=== PATIENT | female | born 2000 | race Caucasian/White ===

== ENCOUNTER 2019-07-04 18:24 | Inpatient (IN) | payer SELFPAY ==
--- OUTSIDE RECORDS SUMMARY | 2019-07-04 18:26 | XMS REPORT ---
:2000 Author Organization [facility] Address [address] [place] [address] Care Team Providers Name Role Phone Unavailable Unavailable Unavailable Payers Payer Name Policy Type Policy Number Effective Date Expiration Date Problems This patient has no known problems. Allergies, Adverse Reactions, Alerts Allergy Allergy Status Severity Reaction(s) Onset Inactive Treating Comments Name Type Date Date Clinician latex DA Active MO 2018-04 00:00:0 0 latex DA Active MO 2018-03 00:00:0 0 Medications This patient has no known medications. Results Test Description Test Time Test Comments Text Results Atomic Results Result Comments [facility] 2018-05-17 RUN THIRD 13:07:00 DATE: 05/17/18 [facility] PAGE 1 RUN TIME: TRIMESTER 1810 Specimen Inquiry RUN USER: INTERFACE PATIE NT: JULIA KEENE LOC: BETI U #: [id number] AGE/SX: 18/F ROOM: [facility] REREG DR: Jhon Cuevas MD : [birth year] BED: A DIS: 05/15/18 STATUS: DIS IN TLOC: SPEC #: [id number] RECD: 05/11/18-0755 STATUS: DELROY RE #: [id number] MATI: 05/11/18- SUBM DR: Jhon Cuevas MD ENTERED: 05/12/18-0756 SP TYPE: PLACIII OTHR DR: ORDERED: LEVEL V SURGICA CODES: [id number] - PLACENTA, NOS PROCEDURES: LEVEL V SURGICA (Incomplete) TISSUES: PLACENTA, NOS - PLACENTA CLINICAL HISTORY 18 year old, 37 weeks, IDDM (derik) FINAL DIAGNOSIS Placenta, estrada gestation: - late third trimester villous architecture - lozalized areas with villous edema near basal plate - umbilical cord: hypercoiled, velamentous insertion, 3-vessel, 17 cm length - placental weight: actual 491 gm/expected mean weight 478 gm Tissue code: 1 CPT Code: 82131 [facility]/kr 05/17/18 @ 1255 GROSS DESCRIPTION The specimen was received in a container labeled with the patient's name, unit number, and designated "placenta". The following attributes are observed: Cord insertion: Velamentous umbilical cord inserts into the membrane, 2 cm from the placental margin Cord length: 17 cm Number of vessels: 3 Cord color: Blue-mcintosh Other cord findings: Increased twists, 10 twists / 10 cm surface findings: Steel blue, wrinkled, glistening and contains small pieces of off-white, caseous material (in A) Vasculature: Displays unremarkable blood vasculature Membranes rupture site: 0 cm to margin Membrane color: Mcintosh Other membrane findings: Thickened opaque CONTINUED ON NEXT PAGE RUN DATE: 05/17/18 [facility] PAGE 2 RUN TIME: 1809 Specimen Inquiry RUN USER: INTERFACE SPEC #: [id number] PATIENT: JULIA KEENE # [id number] (Continued) ------ GROSS DESCRIPTION (Continued) The trimmed placental weight: 491 gm Disk measurement: 19 x 17 x 3.2 cm in greatest dimension Accessory lobes: None Maternal surface: Lobulated and intact Parenchyma: Red, beefy, and spongy Parenchyma lesions: None Cassettes: A through D sally/kr 05/12/18 @ 1043 MICROSCOPIC DESCRIPTION Villous architecture is late third trimester. A few areas of villous edema are present near the basal plate. anabelle/kr 05/17/18 @ 1255 Signed Jewel Salmeron 10 1307 END OF REPORT
--- NOTE | 2019-07-04 20:08 | EDPHYS ---
Physician Documentation [facility] Name: Oswald Peters Age: 19 yrs Sex: Female : 2000 Arrival Date: 07/04/2019 Time: 18:26 Bed 27 Private MD: ED Physician Collin Sotelo HPI: 07/04 19:53 This 19 yrs old Female presents to ER via Ambulatory with complaints of Back meet Pain, Dizziness. 19:53 The patient presents with pain that is acute. The symptoms are located in the left low meet back, left mid back, right mid back and right low back. Onset: The symptoms/episode began/occurred 2 day(s) ago. The pain does not radiate. Associated signs and symptoms: The patient has no apparent associated signs or symptoms. The problem was sustained from unknown cause. Modifying factors: The patient symptoms are alleviated by nothing, the patient symptoms are aggravated by movement, walking. Severity of symptoms: At their worst the symptoms were moderate, in the emergency department the symptoms are unchanged. The patient has experienced similar episodes in the past, a few times. 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 - Social history:: Smoking status: Patient uses tobacco products, smokes one-half pack cigarettes per day. - Ebola Screening: : No symptoms or risks identified at this time. - Family history:: not pertinent. ROS: 19:53 Constitutional: Negative for fever, chills, and weight loss, Eyes: Negative for injury, meet pain, redness, and discharge, ENT: Negative for injury, pain, and discharge, Neck: Negative for injury, pain, and swelling, Respiratory: Negative for shortness of breath, cough, wheezing, and pleuritic chest pain, Abdomen/GI: Negative for abdominal pain, nausea, vomiting, diarrhea, and constipation, MS/Extremity: Negative for injury and deformity, Skin: Negative for injury, rash, and discoloration, Neuro: Negative for headache, weakness, numbness, tingling, and seizure, Psych: Negative for depression, anxiety, suicide ideation, homicidal ideation, and hallucinations, Allergy/Immunology: Negative for hives, rash, and allergies, Endocrine: Negative for neck swelling, polydipsia, polyuria, polyphagia, and marked weight changes, Hematologic/Lymphatic: Negative for swollen nodes, abnormal bleeding, and unusual bruising. 19:53 Cardiovascular: Positive for palpitations. 19:53 Back: Positive for decreased range of motion, pain at rest, pain with movement, flank pain, bilaterally. Exam: 19:53 Head/Face: Normocephalic, atraumatic. Eyes: Pupils equal round and reactive to light, meet extra-ocular motions intact. Lids and lashes normal. Conjunctiva and sclera are non-icteric and not injected. Cornea within normal limits. Periorbital areas with no swelling, redness, or edema. ENT: Nares patent. No nasal discharge, no septal abnormalities noted. Tympanic membranes are normal and external auditory canals are clear. Oropharynx with no redness, swelling, or masses, exudates, or evidence of obstruction, uvula midline. Mucous membranes moist. Neck: Trachea midline, no thyromegaly or masses palpated, and no cervical lymphadenopathy. Supple, full range of motion without nuchal rigidity, or vertebral point tenderness. No Meningismus. Chest/axilla: Normal chest wall appearance and motion. Nontender with no deformity. No lesions are appreciated. Respiratory: Lungs have equal breath sounds bilaterally, clear to auscultation and percussion. No rales, rhonchi or wheezes noted. No increased work of breathing, no retractions or nasal flaring. Abdomen/GI: Soft, non-tender, with normal bowel sounds. No distension or tympany. No guarding or rebound. No evidence of tenderness throughout. Female : Normal external genitalia. Skin: Warm, dry with normal turgor. Normal color with no rashes, no lesions, and no evidence of cellulitis. MS/ Extremity: Pulses equal, no cyanosis. Neurovascular intact. Full, normal range of motion. Neuro: Awake and alert, GCS 15, oriented to person, place, time, and situation. Cranial nerves II-XII grossly intact. Motor strength 5/5 in all extremities. Sensory grossly intact. Cerebellar exam normal. Normal gait. Psych: Awake, alert, with orientation to person, place and time. Behavior, mood, and affect are within normal limits. 19:53 Constitutional: The patient appears in obvious distress, moderately distressed. 19:53 Cardiovascular: Rate: tachycardic, Rhythm: regular, Pulses: Pulses are 4+ in bilateral radial, brachial, femoral, popliteal, posterior tibial and and dorsalis pedis arteries.. Heart sounds: normal, normal S1and S2, no S3 or S4, no murmur, no rub, no gallop, Edema: is not appreciated, JVD: is not appreciated. Vital Signs: 18:36 BP 133 / 81; Pulse 130; Resp 20; Temp 99.2; Pulse Ox 100% on R/A; Weight 58.97 kg; hb Height 5 ft. 3 in. (160.02 cm); Pain 10/10; 21:20 BP 105 / 058; Pulse 92; Resp 17; Temp 99.7; Pulse Ox 100% ; Pain 8/10; fu 21:30 BP 101 / 64; Pulse 91; Resp 20; Temp 99.7; Pulse Ox 100% ; Pain 4/10; fu 22:00 BP 105 / 66; Pulse 95; Resp 24; Pulse Ox 100% ; Pain 8/10; fu 18:36 Body Mass Index 23.03 (58.97 kg, 160.02 cm) hb MDM: 18:57 Patient medically screened. [facility] 19:56 Data reviewed: vital signs, nurses notes, lab test result(s), EKG, radiologic studies, [facility] CT scan, plain films. 07/04 19:53 Order name: Basic Metabolic Panel; Complete Time: 21:04 [facility] 07/04 19:53 Order name: CBC with Diff; Complete Time: 20:27 [facility] 07/04 19:53 Order name: LFT's; Complete Time: 21:04 [facility] 07/04 19:53 Order name: Magnesium; Complete Time: 21:04 [facility] 07/04 19:53 Order name: Troponin (emerg Dept Use Only); Complete Time: 21:04 [facility] 07/04 19:53 Order name: Ketone, Serum; Complete Time: 21:04 [facility] 07/04 19:53 Order name: Blood Culture Adult (2) [facility] 07/04 19:53 Order name: ABG; Complete Time: 21:34 [facility] 07/04 19:53 Order name: Urine Culture [facility] 07/04 20:17 Order name: Urine Dipstick--Ancillary (enter results); Complete Time: 21:04 [facility] 07/04 20:17 Order name: Urine --Ancillary (enter results); Complete Time: 21:04 [facility] 07/04 20:42 Order name: Acetone Level EDMS 07/04 20:42 Order name: Acetone Level EDMS 07/04 20:42 Order name: Acetone Level EDMS 07/04 20:42 Order name: Acetone Level EDMS 07/04 20:42 Order name: Basic Metabolic Panel EDMS 07/04 20:42 Order name: Basic Metabolic Panel EDMS 07/04 20:42 Order name: Basic Metabolic Panel EDMS 07/04 20:42 Order name: Basic Metabolic Panel EDMS 07/04 20:42 Order name: Calcium Level EDMS 07/04 20:42 Order name: Calcium Level EDMS 07/04 20:42 Order name: Calcium Level EDMS 07/04 20:42 Order name: Calcium Level EDMS 07/04 20:42 Order name: Lipid Profile EDMS 07/04 20:42 Order name: Lipid Profile EDMS 07/04 20:42 Order name: Magnesium EDMS 07/04 20:42 Order name: Magnesium EDMS 07/04 20:43 Order name: CBC with Automated Diff EDMS 07/04 20:43 Order name: CBC with Automated Diff EDMS 07/04 20:43 Order name: CBC with Automated Diff EDMS 07/04 19:53 Order name: XRAY Chest (1 view); Complete Time: 20:27 [facility] 07/04 19:53 Order name: EKG; Complete Time: 19:54 [facility] 07/04 19:53 Order name: Cardiac monitoring; Complete Time: 21:10 [facility] 07/04 19:53 Order name: EKG - Nurse/Tech; Complete Time: 21:30 [facility] 07/04 19:53 Order name: IV Saline Lock; Complete Time: 21:30 [facility] 07/04 19:53 Order name: Labs collected and sent; Complete Time: 21:30 [facility] 07/04 19:53 Order name: O2 Per Protocol; Complete Time: 21:30 [facility] 07/04 19:53 Order name: O2 Sat Monitoring; Complete Time: 21:30 [facility] 07/04 19:53 Order name: CT Stone Protocol [facility] 07/04 19:53 Order name: Urine Dipstick-Ancillary (obtain specimen); Complete Time: 21:30 [facility] 07/04 20:43 Order name: CONS Pharmacy Consult EDPR 07/04 20:43 Order name: CBC with Automated Diff EDMS 07/04 20:43 Order name: Magnesium EDMS 07/04 20:43 Order name: Magnesium EDMS 07/04 20:43 Order name: Osmolality, Serum EDMS 07/04 20:43 Order name: Osmolality, Serum EDMS 07/04 20:43 Order name: Osmolality, Serum EDMS 07/04 20:43 Order name: Osmolality, Serum EDMS 07/04 20:43 Order name: Phosphorus EDMS 07/04 20:44 Order name: Phosphorus EDMS 07/04 20:44 Order name: Phosphorus EDMS 07/04 20:44 Order name: Phosphorus EDMS 07/04 21:14 Order name: Glucose, Ancillary Testing; Complete Time: 21:34 EDMS 07/04 22:22 Order name: Glucose, Ancillary Testing EDMS 07/04 19:53 Order name: Urine Test (obtain specimen); Complete Time: 21:29 [facility] Administered Medications: 20:35 Drug: Rocephin 1 grams Route: IV; Rate: per protocol; Site: left antecubital; fu 20:35 Drug: Pepcid 20 mg Route: IVP; Site: left antecubital; fu 20:36 Drug: NS 0.9% 1000 ml Route: IV; Rate: 1 bolus; Site: left antecubital; fu 20:36 Drug: morphine 2 mg Route: IVP; Site: left antecubital; fu 20:36 Drug: Zofran 4 mg Route: IVP; Site: left antecubital; fu 21:00 Drug: Insulin Drip - (Insulin Regular Human 100 units, NS 0.9% 100 ml) {Co-Signature: aj1 (Alexa Morrissey RN).} Route: IV; Rate: 5 units/hr; Site: left antecubital; 21:29 Drug: NS 0.9% 1000 ml Route: IV; Rate: 1 bolus; Site: left antecubital; fu 21:29 Drug: NS 0.9% 1000 ml Route: IV; Rate: 125 ml/hr; Site: left antecubital; fu 21:45 Drug: morphine 2 mg Route: IVP; Site: left antecubital; fu Disposition: 07/04/19 20:06 Hospitalization ordered by Corinna Pope for Inpatient Admission. Preliminary diagnosis are Type 1 diabetes mellitus, Weakness, Low back pain, Dysuria, Diabetes mellitus due to underlying condition with ketoacidosis without coma. - Bed requested for Intensive Care Unit. - Status is Inpatient Admission. ss - Condition is Fair. - Problem is new. - Symptoms have improved. UTI on Admission? No Signatures: Dispatcher [employer] EDMS Collin Sotelo MD MD cha Smirch, Shelby, RN RN Cristin Darling RN RN cg Elsa Gage RN RN Pipe Young RN RN fu Alexa Morrissey RN aj1 Corrections: (The following items were deleted from the chart) 20:28 20:06 Hospitalization Ordered by Corinna Pope MD for Inpatient Admission. Preliminary [facility] diagnosis is Type 1 diabetes mellitus; Weakness; Low back pain; Dysuria. Bed requested for Telemetry/MedSurg (Inpatient). Status is Inpatient Admission. Condition is Fair. Problem is new. Symptoms have improved. UTI on Admission? No. meet 20:49 20:28 07/04/2019 20:06 Hospitalization Ordered by Corinna Pope MD for Inpatient meet Admission. Preliminary diagnosis is Type 1 diabetes mellitus; Weakness; Low back pain; Dysuria. Bed requested for Intensive Care Unit. Status is Inpatient Admission. Condition is Fair. Problem is new. Symptoms have improved. UTI on Admission? No. meet 21:16 20:49 07/04/2019 20:06 Hospitalization Ordered by Corinna Pope MD for Inpatient cg Admission. Preliminary diagnosis is Type 1 diabetes mellitus; Weakness; Low back pain; Dysuria; Diabetes mellitus due to underlying condition with ketoacidosis without coma. Bed requested for Intensive Care Unit. Status is Inpatient Admission. Condition is Fair. Problem is new. Symptoms have improved. UTI on Admission? No. meet 22:31 21:16 07/04/2019 20:06 Hospitalization Ordered by Corinna Pope MD for Inpatient ss Admission. Preliminary diagnosis is Type 1 diabetes mellitus; Weakness; Low back pain; Dysuria; Diabetes mellitus due to underlying condition with ketoacidosis without coma. Bed requested for Intensive Care Unit. Status is Inpatient Admission. Condition is Fair. Problem is new. Symptoms have improved. UTI on Admission? No. cg
--- NOTE | 2019-07-04 20:08 | ER ---
Nurse's Notes [facility] Name: Oswald Peters Age: 19 yrs Sex: Female : 2000 Arrival Date: 07/04/2019 Time: 18:26 Bed 27 Private MD: Diagnosis: Type 1 diabetes mellitus;Weakness;Low back pain;Dysuria;Diabetes mellitus due to underlying condition with ketoacidosis without coma Presentation: 07/04 18:34 Presenting complaint: N/V, chills, malaise, and body aches x 2 days. Pt reports she is hb Type 1 diabetic, today BGL 400s. Transition of care: patient was not received from another setting of care. Onset of symptoms was July 03, 2019. Risk Assessment: Do you want to hurt yourself or someone else? Patient reports no desire to harm self or others. Care prior to arrival: None. 18:34 Method Of Arrival: Ambulatory hb 18:34 Acuity: ASIA 3 hb 21:26 Initial Sepsis Screen: Does the patient meet any 2 criteria? No. Patient's initial fu sepsis screen is negative. 21:33 Initial Sepsis Screen: Does the patient meet any 2 criteria? Does the patient have a fu suspected source of infection? No. Patient's initial sepsis screen is negative. 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 - Social history:: Smoking status: Patient uses tobacco products, smokes one-half pack cigarettes per day. - Ebola Screening: : No symptoms or risks identified at this time. - Family history:: not pertinent. Screenin:32 Abuse screen: Denies threats or abuse. Nutritional screening: No deficits noted. fu Tuberculosis screening: No symptoms or risk factors identified. Fall Risk None identified. Assessment: 19:16 General: Appears uncomfortable, Behavior is calm, cooperative, appropriate for age, fu Denies fever, chills, back pain more on the right side. Pain: Complains of pain in back pain more on the right. Pain does not radiate. Pain currently is 10 out of 10 on a pain scale. Pain began about a month ago. Is intermittent. Neuro: Level of Consciousness is awake, alert, obeys commands, Oriented to person, place, time, situation, [employer] are equal bilaterally Moves all extremities. Denies numbness in bilateral legs. Cardiovascular: Denies chest pain, Heart tones S1 S2 Capillary refill < 3 seconds. Respiratory: Reports pain with respiration Airway is patent Breath sounds are clear bilaterally. GI: Patient currently denies diarrhea, nausea, vomiting. EENT: No signs and/or symptoms were reported regarding the EENT system. Derm: No signs and/or symptoms reported regarding the dermatologic system. Musculoskeletal: No signs and/or symptoms reported regarding the musculoskeletal system. 20:00 Reassessment: No changes from previously documented assessment. Patient and/or family fu updated on plan of care and expected duration. Pain level reassessed. Patient is alert, oriented x 3, equal unlabored respirations, skin warm/dry/pink. 21:00 Reassessment: Patient and/or family updated on plan of care and expected duration. Pain fu level reassessed. Patient is alert, oriented x 3, equal unlabored respirations, skin warm/dry/pink. Patient states symptoms have improved. 22:00 Reassessment: Patient appears in no apparent distress at this time. No changes from fu previously documented assessment. Patient and/or family updated on plan of care and expected duration. Pain level reassessed. Patient is alert, oriented x 3, equal unlabored respirations, skin warm/dry/pink. notified regarding ICU admission. Vital Signs: 18:36 BP 133 / 81; Pulse 130; Resp 20; Temp 99.2; Pulse Ox 100% on R/A; Weight 58.97 kg; hb Height 5 ft. 3 in. (160.02 cm); Pain 10/10; 21:20 BP 105 / 058; Pulse 92; Resp 17; Temp 99.7; Pulse Ox 100% ; Pain 8/10; fu 21:30 BP 101 / 64; Pulse 91; Resp 20; Temp 99.7; Pulse Ox 100% ; Pain 4/10; fu 22:00 BP 105 / 66; Pulse 95; Resp 24; Pulse Ox 100% ; Pain 8/10; fu 18:36 Body Mass Index 23.03 (58.97 kg, 160.02 cm) hb ED Course: 18:26 Patient arrived in ED. rg4 18:35 Triage completed. hb 18:36 Arm band placed on. hb 18:57 Pipe Young, RN is Primary Nurse. fu 18:57 Collin Sotelo MD is Attending Physician. meet 19:32 Patient has correct armband on for positive identification. Bed in low position. Call fu light in reach. Side rails up X 1. 20:01 Radiology exam delayed due to test not completed at this time. 2 20:03 Corinna Pope MD is Hospitalizing Provider. meet 20:03 Inserted saline lock: 20 gauge in left antecubital area, using aseptic technique. fu 20:05 Initial lab(s) drawn, by ms, sent to lab. fu 20:10 XRAY Chest (1 view) In Process Unspecified. EDMS 20:[address] via stretcher. 20:44 CT completed. Patient tolerated procedure well. Patient moved back from CT. 20:44 Notified ED physician of a critical lab result(s). bicarb of 12. fc 20:49 CT Stone Protocol In Process Unspecified. EDMS 21:26 No provider procedures requiring assistance completed. fu 22:26 Patient admitted, IV remains in place. fu Administered Medications: 20:35 Drug: Rocephin 1 grams Route: IV; Rate: per protocol; Site: left antecubital; fu 20:35 Drug: Pepcid 20 mg Route: IVP; Site: left antecubital; fu 20:36 Drug: NS 0.9% 1000 ml Route: IV; Rate: 1 bolus; Site: left antecubital; fu 20:36 Drug: morphine 2 mg Route: IVP; Site: left antecubital; fu 20:36 Drug: Zofran 4 mg Route: IVP; Site: left antecubital; fu 21:00 Drug: Insulin Drip - (Insulin Regular Human 100 units, NS 0.9% 100 ml) {Co-Signature: aj1 (Alexa Morrissey RN).} Route: IV; Rate: 5 units/hr; Site: left antecubital; 21:29 Drug: NS 0.9% 1000 ml Route: IV; Rate: 1 bolus; Site: left antecubital; fu 21:29 Drug: NS 0.9% 1000 ml Route: IV; Rate: 125 ml/hr; Site: left antecubital; fu 21:45 Drug: morphine 2 mg Route: IVP; Site: left antecubital; fu Outcome: 20:06 Decision to Hospitalize by Provider. meet 22:21 Admitted to ICU accompanied by nurse, via stretcher, room 2, on monitor. fu 22:25 Condition: improved fu 22:31 Patient left the ED. ss Signatures: Dispatcher [employer] EDND Collin Sotelo MD MD cha Hagler, Ervin eh Chretien, Felicia, RN RN Tara Gonzalez RN RN Elsa Gage RN RN Ayah Montano 4 Lucia English 2 Pipe Young RN RN Alexa Morrissey RN aj1 Corrections: (The following items were deleted from the chart) 18:36 18:34 Acuity: ASIA 2 hb hb 20:01 19:56 Radiology exam delayed due to lab results not completed at this time. vm2 (BUN/Creatinine) vm2
[2019-07-04] MEDS ORDERED: NA CHLORIDE 0.9% 3,000 ML ONE (20:10)
[2019-07-04] MEDS ORDERED: CEFTRIAXONE/SWI 1gm 1 GM/10 ML SYR ONE (20:12)
[2019-07-04] MEDS ORDERED: ONDANSETRON 4 MG/2 ML VIAL ONE (20:12)
[2019-07-04] MEDS ORDERED: MORPHINE 2 MG/ML SYR ONE ×2 (20:12→21:44)
[2019-07-04] MEDS ORDERED: FAMOTIDINE 20 MG/2 ML VIAL IV ONE (20:12)
--- NOTE | 2019-07-04 20:18 | RAD REPORT ---
EXAM DESCRIPTION: RAD - Chest Single View - 07/04/2019 8:10 pm CLINICAL HISTORY: COUGH Chest pain. COMPARISON: Chest Pa And Lat (2 Views) dated 02/08/2017; Chest Single View dated 01/31/2017; CHEST SIN GLE VIEW dated 10/01/2014; CHEST SINGLE VIEW dated 06/22/2010 FINDINGS: Portable technique limits examination quality. The lungs are grossly clear. The heart is normal in size. No displaced fractures. IMPRESSION: No acute intrathoracic process suspected.
[2019-07-04 20:24] LABS: Basophils % 0.1 % (0-1.3); Lymphocytes % 10.3 % (15.3-44.8); MPV 7.8 fL (7.6-11.3); RBC Red Blood Cell Count 4.97 M/uL (3.86-4.86)
[2019-07-04] MEDS ORDERED: ONDANSETRON 4 MG/2 ML VIAL IV PRN (20:35)
[2019-07-04 20:43] LABS: ALT/SGPT 14 U/L (12-78); AST/SGOT 9 U/L (15-37); Albumin 3.8 g/dL (3.4-5.0); Alkaline Phosphatase 133 U/L (45-117); BUN Blood Urea Nitrogen 11 mg/dL (7-18); Bilirubin Direct 0.2 mg/dL (0-0.2); Bilirubin Total 0.6 mg/dL (0.2-1.0); Glucose Level 400 mg/dL (74-106); Potassium 4.5 mmol/L (3.5-5.1); Protein, Total 8.4 g/dL (6.4-8.2); Sodium Level 130 mmol/L (136-145); Troponin (Emerg Dept Use Only) < 0.02 ng/mL (0.0-0.045)
[2019-07-04] MEDS ORDERED: INSULIN -REGULAR HUMAN 50 UNIT/0.5 ML ML ONE (20:43)
[2019-07-04] MEDS ORDERED: NA CHLORIDE 0.9% 100 ML IV ONE (20:43)
[2019-07-04 20:45] LABS: Bicarbonate 12 mmol/L (21-32)
[2019-07-04] MEDS ORDERED: INSULIN -REGULAR HUMAN 100 UNIT in NA CHLORIDE 0.9% 100 ML IV SCH (20:45)
[2019-07-04 20:56] LABS: Urine Blood NEGATIVE (NEG); Urine Glucose 2+ (NEG); Urine Protein NEGATIVE (NEG)
[2019-07-04] MEDS: NA CHLORIDE 0.9% 1,000 ML IV SCH (21:00)
[2019-07-04 21:29] LABS: Arterial Blood Carboxyhemoglob 1.5 % (0-1.5); Blood Gas Oxyhemoglobin 95.3 % (94-97); Blood O2 Saturation 97.7 % (92-98.5)
[2019-07-04 23:09] LABS: BUN Blood Urea Nitrogen 10 mg/dL (7-18); Bicarbonate 15 mmol/L (21-32); Glucose Level 244 mg/dL (74-106); Potassium 4.4 mmol/L (3.5-5.1); Sodium Level 138 mmol/L (136-145)
[2019-07-04] MEDS: D5 0.45 NS 1,000 ML IV SCH (23:16)
[2019-07-05 00:25] VITALS: O2SAT 100; BMI 22.5
[2019-07-05 01:20] VITALS: TEMP 98.7
[2019-07-05] MEDS: NA CHLORIDE 0.9% 1,000 ML IV SCH (02:00)
[2019-07-05 02:56] LABS: BUN Blood Urea Nitrogen 7 mg/dL (7-18); Bicarbonate 20 mmol/L (21-32); Glucose Level 218 mg/dL (74-106); Potassium 4.3 mmol/L (3.5-5.1); Sodium Level 138 mmol/L (136-145)
[2019-07-05] MEDS: D5 0.45 NS 1,000 ML IV SCH (03:50)
[2019-07-05] MEDS ORDERED: INSULIN GLARGINE 100 UNITS/ML SQ ONE ×2 (06:08→06:17)
[2019-07-05] MEDS ORDERED: GLUCAGON 1 MG/VIAL IM PRN ×2 (06:08→07:38)
[2019-07-05] MEDS ORDERED: D50W 25 GM/50 ML SYRINGE/VIAL IV PRN ×2 (06:08→07:38)
[2019-07-05 06:15] LABS: Absolute Lymphocytes (CBC) 1.6 K/uL (0.7-4.9); Basophils % 0.2 % (0-1.3); Hematocrit 34.6 % (36.0-45.0); Lymphocytes % 27.3 % (15.3-44.8); MPV 7.8 fL (7.6-11.3); RBC Red Blood Cell Count 3.95 M/uL (3.86-4.86)
[2019-07-05 06:33] LABS: Phosphorus 2.7 mg/dL (2.5-4.9)
[2019-07-05 06:40] LABS: BUN Blood Urea Nitrogen 6 mg/dL (7-18); Bicarbonate 24 mmol/L (21-32); Glucose Level 168 mg/dL (74-106); Potassium 4.1 mmol/L (3.5-5.1); Sodium Level 139 mmol/L (136-145)
[2019-07-05] MEDS ORDERED: NA CHLORIDE 0.9% 1,000 ML IV SCH (07:00)
--- NOTE | 2019-07-05 07:14 | P.HP ---
Certification for Inpatient Patient admitted to: Inpatient With expected LOS: >2 Midnights Patient will require the following post-hospital care: None Practitioner: I am a practitioner with admitting privileges, knowledge of patient current condition, hospital course, and medical plan of care. Services: Services provided to patient in accordance with Admission requirements found in Title 42 Section 412.3 of the Code of Federal Regulations Patient History Date of Service: 07/04/19 Reason for admission: Diabetic ketoacidosis/right flank pain History of Present Illness: Patient is a 19-year-old female came into the hospital with pain in her right flank. She has also had some nausea and vomiting. She is a type 1 diabetic but she does not monitor her sugars closely. In the ER she was found have diabetic ketoacidosis. She was given IV fluids and IV insulin. She has also been started on an insulin drip. Will continue to monitor her over night. If her blood sugars improve in her acidosis resolves will go ahead and start her on a diet in the morning. She has had the flank tenderness for 2 months. It comes and goes. She is not really able to do much whenever it it happens. She has had a hard time caring for her children. Allergies amoxicillin Allergy (Verified 07/05/19 01:37) hallucination Latex, Natural Rub Allergy (Uncoded 07/05/19 01:37) Hives/Rash Home Medications: Insulin NPH Human Isophane [Novolin N] 10 unit SQ BID 07/05/19 Insulin Regular, Human [Novolin R] See Protocol SQ BID 07/05/19 - Past Medical/Surgical History Has patient received pneumonia vaccine in the past: No Diabetic: Yes -: IDDM -: CVA -: seizures -: high cholesterol -: hyperthyroid -: depression -: previous suicide attempt -: X2 - Family History Father Family History: Reviewed- Non-Contributory - Social History Smoking Status: Current every day smoker Alcohol use: No CD- Drugs: No Caffeine use: Yes Place of Residence: Home Review of Systems 10-point ROS is otherwise unremarkable Physical Examination - Vital Signs Temperature: 98.7 F Blood Pressure: 117/67 Pulse: 99 Respirations: 13 Pulse Ox (%): 99 - Physical Exam General: Alert, In no apparent distress, Oriented x3 HEENT: Atraumatic, PERRLA, Mucous membr. moist/pink, EOMI, Sclerae nonicteric Neck: Supple, 2+ carotid pulse no bruit, No LAD, Without JVD or thyroid abnormality Respiratory: Clear to auscultation bilaterally, Normal air movement Cardiovascular: Regular rate/rhythm, Normal S1 S2, No murmurs Gastrointestinal: Normal bowel sounds, Soft and benign, Non-distended, No tenderness Musculoskeletal: No clubbing, No swelling, No tenderness Integumentary: No rashes Neurological: Normal gait, Normal speech, Normal strength at 5/5 x4 extr, Normal tone, Sensation intact, Cranial nerves 3-12 intact, Normal affect Lymphatics: No axilla or inguinal lymphadenopathy - Studies Laboratory Data (last 24 hrs) 07/04/19 19:55: WBC 9.8, Hgb 14.8, Hct 45.0, Plt Count 274 07/04/19 19:55: Sodium 130 L, Potassium 4.5, BUN 11, Creatinine 0.71, Glucose 400 H, Magnesium 2.0, Total Bilirubin 0.6, AST 9 L, ALT 14, Alkaline Phosphatase 133 H Assessment & Plan - Problems (Diagnosis) (1) Diabetic ketoacidosis Current Visit: No Status: Acute (2) Flank pain, chronic Current Visit: Yes Status: Acute - Plan 1. IV hydration 2. Insulin drip 3. Accu-Cheks q1h 4. Measure anion gap every 2 hrs 5. Resume diet once anion gap is closed and will resume insulin pump 6. Diabetic education 7. Long-acting insulin once patient able to tolerate diet and at that time will discontinue insulin drip Discharge Plan: Home Plan to discharge in: 24 Hours - Advance Directives Does patient have a Living Will: No Does patient have a Durable POA for Healthcare: No - Code Status/Comfort Care Code Status Assessed: Yes Code Status: Full Code Critical Care: No Time Spent Managing PTS Care (In Minutes): 45
--- NOTE | 2019-07-05 07:15 | P.DS ---
Discharge Date: 07/05/19 Disposition: ROUTINE DISCHARGE Discharge Condition: GOOD Reason for Admission: Diabetic ketoacidosis/right flank pain - Problems (1) Diabetic ketoacidosis Current Visit: No Status: Acute (2) Flank pain, chronic Current Visit: Yes Status: Acute Brief History of Present Illness: Patient is a 19-year-old female came into the hospital with pain in her right flank. She has also had some nausea and vomiting. She is a type 1 diabetic but she does not monitor her sugars closely. In the ER she was found have diabetic ketoacidosis. She was given IV fluids and IV insulin. She has also been started on an insulin drip. Will continue to monitor her over night. If her blood sugars improve in her acidosis resolves will go ahead and start her on a diet in the morning. She has had the flank tenderness for 2 months. It comes and goes. She is not really able to do much whenever it it happens. She has had a hard time caring for her children. Hospital Course: Patient's anion gap has closed. Will go ahead and place her on long-acting insulin. She will advance diet and if she tolerates it than she should be able to go home Vital Signs/Physical Exam: Temp Pulse Resp BP Pulse Ox 98.7 F 99 H 13 117/67 99 07/05/19 07:14 07/05/19 07:14 07/05/19 07:14 07/05/19 07:14 07/05/19 07:14 General: Alert, In no apparent distress, Oriented x3 Laboratory Data at Discharge: WBC 5.7 K/uL (4.3-10.9) D 07/05/19 05:45 Hgb 11.7 g/dL (12.0-15.0) L D 07/05/19 05:45 Hct 34.6 % (36.0-45.0) L D 07/05/19 05:45 Plt Count 236 K/uL (152-406) 07/05/19 05:45 Sodium 139 mmol/L (136-145) 07/05/19 05:45 Potassium 4.1 mmol/L (3.5-5.1) 07/05/19 05:45 BUN 6 mg/dL (7-18) L 07/05/19 05:45 Creatinine 0.56 mg/dL (0.55-1.3) 07/05/19 05:45 Glucose 168 mg/dL (74-106) H 07/05/19 05:45 Phosphorus 2.7 mg/dL (2.5-4.9) 07/05/19 05:45 Magnesium 2.0 mg/dL (1.8-2.4) 07/05/19 05:45 Total Bilirubin 0.6 mg/dL (0.2-1.0) 07/04/19 19:55 AST 9 U/L (15-37) L 07/04/19 19:55 ALT 14 U/L (12-78) 07/04/19 19:55 Alkaline Phosphatase 133 U/L (45-117) H 07/04/19 19:55 Triglycerides 124 mg/dL (<150) 07/05/19 05:45 Cholesterol 128 mg/dL (<200) 07/05/19 05:45 HDL Cholesterol 38 mg/dL (40-60) L 07/05/19 05:45 Cholesterol/HDL Ratio 3.37 07/05/19 05:45 Home Medications: Insulin NPH Human Isophane [Novolin N] 10 unit SQ BID 07/05/19 Insulin Regular, Human [Novolin R] See Protocol SQ BID 07/05/19 Patient Discharge Instructions: OK TO DC IV AND DC HOME if tolerates breakfast and lunch. FOLLOW-UP WITH PRIMARY CARE PROVIDER IN 1-2 WEEKS. RETURN TO THE ER IF symptoms worsen. CALL or TEXT DR. MONTERO AT [phone] IF ANY QUESTIONS REGARDING HOSPITAL STAY. PLEASE CALL THE FLOOR AT [phone] IF ANY MEDICATION OR NURSING QUESTIONS. Diet: ADA Activity: Fall precautions Time spent managing pt's care (in minutes): 30
[2019-07-05] MEDS ORDERED: INFLUENZA VACCINE (for 3y+) 0.5 ML DOSE IMVAC ONE (08:00)
[2019-07-05] MEDS ORDERED: PNEUMOCOCCAL VACCINE 0.5 ML IMVAC ONE (08:00)
[2019-07-05] MEDS: INSULIN -REGULAR HUMAN 50 UNIT/0.5 ML ML SQ SCH ×2 (08:04→12:11)
--- NOTE | 2019-07-05 09:43 | EKG ---
Test Date: 2019-07-04 Test Time: 21:29:04 [employer] Reading Teacher: RAMIRO MEASUREMENT RESULTS: Intervals: Rate: 93 MS: 132 QRSD: 78 QT: 388 QTc: 482 [place]: P: 54 MS: 132 QRS: 68 T: 62 INTERPRETIVE STATEMENTS: Normal sinus rhythm Prolonged QT Abnormal ECG Compared to ECG 02/08/2017 10:19:20 Prolonged QT interval now present Sinus tachycardia no longer present Electronically Signed On 07-05-19 09:41:48 CIVIL LABORATORY TECHNICIAN by Avery Milner
--- NOTE | 2019-07-05 09:47 | RAD REPORT ---
EXAM DESCRIPTION: CT ABDOMEN PELVIS WITHOUT IV CONTRAST COMPARISON: None CLINICAL HISTORY: Abdominal pain TECHNIQUE: Multiple helical axial images were obtained through the abdomen and pelvis without intrav enous contrast. Sagittal and coronal reformatted images are reviewed as well. All CT scans at this facility use dose modulation, iterative reconstruction, and/or weight-based dosi ng when appropriate to reduce radiation dose to as low as reasonably achievable. FINDINGS: Lung bases: Unremarkable. Liver: Homogenous attenuation is demonstrated. Liver appears large measuring 20 cm longitudinally. Gallbladder/biliary: Gallbladder appears unremarkable. No calcified gallstones. No evidence of biliar y ductal dilatation. Pancreas: Unremarkable. Spleen: Unremarkable. Adrenals: Unremarkable. Kidneys and ureters: No evidence of renal or ureteral stones. No hydronephrosis. Bladder: Unremarkable. Pelvic organs: Unremarkable. Bowel: No evidence of bowel obstruction. No bowel wall thickening. Appendix appears unremarkable. Peritoneum: No free air. No significant free fluid. Lymph nodes: Unremarkable. Vasculature: Unremarkable. Soft tissues: Unremarkable. Bones: Unremarkable. IMPRESSION: No evidence for an acute process within the abdomen or pelvis. Electronically signed by: Oscar Barraza MD 07/04/2019 9:14 PM CAR LOT ATTENDANT Due to temporary technical issues with the PACS/Fluency reporting system, reports are being signed by the in house radiologist as a courtesy to ensure prompt reporting. The interpreting radiologist is f ully responsible for the content of the report.
[2019-07-05 14:32] VITALS: BP 111/78
== END 2019-07-05 13:15 | disposition home or self-care (01) | DRG 639 ==
LOC: ER 18:24 → ERHOLD 20:35 → 3RD-ICU 22:14
PROVIDERS: ADMIT Hospitalist; ATTEND Hospitalist
DX: E10.10 Type 1 diabetes mellitus with ketoacidosis without coma (principal); R10.9 Unspecified abdominal pain; Z86.73 Personal history of transient ischemic attack (TIA), and cerebral infarction without residual deficits; F17.210 Nicotine dependence, cigarettes, uncomplicated; Z91.040 Latex allergy status; Z88.0 Allergy status to penicillin
CPT/HCPCS: 36415; 71045; 74176; 76377; 80048; 80061; 80076; 81003; 81025; 82010; 82310; 82805; 82947; 83735; 83930; 84100; 84484; 85025; 87040; 87086; 87088; 93005; 96374; 96375; 99285; J0696; J1815; J2270; J2405; J7030; J7799

== ENCOUNTER 2020-01-08 11:15 | Inpatient (IN) | payer SELFPAY ==
--- OUTSIDE RECORDS SUMMARY | 2020-01-08 11:17 | XMS REPORT ---
:2000 Author Organization [facility] t Address [address] [place] [address] Care Team Providers Name Role Phone Andrew IVAN Attending Clinician Brook RN, A Attending Clinician Unavailable Payers Payer Name Policy Type Policy Number Effective Date Expiration Date S ource Problems This patient has no known problems. Allergies, Adverse Reactions, Alerts Allergy Allergy Status Severity Reaction(s) Onset Inactive Treating Comm ents Source Name Type Date Date Clinician latex DA Active [place] [facility] [place] Active [place] [facility] [place] Medications This patient has no known medications. Procedures This patient has no known procedures. Encounters Start End Encounter Admission Attending Care Care Encounter Source Date/Time Date/Time Type Type Clinicians Facility Department ID 2019-11-10 2019-11-10 Letter SHERIDAN Morales [id number] 00:00:00 00:00:00 (Out) Shahid Coats [id number] [place] [id number] [place] [id number] 2019-11-05 2019-11-05 Nurse MADYSON Doe [id number] 00:00:00 00:00:00 Triage Paula MONTANEZ [id number] [facility] [id number] 2019-10-31 2019-10-31 Emergency Andrew [facility] [id number] 18:21:01 18:54:00 Shahid Coats [id number] [place] [id number] [place] [id number] Results Test Description Test Time Test Comments Results Result Comments Source [facility] 2018-05-17 [place] 13:07:00 RUN DATE: 05/17/18 [facility] PAGE 1 RUN TIME: 1810 Specimen Inquiry RUN USER: INTERFACE SHRUTI IENT: JULIA KEENE LOC: [facility] U #: [id number] AGE/SX: 18/F ROOM: [facility] RE05/11/18REG DR: Jhon Cuevas MD : 98 BED: A DIS: 05/15/18 STATUS: DIS IN TLOC: SPEC #: [id number] RECD: 05/11/18 STATUS: DELROY YOUNG #: [id number] MATI: 05/11/18- SUBM DR: Jhon Cuevas MD ENTERED: 05/12/18-755 SP TYPE: PLACIII OTHR DR: ORDERED: LEVEL V SURGICA CODES: [id number] - PLACENTA, NOS PROCEDURES: LEVEL V SURGICA (Incomplete) TISSUES: PLACENTA, NOS - PLACENTA CLINICAL HISTORY 18 year old, 37 weeks, IDDM (kr) FINAL DIAGNOSIS Placenta, estrada gestation: - late third trimester villous architecture - lozalized areas with villous edema near basal plate - umbilical cord: hypercoiled, velamentous insertion, 3-vessel, 17 cm length - placental weight: actual 491 gm/expected mean weight 478 gm Tissue code: 1 CPT Code: 29581 cds/kr 05/17/18 @ 1255 GROSS DESCRIPTION The specimen [...] [facility] PAGE 2 RUN TIME: 1810 Specimen Inquiry RUN USER: INTERFACE PRATEEK Loaiza #: [id number] PATIENT: JULIA KEENE #[id number] (Continued)-------- -------- GROSS DESCRIPTION (Continued) The trimmed placental weight: 491 gm Disk measurement: 19 x 17 x 3.2 cm in greatest dimension Accessory lobes: None Maternal surface: Lobulated and intact Parenchyma: Red, beefy, and spongy Parenchyma lesions: None Cassettes: A through D sally/kr 05/12/18 @ 1048 MICROSCOPIC DESCRIPTION Villous architecture is late third trimester. A few areas of villous edema are present near the basal plate. anabelle/kr 05/17/18 @ 1255 - Signed Jewel Salmeron 05/17/18 1307 END OF REPORT
--- OUTSIDE RECORDS SUMMARY | 2020-01-08 11:18 | XMS REPORT | Summary of Care ---
:2000 Author Organization [facility] - [facility] Address [address] [place] [address] Care Team Providers Name Role Phone Pcp, Does Not Have A Primary Care Provider Reason for Visit Reason Comments SNEEZING Sore Throat Auth/Cert Status Reason Specialty Diagnoses / Referred By Referred To Procedures Contact Contact Emergency Medicine [facility] Em ergency Dept [address] [place] [address] [place] [address] Fax: Encounter Details Date Type Department Care Team Description 10/31/2019 Emergency [facility]-Emergency Shahid Rivera MD Cough (Primary Dx) Department [address] [place] [address] [address] [place] [address] [place] [address] Allergies Active Allergy Reactions Severity Noted Date Comments Clindamycin Hallucinations 01/28/2017 documented as of this encounter (statuses as of 10/31/2019) Medications Medication Sig Dispensed Refills Start Date End Date Status Insulin Use as directed 100 Syringe 3 01/28/2017 A ctive Syringe-Needle U-100 (INSULIN SYRINGE) 1 mL 30 gauge x 12/30 SyrgIndications: Uncontrolled type 1 diabetes mellitus with ketoacidosis without coma insulin NPH 100 inject 15 Units 27 mL 1 05/06/2017 Active unit/mL under the skin injectionIndications: every morning and Uncontrolled type 1 evening. diabetes mellitus with ketoacidosis without coma insulin regular human Take 8 units 15 mL 1 05/06/2017 Active 100 unit/mL before breakfast injectionIndications: and before dinner Uncontrolled type 1 plus sliding diabetes mellitus scale with ketoacidosis without coma blood sugar Glucose testing 120 Box 5 11/12/2017 A ctive diagnostic (RELION QID PRIME TEST STRIPS) strip montelukast 10 mg Take 1 tablet by 10 tablet 0 10/31/2019 Active tabletIndications: mouth daily. Cough benzonatate 100 mg Take 1 capsule by 14 capsule 0 10/31/2019 Active capsuleIndications: mouth 3 (three) Cough times daily as needed for Cough. documented as of this encounter (statuses as of 10/31/2019) Active Problems Problem Noted Date Rubella non-immune status, antepartum 11/03/2017 Overview: Address pp Susceptible to varicella (non-immune), currently pregn ant 11/03/2017 Overview: Address pp Multiparity 11/02/2017 History of section 11/02/2017 Overview: x2 Tobacco use during 11/02/2017 Overview: Reports quit Counseling for insulin pump 01/28/2017 Diabetes in 10/14/2012 Overview: ICD10 Diagnosis Term Delivery Tech Utility Hypothyroid in , antepartum 10/14/2012 Overview: Off of meds m2rosuw documented as of this encounter (statuses as of 10/31/2019) Resolved Problems Problem Noted Date Resolved Date H/O noncompliance with medical treatment, presenting hazards 11/11/2012 11/02/2017 to health High risk teen 10/14/2012 11/02/2017 documented as of this encounter (statuses as of 10/31/2019) Immunizations Name Administration Dates Next Due DTAP 2000 HIB 4 Dose Schedule 2000 Hep B, Adol or Pedi Dosage 2000 Meningococcal Polysaccharide (groups A, C, Y and W-135) 03/17 conjugate vaccine (MCV4P) Polio (IPV/OPV) 1998 Rubella 10/01/2012 Tdap 04/07/2012 Varicella (varivax)(chicken pox) 09/09/2012 documented as of this encounter Social History Tobacco Use Types Packs/Day Years Used Date Former Smoker Cigarettes 2017 - 0 10/13/2017 Smokeless Tobacco: Never Used Alcohol Use Drinks/Week oz/Week Comments No Sex Assigned at Date Recorded Not on file Job Start Date Occupation Industry Not on file Not on file Not on file Travel History Travel Start Travel End No recent travel history available. documented as of this encounter Last Filed Vital Signs Vital Sign Reading Time Taken Comments Blood Pressure 135/87 10/31/2019 6:20 PM CDT Pulse 104 10/31/2019 6:20 PM CDT Temperature 36.7 C (98 F) 10/31/2019 6:20 PM CDT Respiratory Rate 17 10/31/2019 6:20 PM CDT Oxygen Saturation 100% 10/31/2019 6:20 PM CDT Inhaled Oxygen Concentration - - Weight 61.7 kg (136 lb) 10/31/2019 6:20 PM CDT Height 157.5 cm (5' 2") 10/31/2019 6:20 PM CDT Body Mass Index 24.87 10/31/2019 6:20 PM CDT documented in this encounter Discharge Instructions InstructionsNeShahid hernandez MD - 10/31/2019 RETURN FOR ANY QUESTIONS OR CONCERNS Today you were seen by Shahid Rivera Jr., MD PLEASE CALL FOR TESTING WITH THE NUMBER FURNISHED YOU WERE NOT TESTED FOR COVID-19 IN THE ED You were seen today for Chief Complaint Patient presents with SNEEZING Sore Throat Your ER diagnosis was ICD-10-CM ICD-9-CM 1. Cough R05 786.2 NO LIFE-THREATENING FINDINGS ON TODAY'S EXAM. YOUR PRESCRIPTIONS : Check out [employer] for medication discounts Medication List ASK your doctor about these medications blood sugar diagnostic strip Commonly known as: RELION PRIME TEST STRIPS Glucose testing QID insulin NPH 100 unit/mL injection Commonly known as: HUMULIN N inject 15 Units under the skin every morning and evening. insulin regular human 100 unit/mL injection Commonly known as: HUMULIN R Take 8 units before breakfast and before dinner plus sliding scale Insulin Syringe-Needle U-100 1 mL 30 gauge x 5/16 Syrg Commonly known as: INSULIN SYRINGE Use as directed ER precautions and follow up : 1. Return to ER if your symptoms should worsen or fail to improve within 72 hours. 2. The care provided in the emergency room was for acute problems only. 3. You should follow up with your primary care provider within 72 hours. 4. Fill and take all your medications as prescribed. 5. Make sure you are staying adequately hydrated. Busque attencion immediatamente si usted tiene los sitomas sigue, vuelve peor o si hay sitomas nuevas o para cualquiera preoccupacion incluyendo dolor del pecho, falta aire, se siente debile, mas fievre, mas dolor, nausea, vomitando, sangrando que no es normal, confusion, baja or pierdas conciencia. MAY FOLLOW-UP WITH A PROVIDER OF YOUR CHOICE, SUCH : 1. A PHYSICIAN OF YOUR CHOICE 2. [facility], . LOCATIONS IN [facility] 3. [facility], [address] [place] [address]; [phone] OR, IF YOU WISH TO FOLLOW-UP WITHIN THE [facility], MAY TRY THESE OPTIONS (CLINIC APPOINTMENTS AVAILABLE ON GTFP-GN-CMCL BASIS): 1. SCHEDULE AN APPOINTMENT ONLINE AT WWW[facility] 2. OR CALL THE [facility] AT OR 3. OR CALL YOUR [facility] PHYSICIAN'S OFFICE DIRECTLY IF YOU ARE ALREADY AN ESTABLISHED [facility] PATIENT. [facility] RETURN TO WORK / SCHOOL EXCUSE Oswald Peters WAS SEEN IN THE ER AND DISCHARGED 10/31/2019 TODAY, 6:36 PM & May return to Work / School / Incarceration on X with activity as tolerated indicated below. ___The following limitations apply until pt is seen by Physician and cleared to return to normal activity. _X_ Off for two days and return to activity as tolerated at work or school ___ No Sports ___ No work ___ Do not return until fever free for 24 hours. ___ No school SHAHID RIVERA Jr., MD [facility] [address] [place] [address] [place] [address] ### The patient may have been given Narcotic pain medications during their stay in the ED that may show up on a Drug Screen. The hospital discharge paper work will identify these medications. AttachmentsThe following attachments cannot be sent through Care Everywhere. Cough, Chronic, Uncertain Cause (Adult) (Indonesian)documented in this encounter Plan of Treatment Health Maintenance Due Date Last Done Comments PNEUMOCOCCAL 0-64 YEARS 01/05/2004 COMBINED SERIES (1 of 1 - PPSV23) EYE EXAM 01/05/2008 LDL-C 01/05/2008 MENINGOCOCCAL B VACCINES (1 01/05/2008 of 2 - Risk Bexsero 2-dose series) URINE MICROALBUMIN 01/05/2008 VARICELLA VACCINES (2 of 2 - 10/07/2012 09/09/2012 13+ 2-dose series) HPV VACCINES (1 - Female 2013 3-dose series) HgA1C 05/05/2018 11/02/2017, 05/06/2017, 10/20/2012, Additional history exists FOOT EXAM 05/06/2018 05/06/2017, 05/06/2017, 01/28/2017, Additional history exists CHLAMYDIA SCREENING 11/02/2018 11/02/2017, 10/01/2012 CREATININE (SERUM) 11/19/2018 11/19/2017, 11/02/2017, 11/14/2012, Additional history exists PAP SMEAR 2019 INFLUENZA VACCINE (#1) 2019 DTaP,Tdap,and Td Vaccines (3 04/07/2022 04/07/2012, 998 - Td) MENINGOCOCCAL VACCINE Aged Out 04/02/2010 No longer eligible based on patient 's age to complete this topic documented as of this encounter Procedures Procedure Name Priority Date/Time Associated Diagnosis Comme nts CONSENT/REFUSAL FOR Routine 10/31/2019 6:06 PM CDT DIAGNOSIS AND TREATMENT NOTICE OF PRIVACY Routine 10/31/2019 6:05 PM CDT PRACTICES documented in this encounter Results Not on filedocumented in this encounter Visit Diagnoses Diagnosis Cough - Primary documented in this encounter Advance Directives Type Date Recorded Patient Qc Manager Explanati on Advance Directives and Living Will Power of Duct Layer Supervisor Name Relationship Healthcare Agent Communication Relationship Quinn Juarez Life Partner Primary healthcare agent Araceli Morrissey Mother First alternate healthcare [phone] agent (Mobile)
--- OUTSIDE RECORDS SUMMARY | 2020-01-08 11:19 | XMS REPORT | Summary of Care ---
:2000 Author Organization [facility] - [facility] Address [address] [place] [id number] Care Team Providers Name Role Phone Pcp, Does Not Have A Primary Care Provider Reason for Visit Reason Comments Information Covid-19 testing Encounter Details Date Type Department Care Team Description 11/05/2019 Nurse Triage [facility] Paula Doe RN Information (Covid-[address] [place] [address] testing) [place] [address] [phone] Allergies Active Allergy Reactions Severity Noted Date Comments Clindamycin Hallucinations 01/28/2017 documented as of this encounter (statuses as of 11/05/2019) Medications Medication Sig Dispensed Refills Start Date End Date Status Insulin Use as directed 100 Syringe 3 01/28/2017 A ctive Syringe-Needle U-100 (INSULIN SYRINGE) 1 mL 30 gauge x 5/16 SyrgIndications: Uncontrolled type 1 diabetes mellitus with [...] as of this encounter (statuses as of 11/05/2019) Active Problems Problem Noted Date Rubella non-immune status, antepartum 11/03/2017 Overview: Address pp Susceptible to varicella (non-immune), currently pregn ant 11/03/2017 Overview: Address pp Multiparity 11/02/2017 History of section 11/02/2017 Overview: x2 Tobacco use during 11/02/2017 Overview: Reports quit Counseling for insulin pump 01/28/2017 Diabetes in 10/14/2012 Overview: ICD10 Diagnosis Term Proof Clerk Utility Hypothyroid in , antepartum 10/14/2012 Overview: Off of meds [id number] documented as of this encounter (statuses as of 11/05/2019) Resolved Problems Problem Noted Date Resolved Date H/O noncompliance with medical treatment, presenting hazards 11/11/2012 11/02/2017 to [place] High risk teen 10/14/2012 11/02/2017 documented as of this encounter (statuses as of 11/05/2019) Immunizations Name Administration Dates Next Due DTAP [...] of this encounter Last Filed Vital Signs Not on filedocumented in this encounter Plan of Treatment Health Maintenance Due Date Last Done Comments PNEUMOCOCCAL 0-64 YEARS 01/05/2004 COMBINED SERIES (1 of 1 - PPSV23) EYE EXAM 01/05/2008 LDL-C 01/05/2008 MENINGOCOCCAL B VACCINES (1 01/05/2008 of 2 - Risk Bexsero 2-dose series) URINE MICROALBUMIN 01/05/2008 HPV VACCINES (1 - Female 2009 2-dose series) WELL CARE VISIT: 12-21 YEARS 2010 (yearly) VARICELLA VACCINES (2 of 2 - 10/07/2012 09/09/2012 13+ 2-dose series) HgA1C 05/05/2018 11/02/2017, 05/06/2017, 10/20/2012, Additional [...] this topic documented as of this encounter Results Not on filedocumented in this encounter Advance Directives Type Date Recorded Patient Graduate Nurse Explanati on Advance Directives and Living Will Power of Wardrobe Coordinator Name Relationship Healthcare Agent Communication Relationship Quinn Juarez Life Partner Primary healthcare agent Araceli Morrissey Mother First [facility] healthcare agent (Mobile)
--- OUTSIDE RECORDS SUMMARY | 2020-01-08 11:19 | XMS REPORT | Summary of Care ---
:2000 Author Organization [facility] - [facility] Address [address] [place] [address] Care Team Providers Name Role Phone Pcp, Does Not Have A Primary Care Provider Encounter Details Date Type Department Care Team Description 11/10/2019 Letter (Out) ADC-Emergency Depart ment Shahid Morales MD [address] [place] [address] [address] [place] [address] [address] [place], [place] [address] Allergies Active Allergy Reactions Severity Noted Date Comments Clindamycin Hallucinations 01/28/2017 documented as of this encounter (statuses as of 11/10/2019) Medications Medication Sig Dispensed Refills Start Date [...] as of this encounter (statuses as of 11/10/2019) Active Problems Problem Noted Date Rubella non-immune status, antepartum 11/03/2017 Overview: Address pp Susceptible to varicella (non-immune), currently pregn ant 11/03/2017 Overview: Address pp Multiparity 11/02/2017 History of section 11/02/2017 Overview: x2 Tobacco use during 11/02/2017 Overview: Reports quit Counseling for insulin pump 01/28/2017 Diabetes in 10/14/2012 Overview: ICD10 Diagnosis 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 Hypothyroid in , antepartum 10/14/2012 Overview: Off of meds [id number] documented as of this encounter (statuses as of 11/10/2019) Resolved Problems Problem Noted Date Resolved Date H/O noncompliance with medical treatment, presenting hazards 11/11/2012 11/02/2017 to health High risk teen 10/14/2012 11/02/2017 documented as of this encounter (statuses as of 11/10/2019) Immunizations Name Administration Dates Next Due DTAP [...] encounter Advance Directives Type Date Recorded 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
[2020-01-08 12:26] LABS: Arterial Blood Carboxyhemoglob 2.1 % (0-1.5); Blood Gas Oxyhemoglobin 94.7 % (94-97); Blood O2 Saturation 97.6 % (92-98.5)
[2020-01-08] MEDS ORDERED: NA CHLORIDE 0.9% 2,000 ML ONE (12:32)
[2020-01-08 12:39] LABS: Absolute Lymphocytes (CBC) 1.5 K/uL (0.7-4.9); Basophils % 0.4 % (0-1.3); Hematocrit 41.7 % (36.0-45.0); Lymphocytes % 19.9 % (15.3-44.8); MPV 8.1 fL (7.6-11.3)
[2020-01-08] MEDS ORDERED: ONDANSETRON 4 MG/2 ML VIAL ONE (12:41)
[2020-01-08 13:08] LABS: ALT/SGPT 22 U/L (12-78); AST/SGOT 8 U/L (15-37); Albumin 3.9 g/dL (3.4-5.0); Alkaline Phosphatase 147 U/L (45-117); BUN Blood Urea Nitrogen 14 mg/dL (7-18); Bicarbonate 16 mmol/L (21-32); Bilirubin Direct 0.1 mg/dL (0-0.2); Bilirubin Total 0.6 mg/dL (0.2-1.0); Lipase 45 U/L (73-393); Magnesium 2.1 mg/dL (1.8-2.4); Potassium 4.7 mmol/L (3.5-5.1); Protein, Total 7.9 g/dL (6.4-8.2); Sodium Level 131 mmol/L (136-145)
[2020-01-08 13:11] LABS: Glucose Level 525 mg/dL (74-106)
--- NOTE | 2020-01-08 13:18 | RAD REPORT ---
EXAM DESCRIPTION: RAD - Chest Single View - 01/08/2020 1:04 pm CLINICAL HISTORY: dizziness COMPARISON: Portable June 2019 TECHNIQUE: AP portable chest image was obtained 01/08/2020 1:04 pm . FINDINGS: Lungs are clear. Heart and vasculature are normal. No measurable pleural effusion and no p neumothorax. No acute bony abnormality seen. No acute aortic findings suspected. IMPRESSION: No acute cardiopulmonary process. No significant change from comparison.
--- NOTE | 2020-01-08 13:38 | EDPHYS ---
Physician Documentation [facility] Name: Yashira Peters Age: 20 yrs Sex: Female : 2000 Arrival Date: 01/08/2020 Time: 11:17 Bed 23 Private MD: ED Physician Kenneth Hastings HPI: 01/07 12:21 This 20 yrs old Female presents to ER via Ambulatory with complaints of pm1 Headache, N/V, Abdominal pain. 12:21 Onset: The symptoms/episode began/occurred 3 day(s) ago. Modifying factors: the pm1 symptoms are aggravated by poorly controlled diabetes. Associated signs and symptoms: Pertinent positives: abdominal pain, headache, nausea, vomiting, High urine ketones, blood sugars greater than 400. Severity of symptoms: in the emergency department the symptoms are worse. The patient has experienced similar episodes in the past, several times, Patient reports diabetes has been poorly controlled since 16 years of age. Has not seen a doctor for the past 2 years. Takes 12 units Novolin R SQ once daily and 12 units Novolin N SQ once daily . The patient has not recently seen a physician, Last saw a HOSPICE AIDE/OB 2 years ago. Historical: - Allergies: 11:45 Amoxicillin; hb 11:45 Latex, Natural Rubber; hb - Home Meds: 11:45 Novolin N 100 unit/mL Sub-Q susp [Active]; Novolin R Sub-Q [Active]; hb - PMHx: 11:45 CVA; Diabetes - IDDM; hb - PSHx: 11:45 ; hb - Immunization history:: Adult Immunizations up to date. - Social history:: Smoking status: Patient reports the use of cigarette tobacco products, smokes one-half pack cigarettes per day. ROS: 12:21 Constitutional: Negative for fever, chills, and weight loss, Cardiovascular: Negative pm1 for chest pain, palpitations, and edema, Respiratory: Negative for shortness of breath, cough, wheezing, and pleuritic chest pain. 12:21 Back: Negative for injury and pain, : Negative for injury, bleeding, discharge, and swelling, MS/Extremity: Negative for injury and deformity, Skin: Negative for injury, rash, and discoloration. 12:21 Abdomen/GI: Positive for abdominal pain, nausea and vomiting, Negative for diarrhea, constipation. 12:21 Neuro: Positive for dizziness, headache. Exam: 12:21 Constitutional: This is a well developed, well nourished patient who is awake, alert, pm1 and in no acute distress. Head/Face: Normocephalic, atraumatic. Neck: Trachea midline, no thyromegaly or masses palpated, and no cervical lymphadenopathy. Supple, full range of motion without nuchal rigidity, or vertebral point tenderness. No Meningismus. Chest/axilla: Normal chest wall appearance and motion. Nontender with no deformity. No lesions are appreciated. 12:21 Abdomen/GI: Soft, non-tender. No guarding or rebound. No evidence of tenderness throughout. Back: No spinal tenderness. No costovertebral tenderness. Full range of motion. Skin: Warm, dry with normal turgor. Normal color with no rashes, no lesions, and no evidence of cellulitis. MS/ Extremity: Pulses equal, no cyanosis. Neurovascular intact. Full, normal range of motion. 12:21 Cardiovascular: Exam negative for acute changes, Rate: normal, Rhythm: regular, Pulses: no pulse deficits are appreciated, Edema: is not appreciated. 12:21 Respiratory: Exam negative for acute changes, respiratory distress, shortness of breath. 12:21 Neuro: Exam negative for acute changes, Orientation: is normal, Mentation: is normal, Motor: is normal, moves all fours, Sensation: is normal, no obvious gross deficits. Vital Signs: 11:43 BP 113 / 66; Pulse 94; Resp 16; Temp 97.9; Pulse Ox 98% on R/A; Weight 58.97 kg; Height hb 5 ft. 3 in. (160.02 cm); Pain 3/10; 15:00 BP 102 / 65; Pulse 76; Resp 18; Pulse Ox 100% ; ah 16:03 BP 97 / 63; Pulse 78; Resp 18; Pulse Ox 100% on R/A; kj1 17:00 BP 96 / 60; Pulse 70; Resp 16; Pulse Ox 100% ; ah 20:00 BP 96 / 61; Pulse 78; Resp 16; Pulse Ox 100% ; Pain 0/10; fu 21:00 BP 97 / 58; Pulse 72; Resp 14; Temp 98.2; Pulse Ox 97% ; Pain 0/10; fu 21:37 BP 100 / 73; Pulse 81; Resp 12; Pulse Ox 100% ; Pain 0/10; fu 11:43 Body Mass Index 23.03 (58.97 kg, 160.02 cm) hb MDM: 12:02 Patient medically screened. pm1 13:32 ED course: Anion Gap 16. pm1 13:35 Data reviewed: vital signs. Data interpreted: Pulse oximetry: on room air is 98 %. pm1 Interpretation: normal. Counseling: I had a detailed discussion with the patient and/or guardian regarding: the historical points, exam findings, and any diagnostic results supporting the discharge/admit diagnosis, lab results, radiology results, the need for further work-up and treatment in the hospital. 13:48 Physician consultation: Meet Ba MD was called at 13:49, was contacted at 13:49, pm1 regarding admission, patient's condition, and will see patient. 01/07 12:12 Order name: ABG: VBG; Complete Time: 12:59 pm1 01/07 12:12 Order name: Basic Metabolic Panel; Complete Time: 13:28 pm01/07 12:12 Order name: CBC with Diff; Complete Time: 12:50 pm1 01/07 12:12 Order name: LFT's; Complete Time: 13:28 pm1 01/07 12:12 Order name: Magnesium; Complete Time: 13:28 pm01/07 12:12 Order name: Urine Microscopic Only; Complete Time: 14:36 pm01/07 12:12 Order name: Ketone, Serum; Complete Time: 13:28 pm01/07 12:12 Order name: Lipase; Complete Time: 13:28 pm01/07 13:58 Order name: Acetone Level EDMS 01/07 13:58 Order name: Acetone Level; Complete Time: 06:26 EDMS 01/07 13:58 Order name: Acetone Level EDMS 01/07 13:58 Order name: Acetone Level EDMS 01/07 13:58 Order name: Basic Metabolic Panel EDMS 01/07 13:58 Order name: Basic Metabolic Panel; Complete Time: 06:26 EDMS 01/07 13:58 Order name: Basic Metabolic Panel EDMS 01/07 13:58 Order name: Basic Metabolic Panel EDMS 01/07 13:58 Order name: CBC with Automated Diff EDMS 01/07 13:58 Order name: CBC with Automated Diff EDMS 01/07 13:58 Order name: CBC with Automated Diff MS 01/07 13:58 Order name: CBC with Automated Diff EDMS 01/07 14:05 Order name: Urine Dipstick--Ancillary (enter results) em01/07 14:05 Order name: Urine --Ancillary (enter results) em01/07 14:32 Order name: Urine --Ancillary; Complete Time: 14:35 EDMS 01/07 14:33 Order name: Urine Dipstick-Ancillary; Complete Time: 14:35 EDMS 01/07 15:23 Order name: Glucose, Ancillary Testing; Complete Time: 15:29 EDMS 01/07 16:43 Order name: Glucose, Ancillary Testing; Complete Time: 17:34 EDMS 01/07 18:16 Order name: Glucose, Ancillary Testing; Complete Time: 06:26 EDMS 01/07 19:00 Order name: Glucose, Ancillary Testing; Complete Time: 06:26 EDMS 01/07 19:37 Order name: Glucose, Ancillary Testing; Complete Time: 06:26 EDMS 01/07 20:04 Order name: Glucose, Ancillary Testing; Complete Time: 06:26 EDMS 01/07 12:12 Order name: Cardiac monitoring; Complete Time: 13:12 pm01/07 12:12 Order name: XRAY Chest (1 view); Complete Time: 13:23 pm01/07 12:12 Order name: EKG; Complete Time: 12:13 01/07 12:12 Order name: EKG - Nurse/Tech; Complete Time: 13:12 pm01/07 12:12 Order name: IV Saline Lock; Complete Time: 13:13 pm01/07 12:12 Order name: Labs collected and sent; Complete Time: 13:13 pm01/07 12:12 Order name: Urine Dipstick-Ancillary (obtain specimen); Complete Time: 14:03 pm01/07 12:12 Order name: Urine Test (obtain specimen); Complete Time: 14:03 pm01/07 13:29 Order name: NPO; Complete Time: 14:03 pm01/07 13:58 Order name: CONS Diabetic Education Consul 01/07 13:58 Order name: CONS Pharmacy Consult 01/07 13:58 Order name: NPO 01/07 14:01 Order name: Dietitian Consult EDMI 01/07 21:16 Order name: Glucose, Ancillary Testing; Complete Time: 06:26 EDMI 01/07 22:14 Order name: Glucose, Ancillary Testing; Complete Time: : EDMI Administered Medications: 12:45 Drug: NS 0.9% 1000 ml Route: IV; Rate: 1000 ml; Site: right antecubital; 13:11 Drug: Zofran (Ondansetron) 4 mg Route: IVP; Site: right antecubital; 14:11 Follow up: Response: No adverse reaction 14:03 Drug: NS 0.9% 1000 ml Route: IV; Rate: 1000 ml; Site: right antecubital; 15:00 Follow up: Response: No adverse reaction; IV Status: Completed infusion; IV Intake: ah 1000ml 14:30 Drug: Insulin Drip - (Insulin Regular Human 100 units, NS 0.9% 100 ml) {Co-Signature: [email or web address] (Enid Cantu RN).} {Note: Started at 6 u per hour.} Route: IV; Rate: calculated rate; Site: right antecubital; 16:30 Drug: NS 0.45 % with KCl 20 mEq/L 1000 ml Route: IV; Rate: 200 ml/hr; Site: right antecubital; 23:04 Follow up: Response: No adverse reaction; IV Status: Completed infusion Disposition: 01/08/20 13:37 Hospitalization ordered by Meet Ba for Inpatient Admission. Preliminary diagnosis is Type 1 diabetes mellitus with ketoacidosis. - Bed requested for Telemetry/MedSurg (Inpatient). - Status is Inpatient Admission. mw2 - Condition is Stable. - Problem is new. - Symptoms have improved. Addendum: 01/12/2020 21:14 Co-signature as Attending Physician, Kenneth Hastings MD. m Signatures: Dispatcher [employer] [facility] Chepe Sterling NP HYDROELECTRIC SYSTEMS TECHNICIAN pm1 Elsa Gage, RN RN Anthony Rush mw2 Nia Corral RN RN ah Holmes, Maurice, MD MD 7 Enid Cantu RN aa5 Corrections: (The following items were deleted from the chart) 01/07 19:24 13:37 Hospitalization Ordered by Meet Ba MD for Inpatient Admission. mw2 Preliminary diagnosis is Type 1 diabetes mellitus with ketoacidosis. Bed requested for Intensive Care Unit. Status is Inpatient Admission. Condition is Stable. Problem is new. Symptoms have improved. pm1 22:21 19:24 01/08/2020 13:37 Hospitalization Ordered by Meet Ba MD for Inpatient mw2 Admission. Preliminary diagnosis is Type 1 diabetes mellitus with ketoacidosis. Bed [facility] ER HOLD. Status is Inpatient Admission. Condition is Stable. Problem is new. Symptoms have improved. mw2 22:56 22:21 01/08/2020 13:37 Hospitalization Ordered by Meet Ba MD for Inpatient mw2 Admission. Preliminary diagnosis is Type 1 diabetes mellitus with ketoacidosis. Bed requested for Telemetry/MedSurg (Inpatient). Status is Inpatient Admission. Condition is Stable. Problem is new. Symptoms have improved. mw2
--- NOTE | 2020-01-08 13:38 | ER ---
Nurse's Notes [facility] Name: Yashira Peters Age: 20 yrs Sex: Female : 2000 Arrival Date: 01/08/2020 Time: 11:17 Bed 23 Private MD: Diagnosis: Type 1 diabetes mellitus with ketoacidosis Presentation: 01/07 11:43 Chief complaint: Headache, N/V, abdominal pain, high urine ketones, and home BGL >400 x hb 2-3 days. Coronavirus screen: Proceed with normal triage. Ebola Screen: No symptoms or risks identified at this time. Initial Sepsis Screen: Does the patient meet any 2 criteria? No. Patient's initial sepsis screen is negative. Does the patient have a suspected source of infection? No. Patient's initial sepsis screen is negative. Risk Assessment: Do you want to hurt yourself or someone else? Patient reports no desire to harm self or others. Onset of symptoms was January 06, 2020. 11:43 Method Of Arrival: Ambulatory hb 11:43 Acuity: ASIA 3 hb Triage Assessment: 15:00 Respiratory: the patient has moderate shortness of breath. Historical: - Allergies: 11:45 Amoxicillin; hb 11:45 Latex, Natural Rubber; hb - Home Meds: 11:45 Novolin N 100 unit/mL Sub-Q susp [Active]; Novolin R Sub-Q [Active]; hb - PMHx: 11:45 CVA; Diabetes - IDDM; hb - PSHx: 11:45 ; hb - Immunization history:: Adult Immunizations up to date. - Social history:: Smoking status: Patient reports the use of cigarette tobacco products, smokes one-half pack cigarettes per day. Screenin:00 Abuse screen: Denies threats or abuse. Nutritional screening: No deficits noted. Tuberculosis screening: No symptoms or risk factors identified. Fall Risk None identified. Assessment: 12:00 General: Appears ill, Behavior is calm, cooperative. Pain: Denies pain. Neuro: Level of Consciousness is awake, alert, Oriented to person, place, time, situation. Cardiovascular: Heart tones S1 S2 present Capillary refill < 3 seconds Patient's skin is warm and dry. Pulses are palpable in right radial artery and left radial artery Rhythm is sinus rhythm. Respiratory: Reports occasional SOB Airway is patent Respiratory effort is even, unlabored, Respiratory pattern is regular, symmetrical, Breath sounds are clear bilaterally. GI: Bowel sounds present X 4 quads. Abd is soft and non tender X 4 quads. Reports nausea. : Reports urinary frequency, since 2 days. EENT: No signs and/or symptoms were reported regarding the EENT system. Derm: No signs and/or symptoms reported regarding the dermatologic system. Musculoskeletal: No signs and/or symptoms reported regarding the musculoskeletal system. 15:10 Reassessment: Accu check at this time. BS 350. Decreased pump to 5u/hr. Pt resting with ah eyes closed and resp even and unlabored. No needs voiced. 16:45 Reassessment: BS 247 at this time. Insulin drip decreased to 4u/hr. Pt with no needs ah voiced at this time. 17:45 Reassessment: BS 136 at this time. Insulin drip stopped for 30 mins. Dextrose fluids ah started at this time. Pt with all needs voiced at this time. 18:15 Reassessment: BS 124 at this time. Insulin drip continues to be stopped. Pt given ah dinner tray at this time. Pt has no needs voiced at this time. Vital Signs: 11:43 BP 113 / 66; Pulse 94; Resp 16; Temp 97.9; Pulse Ox 98% on R/A; Weight 58.97 kg; Height hb 5 ft. 3 in. (160.02 cm); Pain 3/10; 15:00 BP 102 / 65; Pulse 76; Resp 18; Pulse Ox 100% ; ah 16:03 BP 97 / 63; Pulse 78; Resp 18; Pulse Ox 100% on R/A; kj1 17:00 BP 96 / 60; Pulse 70; Resp 16; Pulse Ox 100% ; ah 20:00 BP 96 / 61; Pulse 78; Resp 16; Pulse Ox 100% ; Pain 0/10; fu 21:00 BP 97 / 58; Pulse 72; Resp 14; Temp 98.2; Pulse Ox 97% ; Pain 0/10; fu 21:37 BP 100 / 73; Pulse 81; Resp 12; Pulse Ox 100% ; Pain 0/10; fu 11:43 Body Mass Index 23.03 (58.97 kg, 160.02 cm) hb ED Course: 11:17 Patient arrived in ED. am2 11:45 Triage completed. hb 11:45 Arm band placed on. hb 11:55 Nia Corral, RN is Primary Nurse. ah 11:57 Chepe Sterling NP is PHCP. pm1 11:57 Kenneth Hastings MD is Attending Physician. pm1 12:45 Inserted saline lock: 22 gauge in right antecubital area, using aseptic technique. kj1 13:05 XRAY Chest (1 view) In Process Unspecified. EDMS 13:14 Notified Nurse Practitioner and/or Physician Fruit Grader Operator of a critical lab result(s), hb Glucose 525. 13:35 Meet Ba MD is Hospitalizing Provider. pm1 15:00 Patient has correct armband on for positive identification. Placed in gown. Bed in low ah position. Call light in reach. Side rails up X 1. 17:00 No provider procedures requiring assistance completed. Patient admitted, IV remains in ah place. Administered Medications: 12:45 Drug: NS 0.9% 1000 ml Route: IV; Rate: 1000 ml; Site: right antecubital; 13:11 Drug: Zofran (Ondansetron) 4 mg Route: IVP; Site: right antecubital; 14:11 Follow up: Response: No adverse reaction 14:03 Drug: NS 0.9% 1000 ml Route: IV; Rate: 1000 ml; Site: right antecubital; 15:00 Follow up: Response: No adverse reaction; IV Status: Completed infusion; IV Intake: ah 1000ml 14:30 Drug: Insulin Drip - (Insulin Regular Human 100 units, NS 0.9% 100 ml) {Co-Signature: aa5 (Enid Cantu RN).} {Note: Started at 6 u per hour.} Route: IV; Rate: calculated rate; Site: right antecubital; 16:30 Drug: NS 0.45 % with KCl 20 mEq/L 1000 ml Route: IV; Rate: 200 ml/hr; Site: right antecubital; 23:04 Follow up: Response: No adverse reaction; IV Status: Completed infusion Intake: 15:00 IV: 1000ml; Total: 1000ml. Outcome: 13:37 Decision to Hospitalize by Provider. pm1 18:15 Admitted to ER Hold. Please see [facility] for further documentation. 18:15 Condition: stable 18:15 Instructed on the need for admit. 22:56 Patient left the ED. mw2 Signatures: Dispatcher [employer] EDMS Chepe Sterling NP PRIMARY CARE PHYSICIAN pm1 Elsa Gage RN RN Maxine Hatfield am2 Pipe Young RN EMILIA Anthony Rush mw2 Marcella Mckeon kj1 Nia Corral RN RN Enid Cantu RN aa5 Corrections: (The following items were deleted from the chart) 13:15 13:14 Notified ED physician of a critical lab result(s). lactate 2.7 hb hb
[2020-01-08] MEDS ORDERED: ONDANSETRON 4 MG/2 ML VIAL IV PRN (13:52)
[2020-01-08] MEDS ORDERED: D50W 25 GM/50 ML SYRINGE/VIAL IV PRN ×2 (13:55→21:15)
[2020-01-08] MEDS ORDERED: GLUCAGON 1 MG/VIAL IM PRN ×2 (13:55→21:15)
[2020-01-08] MEDS ORDERED: NACHLORIDE 0.45% 1,000 ML IV SCH ×2 (14:00→23:00)
[2020-01-08] MEDS ORDERED: NA CHLORIDE 0.9% 1,000 ML IV ONE (14:00)
[2020-01-08] MEDS ORDERED: INSULIN -REGULAR HUMAN 100 UNIT in NA CHLORIDE 0.9% 100 ML IV SCH ×4 (14:00)
[2020-01-08] MEDS ORDERED: D5 0.45 NS 1,000 ML IV SCH (14:00)
--- NOTE | 2020-01-08 14:04 | P.HP ---
Certification for Inpatient With expected LOS: >2 Midnights Patient will require the following post-hospital care: None Practitioner: I am a practitioner with admitting privileges, knowledge of patient current condition, hospital course, and medical plan of care. Services: Services provided to patient in accordance with Admission requirements found in Title 42 Section 412.3 of the Code of Federal Regulations Patient History Date of Service: 01/08/20 Reason for admission: DKA History of Present Illness: ptis20 yrs of age Aw DKA, nausea,vomiting and abdominal pain. High BS and metabolic acidosis Allergies amoxicillin Allergy (Verified 07/05/19 01:37) hallucination Latex, Natural Rub Allergy (Uncoded 07/05/19 01:37) Hives/Rash Home Medications: Codeine/APAP [Tylenol W/Codeine #3 tab] 1 tab PO Q12HP PRN #20 tab 07/05/19 Cyclobenzaprine HCl [Flexeril] 5 mg PO TID PRN #20 tablet 07/05/19 Insulin NPH Human Isophane [Novolin N] 10 unit SQ BID 07/05/19 Insulin Regular, Human [Novolin R] See Protocol SQ BID 07/05/19 - Past Medical/Surgical History Diabetic: Yes -: IDDM -: CVA -: seizures -: high cholesterol -: hyperthyroid -: depression -: previous suicide attempt -: X2 - Social History Alcohol use: No CD- Drugs: No Caffeine use: Yes Physical Examination - Studies Laboratory Data (last 24 hrs) 01/08/20 12:30: WBC 7.5, Hgb 13.8, Hct 41.7, Plt Count 271 01/08/20 12:30: Sodium 131 L, Potassium 4.7, BUN 14, Creatinine 0.76, Glucose 525 H*, Magnesium 2.1, Total Bilirubin 0.6, AST 8 L, ALT 22, Alkaline Phosphatase 147 H, Lipase 45 L Assessment and Plan - Problems (Diagnosis) (1) Diabetic ketoacidosis Current Visit: No Status: Acute Plan: Pt is 20 yrs AW DKA. Abdominla pain,N&V. Admit DKA protocol.ordred. LAabs rev.Gap 16/ CXRy clear Prev admissions wiht DKA. Noprimary care Doc. Complaint wiht insulin Qualifiers: Diabetes mellitus type: type 1 Plan to discharge in: 48 Hours - Advance Directives Does patient have a Living Will: No Does patient have a Durable POA for Healthcare: No
[2020-01-08 14:31] LABS: Urine Blood 2+ (NEG); Urine Glucose 2+ (NEG); Urine Protein NEGATIVE (NEG)
[2020-01-08 14:35] LABS: Urine Bacteria <20 /HPF (<20); Urine Culture Reflex Order NOT NEEDED
[2020-01-08] MEDS: ENOXAPARIN 40 MG/0.4 ML SQ SCH (15:00)
[2020-01-08] MEDS ORDERED: POTASSIUM CHLORIDE-0.45% NACL 20 MEQ/1,000 ML BAG IV ONE (16:00)
--- NOTE | 2020-01-08 18:02 | P.HP ---
Patient History Date of Service: 01/08/20 Reason for admission: DKA History of Present Illness: ptis20 yrs of age Aw DKA, nausea,vomiting and abdominal pain. High BS and metabolic acidosis she has been sick for about 3 days blood sugar has been going up compliant with insulin therapy she takes 48 units of insulin a day for the past 2 years the doses not change she has been hyperglycemic denies any symptoms of an infection past 2 days had some nausea vomiting came into the emergency room with diabetic ketoacidosis patient does not have a primary care physician she obtains air insulin over the counter from [facility] Allergies amoxicillin Allergy (Verified 07/05/19 01:37) hallucination Latex, Natural Rub Allergy (Uncoded 07/05/19 01:37) Hives/Rash Home Medications: Codeine/APAP [Tylenol W/Codeine #3 tab] 1 tab PO Q12HP PRN #20 tab 07/05/19 Cyclobenzaprine HCl [Flexeril] 5 mg PO TID PRN #20 tablet 07/05/19 Insulin NPH Human Isophane [Novolin N] 10 unit SQ BID 07/05/19 Insulin Regular, Human [Novolin R] See Protocol SQ BID 07/05/19 - Past Medical/Surgical History Diabetic: Yes -: IDDM -: CVA -: seizures -: high cholesterol -: hyperthyroid -: depression -: previous suicide attempt -: X2 - Social History Alcohol use: No CD- Drugs: No Caffeine use: Yes Review of Systems 10-point ROS is otherwise unremarkable Physical Examination - Vital Signs Temperature: 97.9 F Blood Pressure: 113/66 Pulse: 94 Respirations: 16 Pulse Ox (%): 98 - Physical Exam General: In no apparent distress, Oriented x3 Neck: Supple Respiratory: Clear to auscultation bilaterally Cardiovascular: No edema, Normal pulses, Normal S1 S2 Gastrointestinal: Normal bowel sounds, Soft and benign Musculoskeletal: No clubbing, No swelling Integumentary: No rashes, No breakdown, No cyanosis Neurological: Normal speech, Normal strength at 5/5 x4 extr - Studies Laboratory Data (last 24 hrs) 01/08/20 12:30: WBC 7.5, Hgb 13.8, Hct 41.7, Plt Count 271 01/08/20 12:30: Sodium 131 L, Potassium 4.7, BUN 14, Creatinine 0.76, Glucose 525 H*, Magnesium 2.1, Total Bilirubin 0.6, AST 8 L, ALT 22, Alkaline Phosphatase 147 H, Lipase 45 L Assessment and Plan - Problems (Diagnosis) (1) Diabetic ketoacidosis Current Visit: No Status: Acute Plan: Pt is 20 yrs AW DKA. Abdominla pain,N&V. Admit DKA protocol.ordred. LAabs rev.Gap 16/ CXRy clear Prev admissions wi DKA. Noprimary care Doc. Complaint wiht insulin/patient does take 48 units of insulin over the counter from [facility] she has had persistent hyperglycemia for the past 2 years has not sure doses not been changed as no primary care physician will need a international logistics coordinator console she will need more insulin at home Qualifiers: Diabetes mellitus type: type 1 - Advance Directives Does patient have a Living Will: No Does patient have a Durable POA for Healthcare: No
[2020-01-08] MEDS ORDERED: D5 0.45 NS 1,000 ML IV ONE (18:27)
[2020-01-08] MEDS ORDERED: ENOXAPARIN 40 MG/0.4 ML SQ ONE (20:29)
[2020-01-08 20:35] LABS: BUN Blood Urea Nitrogen 9 mg/dL (7-18); Bicarbonate 21 mmol/L (21-32); Glucose Level 265 mg/dL (74-106); Potassium 4.1 mmol/L (3.5-5.1); Sodium Level 138 mmol/L (136-145)
[2020-01-08] MEDS ORDERED: INSULIN GLARGINE 100 UNITS/ML SQ ONE (22:00)
[2020-01-08 22:24] VITALS: O2SAT 100; BMI 22.3
[2020-01-09 06:27] LABS: Absolute Lymphocytes (CBC) 2.7 K/uL (0.7-4.9); Basophils % 0.7 % (0-1.3); Hematocrit 37.8 % (36.0-45.0); Lymphocytes % 52.8 % (15.3-44.8); MPV 7.7 fL (7.6-11.3); RBC Red Blood Cell Count 4.18 M/uL (3.86-4.86)
[2020-01-09 06:40] LABS: BUN Blood Urea Nitrogen 7 mg/dL (7-18); Bicarbonate 20 mmol/L (21-32); Glucose Level 199 mg/dL (74-106); Potassium 3.9 mmol/L (3.5-5.1); Sodium Level 137 mmol/L (136-145)
[2020-01-09] MEDS ORDERED: POTASSIUM CL SA 10 MEQ TAB PO ONE (08:00)
--- NOTE | 2020-01-09 08:54 | EKG ---
Test Date: 2020-01-08 Test Time: 12:24:52 Origination Specialist: ALVIN MEASUREMENT RESULTS: Intervals: Rate: 75 TX: 138 QRSD: 84 QT: 432 QTc: 482 [place]: P: 52 TX: 138 QRS: 70 T: 56 INTERPRETIVE STATEMENTS: Normal sinus rhythm with sinus arrhythmia Prolonged QT Abnormal ECG Compared to ECG 07/04/2019 21:29:04 No significant changes Electronically Signed On 01-09-20 08:52:40 CDT by Avery Milner
[2020-01-09] MEDS: ENOXAPARIN 40 MG/0.4 ML SQ SCH (09:13)
[2020-01-09 10:32] LABS: Platelet Estimate ADEQ; Urine White Blood Cell Casts OK
[2020-01-09 10:33] LABS: Blood Morphology Comment NOT SEEN (NOT SEEN)
--- NOTE | 2020-01-09 11:39 | P.DS ---
Admission Date: 01/08/20 Discharge Date: 01/09/20 Primary Care Provider: none Disposition: ROUTINE DISCHARGE Discharge Condition: GOOD Reason for Admission: DKA Consultations: none Procedures: CXR: FINDINGS: Lungs are clear. Heart and vasculature are normal. No measurable pleural effusion and no pneumothorax. No acute bony abnormality seen. No acute aortic findings suspected. IMPRESSION: No acute cardiopulmonary process. No significant change from comparison. Medical Problem list: Diabetic ketoacidosis resolved with history of type 1 diabetes Brief History of Present Illness: 20-year-old female presented to the emergency room with polyuria, polydipsia. Patient found to have DKA. Patient with history of type 1 diabetes. Patient was started on insulin drip and admitted for further evaluation and treatment. Hospital Course: Patient presented with diabetic ketoacidosis. Patient with history of type 1 diabetes. Patient was treated in the course of her stay. DKA resolved. At discharge patient without significant nausea, vomiting, polyuria or polydipsia. Patient uses NPH and regular insulin. She does not have a PCP. At discharge patient may continue with insulin NPH 12 units subcu twice daily and insulin regular 12 units subcu twice daily. Recommend to monitor her blood sugar at least twice daily. Recommend to maintain blood sugar less 140 fasting and less than 200 after meals. Patient may increase NPH by 1-2 units if blood sugar remains above 200. Patient will be provided information to establish care with a local PCP to continue her care. Education on diabetes will be provided. Prescriptions for her medication will also be provided. Vital Signs/Physical Exam: Temp Pulse Resp BP Pulse Ox 97 F 71 16 101/56 L 96 01/09/20 04:00 01/09/20 04:00 01/09/20 04:00 01/09/20 04:00 01/09/20 04:00 General: Alert, In no apparent distress, Oriented x3, Cooperative HEENT: Atraumatic Neck: Supple Respiratory: Clear to auscultation bilaterally, Normal air movement Cardiovascular: Normal pulses, Regular rate/rhythm Gastrointestinal: Normal bowel sounds, Soft and benign, Non-distended, No tenderness, No masses, No rebound, No guarding Musculoskeletal: No erythema, No tenderness, No warmth Integumentary: No tenderness/swelling, No erythema, No warmth, No cyanosis Neurological: Normal speech, Normal strength at 5/5 x4 extr, Normal tone, Normal affect Laboratory Data at Discharge: WBC 5.1 K/uL (4.3-10.9) D 01/09/20 06:10 Hgb 12.7 g/dL (12.0-15.0) 01/09/20 06:10 Hct 37.8 % (36.0-45.0) 01/09/20 06:10 Plt Count 261 K/uL (152-406) 01/09/20 06:10 Sodium 137 mmol/L (136-145) 01/09/20 06:10 Potassium 3.9 mmol/L (3.5-5.1) 01/09/20 06:10 BUN 7 mg/dL (7-18) 01/09/20 06:10 Creatinine 0.53 mg/dL (0.55-1.3) L 01/09/20 06:10 Glucose 199 mg/dL (74-106) H 01/09/20 06:10 Magnesium 2.1 mg/dL (1.8-2.4) 01/08/20 12:30 Total Bilirubin 0.6 mg/dL (0.2-1.0) 01/08/20 12:30 AST 8 U/L (15-37) L 01/08/20 12:30 ALT 22 U/L (12-78) 01/08/20 12:30 Alkaline Phosphatase 147 U/L (45-117) H 01/08/20 12:30 Lipase 45 U/L (73-393) L 01/08/20 12:30 Home Medications: Insulin NPH Human Isophane [Novolin N] 12 unit SQ BID #1 vial 01/09/20 Insulin Regular, Human [Novolin R] 12 unit SQ BID #1 vial 01/09/20 New Medications: Insulin NPH Human Isophane [Novolin N] 12 unit SQ BID #1 vial Insulin Regular, Human [Novolin R] 12 unit SQ BID #1 vial Patient Discharge Instructions: Patient presented with diabetic ketoacidosis. Patient with history of type 1 diabetes. Patient was treated in the course of her stay. DKA resolved. At discharge patient without significant nausea, vomiting, polyuria or polydipsia. Patient uses NPH and regular insulin. She does not have a PCP. At discharge patient may continue with insulin NPH 12 units subcu twice daily and insulin regular 12 units subcu twice daily. Recommend to monitor her blood sugar at least twice daily. Recommend to maintain blood sugar less 140 fasting and less than 200 after meals. Patient may increase NPH by 1-2 units if blood sugar remains above 200. Patient will be provided information to establish care with a local PCP to continue her care. E ducation on diabetes will be provided. Prescriptions for her medication will also be provided. Diet: ADA Activity: Ad sandra Time spent managing pt's care (in minutes): 55
[2020-01-09] MEDS ORDERED: INSULIN -REGULAR HUMAN 50 UNIT/0.5 ML ML SQ SCH (12:15)
[2020-01-09] MEDS ORDERED: GLUCAGON 1 MG/VIAL IM PRN ×2 (12:15→12:17)
[2020-01-09] MEDS ORDERED: D50W 25 GM/50 ML SYRINGE/VIAL IV PRN ×2 (12:15→12:17)
[2020-01-09] MEDS ORDERED: INSULIN GLARGINE 100 UNITS/ML SQ ONE ×2 (12:17→21:16)
[2020-01-09 14:40] VITALS: BP 101/63; TEMP 97.8
== END 2020-01-09 12:50 | disposition home or self-care (01) | DRG 639 ==
LOC: SUPCPDRO 11:15 → ER 11:15 → ERHOLD 13:53 → 2ND 22:43
PROVIDERS: ADMIT Internal Medicine Sleep Medicine; ATTEND Family Medicine
DX: E10.10 Type 1 diabetes mellitus with ketoacidosis without coma (principal); F17.210 Nicotine dependence, cigarettes, uncomplicated; Z79.4 Long term (current) use of insulin; Z88.1 Allergy status to other antibiotic agents; Z91.040 Latex allergy status; Z79.891 Long term (current) use of opiate analgesic; Z86.73 Personal history of transient ischemic attack (TIA), and cerebral infarction without residual deficits; Z91.5 Personal history of self-harm
CPT/HCPCS: 36415; 71045; 80048; 80076; 81003; 81015; 81025; 82010; 82805; 82947; 83036; 83690; 83735; 85025; 93005; 96361; 96365; 96366; 96375; 99285; J1650; J1815; J2405; J7030; J7799

== ENCOUNTER 2020-02-07 10:17 | Inpatient (IN) | payer SELFPAY ==
[2020-02-07] MEDS ORDERED: NA CHLORIDE 0.9% 1,000 ML ONE ×2 (10:39→10:43)
[2020-02-07 10:43] LABS: Blood O2 Saturation 86.6 % (92-98.5)
[2020-02-07] MEDS ORDERED: INSULIN -REGULAR HUMAN 50 UNIT/0.5 ML ML ONE (10:43)
[2020-02-07] MEDS ORDERED: INSULIN -REGULAR HUMAN 100 UNIT in NA CHLORIDE 0.9% 100 ML IV SCH ×2 (11:00→12:52)
[2020-02-07 11:19] LABS: Absolute Lymphocytes (CBC) 1.5 K/uL (0.7-4.9); Basophils % 0.3 % (0-1.3); Hematocrit 40.1 % (36.0-45.0); Lymphocytes % 28.3 % (15.3-44.8); MPV 8.3 fL (7.6-11.3); RBC Red Blood Cell Count 4.39 M/uL (3.86-4.86)
[2020-02-07 11:43] LABS: BUN Blood Urea Nitrogen 16 mg/dL (7-18); Glucose Level 466 mg/dL (74-106); Potassium 3.9 mmol/L (3.5-5.1); Sodium Level 131 mmol/L (136-145)
[2020-02-07 11:47] LABS: Bicarbonate 14 mmol/L (21-32)
--- NOTE | 2020-02-07 11:52 | EDPHYS ---
Physician Documentation [facility] Name: Yashira Peters Age: 20 yrs Sex: Female : 2000 Arrival Date: 02/07/2020 Time: 10:19 Bed 15 Private MD: ED Physician Tacho Greene HPI: 02/06 10:32 This 20 yrs old Female presents to ER via Wheelchair with complaints of high rn blood sugar, Abdominal Pain. 10:32 Reports generalized weakness, fatigue, high blood sugar, abd cramping "for a few days". rn Similar to past with DKA. Taking insulin. Denies recent illness/fever. . Severity of symptoms: At their worst the symptoms were moderate in the emergency department the symptoms are unchanged. The patient has experienced similar episodes in the past. The patient has not recently seen a physician. 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 - Social history:: Smoking status: Patient reports the use of cigarette tobacco products, smokes one-half pack cigarettes per day. - Family history:: not pertinent. - Hospitalizations: : No recent hospitalization is reported. ROS: 10:32 Constitutional: Negative for fever, chills, and weight loss, Eyes: Negative for injury, rn pain, redness, and discharge, Neck: Negative for injury, pain, and swelling, Cardiovascular: Negative for chest pain, palpitations, and edema, Respiratory: Negative for shortness of breath, cough, wheezing, and pleuritic chest pain, Abdomen/GI: + abd cramping, + nausea Back: Negative for injury and pain, : Negative for injury, bleeding, discharge, and swelling, MS/Extremity: Negative for injury and deformity, Skin: Negative for injury, rash, and discoloration, Neuro: Negative for headache, numbness, tingling, and seizure. Exam: 10:32 Constitutional: This is a well developed, well nourished patient who is somnolent, but rn awake, requires assistance out of wheelchair to bed. Head/Face: Normocephalic, atraumatic. ENT: dry MM, no stridor or swelling Cardiovascular: tachycardic, regular Respiratory: Mild tachypnea, clear bilaterally Abdomen/GI: soft, non-tender, non-distended, no peritoneal signs Skin: Warm, dry MS/ Extremity: Pulses equal, no cyanosis. Neurovascular intact. Full, normal range of motion. Equal circumference. Neuro: Awake and alert, GCS 15, oriented to person, place, time, and situation. Cranial nerves II-XII grossly intact. Motor strength 5/5 in all extremities. Sensory grossly intact. Cerebellar exam normal. Normal gait. 10:48 ECG was reviewed by the Attending Physician. rn Vital Signs: 10:22 BP 93 / 79; Pulse 106; Resp 19 S; Temp 98(TE); Pulse Ox 99% on R/A; Weight 61.23 kg ca1 (R); Height 5 ft. 4 in. (162.56 cm) (R); 11:20 BP 101 / 70; Pulse 78; Resp 18; Pulse Ox 100% ; bp 11:59 BP 93 / 53; Pulse 86; Resp 15; Pulse Ox 98% ; bp 12:56 BP 100 / 67; Pulse 91; Resp 16; Temp 98; Pulse Ox 97% ; bp 10:22 Body Mass Index 23.17 (61.23 kg, 162.56 cm) ca1 MDM: 10:27 Patient medically screened. rn 11:49 Differential Diagnosis DKA. Data reviewed: vital signs, nurses notes, lab test rn result(s), EKG, and as a result, I will admit patient. Counseling: I had a detailed discussion with the patient and/or guardian regarding: the historical points, exam findings, and any diagnostic results supporting the discharge/admit diagnosis, lab results, the need for further work-up and treatment in the hospital. Response to treatment: the patient's symptoms have mildly improved after treatment, and as a result, I will admit patient. Admission orders: after a detailed discussion of the patient's condition and case, the admit orders are written by me. ED course: Pt with mild DKA, insulin ip started, doesn't feel much better, admitted to Dr. Osullivan for further management. . 02/06 10:26 Order name: CBC with Diff; Complete Time: 11:32 rn 02/06 10:26 Order name: Basic Metabolic Panel; Complete Time: 11:51 rn 02/06 10:26 Order name: Ketone, Serum; Complete Time: 11:51 rn 02/06 10:31 Order name: ABG; Complete Time: 11:12 rn 02/06 10:31 Order name: Urine Microscopic Only rn 02/06 10:42 Order name: Glucose, Ancillary Testing; Complete Time: 11:12 EDMS 02/06 11:53 Order name: Osmolality, Serum EDMS 02/06 11:54 Order name: Test Serum, Qualitat EDMS 02/06 12:18 Order name: Glucose, Ancillary Testing EDMS 02/06 10:26 Order name: IV Start; Complete Time: 10:39 rn 02/06 10:26 Order name: Glucose Level; Complete Time: 10:30 rn 02/06 10:31 Order name: EKG; Complete Time: 10:32 rn 02/06 10:31 Order name: EKG - Nurse/Tech; Complete Time: 10:39 rn EC:48 Rate is 83 beats/min. Rhythm is regular. QRS Honor is Normal. UT interval is normal. QRS rn interval is normal. QT interval is prolonged at 486 msec. No Q waves. T waves are Normal. No ST changes noted. Clinical impression: NSR w/ Non-specific ST/T Changes and No evidence of ischemia. Interpreted by me. Reviewed by me. Administered Medications: 10:32 Drug: NS 0.9% 1000 ml Route: IV; Rate: 1000 ml; Site: right hand; bp 12:21 Follow up: IV Status: Completed infusion; IV Intake: 1000ml bp 10:35 Drug: NS 0.9% 1000 ml Route: IV; Rate: 1000 ml; Site: right hand; bp 12:20 Follow up: IV Status: Completed infusion; IV Intake: 1000ml bp 10:38 Drug: Insulin Regular Human 10 units {Co-Signature: ca1 (Linh Kamara RN).} Route: IVP; bp Site: right hand; 12:21 Follow up: Response: Blood sugar is lowered bp 11:01 Drug: Insulin Drip - (Insulin Regular Human 100 units, NS 0.9% 100 ml) {Co-Signature: bp ca1 (Linh Kamara RN).} Route: IV; Rate: calculated rate; Site: right forearm; 12:56 Follow up: IV Status: Infusion continued upon admission bp 12:20 Drug: D5-1/2 NS with KCl 20 mEq/L 1000 ml Route: IV; Rate: 150 ml/hr; Site: right bp forearm; 12:56 Follow up: IV Status: Infusion continued upon admission bp Point of Care Testing: Blood Glucose: 10:30 Blood Glucose: High (>450 mg/dL); ca1 Ranges: Critical Glucose Levels:Adult <50 mg/dl or >400 mg/dl <40 mg/dl or >180 mg/dl Disposition: 02/07/20 11:51 Hospitalization ordered by Robert Osullivan for Inpatient Admission. Preliminary diagnosis are Diabetes mellitus due to underlying condition with ketoacidosis without coma, Dehydration. - Bed requested for Intensive Care Unit. - Status is Inpatient Admission. bp - Condition is Stable. - Problem is new. - Symptoms have improved. Critical care time excluding procedures: 11:49 Critical care time: Bedside Care: 25 minutes, Consultation: 5 minutes. Total time: 30 rn minutes Signatures: Dispatcher [employer] EDLisandra Wen RN RN dw Nieto, Roman, MD MD rn Peltier, Brian, RN RN bp AcLinh bar RN RN ca1 Linh Kamara RN ca1 Corrections: (The following items were deleted from the chart) 12:40 11:51 Hospitalization Ordered by Robert Osullivan MD for Inpatient Admission. Preliminary dw diagnosis is Diabetes mellitus due to underlying condition with ketoacidosis without coma; Dehydration. Bed requested for Intensive Care Unit. Status is Inpatient Admission. Condition is Stable. Problem is new. Symptoms have improved. rn 13:20 12:40 02/07/2020 11:51 Hospitalization Ordered by Robert Osullivan MD for Inpatient bp Admission. Preliminary diagnosis is Diabetes mellitus due to underlying condition with ketoacidosis without coma; Dehydration. Bed requested for Intensive Care Unit. Status is Inpatient Admission. Condition is Stable. Problem is new. Symptoms have improved. dw
--- NOTE | 2020-02-07 11:52 | ER ---
Nurse's Notes [facility] Name: Yashira Peters Age: 20 yrs Sex: Female : 2000 Arrival Date: 02/07/2020 Time: 10:19 Bed 15 Private MD: Diagnosis: Diabetes mellitus due to underlying condition with ketoacidosis without coma;Dehydration Presentation: 02/06 10:22 Chief complaint: Patient states: SOB, dizziness, I am very thirsty and am having ca1 abdominal pain since this morning. I am diabetic and my blood sugar has been high for a couple of days now. Reports nausea. Denies vomiting. Coronavirus screen: Proceed with normal triage. Patient denies a cough. Patient denies shortness of breath or difficulty breathing. Patient denies measured and/or subjective temperature greater than 100.4F prior to today's visit. Patient denies travel on a cruise ship or to a country the [facility] currently lists as an affected area. Patient denies contact with known and/or suspected case of COVID-19. Ebola Screen: Patient negative for fever greater than or equal to 101.5 degrees Fahrenheit, and additional compatible Ebola Virus Disease symptoms Patient denies exposure to infectious person. Patient denies travel to an Ebola-affected area in the 21 days before illness onset. No symptoms or risks identified at this time. Risk Assessment: Do you want to hurt yourself or someone else? Patient reports no desire to harm self or others. Onset of symptoms was February 07, 2020. 10:22 Method Of Arrival: Wheelchair ca1 10:22 Acuity: ASIA 3 ca1 12:55 Initial Sepsis Screen: Does the patient meet any 2 criteria? HR > 90 bpm. No. Patient's bp initial sepsis screen is negative. Does the patient have a suspected source of infection? No. Patient's initial sepsis screen is negative. Triage Assessment: 10:25 General: Appears distressed, uncomfortable, Behavior is cooperative, appropriate for bp age, anxious. Pain: Complains of pain in abdomen. EENT: No deficits noted. Neuro: No deficits noted. Cardiovascular: Rhythm is sinus tachycardia. Respiratory: No deficits noted. GI: Reports lower abdominal pain, upper abdominal pain. : No signs and/or symptoms were reported regarding the genitourinary system. Derm: No deficits noted. Musculoskeletal: No deficits noted. 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 - Social history:: Smoking status: Patient reports the use of cigarette tobacco products, smokes one-half pack cigarettes per day. - Family history:: not pertinent. - Hospitalizations: : No recent hospitalization is reported. Screenin:30 Abuse screen: Denies threats or abuse. Denies injuries from another. Nutritional bp screening: No deficits noted. Tuberculosis screening: No symptoms or risk factors identified. Fall Risk None identified. Assessment: 10:30 General: SEE TRIAGE NOTE. bp Vital Signs: 10:22 BP 93 / 79; Pulse 106; Resp 19 S; Temp 98(TE); Pulse Ox 99% on R/A; Weight 61.23 kg ca1 (R); Height 5 ft. 4 in. (162.56 cm) (R); 11:20 BP 101 / 70; Pulse 78; Resp 18; Pulse Ox 100% ; bp 11:59 BP 93 / 53; Pulse 86; Resp 15; Pulse Ox 98% ; bp 12:56 BP 100 / 67; Pulse 91; Resp 16; Temp 98; Pulse Ox 97% ; bp 10:22 Body Mass Index 23.17 (61.23 kg, 162.56 cm) ca1 ED Course: 10:19 Patient arrived in ED. as 10:22 Tacho Greene MD is Attending Physician. rn 10:24 Triage completed. ca1 10:25 Arm band placed on right wrist. ca1 10:28 Jhon Cassidy, EMILIA is Primary Nurse. bp 10:30 Patient has correct armband on for positive identification. Placed in gown. Bed in low bp position. Call light in reach. Side rails up X2. Adult w/ patient. 10:30 Inserted saline lock: 20 gauge in right hand, using aseptic technique. Blood collected. bp 11:50 Robert Osullivan MD is Hospitalizing Provider. rn 12:55 No provider procedures requiring assistance completed. Patient admitted, IV remains in bp place. Administered Medications: 10:32 Drug: NS 0.9% 1000 ml Route: IV; Rate: 1000 ml; Site: right hand; bp 12:21 Follow up: IV Status: Completed infusion; IV Intake: 1000ml bp 10:35 Drug: NS 0.9% 1000 ml Route: IV; Rate: 1000 ml; Site: right hand; bp 12:20 Follow up: IV Status: Completed infusion; IV Intake: 1000ml bp 10:38 Drug: Insulin Regular Human 10 units {Co-Signature: ca1 (Linh Kaamra RN).} Route: IVP; bp Site: right hand; 12:21 Follow up: Response: Blood sugar is lowered bp 11:01 Drug: Insulin Drip - (Insulin Regular Human 100 units, NS 0.9% 100 ml) {Co-Signature: bp ca1 (Linh Kamara RN).} Route: IV; Rate: calculated rate; Site: right forearm; 12:56 Follow up: IV Status: Infusion continued upon admission bp 12:20 Drug: D5-1/2 NS with KCl 20 mEq/L 1000 ml Route: IV; Rate: 150 ml/hr; Site: right bp forearm; 12:56 Follow up: IV Status: Infusion continued upon admission bp Point of Care Testing: Blood Glucose: 10:30 Blood Glucose: High (>450 mg/dL); ca1 Ranges: Intake: 12:20 IV: 1000ml; Total: 1000ml. bp 12:21 IV: 1000ml; Total: 2000ml. bp Outcome: 11:51 Decision to Hospitalize by Provider. rn 12:55 Admitted to ICU accompanied by nurse, family with patient, via stretcher, room 3, on bp monitor, with chart, Report called to DOC NIETO 12:55 Condition: stable 12:55 Instructed on the need for admit. 13:20 Patient left the ED. bp Signatures: Cris Alan Roman, MD MD rn Peltier, Brian, RN RN bp Acob, EMILIA Melton RN ca1 Linh Kamara RN ca1
--- OUTSIDE RECORDS SUMMARY | 2020-02-07 12:07 | XMS REPORT | Continuity of Care Document ---
:2000 Author Organization [facility] t Address [address] [place] [address] Care Team Providers Name Role Phone Andrew IVAN Attending Clinician Brook RN, A Attending Clinician Unavailable Payers Payer Name Policy Type Policy Number Effective Date Expiration Date S ource Problems This patient has no known problems. Allergies, Adverse Reactions, Alerts Allergy Allergy Status Severity Reaction(s) Onset Inactive Treating Comm ents Source Name Type Date Date Clinician latex DA Active [place] 2017- [facility] [place] [facility] DA Active [place] [facility] [place] Medications This patient has no known medications. Procedures This patient has no known procedures. Encounters Start End Encounter Admission Attending Care Care Encounter Source Date/Time Date/Time Type Type Clinicians Facility Department ID 2019-11-10 2019-11-10 Letter SHERIDAN Morales [id number] 00:00:00 00:00:00 (Out) Shahid Coats [id number] [place] [id number] [place] [id number] 2019-11-05 2019-11-05 Nurse MADYSON Doe [id number] 00:00:00 00:00:00 Triage Paula MONTANEZ [id number] [facility] [id number] 2019-10-31 2019-10-[address] [facility] [id number] 18:21:01 18:54:00 Shahid Coats [id number] [place] [id number] [place] [id number] Results Test Description Test Time Test Comments Results Result Comments Source [facility] 2018-05-17 [place] 13:07:00 RUN DATE: 05/17/18 [facility] PAGE 1 RUN TIME: 1810 Specimen Inquiry RUN USER: INTERFACE SHRUTI IENT: JULIA KEENE LOC: [facility] U #: [id number] AGE/SX: 18/F ROOM: [facility] RE05/11/18REG DR: Jhon Cuevas MD : [birth year] BED: A DIS: 05/15/18 STATUS: DIS IN TLOC: SPEC #: [id number] RECD: 05/11/18 STATUS: DELROY YOUNG #: [id number] MATI: 05/11/18- SUBM DR: Jhon Cuevas MD ENTERED: 05/12/18 SP TYPE: PLACIII OTHR DR: ORDERED: LEVEL V SURGICA CODES: [id number] - PLACENTA, NOS PROCEDURES: LEVEL V SURGICA [...] 478 gm Tissue code: 1 CPT Code: 61166 cds/kr 05/17/18 @ 1255 GROSS DESCRIPTION The [...] Inquiry RUN USER: INTERFACE PRATEEK Loaiza #: [id number] PATIENT: JULIA KEENE #[id number] (Continued)-------- -------- GROSS DESCRIPTION (Continued) The trimmed [...]
[2020-02-07] MEDS ORDERED: D5.45NS W/KCL 20MEQ 1,000 ML IV ONE (12:37)
[2020-02-07] MEDS ORDERED: D5.45NS W/KCL 20MEQ 1,000 ML IV SCH (12:52)
[2020-02-07] MEDS ORDERED: NA CHLORIDE 0.9% 1,000 ML IV ONE (12:52)
[2020-02-07] MEDS ORDERED: NACHLORIDE 0.45% 1,000 ML with POTASSIUM CL 20 MEQ IV SCH ×2 (12:52)
[2020-02-07] MEDS ORDERED: ONDANSETRON 4 MG/2 ML VIAL IV PRN (12:52)
[2020-02-07 13:32] VITALS: TEMP 99.1
[2020-02-07 14:25] VITALS: O2SAT 99; BMI 22.6
[2020-02-07 14:41] LABS: Urine Bacteria <20 /HPF (<20); Urine Culture Reflex Order NOT NEEDED; Urine RBC <5 /HPF (NONE SEEN)
[2020-02-07 15:09] LABS: BUN Blood Urea Nitrogen 12 mg/dL (7-18); Bicarbonate 23 mmol/L (21-32); Glucose Level 185 mg/dL (74-106); Potassium 4.2 mmol/L (3.5-5.1); Sodium Level 137 mmol/L (136-145)
[2020-02-07 15:21] VITALS: BP 112/74
--- NOTE | 2020-02-07 21:07 | HP ---
Date of Admission: 02/07/2020 Code Status: Full. Chief Complaint: Generalized malaise, nausea. History Of Present Illness: Patient is a 20-year-old female with past medical history of diabetes mellitus type 1 on NPH 12 units twice daily and regular insulin 12 units also b.i.d. who was recently discharged from the hospital for DKA on 01/09/2020. Patient states that she is still taking her insulin as ordered, however, she has not adjusted her insulin dose as recommended for her blood sugars. She states her blood sugars have been running in the 300s. She denies any dysuria, hematuria, any cough, fever, chills. Does report some nausea and wants something to eat. The patient's symptoms are constant, moderate, progressively worsening. In the ER, her workup revealed elevated anion gap at 16, blood glucose level was 466. ABG showed acidosis with pH of 7.28 and a small acetones were present. UA is pending at this time along with test. Patient was then referred for admission. When seen in the ER, she was awake, alert, oriented x3, in some mild distress. Past Medical History: Diabetes mellitus type 1, history of CVA, seizure disorder, high cholesterol, hypothyroidism, depression, history of previous suicide attempt. Surgical History: x2. Allergies: TO AMOXICILLIN CAUSES HALLUCINATIONS AND LATEX CAUSES HIVES AND RASH. Medications: As per medication reconciliation list. Social History: Patient does report some cigarette use about half pack per day. No alcohol use or illicit drug use. Family History: Denies any premature coronary artery disease in the family. Review of Systems: Ten-point system reviewed, negative except as per HPI. Physical Examination: Vital Signs: Blood pressure 93/79, pulse 106, respirations 19, temperature 98, O2 99% on room air. BMI is 23. General: Awake, alert, oriented x3, ill-appearing female, in some mild distress. HEENT: Normocephalic, atraumatic. PERRLA, EOMI. Dry mucous membranes. Oropharynx is clear. Conjunctivae are anicteric. Neck: Supple. No JVD. Trachea midline. CV: S1, S2. Sinus tachycardia. Peripheral pulses present. No murmurs. Respiratory: Moving air well bilaterally. No wheezing or stridor. No use of accessory muscles. Gastrointestinal: Abdomen is soft. Mild tenderness to palpation. No guarding or rigidity. Positive bowel sounds. Extremities: No clubbing, cyanosis, or edema. No calf tenderness. Neuro: Cranial nerves 3 through 12 intact grossly. No focal neurological deficit. Speech is normal. Skin: No rashes. Normal skin turgor. Psych: Mood is okay. Affect is full. Insight and judgment are good. Laboratory Data: UA is pending. Sodium 131, potassium 3.9, chloride 101, CO2 14, anion gap of 16, BUN 16, creatinine 0.79, glucose 466, calcium 8.5. ABG; pH 7.28, pCO2 31.9, PO2 59.8, bicarb 14.4. WBC 5.2, H and H 13.2 and 40.1, platelets 242, neutrophils 67%. Assessment And Plan: 1. Diabetic ketoacidosis secondary to diabetes mellitus type 1 without coma. We will start on IV insulin drip. We will monitor BMP every 4 hours until gap is closed. We will check serum osmolality. Repeat acetone level in a.m. We will check a test. Patient already has labs drawn. We will add to serum. Patient does report compliance with her insulin dose, however, has not adjusted her dose despite her elevated blood sugars in the 300s. The patient will need diabetic counseling. 2. History of seizure disorder, stable. 3. History of cerebrovascular accident, stable. 4. Hypothyroidism. 5. Major depressive disorder, stable. 6. Mixed hyperlipidemia, stable. 7. Deep vein thrombosis prophylaxis with Lovenox. 8. Nicotine dependence with cigarette smoking, continuous, uncomplicated. Patient has been counseled. Plan: We will admit patient to ICU, place as inpatient. Once gap is closed, patient can be started on clear liquid diet and advanced to diabetic diet. Anticipate discharge in next 24-48 hours depending on clinical response. ADDENDUM: Patient feeling better and wanting to be discharged. Counseled to stay for treatment. Left AMA. She understands the risks. SA/MODL Voice ID: [id number] ANNETTE
[2020-02-08] MEDS ORDERED: ENOXAPARIN 40 MG/0.4 ML SQ SCH (09:00)
--- NOTE | 2020-02-08 12:25 | EKG ---
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
== END 2020-02-07 15:30 | disposition left against medical advice (07) | DRG 639 ==
LOC: ER 10:17 → ERHOLD 11:52 → 3RD-ICU 12:55
PROVIDERS: ADMIT Family Medicine; ATTEND Family Medicine
DX: E10.10 Type 1 diabetes mellitus with ketoacidosis without coma (principal); E03.9 Hypothyroidism, unspecified; F32.9 Major depressive disorder, single episode, unspecified; E78.2 Mixed hyperlipidemia; F17.210 Nicotine dependence, cigarettes, uncomplicated; Z86.73 Personal history of transient ischemic attack (TIA), and cerebral infarction without residual deficits; Z91.5 Personal history of self-harm; Z88.1 Allergy status to other antibiotic agents; Z91.040 Latex allergy status; Z11.59 Encounter for screening for other viral diseases; Z79.4 Long term (current) use of insulin
CPT/HCPCS: 36415; 80048; 81015; 82010; 82805; 82947; 85025; 93005; 96365; 96366; 99285; J7030; U0002

== ENCOUNTER 2020-05-10 11:08 | Emergency (ER) | payer OTHER, SELFPAY ==
--- OUTSIDE RECORDS SUMMARY | 2020-05-10 11:11 | XMS REPORT | Continuity of Care Document ---
:2000 Author Organization [facility] t Address [address] [place] [address] Care Team Providers Name Role Phone Moiz IVAN Attending Clinician Doctor Unassigned, Name Attending Clinician Unavailable Anderw IVAN Attending Clinician Brook NIETO, A Attending Clinician Unavailable Payers Payer Name Policy Type Policy Number Effective Date Expiration Date S ource Problems This patient has no known problems. Allergies, Adverse Reactions, Alerts Allergy Allergy Status Severity Reaction(s) Onset Inactive Treating Comm ents Source Name Type Date Date Clinician latex DA Active [place] 2017-0 [facility] [place] latex DA Active [place] 2017-0 [facility] [place] Medications This patient has no known medications. Procedures This patient has no known procedures. Encounters Start End Encounter Admission Attending Care Care Encounter Source Date/Time Date/Time Type Type Clinicians Facility Department ID 2020-04-27 2020-04-27 Telephone Moiz Ashley [facility] [id number] 00:00:00 00:00:00 [place]auly [id number] [place] [id number] [facility] [phone] [facility] [address] [facility] 2020-04-25 2020-04-25 Orders Doctor MADYSON [id number] 00:00:00 00:00:00 Only Unassigned, [place] [id number] [place] [address]686 [id number] 2019-11-10 2019-11-10 Letter Andrew [facility] [id number] 00:00:00 00:00:00 (Out) Shahid Tovarton [id number] [place] [id number] [place] [id number] [id number] 2019-11-05 2019-11-05 Nurse MADYSON Doe [id number] 00:00:00 00:00:00 Triage Paula MONTANEZ [id number] [place] [id number] [id number] 2019-10-31 2019-10-31 Emergency Andrew [facility] [id number] 18:21:01 18:54:00 Shahid Coats [id number] [place] [id number] [place] [phone] [id number] Results Test Description Test Time Test Comments Results Result Comments Source [facility] 2018-05-17 TRIMESTER 13:07:00 RUN DATE: 05/17/18 [facility] PAGE 1 RUN TIME: 1809 Specimen Inquiry RUN USER: INTERFACE PAT IENT: JULIA KEENE LOC: BETI U #: [id number] AGE/SX: 18/F ROOM: [facility] RE05/11/18REG DR: Jhon Cuevas MD : 98 BED: A DIS: 05/15/18 STATUS: DIS IN TLOC: SPEC #: [id number] RECD: 05/11/18 STATUS: DELROY RE #: [id number] MATI: 05/11/18- SUBM DR: Jhon Cuevas MD ENTERED: 05/12/18-6 SP TYPE: PLACIII OTHR DR: ORDERED: LEVEL V SURGICA CODES: [id number] - PLACENTA, NOS PROCEDURES: LEVEL V SURGICA [...] 478 gm Tissue code: 1 CPT Code: 10427 cds/kr 05/17/18 @ 0717 GROSS DESCRIPTION The specimen was received in [...] TIME: 1809 Specimen Inquiry RUN USER: INTERFACE PRATEEK Loaiza #: [id number] PATIENT: JULIA KEENE #[id number] (Continued)-------- -------- GROSS DESCRIPTION (Continued) The trimmed placental weight: 491 gm Disk measurement: 19 x 17 x 3.2 cm in greatest dimension Accessory lobes: None Maternal surface: Lobulated and intact Parenchyma: Red, beefy, and spongy Parenchyma lesions: None Cassettes: A through D hz/kr 05/12/18 @ 1048 MICROSCOPIC DESCRIPTION Villous architecture is late third trimester. A few areas of villous edema are present near the basal plate. cds/kr 05/17/18 @ 1255 - Signed Jewel Salmeron 05/17/18 1307 END OF REPORT
--- OUTSIDE RECORDS SUMMARY | 2020-05-10 11:11 | XMS REPORT | Summary of Care ---
:2000 Author Organization [facility] - Health Address [address] [place] [address] Care Team Providers Name Role Phone Pcp, Does Not Have A Primary Care Provider Encounter Details Date Type Department Care Team Description 04/25/2020 Orders Only [facility] Doctor Unassigned, No [address] [facility] Name [place] [phone] [place] [phone] Allergies Active Allergy Reactions Severity Noted Date Comments Clindamycin Hallucinations 01/28/2017 documented as of this encounter (statuses as of 04/25/2020) Medications Medication Sig Dispensed Refills Start Date [...] as of this encounter (statuses as of 04/25/2020) Active Problems Problem Noted Date Rubella non-immune status, antepartum 11/03/2017 Overview: Address pp Susceptible to varicella (non-immune), currently pregn ant 11/03/2017 Overview: Address pp Multiparity 11/02/2017 History of section 11/02/2017 Overview: x2 Tobacco use during 11/02/2017 Overview: Reports quit Counseling for insulin pump 01/28/2017 Diabetes in 10/14/2012 Overview: ICD10 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 Hypothyroid in , antepartum 10/14/2012 Overview: Off of meds [id number] documented as of this encounter (statuses as of 04/25/2020) Resolved Problems Problem Noted Date Resolved Date H/O noncompliance with medical treatment, presenting hazards 11/11/2012 11/02/2017 to health High risk teen 10/14/2012 11/02/2017 documented as of this encounter (statuses as of 04/25/2020) Immunizations Name Administration Dates Next Due DTAP 1998 HIB 4 Dose Schedule 1998 Hep B, Adol or Pedi Dosage 1998 Meningococcal Polysaccharide (groups A, C, Y and W-135) 03/17 conjugate vaccine (MCV4P) Polio (IPV/OPV) 1998 Rubella 10/01/2012 TDAP 04/07/2012 Varicella (varivax)(chicken pox) 09/09/2012 documented as of this encounter Social History Tobacco Use Types Packs/Day Years Used Date Former Smoker Cigarettes 2017 - 0 10/13/2017 Smokeless Tobacco: Never Used Alcohol Use Drinks/Week oz/Week Comments No Sex Assigned at Date Recorded Not on file COVID-19 Exposure Response Date Recorded In the last month, have you been in contact with No / Unsure 04/25/2020 12:59 PM CDT someone who was confirmed or suspected to have Coronavirus / COVID-19? documented as of this encounter Last Filed Vital Signs Not on filedocumented in this encounter Plan of Treatment Health Maintenance Due Date Last Done Comments EYE EXAM 01/05/2008 LDL-C 01/05/2008 MENINGOCOCCAL B VACCINES (1 01/05/2008 of 2 - Risk Bexsero 2-dose series) URINE MICROALBUMIN 01/05/2008 HPV VACCINES (1 - 2-dose 2009 series) Depression Screening 2010 VARICELLA VACCINES (2 of 2 - 10/07/2012 09/09/2012 13+ 2-dose series) HgA1C 05/05/2018 11/02/2017, 05/06/2017, 10/20/2012, Additional history exists FOOT EXAM 05/06/2018 05/06/2017, 05/06/2017, 01/28/2017, Additional history exists CHLAMYDIA SCREENING 11/02/2018 11/02/2017, 10/01/2012 CREATININE (SERUM) 11/19/2018 11/19/2017, 11/02/2017, 11/14/2012, Additional history exists PAP SMEAR 2019 INFLUENZA VACCINE (#1) 2020 DTaP,Tdap,and Td Vaccines (3 04/07/2022 04/07/2012, 998 - Td) MENINGOCOCCAL VACCINE Aged Out 04/02/2010 No longer eligible based on patient 's age to complete this topic PNEUMOCOCCAL 0-64 YEARS Aged Out No longe r eligible COMBINED SERIES based on patient 's age to complete this topic documented as of this encounter Procedures Procedure Name Priority Date/Time Associated Diagnosis Comme nts CONSENT/REFUSAL FOR Routine 04/25/2020 1:01 PM CDT DIAGNOSIS AND TREATMENT documented in this encounter Results Not on filedocumented in this encounter Advance Directives Type Date Recorded Patient Meeting Manager Explanati on Advance Directives and Living Will Power of 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 Health Care Agent (Mobile)
--- OUTSIDE RECORDS SUMMARY | 2020-05-10 11:11 | XMS REPORT | Summary of Care ---
:2000 Author Organization [facility] Address [address] [place] [id number] Care Team Providers Name Role Phone Pcp, Does Not Have A Primary Care Provider Reason for Visit Reason Comments Lab Results Encounter Details Date Type Department Care Team Description 04/27/2020 Telephone [facility] [address] [phone] Allergies Active Allergy Reactions Severity Noted Date Comments Clindamycin Hallucinations 01/28/2017 documented as of this encounter (statuses as of 04/27/2020) Medications Medication Sig Dispensed Refills Start Date [...] Cough times daily as needed for Cough. Additional Information Patient taking differently: 100 mg Oral TIDPRN, Cough, Reported on 04/25/2020 1:39 PM fluconazole 150 mg Take 1 tablet by 2 tablet 0 04/25/202007/2020 Active tabletIndications: mouth every 48 Vaginal discharge (forty-eight) hours for 2 doses. 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 Hypothyroid in , antepartum 10/14/2012 Overview: Off of meds [id number] documented as of this encounter (statuses as of 04/27/2020) Resolved Problems Problem Noted Date Resolved Date H/O noncompliance with medical treatment, presenting hazards 11/11/2012 11/02/2017 to health High risk teen 10/14/2012 11/02/2017 documented as of this encounter (statuses as of 04/27/2020) Immunizations Name Administration Dates Next Due DTAP 1998 HIB 4 Dose Schedule 1998 Hep B, Adol or Pedi Dosage 1998 Meningococcal Polysaccharide (groups A, C, Y and W-135) 03/17 conjugate vaccine (MCV4P) Polio (IPV/OPV) 1998 Rubella 10/01/2012 TDAP 04/07/2012 Varicella (varivax)(chicken pox) 09/09/2012 documented as of this encounter Social History Tobacco Use Types Packs/Day Years Used Date Current Every Day Smoker Cigarettes 0.5 2 Sta rted: 2018 Smokeless Tobacco: Never Used Alcohol Use Drinks/Week oz/Week Comments Yes socially Alcohol Habits Answer Date Recorded How often do you have a drink containing alcohol? Monthly or less 04/25/2020 How many drinks containing alcohol do you have on a 1 or 2 04/25/2020 typical day when you are drinking? How often do you have six or more drinks on one Never 04/25/2020 occasion? Sex Assigned at Date Recorded Not on file COVID-19 Exposure Response Date Recorded In the last month, have you been in contact with No / Unsure 04/25/2020 12:59 PM CDT someone who was confirmed or suspected to have Coronavirus / COVID-19? documented as of this encounter Last Filed Vital Signs Not on filedocumented in this encounter Miscellaneous Notes Telephone Encounter - Ashley Rockwell MD - 04/27/2020 9:20 AM CDTGC/CT: neg Trich: neg BV: neg Yeast: neg Discussed results with patient. She is wondering why she is still having vaginal irritation if all results are negative. Discussed that I am not sure why, but she could try a vaginal moisturizer. Discussed importance of controlling diabetes too. documented in this encounter Plan of Treatment Health Maintenance Due Date Last Done Comments PNEUMOCOCCAL 0-64 YEARS 01/05/2004 COMBINED SERIES (1 of 1 - PPSV23) EYE EXAM 01/05/2008 LDL-C 01/05/2008 MENINGOCOCCAL B VACCINES (1 01/05/2008 of 2 - Risk Bexsero 2-dose series) URINE MICROALBUMIN 01/05/2008 HPV VACCINES (1 - 2-dose 2009 series) VARICELLA VACCINES (2 of 2 - 10/07/2012 09/09/2012 13+ 2-dose series) HgA1C 05/05/2018 11/02/2017, 05/06/2017, 10/20/2012, Additional history exists FOOT EXAM 05/06/2018 05/06/2017, 05/06/2017, 01/28/2017, Additional history exists CREATININE (SERUM) 11/19/2018 11/19/2017, 11/02/2017, 11/14/2012, Additional history exists PAP SMEAR 2019 INFLUENZA VACCINE (#1) 2020 CHLAMYDIA SCREENING 04/25/2021 04/25/2020, 11/02/2017, 10/01/2012 Depression Screening 04/25/2021 04/25/2020 DTaP,Tdap,and Td Vaccines (3 04/07/2022 04/07/2012, 998 - Td) MENINGOCOCCAL VACCINE Aged Out 04/02/2010 No longer eligible based on patient 's age to complete this topic documented as of this encounter Results Not on filedocumented in this encounter Advance Directives Type Date 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
[2020-05-10 12:56] LABS: Absolute Lymphocytes (CBC) 1.1 K/uL (0.7-4.9); Basophils % 0.2 % (0-1.3); Hematocrit 42.6 % (36.0-45.0); Lymphocytes % 6.5 % (15.3-44.8); RBC Red Blood Cell Count 4.78 M/uL (3.86-4.86)
[2020-05-10] MEDS ORDERED: NA CHLORIDE 0.9% 1,000 ML ONE ×2 (13:07→13:41)
[2020-05-10 13:09] LABS: BUN Blood Urea Nitrogen 11 mg/dL (7-18); Bicarbonate 21 mmol/L (21-32); Glucose Level 249 mg/dL (74-106); Potassium 4.2 mmol/L (3.5-5.1); Sodium Level 133 mmol/L (136-145)
[2020-05-10] MEDS ORDERED: MEPERIDINE HCL 50 MG/ML ONE (13:41)
[2020-05-10 13:44] LABS: Blood Morphology Comment NOT SEEN (NOT SEEN); Platelet Estimate ADEQ
--- NOTE | 2020-05-10 14:17 | RAD REPORT ---
EXAM DESCRIPTION: Efe Single View05/10/2020 1:29 pm CLINICAL HISTORY: cough COMPARISON: December 2019 FINDINGS: The lungs appear clear of acute infiltrate. The heart is normal size IMPRESSION: No acute abnormalities displayed
[2020-05-10 15:22] LABS: Urine Blood NEGATIVE (NEG); Urine Glucose 2+ (NEG); Urine Protein NEGATIVE (NEG)
[2020-05-10] MEDS ORDERED: AZITHROMYCIN 250 MG TAB ONE (15:26)
[2020-05-10] MEDS ORDERED: ACETAMINOPHEN 500 MG TAB ONE (15:26)
--- NOTE | 2020-05-10 15:43 | EDPHYS ---
Physician Documentation [facility] Name: Yashira Peters Age: 20 yrs Sex: Female : 2000 Arrival Date: 05/10/2020 Time: 11:21 Bed 20 Private MD: ED Physician Tacho Greene HPI: 05/10 14:01 This 20 yrs old Female presents to ER via Ambulatory with complaints of Sore rn Throat, Headache, fatigue, muscle aches. 14:01 The patient presents with sore throat. The patient describes throat pain as raw. rn 14:02 Onset: The symptoms/episode began/occurred 3 day(s) ago. Severity of symptoms: At their rn worst the symptoms were moderate, in the emergency department the symptoms are unchanged. Modifying factors: The symptoms are alleviated by nothing, the symptoms are aggravated by swallowing. The patient has not experienced similar symptoms in the past. The patient has not recently seen a physician. Reports family member recent diagnosis of strep throat, now for 2-3 days patient with chills, sore throat, worse with swallowing, + generalized fatigue and weakness, nausea. Reports glucose high at home this AM, took insulin prior to arrival. . 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 - Social history:: Smoking status: Patient reports the use of cigarette tobacco products, smokes one-half pack cigarettes per day. - Family history:: not pertinent. - Hospitalizations: : No recent hospitalization is reported. ROS: 14:03 Constitutional: Negative for fever, chills, and weight loss, Eyes: Negative for injury, rn pain, redness, and discharge, ENT: + sore throat Neck: Negative for injury, pain, and swelling, Cardiovascular: Negative for chest pain, palpitations, and edema, Respiratory: Negative for shortness of breath, cough, wheezing, and pleuritic chest pain, Abdomen/GI: Negative for abdominal pain, nausea, vomiting, diarrhea, and constipation, MS/Extremity: Negative for injury and deformity, Skin: Negative for injury, rash, and discoloration, Neuro: Negative for numbness, tingling, and seizure. Exam: 14:03 Constitutional: Thin female, no acute distress Head/Face: Normocephalic, atraumatic. rn rehabilitation: dry MM, + tonsillar hypertrophy with exudate and beefy red pharynx. Neck: Trachea midline, no masses palpated. Supple, full range of motion without nuchal rigidity, or vertebral point tenderness. No Meningismus. Cardiovascular: Tachycardic, regular Respiratory: No increased work of breathing, no retractions or nasal flaring. Abdomen/GI: soft, non-tender Skin: Warm, dry MS/ Extremity: Pulses equal, no cyanosis. Neurovascular intact. Full, normal range of motion. Equal circumference. Neuro: Awake and alert, GCS 15, oriented to person, place, time, and situation. Cranial nerves II-XII grossly intact. Motor strength 5/5 in all extremities. Sensory grossly intact. Cerebellar exam normal. Vital Signs: 11:40 BP 129 / 75; Pulse 125; Resp 20; Temp 98.3(O); Pulse Ox 99% on R/A; Weight 61.23 kg; ss Height 5 ft. 4 in. (162.56 cm); Pain 10/10; 12:51 BP 116 / 78; Pulse 122; Resp 16; Temp 98.3; Pulse Ox 100% on R/A; Pain 8/10; jd3 14:00 BP 112 / 72; Pulse 108; Resp 18; Pulse Ox 100% on R/A; ll2 15:10 BP 105 / 64; Pulse 124; Resp 16; Temp 99.9(A); Pulse Ox 100% on R/A; ll2 11:40 Body Mass Index 23.17 (61.23 kg, 162.56 cm) ss MDM: 11:46 Patient medically screened. rn 15:40 Differential diagnosis: group A strep tonsillitis, pharyngitis, tonsillitis, upper rn respiratory infection, viral syndrome dehydration, hyperglycemia, DKA. Data reviewed: vital signs, nurses notes, lab test result(s), radiologic studies, plain films. Counseling: I had a detailed discussion with the patient and/or guardian regarding: the historical points, exam findings, and any diagnostic results supporting the discharge/admit diagnosis, lab results, radiology results, the need for outpatient follow up, to return to the emergency department if symptoms worsen or persist or if there are any questions or concerns that arise at home. Response to treatment: the patient's symptoms have markedly improved after treatment, and as a result, I will discharge patient. Special discussion: I discussed with the patient/guardian in detail that at this point there is no indication for admission to the hospital. It is understood, however, that if the symptoms persist or worsen the patient needs to return immediately for re-evaluation. ED course: Pt improved, strep +, no AG, glucose 200, small ketones in serum and urine, most likely 2/2 dehydration and infection more than something like DKA. Will dc home with abx. . 05/10 11:53 Order name: COVID-19 rn 05/10 11:53 Order name: Flu; Complete Time: 14:58 05/10 11:53 Order name: Strep; Complete Time: 14:58 05/10 11:53 Order name: CBC with Diff; Complete Time: 14: 05/10 11:53 Order name: Basic Metabolic Panel; Complete Time: 13:27 05/10 11:53 Order name: Ketone, Serum; Complete Time: 13:27 05/10 11:53 Order name: CXR XRAY; Complete Time: 14:29 rn 05/10 13:14 Order name: Glucose, Ancillary Testing; Complete Time: 13:27 [facility] 05/10 13:44 Order name: Manual Differential; Complete Time: 14:01 [facility] 05/10 14:03 Order name: Urine Microscopic Only; Complete Time: 16:15 05/10 14:58 Order name: Urine Dipstick--Ancillary (enter results); Complete Time: 15:40 [facility] 05/10 14:58 Order name: Urine --Ancillary (enter results); Complete Time: 15:40 [facility] 05/10 11:53 Order name: Droplet/Contact Precautions; Complete Time: 12:51 05/10 11:53 Order name: Labs collected and sent; Complete Time: 12:51 05/10 11:53 Order name: IV Start; Complete Time: 12:51 05/10 11:53 Order name: Glucose Level; Complete Time: 13:49 rn 05/10 14:03 Order name: Urine Test (obtain specimen); Complete Time: 14:56 rn 05/10 14:03 Order name: Urine Dipstick-Ancillary (obtain specimen); Complete Time: 14:56 rn Administered Medications: 13:05 Drug: NS 0.9% 1000 ml Route: IV; Rate: 1000 ml; Site: right antecubital; ll2 14:30 Follow up: Response: No adverse reaction; IV Status: Completed infusion ll2 13:35 Drug: NS 0.9% 1000 ml Route: IV; Rate: 1000 ml; Site: left antecubital; ll2 14:30 Follow up: Response: No adverse reaction; IV Status: Completed infusion ll2 13:36 Drug: Demerol 25 mg Route: IVP; Site: left antecubital; ll2 13:49 Follow up: Response: No adverse reaction; RASS: Alert and Calm (0) ll2 15:19 Drug: Zithromax 500 mg Route: PO; ll2 15:19 Follow up: Response: No adverse reaction ll2 15:19 Drug: Tylenol 1000 mg Route: PO; ll2 15:19 Follow up: Response: No adverse reaction ll2 Disposition: 05/10/20 15:42 Discharged to Home. Impression: Dehydration, Streptococcal tonsillitis. - Condition is Stable. - Discharge Instructions: Dehydration, Adult, Strep Throat. - Prescriptions for Zithromax Z- Lito 250 mg Oral Tablet - take 1 tablet by ORAL route as directed for 5 days Day 1 - take two (2) tablets one time. Day 2, 3, 4 , 5 take one (1) tablet once daily.; 6 tablet. - Medication Reconciliation Form, Thank You Letter, Antibiotic Education, Prescription Opioid Use, Work release form form. - Follow up: Private Physician; When: As needed; Reason: Recheck today's complaints, Re-evaluation by your physician. - Problem is new. - Symptoms have improved. Signatures: Dispatcher [employer] EDMS Tacho Greene MD MD rn Smirch, Shelby, RN RN ss Linscombe, Lacie, RN RN ll2 Corrections: (The following items were deleted from the chart) 13:50 13:49 ECG was reviewed by the Attending Physician. mejia ba 13:50 13:49 Rate is 66 beats/min. Rhythm is regular. QRS [place] is Normal. RI interval is rn normal. QRS interval is normal. QT interval is normal. No Q waves. T waves are Normal. No ST changes noted. Clinical impression: NSR w/ Non-specific ST/T Changes. Interpreted by me. Reviewed by me. rn 16:34 15:42 05/10/2020 15:42 Discharged to Home. Impression: Dehydration; Streptococcal ll2 tonsillitis. Condition is Stable. Forms are Medication Reconciliation Form, Thank You Letter, Antibiotic Education, Prescription Opioid Use. Follow up: Private Physician; When: As needed; Reason: Recheck today's complaints, Re-evaluation by your physician. Problem is new. Symptoms have improved. rn
--- NOTE | 2020-05-10 15:43 | ER ---
Nurse's Notes [facility] Name: Yashira Peters Age: 20 yrs Sex: Female : 2000 Arrival Date: 05/10/2020 Time: 11:21 Bed 20 Private MD: Diagnosis: Dehydration;Streptococcal tonsillitis Presentation: 05/10 11:40 Chief complaint: Patient states: Sore throat, body aches, headache and abd pain that ss began 3 days ago. Daughter was diagnosed with strep 1 week ago. Pt has history of Diabetes Type 1, and reports that her blood sugar has been running high. Coronavirus screen: Client denies travel out of the [place] in the last 14 days. Ebola Screen: Patient denies exposure to infectious person. Patient denies travel to an Ebola-affected area in the 21 days before illness onset. Initial Sepsis Screen: Does the patient meet any 2 criteria? HR > 90 bpm. Does the patient have a suspected source of infection? No. Patient's initial sepsis screen is negative. Risk Assessment: Do you want to hurt yourself or someone else? Patient reports no desire to harm self or others. Onset of symptoms was May 07, 2020. 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 - Social history:: Smoking status: Patient reports the use of cigarette tobacco products, smokes one-half pack cigarettes per day. - Family history:: not pertinent. - Hospitalizations: : No recent hospitalization is reported. Screenin:53 Abuse screen: Denies threats or abuse. Nutritional screening: No deficits noted. jd3 Tuberculosis screening: No symptoms or risk factors identified. Fall Risk None identified. Assessment: 12:49 General: Appears in no apparent distress. Behavior is calm, cooperative, appropriate jd3 for age. Pain: Complains of pain in head Pain currently is 7 out of 10 on a pain scale. Neuro: Level of Consciousness is awake, alert, obeys commands, Oriented to person, place, time, situation. Cardiovascular: Capillary refill < 3 seconds Patient's skin is warm and dry. Respiratory: Airway is patent Respiratory effort is even, unlabored, Respiratory pattern is regular, symmetrical, Breath sounds are clear. GI: No signs and/or symptoms were reported involving the gastrointestinal system. : No signs and/or symptoms were reported regarding the genitourinary system. EENT:. 13:05 EENT: Throat is reddened has patchy exudate. ll2 13:05 Derm: Skin is intact, is healthy with good turgor, Skin is dry, Skin is pink, warm \T\ ll2 dry. Skin temperature is warm. Derm: Skin is intact, is healthy with good turgor, Skin is dry, Skin is pink, warm \T\ dry. Skin temperature is warm. Musculoskeletal: Circulation, motion, and sensation intact. Range of motion: intact in all extremities. 13:50 Reassessment: No changes from previously documented assessment. Patient and/or family ll2 updated on plan of care and expected duration. Pain level reassessed. Patient is alert, oriented x 3, equal unlabored respirations, skin warm/dry/pink. 05/11 14:16 Reassessment: Attempted to call COVID-19 result but there was no answer. sv Vital Signs: 05/10 11:40 BP 129 / 75; Pulse 125; Resp 20; Temp 98.3(O); Pulse Ox 99% on R/A; Weight 61.23 kg; ss Height 5 ft. 4 in. (162.56 cm); Pain 10/10; 12:51 BP 116 / 78; Pulse 122; Resp 16; Temp 98.3; Pulse Ox 100% on R/A; Pain 8/10; jd3 14:00 BP 112 / 72; Pulse 108; Resp 18; Pulse Ox 100% on R/A; ll2 15:10 BP 105 / 64; Pulse 124; Resp 16; Temp 99.9(A); Pulse Ox 100% on R/A; ll2 11:40 Body Mass Index 23.17 (61.23 kg, 162.56 cm) ED Course: 11:21 Patient arrived in ED. ag5 11:42 Triage completed. ss 11:43 Arm band placed on right wrist. 11:46 Tacho Greene MD is Attending Physician. rn 12:49 Haja Wayne, EMILIA is Primary Nurse. jd3 12:52 Inserted saline lock: 20 gauge in right antecubital area, using aseptic technique. jd3 ,using aseptic technique. BY Matt digital media intern Blood collected. 13:06 Patient has correct armband on for positive identification. Placed in gown. Call light ll2 in reach. Side rails up X 1. Pulse ox on. NIBP on. Warm blanket given. 13:09 No provider procedures requiring assistance completed. FSBS 230. ll2 13:29 CXR XRAY In Process Unspecified. EDMS 16:34 IV discontinued, intact, bleeding controlled, No redness/swelling at site. Pressure ll2 dressing applied. Administered Medications: 13:05 Drug: NS 0.9% 1000 ml Route: IV; Rate: 1000 ml; Site: right antecubital; ll2 14:30 Follow up: Response: No adverse reaction; IV Status: Completed infusion ll2 13:35 Drug: NS 0.9% 1000 ml Route: IV; Rate: 1000 ml; Site: left antecubital; ll2 14:30 Follow up: Response: No adverse reaction; IV Status: Completed infusion ll2 13:36 Drug: Demerol 25 mg Route: IVP; Site: left antecubital; ll2 13:49 Follow up: Response: No adverse reaction; RASS: Alert and Calm (0) ll2 15:19 Drug: Zithromax 500 mg Route: PO; ll2 15:19 Follow up: Response: No adverse reaction ll2 15:19 Drug: Tylenol 1000 mg Route: PO; ll2 15:19 Follow up: Response: No adverse reaction ll2 Outcome: 15:42 Discharge ordered by MD. rn 16:33 Discharged to home ambulatory. ll2 16:33 Condition: stable 16:33 Discharge instructions given to patient, Instructed on discharge instructions, follow up and referral plans. medication usage, Demonstrated understanding of instructions, follow-up care, medications. 16:33 Prescriptions given X 1. 16:34 Patient left the ED. ll2 Addendum: 05/13/2020 12:44 Addendum: COVID-19 Result: Negative result given to RN to notify pt. Notified pt of i w negative COVID 19 swab results. Pt advised that even with a negative test result they should remain in isolation until symptom free for 3 days without medication. Pt also advised to return to the ED for worsening symptoms. Signatures: Dispatcher [employer] Lizbeth Mg, RN Lizette Brooks RN RN iw Nieto, Roman, MD MD rn Smirch, Shelby, RN RN ss Davies, Jonathon, RN RN jd3 Zina Johnson 5 Mey Sweet RN EMILIA ll2
[2020-05-10 16:01] LABS: Urine Bacteria <20 /HPF (<20); Urine Culture Reflex Order NOT NEEDED; Urine Mucus 1+ /HPF (NONE SEEN); Urine RBC NONE SEEN /HPF (NONE SEEN)
[2020-05-10 16:59] VITALS: O2SAT 100
[2020-05-10 17:12] VITALS: BP 105/64; TEMP 99.9
== END 2020-05-10 16:34 | disposition home or self-care (01) ==
LOC: ER 11:08
DX: J03.00 Acute streptococcal tonsillitis, unspecified (principal); E86.0 Dehydration; Z20.828 Contact with and (suspected) exposure to other viral communicable diseases; F17.210 Nicotine dependence, cigarettes, uncomplicated; E11.9 Type 2 diabetes mellitus without complications; Z88.1 Allergy status to other antibiotic agents; Z91.040 Latex allergy status; Z91.048 Other nonmedicinal substance allergy status
CPT/HCPCS: 96361; 85025; 80048; 36415; 82010; 81025; 82947; 87081; 87804 ×2; 71045; 96374; 99284; U0002; J2175; J7030 ×2; 81003; 81015

== ENCOUNTER 2020-05-23 21:10 | Emergency (ER) | payer SELFPAY ==
--- NOTE | 2020-05-23 22:08 | ER ---
Nurse's Notes [facility] Name: Yashira Peters Age: 20 yrs Sex: Female : 2000 Arrival Date: 05/23/2020 Time: 21:12 Bed 19 Private MD: Diagnosis: Dermatitis, unspecified;Allergy, unspecified Presentation: 05/23 21:23 Chief complaint: Patient states: Red rash all over the body x 6-7 days. Reports severe ca1 itching and pain off and on. Was here on 05/10 for strep infection and was prescribed Z-pac for home meds. Symptoms started on the last day of ABX. Denies joint pains, abdominal pain, N/V, fever. Took Benadryl, applied topical creams, no relief. 21:27 Coronavirus screen: Client denies travel out of the [place] in the last 14 days. At this ca1 time, the client does not indicate any symptoms associated with coronavirus-19. The client reports previous COVID testing was negative. Date of collection: May 10, 2020. Ebola Screen: Patient negative for fever greater than or equal to 101.5 degrees Fahrenheit, and additional compatible Ebola Virus Disease symptoms Patient denies exposure to infectious person. Patient denies travel to an Ebola-affected area in the 21 days before illness onset. No symptoms or risks identified at this time. Initial Sepsis Screen: Does the patient meet any 2 criteria? No. Patient's initial sepsis screen is negative. Does the patient have a suspected source of infection? No. Patient's initial sepsis screen is negative. Risk Assessment: Do you want to hurt yourself or someone else? Patient reports no desire to harm self or others. Onset of symptoms was May 23, 2020. 21:27 Method Of Arrival: Ambulatory ca1 21:27 Acuity: ASIA 3 ca1 Triage Assessment: 22:42 General: Appears in no apparent distress. comfortable, Behavior is calm, cooperative, bb3 appropriate for age. 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 - Social history:: Smoking status: Patient reports the use of cigarette tobacco products, smokes one-half pack cigarettes per day. Screenin:40 Abuse screen: none. Nutritional screening: No deficits noted. Tuberculosis screening: bb3 No symptoms or risk factors identified. Fall Risk None identified. Assessment: 22:36 Reassessment: No changes from previously documented assessment. Patient and/or family bb3 updated on plan of care and expected duration. Pain level reassessed. Patient is alert, oriented x 3, equal unlabored respirations, skin warm/dry/pink. General: Appears in no apparent distress. uncomfortable, well groomed. Pain: Denies pain. Derm: Rash noted that is macular, itchy, red, on all over upper body, clint on abdomen Reports. Vital Signs: 21:27 BP 133 / 84; Pulse 95; Resp 18 S; Temp 98.3(TE); Pulse Ox 100% on R/A; Weight 58.97 kg ca1 (R); Height 5 ft. 5 in. (165.10 cm); Pain 0/10; 21:27 Body Mass Index 21.63 (58.97 kg, 165.10 cm) ca1 ED Course: 21:12 Patient arrived in ED. am2 21:30 Triage completed. ca1 21:31 Arm band placed on right wrist. ca1 21:39 Josemanuel Stock MD is Attending Physician. tw4 22:40 No apparent distress. bb3 22:40 Bed in low position. Call light in reach. Side rails up X 1. bb3 22:40 No provider procedures requiring assistance completed. bb3 22:42 Patient did not have IV access during this emergency room visit. bb3 Administered Medications: 22:39 Not Given (pt discharged): SOLU-Medrol 125 mg IM once bb3 22:39 Not Given (pt dismissed): Benadryl 25 mg PO once bb3 22:39 Not Given (pt dismissed): Pepcid 20 mg PO once bb3 Outcome: 22:08 Discharge ordered by . tw4 22:40 Discharged to home ambulatory. bb3 22:40 Condition: unchanged 22:40 Discharge instructions given to patient, Instructed on discharge instructions, follow up and referral plans. medication usage, Demonstrated understanding of instructions, follow-up care, medications, Prescriptions given X 3. 22:46 Patient left the ED. bb3 Signatures: Maxine Hatfield am2 Josemanuel Stock MD MD tw4 Linh Kamara RN RN ca1 Martin Sherie bb3 Corrections: (The following items were deleted from the chart) 21:30 21:23 Chief complaint: Patient states: Red rash all over the body x 6-7 days. ca1 ca1 21:33 21:23 Chief complaint: Patient states: Red rash all over the body x 6-7 days. Reports ca1 severe itching and pain off and on. Was here on 05/10 for strep infection and was prescribed Z-pac for home meds. Symptoms started on the last day of ABX. Denies joint pains, abdominal pain, N/V, fever ca1
--- NOTE | 2020-05-23 22:08 | EDPHYS ---
Physician Documentation [facility] Name: Yashira Peters Age: 20 yrs Sex: Female : 2000 Arrival Date: 05/23/2020 Time: 21:12 Bed 19 Private MD: ED Physician Josemanuel Stock HPI: 05/23 22:36 This 20 yrs old Female presents to ER via Ambulatory with complaints of Rash. tw4 22:36 The patient's rash thought to be caused by an unknown cause. The rash is located on the tw4 body diffusely. The rash can be described as papular. Onset: The symptoms/episode began/occurred today. Associated signs and symptoms: Pertinent positives: None. Pertinent negatives: None. Treatment given at home: Benadryl. The patient has not experienced similar symptoms in the past. [employer] PREP: 21:31 LMP 05/04/2020 ca1 Historical: - Allergies: 21:31 Amoxicillin; ca1 21:31 clindamycin HCl; ca1 21:31 Latex, Natural Rubber; ca1 - Home Meds: 21:31 Novolin N 100 unit/mL Sub-Q susp [Active]; Novolin R Sub-Q [Active]; ca1 - PMHx: 21:31 CVA; Diabetes - IDDM; ca1 - PSHx: 21:31 ; ca1 - Immunization history:: Adult Immunizations up to date. - Social history:: Smoking status: Patient reports the use of cigarette tobacco products, smokes one-half pack cigarettes per day. ROS: 22:36 Constitutional: Negative for fever, chills, and weight loss, Eyes: Negative for injury, tw4 pain, redness, and discharge, Cardiovascular: Negative for chest pain, palpitations, and edema, Respiratory: Negative for shortness of breath, cough, wheezing, and pleuritic chest pain, Abdomen/GI: Negative for abdominal pain, nausea, vomiting, diarrhea, and constipation, Back: Negative for injury and pain. 22:36 Skin: Positive for rash, Negative for abrasions, abscesses, avulsion, diaphoresis. Exam: 22:36 Constitutional: This is a well developed, well nourished patient who is awake, alert, tw4 and in no acute distress. Head/Face: Normocephalic, atraumatic. Chest/axilla: Normal chest wall appearance and motion. Nontender with no deformity. No lesions are appreciated. Cardiovascular: Regular rate and rhythm with a normal S1 and S2. No gallops, murmurs, or rubs. Normal PMI, no JVD. No pulse deficits. Respiratory: Lungs have equal breath sounds bilaterally, clear to auscultation and percussion. No rales, rhonchi or wheezes noted. No increased work of breathing, no retractions or nasal flaring. Abdomen/GI: Soft, non-tender, with normal bowel sounds. No distension or tympany. No guarding or rebound. No evidence of tenderness throughout. Back: No spinal tenderness. No costovertebral tenderness. Full range of motion. MS/ Extremity: Pulses equal, no cyanosis. Neurovascular intact. Full, normal range of motion. Neuro: Awake and alert, GCS 15, oriented to person, place, time, and situation. Cranial nerves II-XII grossly intact. Motor strength 5/5 in all extremities. Sensory grossly intact. Cerebellar exam normal. Normal gait. 22:36 Skin: rash can be described as papular, and is diffusely located. tw4 Vital Signs: 21:27 BP 133 / 84; Pulse 95; Resp 18 S; Temp 98.3(TE); Pulse Ox 100% on R/A; Weight 58.97 kg ca1 (R); Height 5 ft. 5 in. (165.10 cm); Pain 0/10; 21:27 Body Mass Index 21.63 (58.97 kg, 165.10 cm) ca1 MDM: 21:39 Patient medically screened. tw4 22:36 Data reviewed: vital signs, nurses notes. Data interpreted: Pulse oximetry: tw4 Interpretation: normal. Counseling: I had a detailed discussion with the patient and/or guardian regarding: the historical points, exam findings, and any diagnostic results supporting the discharge/admit diagnosis. Special discussion: I discussed with the patient/guardian in detail that at this point there is no indication for admission to the hospital. It is understood, however, that if the symptoms persist or worsen the patient needs to return immediately for re-evaluation. Administered Medications: 22:39 Not Given (pt discharged): SOLU-Medrol 125 mg IM once bb3 22:39 Not Given (pt dismissed): Benadryl 25 mg PO once bb3 22:39 Not Given (pt dismissed): Pepcid 20 mg PO once bb3 Disposition: 05/23/20 22:08 Discharged to Home. Impression: Dermatitis, unspecified, Allergy, unspecified. - Condition is Stable. - Discharge Instructions: Allergies, Adult, Rash. - Prescriptions for Medrol (Lito) 4 mg Oral Tablets, Dose Pack - take 1 tablet by ORAL route as directed - follow package instructions; 1 packet. Pepcid 20 mg Oral Tablet - take 1 tablet by ORAL route once daily; 20 tablet. Hydroxyzine HCl 25 mg Oral Tablet - take 1 tablet by ORAL route every 6 hours As needed; 30 tablet. - Medication Reconciliation Form, Thank You Letter, Antibiotic Education, Prescription Opioid Use form. - Follow up: Private Physician; When: Upon discharge from the Emergency Department; Reason: Recheck today's complaints, Continuance of care, Re-evaluation by your physician. - Problem is new. - Symptoms are unchanged. Signatures: Josemanuel Stock MD MD tw4 Linh Kamara RN RN ca1 Sherie Salazar bb3 Corrections: (The following items were deleted from the chart) 22:46 22:08 05/23/2020 22:08 Discharged to Home. Impression: Dermatitis, unspecified; bb3 Allergy, unspecified. Condition is Stable. Forms are Medication Reconciliation Form, Thank You Letter, Antibiotic Education, Prescription Opioid Use. Follow up: Private Physician; When: Upon discharge from the Emergency Department; Reason: Recheck today's complaints, Continuance of care, Re-evaluation by your physician. Problem is new. Symptoms are unchanged. tw4
[2020-05-23 23:06] VITALS: BP 133/84; TEMP 98.3; O2SAT 100
--- OUTSIDE RECORDS SUMMARY | 2020-05-24 22:36 | XMS REPORT | Continuity of Care Document ---
:2000 Author Organization [facility] t Address [address] [place] [address] Care Team Providers Name Role Phone Moiz IVAN Attending Clinician Doctor Unassigned, Name Attending Clinician Unavailable Andrew IVAN Attending Clinician Brook NIETO, A Attending [...] 8-24 [facility] [place] Medications This patient has no known medications. Procedures This patient has no known procedures. Encounters Start End Encounter Admission Attending Care Care Encounter Source Date/Time Date/Time Type Type Clinicians Facility Department ID 2020-04-27 2020-04-27 Telephone Ashley Rockwell [facility] [id number] 00:00:00 00:00:00 Pauly [id number] Sujit [id number] [facility] [phone] [address] 2020-04-25 2020-04-25 Orders Doctor MADYSON [id number] 00:00:00 00:00:00 Only Unassigned, LISSETH [id number] [place] [facility] [id number] 2019-11-10 2019-11-10 Letter Andrew [facility] [id number] 00:00:00 00:00:00 (Out) Shahid Coats [id number] [place] [id number] [place] [id number] 2019-11-05 2019-11-05 Nurse MADYSON Doe [id number] 00:00:00 00:00:00 Triage Paula MONTANEZ [id number] [place] [id number] 2019-10-31 2019-10-31 Emergency Andrew [facility] [id number] 18:21:01 18:54:00 Shahid Coats [id number] [place] [id number] [place] [id number] [id number] Results Test Description Test Time Test Comments Results Result Comments Source [facility] 2018-05-17 [place]IME[place] 13:07:00 RUN DATE: 05/17/18 [facility] PAGE 1 RUN TIME: 1810 Specimen Inquiry RUN USER: INTERFACE PAT IENT: JULIA KEENE LOC: ALEXIS U #: [id number] AGE/SX: 18 ROOM: [facility] RE05/11/18REG DR: Jhon Cuevas MD : [birth year] BED: A DIS: 05/15/18 STATUS: DIS IN TLOC: SPEC #: [id number] RECD: 05/11/18-754 STATUS: DELROY RE #: [id number] MATI: 05/11/18- SUBM DR: Jhon Cuevas MD ENTERED: 05/12/18-0756 SP TYPE: PLACIII OTHR DR: ORDERED: LEVEL V SURGICA CODES: [id number] - PLACENTA, NOS PROCEDURES: LEVEL V SURGICA [...] 478 gm Tissue code: 1 CPT Code: 16118 [facility]/kr 05/17/18 @ 1255 GROSS DESCRIPTION The specimen [...] site: 0 cm to margin Membrane color: Mcitnosh Other membrane findings: Thickened opaque CONTINUED ON NEXT PAGE RUN DATE: 05/17/18 [facility] PAGE 2 RUN TIME: 1809 Specimen Inquiry RUN USER: INTERFACE SPE C #: [id number] PATIENT: JULIA KEENE #[id number] (Continued)-------- -------- GROSS DESCRIPTION (Continued) The trimmed [...]
== END 2020-05-23 22:46 | disposition home or self-care (01) ==
LOC: ER 21:10
DX: L30.9 Dermatitis, unspecified (principal); Z91.09 Other allergy status, other than to drugs and biological substances; E11.9 Type 2 diabetes mellitus without complications; F17.210 Nicotine dependence, cigarettes, uncomplicated; Z79.4 Long term (current) use of insulin; Z86.73 Personal history of transient ischemic attack (TIA), and cerebral infarction without residual deficits; Z88.1 Allergy status to other antibiotic agents; Z88.3 Allergy status to other anti-infective agents; Z91.040 Latex allergy status; Z91.048 Other nonmedicinal substance allergy status
CPT/HCPCS: 99282

== ENCOUNTER 2021-01-29 08:35 | Inpatient (IN) | payer SELFPAY ==
[2021-01-29] MEDS ORDERED: ONDANSETRON 4 MG/2 ML VIAL ONE (09:34)
[2021-01-29] MEDS ORDERED: NA CHLORIDE 0.9% 0 ML ONE (09:34)
[2021-01-29] MEDS ORDERED: FAMOTIDINE 20 MG/2 ML VIAL IV ONE (09:35)
[2021-01-29] MEDS ORDERED: CEFTRIAXONE/SWI 1gm 1 GM/10 ML SYR ONE (09:35)
[2021-01-29 09:37] LABS: Absolute Lymphocytes (CBC) 1.2 K/uL (0.7-4.9); Basophils % 0.4 % (0-1.3); Hematocrit 44.7 % (36.0-45.0); Lymphocytes % 10.7 % (15.3-44.8); MPV 7.2 fL (7.6-11.3)
[2021-01-29 09:42] LABS: Protime INR 0.91
[2021-01-29] MEDS ORDERED: MORPHINE 2 MG/ML SYR ONE (09:44)
[2021-01-29] MEDS ORDERED: NA CHLORIDE 0.9% 1,000 ML ONE ×2 (09:50→10:47)
[2021-01-29 09:53] LABS: ALT/SGPT 21 U/L (12-78); AST/SGOT 11 U/L (15-37); Albumin 4.4 g/dL (3.4-5.0); Alkaline Phosphatase 147 U/L (45-117); BUN Blood Urea Nitrogen 14 mg/dL (7-18); Bilirubin Direct < 0.1 mg/dL (0-0.2); Bilirubin Total 0.5 mg/dL (0.2-1.0); Glucose Level 347 mg/dL (74-106); HDL Cholesterol 57 mg/dL (40-60); Magnesium 2.1 mg/dL (1.8-2.4); NT PRO-BNP 16 pg/mL (<125); Potassium 4.1 mmol/L (3.5-5.1); Protein, Total 9.3 g/dL (6.4-8.2); Sodium Level 131 mmol/L (136-145); Troponin (Emerg Dept Use Only) < 0.02 ng/mL (0.0-0.045)
[2021-01-29 09:54] LABS: Bicarbonate 13 mmol/L (21-32)
--- NOTE | 2021-01-29 09:59 | RAD REPORT ---
EXAM DESCRIPTION: RAD - Chest Single View - 01/29/2021 9:33 am CLINICAL HISTORY: COUGH, smoking history COMPARISON: April 2020 TECHNIQUE: AP portable chest image was obtained 01/29/2021 9:33 am . FINDINGS: No focal lung parenchymal process seen. Interstitial pattern matches comparison. Hilar reg ions are normal and stable. Heart and vasculature are normal. No measurable pleural effusion and no p neumothorax. No acute bony abnormality seen. No acute aortic findings suspected. IMPRESSION: No acute cardiopulmonary process. No significant change from comparison study.
[2021-01-29 10:01] LABS: Arterial Blood Carboxyhemoglob 2.3 % (0-1.5); Blood O2 Saturation 96.5 % (92-98.5)
[2021-01-29 10:06] LABS: LDL, Direct 133 mg/dL (100-129)
--- NOTE | 2021-01-29 10:09 | ER ---
Nurse's Notes [facility] Name: Yashira Peters Age: 21 yrs Sex: Female : 2000 Arrival Date: 01/29/2021 Time: 08:38 Bed 19 Private MD: Diagnosis: Type 1 diabetes mellitus with ketoacidosis without coma;Dehydration Presentation: 01/29 08:47 Chief complaint: Patient states: "I am a type 1 diabetes and i have been feeling sick jd3 for the past 4 days and I think I might be in DKA. my monitor at home just read high this morning and I feel like I might have a virus on top of all of this because I just feel sick.". Coronavirus screen: At this time, the client does not indicate any symptoms associated with coronavirus-19. Ebola Screen: Patient negative for fever greater than or equal to 101.5 degrees Fahrenheit, and additional compatible Ebola Virus Disease symptoms. Initial Sepsis Screen: Does the patient meet any 2 criteria? No. Patient's initial sepsis screen is negative. Does the patient have a suspected source of infection? No. Patient's initial sepsis screen is negative. Risk Assessment: Do you want to hurt yourself or someone else? Patient reports no desire to harm self or others. Onset of symptoms was January 25, 2021. 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 - Social history:: Smoking status: Patient reports the use of cigarette tobacco products, smokes one-half pack cigarettes per day. Screenin:54 Abuse screen: Denies threats or abuse. Nutritional screening: No deficits noted. jd3 Tuberculosis screening: No symptoms or risk factors identified. Fall Risk Ambulatory Aid- None/Bed Rest/Nurse Assist (0 pts). Gait- Normal/Bed Rest/Wheelchair (0 pts) Mental Status- Oriented to own ability (0 pts). Total Wallace Fall Scale indicates No Risk (0-24 pts). Assessment: 08:52 General: Appears in no apparent distress. uncomfortable, Behavior is calm, cooperative, jd3 appropriate for age. Pain: Complains of pain in head Pain radiates to neck Quality of pain is described as sharp, stabbing. Neuro: Level of Consciousness is awake, alert, obeys commands, Oriented to person, place, time, situation. Cardiovascular: Capillary refill < 3 seconds Patient's skin is warm and dry. Respiratory: Airway is patent Respiratory effort is even, unlabored, Respiratory pattern is regular, symmetrical, Denies cough, shortness of breath. GI: Abdomen is flat, non-distended, Abd is soft and non tender X 4 quads. Reports nausea. : Reports urinary frequency. EENT: No signs and/or symptoms were reported regarding the EENT system. Derm: Skin is intact, Skin is dry, Skin is normal, Skin temperature is warm. Musculoskeletal: Circulation, motion, and sensation intact. Range of motion: intact in all extremities. 09:54 Reassessment: Patient appears in no apparent distress at this time. No changes from jd3 previously documented assessment. Patient and/or family updated on plan of care and expected duration. Pain level reassessed. Patient is alert, oriented x 3, equal unlabored respirations, skin warm/dry/pink. 11:07 Reassessment: Pt BG 162; provider notified. vg1 13:12 Reassessment: BG 89. vg1 13:48 Reassessment: BG 82. vg1 Vital Signs: 08:51 BP 131 / 77; Pulse 118; Resp 18 S; Temp 97.3(TE); Pulse Ox 98% on R/A; Weight 61.23 kg jd3 (R); Height 5 ft. 4 in. (162.56 cm) (R); Pain 10/10; 09:54 BP 113 / 64; Pulse 89; Resp 16 S; Pulse Ox 99% on R/A; jd3 08:51 Body Mass Index 23.17 (61.23 kg, 162.56 cm) jd3 ED Course: 08:38 Patient arrived in ED. rg4 08:41 Haja Wayne, RN is Primary Nurse. jd3 08:45 Collin Sotelo MD is Attending Physician. meet 08:50 Triage completed. jd3 08:52 Arm band placed on. jd3 08:54 Patient has correct armband on for positive identification. Bed in low position. Call jd3 light in reach. Side rails up X 1. Pulse ox on. NIBP on. 09:15 Inserted saline lock: 20 gauge in left antecubital area, using aseptic technique. Blood jd3 collected. 09:33 XRAY Chest (1 view) In Process Unspecified. EDMS 09:57 Primary Nurse role handed off by Haja Wayne RN vg1 09:57 Lucia Darling RN is Primary Nurse. vg1 10:05 Corinna Pope MD is Hospitalizing Provider. meet 10:37 Inserted saline lock: 20 gauge in right antecubital area, using aseptic technique. vg1 13:05 No provider procedures requiring assistance completed. Patient admitted, IV remains in vg1 place. Administered Medications: 09:37 Drug: Rocephin (cefTRIAXone) 1 grams Route: IV; Rate: per protocol; Site: left jd3 antecubital; 09:37 Drug: morphine 2 mg Route: IVP; Site: left antecubital; jd3 09:38 Drug: NS 0.9% 1000 ml Route: IV; Rate: 1 bolus; Site: left antecubital; jd3 09:38 Drug: NS 0.9% 1000 ml Route: IV; Rate: 1 bolus; Site: left antecubital; jd3 09:38 Drug: Zofran (Ondansetron) 4 mg Route: IVP; Site: left antecubital; jd3 09:38 Drug: Pepcid (famotidine) 20 mg Route: IVP; Site: left antecubital; jd3 12:05 Not Given (Physician Discretion): NS 0.9% 1000 ml IV at 125 ml/hr continuous vg1 12:08 Drug: Insulin Drip - (Insulin Regular Human 100 units, NS 0.9% 100 ml) {Co-Signature: vg1 ss (Tara Gonzalez RN).} Route: IV; Rate: 5 units/hr; Site: right antecubital; 12:10 Drug: D5-1/2 NS with KCl 20 mEq/L 1000 ml Route: IV; Rate: 125 ml/hr; Site: left vg1 antecubital; Outcome: 10:08 Decision to Hospitalize by Provider. meet 13:05 Admitted to ICU accompanied by nurse, via wheelchair, room 9, with chart, Report called vg1 to EMIILA aCr 13:05 Condition: stable 13:05 Instructed on the need for admit. 14:14 Patient left the ED. 1 Signatures: Dispatcher [employer] EDCollin Auguste MD MD cha Garcia, Rubi rg4 Haja Wayne, RN RN Lucia [place] RN RN vg1 Tara Gonzalez RN
--- NOTE | 2021-01-29 10:09 | EDPHYS ---
Physician Documentation [facility] Name: Yashira Peters Age: 21 yrs Sex: Female : 2000 Arrival Date: 01/29/2021 Time: 08:38 Bed 19 Private MD: ED Physician Collin Sotelo HPI: 01/29 09:09 This 21 yrs old Female presents to ER via Ambulatory with complaints of meet Urinary Frequency, Nausea, Dehydration. 09:09 The patient presents to the emergency department with nausea, that is moderate, meet vomiting, that is intermittent. Onset: The symptoms/episode began/occurred 2 day(s) ago. Possible causes: unknown. The symptoms are aggravated by nothing. Associated signs and symptoms: The patient has no apparent associated signs or symptoms. Severity of symptoms: At their worst the symptoms were mild moderate this morning. The patient has not experienced similar symptoms in the past. 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 - Social history:: Smoking status: Patient reports the use of cigarette tobacco products, smokes one-half pack cigarettes per day. ROS: 09:10 Constitutional: Negative for fever, chills, and weight loss, Eyes: Negative for injury, meet pain, redness, and discharge, ENT: Negative for injury, pain, and discharge, Neck: Negative for injury, pain, and swelling, Cardiovascular: Negative for chest pain, palpitations, and edema, Abdomen/GI: Negative for abdominal pain, nausea, vomiting, diarrhea, and constipation, Back: Negative for injury and pain, : Negative for injury, bleeding, discharge, and swelling, MS/Extremity: Negative for injury and deformity, Skin: Negative for injury, rash, and discoloration, Neuro: Negative for headache, weakness, numbness, tingling, and seizure. 09:10 Respiratory: Positive for cough, with no reported sputum. Exam: 09:11 Constitutional: This is a well developed, well nourished patient who is awake, alert, meet and in no acute distress. Head/Face: Normocephalic, atraumatic. Eyes: Pupils equal round and reactive to light, extra-ocular motions intact. Lids and lashes normal. Conjunctiva and sclera are non-icteric and not injected. Cornea within normal limits. Periorbital areas with no swelling, redness, or edema. ENT: Nares patent. No nasal discharge, no septal abnormalities noted. Tympanic membranes are normal and external auditory canals are clear. Oropharynx with no redness, swelling, or masses, exudates, or evidence of obstruction, uvula midline. Mucous membranes moist. Neck: Trachea midline, no thyromegaly or masses palpated, and no cervical lymphadenopathy. Supple, full range of motion without nuchal rigidity, or vertebral point tenderness. No Meningismus. Chest/axilla: Normal chest wall appearance and motion. Nontender with no deformity. No lesions are appreciated. Respiratory: Lungs have equal breath sounds bilaterally, clear to auscultation and percussion. No rales, rhonchi or wheezes noted. No increased work of breathing, no retractions or nasal flaring. Abdomen/GI: Soft, non-tender, with normal bowel sounds. No distension or tympany. No guarding or rebound. No evidence of tenderness throughout. Back: No spinal tenderness. No costovertebral tenderness. Full range of motion. Skin: Warm, dry with normal turgor. Normal color with no rashes, no lesions, and no evidence of cellulitis. MS/ Extremity: Pulses equal, no cyanosis. Neurovascular intact. Full, normal range of motion. Neuro: Awake and alert, GCS 15, oriented to person, place, time, and situation. Cranial nerves II-XII grossly intact. Motor strength 5/5 in all extremities. Sensory grossly intact. Cerebellar exam normal. Normal gait. Psych: Awake, alert, with orientation to person, place and time. Behavior, mood, and affect are within normal limits. 09:11 Cardiovascular: Rate: tachycardic, Rhythm: regular, Pulses: Pulses are 4+ in bilateral radial, brachial, femoral, popliteal, posterior tibial and and dorsalis pedis arteries.. Heart sounds: normal, Edema: is not appreciated, JVD: is not appreciated. 09:53 ECG was reviewed by the Attending Physician. [facility] Vital Signs: 08:51 BP 131 / 77; Pulse 118; Resp 18 S; Temp 97.3(TE); Pulse Ox 98% on R/A; Weight 61.23 kg jd3 (R); Height 5 ft. 4 in. (162.56 cm) (R); Pain 10/10; 09:54 BP 113 / 64; Pulse 89; Resp 16 S; Pulse Ox 99% on R/A; jd3 08:51 Body Mass Index 23.17 (61.23 kg, 162.56 cm) jd3 MDM: 08:45 Patient medically screened. [facility] 09:12 Differential diagnosis: Nonspecific abd pain, gastritis, cholecystitis, pancreatitis. [facility] Differential Diagnosis sepsis. Data reviewed: vital signs, nurses notes, lab test result(s), EKG, radiologic studies, plain films. Data interpreted: grab hooker: rate is 118 beats/min, rhythm is regular, Pulse oximetry: on room air. Test interpretation: by ED physician or midlevel provider: ECG, plain radiologic studies. 01/29 09:08 Order name: Basic Metabolic Panel [facility] 01/29 09:08 Order name: CBC with Diff; Complete Time: 10:04 [facility] 01/29 09:08 Order name: LFT's [facility] 01/29 09:08 Order name: Magnesium [facility] 01/29 09:08 Order name: NT PRO-BNP [facility] 01/29 09:08 Order name: PT-INR; Complete Time: 10:04 [facility] 01/29 09:08 Order name: Troponin (emerg Dept Use Only) [facility] 01/29 09:08 Order name: Lipid Profile [facility] 01/29 09:08 Order name: Blood Culture Adult (2) [facility] 01/29 09:08 Order name: ABG [facility] 01/29 09:11 Order name: Glucose, Ancillary Testing; Complete Time: 10:04 [facility] 01/29 09:56 Order name: LDL, Direct [facility] 01/29 10:36 Order name: Acetone Level [facility] 01/29 10:36 Order name: Acetone Level [facility] 01/29 10:36 Order name: Acetone Level [facility] 01/29 10:36 Order name: Basic Metabolic Panel [facility] 01/29 10:36 Order name: Basic Metabolic Panel [facility] 01/29 10:36 Order name: Basic Metabolic Panel [facility] 01/29 10:36 Order name: Calcium Level [facility] 01/29 10:36 Order name: Calcium Level [facility] 01/29 10:36 Order name: Calcium Level [facility] 01/29 10:36 Order name: Calcium Level [facility] 01/29 10:36 Order name: CBC with Automated Diff [facility] 01/29 10:36 Order name: CBC with Automated Diff [facility] 01/29 10:36 Order name: CBC with Automated Diff [facility] 01/29 10:36 Order name: CBC with Automated Diff [facility] 01/29 10:36 Order name: Magnesium [facility] 01/29 10:37 Order name: Magnesium [facility] 01/29 10:37 Order name: Magnesium [facility] 01/29 09:08 Order name: XRAY Chest (1 view); Complete Time: 10:04 01/29 09:08 Order name: EKG; Complete Time: 09:09 01/29 09:08 Order name: Cardiac monitoring; Complete Time: 09:38 01/29 09:08 Order name: EKG - Nurse/Tech; Complete Time: 09:39 meet 01/29 09:08 Order name: IV Saline Lock; Complete Time: 09:38 01/29 09:08 Order name: Labs collected and sent; Complete Time: 09:38 [facility] 01/29 09:08 Order name: O2 Per Protocol; Complete Time: 09:38 01/29 09:08 Order name: O2 Sat Monitoring; Complete Time: 09:38 01/29 10:04 Order name: IV Saline Lock - Large Bore; Complete Time: 10:37 [facility] 01/29 10:36 Order name: NPO ED[facility] 01/29 10:37 Order name: Magnesium [facility] 01/29 10:37 Order name: Phosphorus [facility] 01/29 10:37 Order name: Phosphorus ED[facility] 01/29 10:37 Order name: Phosphorus [facility] 01/29 10:37 Order name: Phosphorus [facility] 01/29 10:56 Order name: SARS-COV-2 RT PCR [facility] 01/29 11:07 Order name: Chem 7 vg1 01/29 11:13 Order name: Glucose, Ancillary Testing [facility] 01/29 11:37 Order name: Basic Metabolic Panel [facility] 01/29 13:24 Order name: Glucose, Ancillary Testing [facility] 01/29 13:59 Order name: Glucose, Ancillary Testing [facility] EC:53 Rate is 73 beats/min. Rhythm is regular. QRS [place] is Normal. MO interval is normal. QRS meet interval is normal. QT interval is normal. No Q waves. T waves are Normal. No ST changes noted. Clinical impression: Normal ECG and No evidence of ischemia. Interpreted by me. Reviewed by me. Administered Medications: 09:37 Drug: Rocephin (cefTRIAXone) 1 grams Route: IV; Rate: per protocol; Site: left jd3 antecubital; 09:37 Drug: morphine 2 mg Route: IVP; Site: left antecubital; jd3 09:38 Drug: NS 0.9% 1000 ml Route: IV; Rate: 1 bolus; Site: left antecubital; jd3 09:38 Drug: NS 0.9% 1000 ml Route: IV; Rate: 1 bolus; Site: left antecubital; jd3 09:38 Drug: Zofran (Ondansetron) 4 mg Route: IVP; Site: left antecubital; jd3 09:38 Drug: Pepcid (famotidine) 20 mg Route: IVP; Site: left antecubital; jd3 12:05 Not Given (Physician Discretion): NS 0.9% 1000 ml IV at 125 ml/hr continuous vg1 12:08 Drug: Insulin Drip - (Insulin Regular Human 100 units, NS 0.9% 100 ml) {Co-Signature: ejff ch (Tara Gonzalez RN).} Route: IV; Rate: 5 units/hr; Site: right antecubital; 12:10 Drug: D5-1/2 NS with KCl 20 mEq/L 1000 ml Route: IV; Rate: 125 ml/hr; Site: left vg1 antecubital; Disposition: 01/29/21 10:08 Hospitalization ordered by Corinna Pope for Inpatient Admission. Preliminary diagnosis are Type 1 diabetes mellitus with ketoacidosis without coma, Dehydration. - Bed requested for Intensive Care Unit. - Status is Inpatient Admission. vg1 - Condition is Serious. - Problem is new. - Symptoms have improved. Signatures: Dispatcher [employer] EDIL Lisandra Pate RN RN dw Anderson, Corey, MD MD cha Davies, Jonathon, RN RN jd3 Garcia, Victoria, RN RN vg1 Shelby Smirch RN ss Corrections: (The following items were deleted from the chart) 10:05 09:09 CORONAVIRUS+MR.LAB.BRZ ordered. EDMS EDMS 13:00 10:08 Hospitalization Ordered by Corinna Pope MD for Inpatient Admission. Preliminary dw diagnosis is Type 1 diabetes mellitus with ketoacidosis without coma; Dehydration. Bed requested for Intensive Care Unit. Status is Inpatient Admission. Condition is Serious. Problem is new. Symptoms have improved. [facility] 14:14 13:00 01/29/2021 10:08 Hospitalization Ordered by Corinna Pope MD for Inpatient vg1 Admission. Preliminary diagnosis is Type 1 diabetes mellitus with ketoacidosis without coma; Dehydration. Bed requested for Intensive Care Unit. Status is Inpatient Admission. Condition is Serious. Problem is new. Symptoms have improved. dw
[2021-01-29] MEDS ORDERED: D50W 25 GM/50 ML SYRINGE IV PRN ×2 (10:30→16:50)
[2021-01-29] MEDS ORDERED: INSULIN -REGULAR HUMAN 100 UNIT in NA CHLORIDE 0.9% 100 ML IV SCH ×2 (10:30→10:45)
[2021-01-29] MEDS ORDERED: GLUCAGON 1 MG/VIAL IM PRN ×2 (10:30→16:50)
[2021-01-29] MEDS ORDERED: ONDANSETRON 4 MG/2 ML VIAL IV PRN (10:32)
[2021-01-29] MEDS ORDERED: D5.45NS W/KCL 20MEQ 1,000 ML IV SCH (11:00)
[2021-01-29 11:35] LABS: BUN Blood Urea Nitrogen 11 mg/dL (7-18); Bicarbonate 17 mmol/L (21-32); Glucose Level 154 mg/dL (74-106); Potassium 4.1 mmol/L (3.5-5.1); Sodium Level 138 mmol/L (136-145)
[2021-01-29] MEDS ORDERED: D5.45NS W/KCL 20MEQ 1,000 ML IV ONE (12:22)
[2021-01-29 14:52] VITALS: O2SAT 100; BMI 23.1
[2021-01-29 16:41] LABS: BUN Blood Urea Nitrogen 7 mg/dL (7-18); Bicarbonate 21 mmol/L (21-32); Glucose Level 231 mg/dL (74-106); Potassium 4.1 mmol/L (3.5-5.1); Sodium Level 139 mmol/L (136-145)
[2021-01-29] MEDS ORDERED: TRAMADOL HCL 50 MG TAB PO PRN (16:48)
[2021-01-29] MEDS ORDERED: ACETAMIN/CAFFEINE/BUTALB TAB PO ONE (16:49)
[2021-01-29] MEDS ORDERED: INSULIN GLARGINE 100 UNITS/ML SQ SCH (17:00)
[2021-01-29] MEDS: NA CHLORIDE 0.9% 1,000 ML IV SCH (17:03)
[2021-01-29] MEDS ORDERED: INSULIN GLARGINE 100 UNITS/ML SQ ONE (17:17)
[2021-01-29] MEDS: INSULIN -REGULAR HUMAN 50 UNIT/0.5 ML ML SQ SCH ×2 (17:17→20:37)
[2021-01-30] MEDS: INSULIN -REGULAR HUMAN 50 UNIT/0.5 ML ML SQ SCH ×3 (01:00→08:17)
[2021-01-30] MEDS: NA CHLORIDE 0.9% 1,000 ML IV SCH (03:00)
[2021-01-30] MEDS ORDERED: NA CHLORIDE 0.9% 1,000 ML ONE (03:43)
[2021-01-30 05:33] LABS: Absolute Lymphocytes (CBC) 1.8 K/uL (0.7-4.9); Basophils % 0.5 % (0-1.3); Hematocrit 33.2 % (36.0-45.0); Lymphocytes % 34.1 % (15.3-44.8); RBC Red Blood Cell Count 3.71 M/uL (3.86-4.86)
[2021-01-30 05:36] LABS: BUN Blood Urea Nitrogen 7 mg/dL (7-18); Bicarbonate 23 mmol/L (21-32); Glucose Level 249 mg/dL (74-106); Phosphorus 2.2 mg/dL (2.5-4.9); Sodium Level 138 mmol/L (136-145)
[2021-01-30] MEDS ORDERED: INSULIN -REGULAR HUMAN 50 UNIT/0.5 ML ML ONE ×2 (05:39→08:37)
--- NOTE | 2021-01-30 07:39 | EKG ---
Test Date: 2021-01-29 Test Time: 09:51:17 Taxation Consultant: MANISHA MEASUREMENT RESULTS: Intervals: Rate: 73 AR: 132 QRSD: 78 QT: 426 QTc: 469 [place]: P: 58 AR: 132 QRS: 76 T: 66 INTERPRETIVE STATEMENTS: Normal sinus rhythm Normal ECG Compared to ECG 02/07/2020 10:42:17 Prolonged QT interval no longer present Electronically Signed On 01-30-21 07:36:04 CDT by Avery Milner
[2021-01-30 07:57] VITALS: TEMP 97
--- NOTE | 2021-01-30 08:42 | P.HP ---
Certification for Inpatient Patient admitted to: Inpatient With expected LOS: >2 Midnights Patient will require the following post-hospital care: None Practitioner: I am a practitioner with admitting privileges, knowledge of patient current condition, hospital course, and medical plan of care. Services: Services provided to patient in accordance with Admission requirements found in Title 42 Section 412.3 of the Code of Federal Regulations Patient History Date of Service: 01/29/21 Reason for admission: Diabetic ketoacidosis History of Present Illness: Patient is a 21-year-old female came to the hospital with diabetic ketoacidosis. Patient states she has had DKA more time than she would like to admit. She normally has persistent nausea and vomiting. However, this time she states that the nausea and vomiting was not as bad. She was not really able to the eat much so she believes her sugars went out of control because of this. She has been having a significant headache which is not been improving with her home medications. She has been given IV fluids and insulin drip. Her blood sugars are improving. Her acidosis has improved as well. Her anion gap is closing. Will continue with IV fluids and insulin drip and once her gap closes will start her on a diet. Anticipate discharge over the next 24-48 hr. Allergies amoxicillin Allergy (Verified 01/08/20 20:41) hallucination Latex, Natural Rub Allergy (Uncoded 07/05/19 01:37) Hives/Rash Home Medications: Insulin NPH Human Isophane [Novolin N] 10 unit SQ BID 01/29/21 Insulin Regular, Human [Novolin R] 20 unit SQ BID 01/29/21 - Past Medical/Surgical History Diabetic: Yes -: DM1 -: CVA -: anxiety -: depression -: hyperthyroid -: depression -: previous suicide attempt -: X3 - Family History Father Family History: Reviewed- Non-Contributory - Social History Smoking Status: Current every day smoker Alcohol use: No CD- Drugs: No Caffeine use: Yes Place of Residence: Home Review of Systems 10-point ROS is otherwise unremarkable Physical Examination - Vital Signs Temperature: 97 F Blood Pressure: 106/72 Pulse: 98 Respirations: 20 Pulse Ox (%): 97 - Physical Exam General: Alert, In no apparent distress, Oriented x3 HEENT: Atraumatic, PERRLA, Mucous membr. moist/pink, EOMI, Sclerae nonicteric Neck: Supple, 2+ carotid pulse no bruit, No LAD, Without JVD or thyroid abnormality Respiratory: Clear to auscultation bilaterally, Normal air movement Cardiovascular: Regular rate/rhythm, Normal S1 S2, No murmurs Gastrointestinal: Normal bowel sounds, Soft and benign, Non-distended, No tenderness Musculoskeletal: No clubbing, No swelling, No tenderness Integumentary: No rashes Neurological: Normal gait, Normal speech, Normal strength at 5/5 x4 extr, Normal tone, Sensation intact, Cranial nerves 3-12 intact, Normal affect Lymphatics: No axilla or inguinal lymphadenopathy - Studies Laboratory Data (last 24 hrs) 01/29/21 09:16: PT 10.5, INR 0.91 01/29/21 09:16: WBC 11.40 H, Hgb 15.0, Hct 44.7, Plt Count 308 01/29/21 09:16: Sodium 131 L, Potassium 4.1, BUN 14, Creatinine 0.80, Glucose 347 H, Magnesium 2.1, Total Bilirubin 0.5, AST 11 L, ALT 21, Alkaline Phosphatase 147 H, Triglycerides 409 H, Cholesterol 247 H, LDL Cholesterol Direct 133 H, HDL Cholesterol 57, Cholesterol/HDL Ratio 4.33 Assessment & Plan - Problems (Diagnosis) (1) Migraine headache Current Visit: Yes Status: Acute (2) Diabetic ketoacidosis Current Visit: No Status: Acute - Plan 1. IV hydration 2. Insulin drip 3. Accu-Cheks q1h 4. Measure anion gap every 2 hrs 5. Resume diet once anion gap is closed and will resume insulin pump 6. Diabetic education 7. Long-acting insulin once patient able to tolerate diet and at that time will discontinue insulin drip Discharge Plan: Home Plan to discharge in: Greater than 2 days - Advance Directives Does patient have a Living Will: No Does patient have a Durable POA for Healthcare: No - Code Status/Comfort Care Code Status Assessed: Yes Code Status: Full Code Critical Care: No Time Spent Managing PTS Care (In Minutes): 45
[2021-01-30] MEDS ORDERED: TRAMADOL HCL 50 MG TAB ONE (08:43)
[2021-01-30] MEDS ORDERED: ENOXAPARIN 40 MG/0.4 ML SQ SCH (09:00)
--- NOTE | 2021-01-30 09:00 | P.DS ---
Discharge Date: 01/30/21 Disposition: ROUTINE DISCHARGE Discharge Condition: GOOD Reason for Admission: Diabetic ketoacidosis - Problems (1) Migraine headache Current Visit: Yes Status: Acute (2) Diabetic ketoacidosis Current Visit: No Status: Acute Brief History of Present Illness: Patient is a 21-year-old female came to the hospital with diabetic ketoacidosis. Patient states she has had DKA more time than she would like to admit. She normally has persistent nausea and vomiting. However, this time she states that the nausea and vomiting was not as bad. She was not really able to the eat much so she believes her sugars went out of control because of this. She has been having a significant headache which is not been improving with her home medications. She has been given IV fluids and insulin drip. Her blood sugars are improving. Her acidosis has improved as well. Her anion gap is closing. Will continue with IV fluids and insulin drip and once her gap closes will start her on a diet. Anticipate discharge over the next 24-48 hr. Hospital Course: Patient is clinically doing well. She had headache and will put patient on medication for this. She normally takes migraine medication that alleviates it but Imitrex has not worked for her. At this time, patient is stable for discharge home. Vital Signs/Physical Exam: Temp Pulse Resp BP Pulse Ox 97 F 98 H 20 106/72 97 01/30/21 08:42 01/30/21 08:42 01/30/21 08:42 01/30/21 08:42 01/30/21 08:42 Laboratory Data at Discharge: WBC 5.30 K/uL (4.3-10.9) D 01/30/21 05:13 Hgb 11.6 g/dL (12.0-15.0) L D 01/30/21 05:13 Hct 33.2 % (36.0-45.0) L D 01/30/21 05:13 Plt Count 229 K/uL (152-406) D 01/30/21 05:13 PT 10.5 SECONDS (9.5-12.5) 01/29/21 09:16 INR 0.91 01/29/21 09:16 Sodium 138 mmol/L (136-145) 01/30/21 05:13 Potassium 4.0 mmol/L (3.5-5.1) 01/30/21 05:13 BUN 7 mg/dL (7-18) 01/30/21 05:13 Creatinine 0.37 mg/dL (0.55-1.3) L 01/30/21 05:13 Glucose 249 mg/dL (74-106) H 01/30/21 05:13 Phosphorus 2.2 mg/dL (2.5-4.9) L 01/30/21 05:13 Magnesium 2.0 mg/dL (1.8-2.4) 01/30/21 05:13 Total Bilirubin 0.5 mg/dL (0.2-1.0) 01/29/21 09:16 AST 11 U/L (15-37) L 01/29/21 09:16 ALT 21 U/L (12-78) 01/29/21 09:16 Alkaline Phosphatase 147 U/L (45-117) H 01/29/21 09:16 Triglycerides 409 mg/dL (<150) H 01/29/21 09:16 Cholesterol 247 mg/dL (<200) H 01/29/21 09:16 LDL Cholesterol Direct 133 mg/dL (100-129) H 01/29/21 09:16 HDL Cholesterol 57 mg/dL (40-60) 01/29/21 09:16 Cholesterol/HDL Ratio 4.33 01/29/21 09:16 Home Medications: Insulin NPH Human Isophane [Novolin N] 10 unit SQ BID 01/29/21 Insulin Regular, Human [Novolin R] 20 unit SQ BID 01/29/21 traMADol HCL [Ultram*] 50 mg PO Q6H PRN #30 tab 01/30/21 New Medications: traMADol HCL [Ultram*] 50 mg PO Q6H PRN #30 tab PRN Reason: Pain Followup: NONE,NONE [Primary Care Provider] -
[2021-01-30 09:51] VITALS: BP 112/81
== END 2021-01-30 09:45 | disposition home or self-care (01) | DRG 639 ==
LOC: ER 08:35 → ERHOLD 10:33
PROVIDERS: ADMIT Hospitalist; ATTEND Hospitalist
DX: E10.10 Type 1 diabetes mellitus with ketoacidosis without coma (principal); F17.210 Nicotine dependence, cigarettes, uncomplicated; G43.909 Migraine, unspecified, not intractable, without status migrainosus; Z88.1 Allergy status to other antibiotic agents; Z91.040 Latex allergy status; Z79.4 Long term (current) use of insulin; Z86.73 Personal history of transient ischemic attack (TIA), and cerebral infarction without residual deficits; Z91.5 Personal history of self-harm; Z20.822 Contact with and (suspected) exposure to COVID-19
CPT/HCPCS: 36415; 71045; 80048; 80061; 80076; 82010; 82805; 82947; 83735; 83880; 84100; 84484; 85025; 85610; 87040; 93005; 99285; J0696; J1815; J2270; J2405; J7030; U0003

== ENCOUNTER 2021-05-06 19:46 | Emergency (ER) | payer SELFPAY ==
--- NOTE | 2021-05-06 22:35 | ER ---
Nurse's Notes [facility] Name: Yashira Peters Age: 21 yrs Sex: Female : 2000 Arrival Date: 05/06/2021 Time: 20:12 Bed Waiting Private MD: Diagnosis: Coronavirus infection, unspecified Presentation: 05/06 21:17 Chief complaint: Patient states: Pt states she cannot taste or smell. Pt states she has wg had a mild cough and headache. Pt cannot taste anything starting approx 5 days ago. Pt also c/o of her right nostril feeling dry. Coronavirus screen: Client presents with at least one sign or symptom that may indicate coronavirus-19. Standard/surgical mask placed on the client. Coronavirus screen: Vaccine status: Patient reports being unvaccinated. Ebola Screen: Patient negative for fever greater than or equal to 101.5 degrees Fahrenheit, and additional compatible Ebola Virus Disease symptoms Patient denies exposure to infectious person. Patient denies travel to an Ebola-affected area in the 21 days before illness onset. Initial Sepsis Screen: Does the patient meet any 2 criteria? No. Patient's initial sepsis screen is negative. Does the patient have a suspected source of infection? No. Patient's initial sepsis screen is negative. Risk Assessment: Do you want to hurt yourself or someone else? Patient reports no desire to harm self or others. Onset of symptoms was May 01, 2021. 21:17 Method Of Arrival: Ambulatory 21:17 Acuity: ASIA 4 Triage Assessment: 21:21 General: Appears comfortable, slender, well groomed, Behavior is calm, cooperative, wg appropriate for age. Pain: Denies pain. 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 - Social history:: Smoking status: Patient reports the use of cigarette tobacco products, smokes one-half pack cigarettes per day. Vital Signs: 21:17 BP 124 / 78; Pulse 108; Resp 18; Temp 97.9; Pulse Ox 97% on R/A; Weight 61.23 kg; wg Height 5 ft. 2 in. (157.48 cm); Pain 0/10; 21:17 Body Mass Index 24.69 (61.23 kg, 157.48 cm) wg ED Course: 20:12 Patient arrived in ED. wm 20:57 [facility]C [facility]. kb 20:57 Collin Sotelo MD is Attending Physician. kb 21:21 Triage completed. wg 21:21 Arm band placed on right wrist. wg Administered Medications: No medications were administered Outcome: 22:34 Discharge ordered by . kb 22:39 Patient left the ED. kb Signatures: Alla Mckeon FNP-C FNP-Leona Guo Romeo Villanueva RN wg Corrections: (The following items were deleted from the chart) 21:23 21:17 BP 124 / 78; Pulse 121bpm; Resp 18bpm; Pulse Ox 97% RA; Temp 97.9F; 61.23 kg; wg Height 5 ft. 2 in.; BMI: 24.6; Pain 0/10; wg 21:25 21:17 Chief complaint: Patient states: Pt states she cannot taste or smell. Pt states wg she has had a mild cough and headache. Pt cannot taste anything starting approx 5 days ago. wg
--- NOTE | 2021-05-06 22:35 | EDPHYS ---
Physician Documentation [facility] Name: Yashira Peters Age: 21 yrs Sex: Female : 2000 Arrival Date: 05/06/2021 Time: 20:12 Bed Waiting Private MD: ED Physician Collin Sotelo HPI: 05/07 00:51 This 21 yrs old Female presents to ER via Ambulatory with complaints of S/S kb of Covid. 00:51 The patient or guardian reports cough, that is intermittent, described as mild. Onset: kb The symptoms/episode began/occurred 5 day(s) ago. Severity of symptoms: At their worst the symptoms were mild, moderate, in the emergency department the symptoms are unchanged. Modifying factors: The symptoms are alleviated by nothing, the symptoms are aggravated by nothing. Associated signs and symptoms: The patient has no apparent associated signs or symptoms. The patient has not experienced similar symptoms in the past. The patient has not recently seen a physician. Pt reports cough and headache for about 5 days. Today had loss of taste and smell. 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 - Social history:: Smoking status: Patient reports the use of cigarette tobacco products, smokes one-half pack cigarettes per day. ROS: 05/07 00:43 Constitutional: Negative for fever, chills, and weight loss. kb ENT: Positive for loss of taste and smell. Respiratory: Positive for cough, Negative for dyspnea on exertion, hemoptysis, orthopnea, pleurisy, shortness of breath, sputum production, wheezing. Neuro: Positive for headache. Exam: 00:43 Constitutional: This is a well developed, well nourished patient who is awake, alert, kb and in no acute distress. Head/Face: Normocephalic, atraumatic. ENT: Moist Mucous membranes Cardiovascular: Regular rate and rhythm with a normal S1 and S2. No gallops, murmurs, or rubs. No pulse deficits. Respiratory: Respirations even and unlabored. No increased work of breathing, no retractions or nasal flaring. Skin: Warm, dry with normal turgor. Normal color. MS/ Extremity: Pulses equal, no cyanosis. Neurovascular intact. Full, normal range of motion. Neuro: Awake and alert, GCS 15, oriented to person, place, time, and situation. Moves all extremities. Normal gait. Psych: Awake, alert, with orientation to person, place and time. Behavior, mood, and affect are within normal limits. Vital Signs: 05/06 21:17 BP 124 / 78; Pulse 108; Resp 18; Temp 97.9; Pulse Ox 97% on R/A; Weight 61.23 kg; wg Height 5 ft. 2 in. (157.48 cm); Pain 0/10; 21:17 Body Mass Index 24.69 (61.23 kg, 157.48 cm) wg MDM: 21:21 Patient medically screened. kb 05/07 00:39 Data reviewed: vital signs, nurses notes. Data interpreted: Pulse oximetry: on room air kb is 97 %. Interpretation: normal. Counseling: I had a detailed discussion with the patient and/or guardian regarding: the historical points, exam findings, and any diagnostic results supporting the discharge/admit diagnosis, lab results, the need for outpatient follow up, a family practitioner, to return to the emergency department if symptoms worsen or persist or if there are any questions or concerns that arise at home. 05/06 21:21 Order name: COVID-19 : Document "Date of Symptom Onset" if Symptomatic. kb 05/06 22:32 Order name: SARS-COV-2 RT PCR; Complete Time: 22:34 EDMS Administered Medications: No medications were administered Disposition: 07:59 Co-signature as Attending Physician, Collin Sotelo MD I agree with the assessment and meet plan of care. Disposition Summary: 05/06/21 22:34 Discharge Ordered Location: Home kb Condition: Stable kb Diagnosis - Coronavirus infection, unspecified kb Followup: kb - With: Emergency Department - When: As needed - Reason: Worsening of condition Followup: kb - With: Private Physician - When: 2 - 3 days - Reason: Recheck today's complaints, Continuance of care, Re-evaluation by your physician Discharge Instructions: - Discharge Summary Sheet kb - COVID-19 kb - COVID-19 Frequently Asked Questions kb - 10 Things You Can Do to Manage Your COVID-19 Symptoms at Home - [facility] [place] kb Forms: - Medication Reconciliation Form kb - Thank You Letter kb - Antibiotic Education kb - Prescription Opioid Use kb Signatures: Dispatcher [employer] EDMS Alla Mckeon, RECORDS ANALYSIS MANAGER-C SARA-Collin Pope MD MD cha Gamba, Liam, RN wg Corrections: (The following items were deleted from the chart) 05/06 21:31 21:22 CORONAVIRUS ordered. EDMS EDMS
[2021-05-07 00:36] VITALS: BP 124/78; TEMP 97.9; O2SAT 97
== END 2021-05-06 22:39 | disposition home or self-care (01) ==
LOC: ER 19:46
DX: U07.1 COVID-19 (principal); F17.210 Nicotine dependence, cigarettes, uncomplicated; E11.9 Type 2 diabetes mellitus without complications; Z79.4 Long term (current) use of insulin; Z88.1 Allergy status to other antibiotic agents; Z88.3 Allergy status to other anti-infective agents; Z91.040 Latex allergy status; Z91.048 Other nonmedicinal substance allergy status
CPT/HCPCS: 99281; U0003

== ENCOUNTER 2021-05-16 18:20 | Inpatient (IN) | payer SELFPAY ==
[2021-05-16 19:42] LABS: Urine Blood Negative (Negative); Urine Glucose 2+ (Negative); Urine Protein Negative (Negative); Urine pH 5.5 (5.0-7.0)
[2021-05-16] MEDS ORDERED: NA CHLORIDE 0.9% 0 ML ONE (19:48)
[2021-05-16 19:49] LABS: Absolute Lymphocytes (CBC) 1.7 K/uL (0.7-4.9); Basophils % 0.3 % (0-1.3); Hematocrit 43.4 % (36.0-45.0); Lymphocytes % 19.3 % (15.3-44.8); MPV 7.7 fL (7.6-11.3); RBC Red Blood Cell Count 4.69 M/uL (3.86-4.86)
[2021-05-16 19:50] LABS: Protime INR 0.97
[2021-05-16] MEDS ORDERED: FENTANYL CITR 100 MCG/2 ML ONE (19:51)
[2021-05-16] MEDS ORDERED: NA CHLORIDE 0.9% 1,000 ML ONE ×2 (19:51→22:08)
[2021-05-16] MEDS ORDERED: NA CHLORIDE 0.9% 2,000 ML ONE (19:55)
[2021-05-16] MEDS ORDERED: MORPHINE 4 MG/ML SYR ONE (20:05)
[2021-05-16] MEDS ORDERED: ONDANSETRON 4 MG/2 ML VIAL ONE (20:06)
--- NOTE | 2021-05-16 20:13 | RAD REPORT ---
EXAM DESCRIPTION: Efe Single View05/16/2021 7:59 pm CLINICAL HISTORY: Abdominal pain COMPARISON: January 2021 FINDINGS: The lungs appear clear of acute infiltrate. The heart is normal size IMPRESSION: No acute abnormalities displayed
[2021-05-16 20:14] LABS: ALT/SGPT 19 U/L (12-78); AST/SGOT 9 U/L (15-37); Albumin 4.1 g/dL (3.4-5.0); Alkaline Phosphatase 150 U/L (45-117); BUN Blood Urea Nitrogen 15 mg/dL (7-18); Bilirubin Direct 0.1 mg/dL (0-0.2); Bilirubin Total 0.7 mg/dL (0.2-1.0); Lipase 41 U/L (73-393); Potassium 4.7 mmol/L (3.5-5.1); Protein, Total 8.5 g/dL (6.4-8.2); Sodium Level 130 mmol/L (136-145)
[2021-05-16 20:15] LABS: Bicarbonate 11 mmol/L (21-32)
[2021-05-16 20:16] LABS: Glucose Level 601 mg/dL (74-106)
[2021-05-16 20:31] LABS: Urine Bacteria <20 /HPF (<20); Urine RBC NONE SEEN /HPF (NONE SEEN)
[2021-05-16 20:33] LABS: Urine Mucus HEAVY /HPF (NONE SEEN)
[2021-05-16 20:45] LABS: SARS-COV-2 RT PCR POSITIVE (NEGATIVE)
--- NOTE | 2021-05-16 20:51 | ER ---
Nurse's Notes [facility] Name: Yashira Peters Age: 21 yrs Sex: Female : 2000 Arrival Date: 05/16/2021 Time: 18:24 Bed 17 Private MD: Diagnosis: SARS-associated coronavirus as the cause of diseases classified elsewhere;Type 1 diabetes mellitus with ketoacidosis Presentation: 05/16 18:52 Chief complaint: Patient states: Pt stated was tested today at [facility] for Covid and vg1 results are Positive. States checked glucose at home and meter was unable to read. FSBG in triage read 'HI'. Pt states feeling tired, nauseous, headache, and whole body aches, and dizziness. Coronavirus screen: Vaccine status: Patient reports being unvaccinated. Client reports previous positive COVID test result. Date of collection: May 16, 2021. Ebola Screen: Patient negative for fever greater than or equal to 101.5 degrees Fahrenheit, and additional compatible Ebola Virus Disease symptoms. Initial Sepsis Screen: Does the patient meet any 2 criteria? RR > 20 per min. HR > 90 bpm. Risk Assessment: Do you want to hurt yourself or someone else? Patient reports no desire to harm self or others. Onset of symptoms was May 16, 2021. 18:52 Method Of Arrival: Ambulatory vg1 18:52 Acuity: ASIA 2 vg1 22:54 Initial Sepsis Screen: Does the patient have a suspected source of infection?. kc4 Triage Assessment: 18:54 General: Appears in no apparent distress. uncomfortable, Behavior is cooperative. Pain: vg1 Complains of pain in body Pain currently is 10 out of 10 on a pain scale. 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 - Social history:: Smoking status: Patient reports the use of cigarette tobacco products, smokes one-half pack cigarettes per day. Screenin:53 Abuse screen: Denies threats or abuse. Nutritional screening: No deficits noted. kc4 Tuberculosis screening: No symptoms or risk factors identified. Fall Risk None identified. Vital Signs: 18:52 BP 123 / 77; Pulse 103; Resp 24; Temp 98.1(O); Pulse Ox 100% ; Weight 58.97 kg; Height vg1 5 ft. 2 in. (157.48 cm); Pain 10/10; 20:11 BP 120 / 81; Pulse 98; Resp 22; Pulse Ox 100% on R/A; bs2 22:52 BP 113 / 78; Pulse 102; Resp 20; Pulse Ox 99% on R/A; kc4 18:52 Body Mass Index 23.78 (58.97 kg, 157.48 cm) vg1 ED Course: 18:24 Patient arrived in ED. rg4 18:54 Triage completed. vg1 18:54 Arm band placed on. vg1 18:57 Collin Chandra PA is PHCP. cp 18:57 Tacho Greene MD is Attending Physician. cp 19:11 Corinna Potts MD is Attending Physician. cp 19:21 Faby Rojas, RN is Primary Nurse. bs2 19:39 Urine Microscopic Only Sent. kc4 19:39 Liver (Hepatic) Function Sent. kc4 19:39 Lipase Sent. kc4 19:39 CBC with Automated Diff Sent. kc4 19:39 Basic Metabolic Panel Sent. kc4 19:39 Ferritin Sent. kc4 19:39 CRP Sent. kc4 19:39 PT-INR Sent. kc4 19:39 Blood Culture Adult (2) Sent. kc4 19:39 Procalcitonin Sent. kc4 19:39 Lactate Sent. kc4 19:39 Basic Metabolic Panel Sent. kc4 19:39 CBC with Diff Sent. kc4 19:39 Hepatic Function Sent. kc4 19:39 Lipase Sent. kc4 19:59 XRAY Chest (1 view) In Process Unspecified. EDMS 20:10 Urine Microscopic Only Sent. bs2 20:49 Irineo Pelayo DO is Hospitalizing Provider. cp 20:57 CT Head Brain wo Cont In Process Unspecified. EDMS 20:58 CT Abd/Pelvis - IV Contrast Only In Process Unspecified. EDMS 22:23 ABG Sent. bs2 22:53 Patient has correct armband on for positive identification. Placed in gown. Bed in low kc4 position. Call light in reach. Side rails up X 1. 22:53 No provider procedures requiring assistance completed. kc4 05/17 00:37 ABG Sent. df1 Administered Medications: 05/16 19:30 Drug: NS 0.9% (30 ml/kg) 30 ml/kg Route: IV; Rate: bolus; Site: left antecubital; bs2 22:23 Follow up: IV Status: Completed infusion bs2 19:52 Drug: morphine 4 mg Route: IVP; Site: right antecubital; kc4 22:23 Follow up: Response: No adverse reaction bs2 19:53 Drug: Ondansetron 4 mg Route: IVP; Site: right antecubital; kc4 22:23 Follow up: Response: No adverse reaction bs2 22:00 Drug: Reglan (metoCLOPramide) 10 mg Route: IVP; Site: left antecubital; bs2 22:24 Follow up: Response: No adverse reaction bs2 22:00 Drug: Demerol (meperidine) 12.5 mg Route: IVP; Site: left antecubital; bs2 05/17 03:06 Follow up: Response: No adverse reaction df1 05/16 22:15 Drug: Insulin Drip - (Insulin Regular Human 100 units, NS 0.9% 100 ml) {Co-Signature: bs2 raquel (Bhakti Ledezma RN).} Route: IV; Rate: 5 units/hr; Site: left hand; 05/17 03:06 Follow up: IV Status: Infusion continued upon admission df1 05/16 22:15 Drug: Insulin Regular Human 10 units {Co-Signature: raquel (Bhakti Ledezma RN).} Route: bs2 IVP; Site: left hand; 05/17 03:06 Follow up: Response: No adverse reaction df1 05/16 22:15 Drug: Potassium Chloride 20 mEq Route: IV; Rate: calculated rate; Site: left bs2 antecubital; 05/17 03:05 Follow up: IV Status: Completed infusion df1 05/16 22:15 Drug: NS 0.9% 1000 ml Route: IV; Rate: 125 ml/hr; Site: left antecubital; bs2 05/17 03:06 Follow up: IV Status: Order to discontinue infusion df1 Outcome: 05/16 20:50 Decision to Hospitalize by Provider. ana 05/17 11:06 Patient left the ED. iw Signatures: Dispatcher [employer] EDLizette Foster RN RN iw Collin Chandra PA PA cp Garcia, Rubi rg4 Lucia Darling RN RN vg1 Faby Rojas RN RN bs2 Tracey Ruelas kc4 Kallie Ramirez df1 Bhakti Ledezma RN bb
--- NOTE | 2021-05-16 20:51 | EDPHYS ---
Physician Documentation [facility] Name: Yashira Peters Age: 21 yrs Sex: Female : 2000 Arrival Date: 05/16/2021 Time: 18:24 Bed 17 Private MD: ED Physician Corinna Potts HPI: 05/16 19:15 This 21 yrs old Female presents to ER via Ambulatory with complaints of High cp Blood Sugar. 19:15 The patient or guardian reports hyperglycemia. Onset: The symptoms/episode cp began/occurred today. Associated signs and symptoms: Pertinent positives: vomiting, headache, body aches, abdominal pain. Patient reports testing positive for COVID-19 today. 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 - Social history:: Smoking status: Patient reports the use of cigarette tobacco products, smokes one-half pack cigarettes per day. ROS: 19:20 Constitutional: Positive for body aches, poor PO intake, Negative for fever. cp 19:20 Eyes: Negative for injury, pain, redness, and discharge. cp 19:20 ENT: Negative for drainage from ear(s), ear pain, sore throat, difficulty swallowing, difficulty handling secretions. 19:20 Neck: Negative for pain with movement, pain at rest, stiffness. 19:20 Cardiovascular: Negative for chest pain, palpitations. 19:20 Respiratory: Negative for cough, shortness of breath, wheezing. 19:20 Abdomen/GI: Positive for abdominal pain, nausea, vomiting, Negative for diarrhea, constipation. 19:20 Skin: Negative for rash. 19:20 Neuro: Positive for dizziness, headache, Negative for altered mental status. 19:20 All other systems are negative. Exam: 19:25 Constitutional: The patient appears in no acute distress, alert, awake, cp non-diaphoretic, well developed, well nourished, obviously ill, uncomfortable. 19:25 Head/Face: Normocephalic, atraumatic. cp 19:25 Eyes: Periorbital structures: appear normal, Pupils: equal, round, and reactive to light and accomodation, Extraocular movements: intact throughout, Conjunctiva: normal, no exudate, no injection, Sclera: no appreciated abnormality, Lids and lashes: appear normal, bilaterally. 19:25 ENT: External ear(s): are unremarkable, Nose: is normal, Mouth: Lips: moist, Oral mucosa: pink and intact, moist, Posterior pharynx: Airway: no evidence of obstruction, patent. 19:25 Neck: ROM/movement: is normal, is supple, without pain, no range of motions limitations, no meningismus, no nuchal rigidity. 19:25 Chest/axilla: Inspection: normal. 19:25 Cardiovascular: Rate: tachycardic, Rhythm: regular. 19:25 Respiratory: the patient does not display signs of respiratory distress, Respirations: normal, Breath sounds: are clear throughout, no decreased breath sounds, no stridor, no wheezing. 19:25 Abdomen/GI: Inspection: abdomen appears normal, Bowel sounds: active, all quadrants, Palpation: soft, in all quadrants, severe abdominal tenderness, in all quadrants, voluntary guarding, is not appreciated. 19:25 Back: CVA tenderness, is absent. 19:25 Skin: cellulitis, is not appreciated, no rash present. 19:25 Neuro: Orientation: to person, place \T\ time. Mentation: is normal, Motor: moves all fours, strength is normal, Sensation: no obvious gross deficits. 19:45 ECG was reviewed by the Attending Physician. cp Vital Signs: 18:52 BP 123 / 77; Pulse 103; Resp 24; Temp 98.1(O); Pulse Ox 100% ; Weight 58.97 kg; Height vg1 5 ft. 2 in. (157.48 cm); Pain 10/10; 20:11 BP 120 / 81; Pulse 98; Resp 22; Pulse Ox 100% on R/A; bs2 22:52 BP 113 / 78; Pulse 102; Resp 20; Pulse Ox 99% on R/A; kc4 18:52 Body Mass Index 23.78 (58.97 kg, 157.48 cm) vg1 MDM: 19:06 Patient medically screened. cp 19:40 Differential diagnosis: DKA, sepsis,colitis, appendicitis, pneumonia, respiratory cp failure. 21:00 Data reviewed: vital signs, nurses notes, lab test result(s), EKG, and as a result, I will admit patient. 21:00 Test interpretation: by ED physician or midlevel provider: ECG, plain radiologic cp studies. Response to treatment: the patient's symptoms have mildly improved after treatment. Physician consultation: Dinh Cortez was contacted at 20:50, regarding admission, to the ICU, patient's condition. 05/16 19:03 Order name: Glucose, Ancillary Testing; Complete Time: 19:07 EDMS 05/16 19:09 Order name: ABG 05/16 19:09 Order name: Basic Metabolic Panel 05/16 19:09 Order name: CBC with Diff 05/16 19:09 Order name: Hepatic Function 05/16 19:09 Order name: Lipase 05/16 19:09 Order name: Urine Microscopic Only 05/16 19:09 Order name: Lactate; Complete Time: 20:30 cp 05/16 19:09 Order name: Procalcitonin; Complete Time: 20:30 cp 05/16 20:30 Interpretation: Abnormal: Procalcitonin 0.40. 05/16 19:09 Order name: Blood Culture Adult (2) 05/16 19:09 Order name: PT-INR; Complete Time: 20:30 05/16 19:09 Order name: CRP 05/16 20:31 Interpretation: Abnormal: C-REACTIVE PROT 25.20. 05/16 19:09 Order name: Ferritin 05/16 19:10 Order name: Basic Metabolic Panel EDDE 05/16 20:30 Interpretation: Normal except: NA 130; CL 96; CO2 11; GLUC 601. cp 05/16 19:10 Order name: CBC with Automated Diff; Complete Time: 20:30 EDMS 05/16 19:10 Order name: Liver (Hepatic) Function EDDE 05/16 20:41 Interpretation: Normal except: AST 9; ALK 150; TP 8.5; GLOB 4.4; A/G 0.9. cp 05/16 19:10 Order name: Lipase EDMS 05/16 19:10 Order name: Urine Microscopic Only; Complete Time: 20:35 EDMS 05/16 19:42 Order name: Urine Dipstick-Ancillary; Complete Time: 19:50 EDMS 05/16 20:42 Interpretation: Normal except: UGLUC 2+; UKET 4+. cp 05/16 19:44 Order name: Urine --Ancillary (enter results); Complete Time: 20:30 oe 05/16 20:45 Order name: COVID-19/FLU A+B; Complete Time: 20:48 EDMS 05/16 23:53 Order name: Glucose, Ancillary Testing EDMS 05/17 00:20 Order name: ABG cp 05/17 00:32 Order name: ABG Arterial Blood Gas EDMS 05/17 01:02 Order name: Glucose, Ancillary Testing EDMS 05/17 02:09 Order name: Basic Metabolic Panel EDMS 05/17 02:26 Order name: Glucose, Ancillary Testing EDMS 05/17 03:28 Order name: Glucose, Ancillary Testing EDMS 05/16 19:09 Order name: IV Saline Lock; Complete Time: 20:10 cp 05/16 19:09 Order name: Labs collected and sent; Complete Time: 19:22 cp 05/16 19:09 Order name: XRAY Chest (1 view); Complete Time: 20:30 cp 05/16 19:09 Order name: Urine Dipstick-Ancillary (obtain specimen); Complete Time: 20:10 cp 05/16 19:09 Order name: Urine Test (obtain specimen); Complete Time: 20:10 cp 05/16 19:09 Order name: EKG; Complete Time: 19:11 cp 05/16 19:09 Order name: EKG - Nurse/Tech; Complete Time: 19:39 cp 05/16 20:43 Order name: CT Head Brain wo Cont; Complete Time: 21:18 cp 05/16 21:44 Interpretation: Report reviewed. cp 05/16 20:43 Order name: CT Abd/Pelvis - IV Contrast Only; Complete Time: 21:43 cp 05/16 21:43 Interpretation: Report reviewed. cp 05/17 04:24 Order name: Glucose, Ancillary Testing EDMS 05/17 06:32 Order name: Glucose, Ancillary Testing EDMS 05/17 06:47 Order name: CBC with Automated Diff EDMS 05/17 07:05 Order name: Basic Metabolic Panel EDMS 05/17 07:05 Order name: Lipid Profile EDMS 05/17 07:05 Order name: Magnesium EDMS 05/17 07:18 Order name: Hemoglobin A1c EDMS 05/17 07:39 Order name: Glucose, Ancillary Testing EDMS 05/17 09:10 Order name: Glucose, Ancillary Testing EDMS 05/17 09:31 Order name: Basic Metabolic Panel EDMS 05/17 10:30 Order name: Glucose, Ancillary Testing EDMS EC:45 Rate is 93 beats/min. Rhythm is regular. NM interval is normal. QRS interval is normal. cp QT interval is normal. T waves are Inverted in lead aVR. Interpreted by me. Reviewed by me. Administered Medications: 19:30 Drug: NS 0.9% (30 ml/kg) 30 ml/kg Route: IV; Rate: bolus; Site: left antecubital; bs2 22:23 Follow up: IV Status: Completed infusion bs2 19:52 Drug: morphine 4 mg Route: IVP; Site: right antecubital; kc4 22:23 Follow up: Response: No adverse reaction bs2 19:53 Drug: Ondansetron 4 mg Route: IVP; Site: right antecubital; kc4 22:23 Follow up: Response: No adverse reaction bs2 22:00 Drug: Reglan (metoCLOPramide) 10 mg Route: IVP; Site: left antecubital; bs2 22:24 Follow up: Response: No adverse reaction bs2 22:00 Drug: Demerol (meperidine) 12.5 mg Route: IVP; Site: left antecubital; bs2 05/17 03:06 Follow up: Response: No adverse reaction df1 05/16 22:15 Drug: Insulin Drip - (Insulin Regular Human 100 units, NS 0.9% 100 ml) {Co-Signature: bs2 bb (Bhakti Ledezma RN).} Route: IV; Rate: 5 units/hr; Site: left hand; 05/17 03:06 Follow up: IV Status: Infusion continued upon admission df1 05/16 22:15 Drug: Insulin Regular Human 10 units {Co-Signature: raquel (Bhakti Ledezma RN).} Route: bs2 IVP; Site: left hand; 05/17 03:06 Follow up: Response: No adverse reaction df1 05/16 22:15 Drug: Potassium Chloride 20 mEq Route: IV; Rate: calculated rate; Site: left bs2 antecubital; 05/17 03:05 Follow up: IV Status: Completed infusion df1 05/16 22:15 Drug: NS 0.9% 1000 ml Route: IV; Rate: 125 ml/hr; Site: left antecubital; bs2 05/17 03:06 Follow up: IV Status: Order to discontinue infusion df1 Disposition Summary: 05/16/21 20:50 Hospitalization Ordered Hospitalization Status: Inpatient Admission cp Provider: Irineo Pelayo cp Condition: Serious cp Problem: new cp Symptoms: have improved cp Bed/Room Type: Standard cp Location: Intensive Care Unit(05/17/21 10:35) eb Room Assignment: 1-(05/17/21 10:35) eb Diagnosis - SARS-associated coronavirus as the cause of diseases classified elsewhere cp - Type 1 diabetes mellitus with ketoacidosis cp Forms: - Medication Reconciliation Form cp - SBAR form cp Addendum: 05/18/2021 13:00 Co-signature as Attending Physician, Corinna Potts MD PA/STRATEGIC MARKETING ASSOCIATE's history reviewed, m a2 patient interviewed, and examined. I agree with assessment and care plan and confirm the diagnosis (es) above. Signatures: Dispatcher [employer] EDDinh Mejia, WASH OIL PUMP OPERATOR-C WASH OIL PUMP OPERATOR-Cla1 Sara Anne RN RN tl1 Collin Chandra PA PA cp Alzahri, Mohammad, MD MD ma2 Pau Jacobsen Victoria, RN RN vg1 Faby Rojas RN RN bs2 Tracey Ruelas kc4 Kallie Ramirez df1 Bhakti Ledezma RN bb Corrections: (The following items were deleted from the chart) 05/16 19:52 19:11 CORONAVIRUS+MR.LAB.BRZ ordered. EDMS EDMS 19:52 19:11 Influenza Screen (A \T\ B)+BA.LAB.BRZ ordered. EDMS EDMS 21:40 20:50 Intensive Care Unit cp tl1 21:40 20:50 cp tl1 05/17 10:35 05/16 21:40 [facility] ER HOLD tl1 eb 05/17 10:35 05/16 21:40 ERHOLD- tl1 eb
--- NOTE | 2021-05-16 21:08 | RAD REPORT ---
EXAM DESCRIPTION: CT - Head Brain Wo Cont - 05/16/2021 8:57 pm CLINICAL HISTORY: Headache COMPARISON: 2012 TECHNIQUE: Computed axial tomography of the head was obtained. IV contrast was not requested. All CT scans are performed using dose optimization technique as appropriate and may include automated exposure control or mA/KV adjustment according to patient size. FINDINGS: An intracranial bleed is not seen . The ventricles are normal in caliber. No extra-axial fluid collection is noted. . Fluid within the sinuses/ mastoids is not seen. 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 If patient's symptoms persist MRI of the bra in would be recommended.
--- NOTE | 2021-05-16 21:36 | RAD REPORT ---
EXAM DESCRIPTION: CT - Abdomen Pelvis W Contrast - 05/16/2021 8:57 pm CLINICAL HISTORY: Abdominal pain COMPARISON: 2019 TECHNIQUE: Computed axial tomography of the abdomen pelvis was obtained. 100 cc Isovue-300 was admin istered intravenously. Oral contrast was not requested which limits evaluation of bowel. All CT scans are performed using dose optimization technique as appropriate and may include automated exposure control or mA/KV adjustment according to patient size. FINDINGS: The liver, spleen, pancreas, adrenal and kidneys appear unremarkable. There is no evidence of diverticulitis. Fluid in nondilated small bowel. The stomach is distended 2 centimeter irregularly-shaped fluid collection right pelvis. No significant free fluid. Appendix is probably seen and is normal IMPRESSION: Fluid in nondilated small bowel may indicate enteritis The gastric distention 2 centimeter irregularly-shaped fluid collection right pelvis probably an ovarian cyst. No significan t free fluid
--- NOTE | 2021-05-16 21:46 | P.HP ---
Certification for Inpatient Patient admitted to: Inpatient With expected LOS: >2 Midnights Patient will require the following post-hospital care: None Practitioner: I am a practitioner with admitting privileges, knowledge of patient current condition, hospital course, and medical plan of care. Services: Services provided to patient in accordance with Admission requirements found in Title 42 Section 412.3 of the Code of Federal Regulations Patient History Date of Service: 05/16/21 Reason for admission: DKA History of Present Illness: 21-year-old female with history of diabetes mellitus type 1 presents emergency department for hyperglycemia, Covid positive. Patient tested positive for Covid on 05/06/2021, has been feeling unwell since then. Patient checked her blood sugar and it read high so she came to the emergency department. Patient was evaluated in the emergency department labs are significant for sodium 130 chloride 96 CO2 11 BUN 15 glucose 601 procalcitonin 0.4 C-reactive protein 25.2 anion gap 23 chest x-ray unremarkable CT abdomen pelvis suspected ovarian cyst and possible enteritis pattern CT head negative for any acute findings. Patient given 30 cc/kg fluid bolus in the emergency department and patient was started on insulin drip as well as potassium. ED provider wishes to admit to ICU for further evaluation and management. Patient takes [id number] insulin from [employer] with 20 units of Novolin R and 10 units of Novolin and twice daily, reports her blood sugars run in the 300s-400s constantly. Patient currently uninsured has been unable to see PCP or endocrinology since she was 16 years old. Allergies amoxicillin Allergy (Verified 01/08/20 20:41) hallucination Latex, Natural Rub Allergy (Uncoded 07/05/19 01:37) Hives/Rash Home Medications: Insulin NPH Human Isophane [Novolin N] 10 unit SQ BID 01/29/21 Insulin Regular, Human [Novolin R] 20 unit SQ BID 01/29/21 traMADol HCL [Ultram*] 50 mg PO Q6H PRN #30 tab 01/30/21 - Past Medical/Surgical History Diabetic: Yes -: DM1 -: anxiety -: depression -: hyperthyroid -: depression -: previous suicide attempt -: X3 - Family History Family History: Reviewed- Non-Contributory - Social History Smoking Status: Current every day smoker Counseled patient to stop smoking for: less than 10 minutes Smoking therapy provided: No (Patient declined) Alcohol use: No CD- Drugs: No Caffeine use: Yes Place of Residence: Home Review of Systems 10-point ROS is otherwise unremarkable General: Weakness, Malaise Gastrointestinal: Nausea, Abdominal Pain Neurological: Other (Headache) Physical Examination - Physical Exam General: Alert, In no apparent distress, Oriented x3 HEENT: Atraumatic, PERRLA, Other (Mucous membranes dry), EOMI, Sclerae nonicteric Neck: Supple, 2+ carotid pulse no bruit, No LAD, Without JVD or thyroid abno rmality Respiratory: Clear to auscultation bilaterally, Normal air movement Cardiovascular: Regular rate/rhythm, Normal S1 S2 Gastrointestinal: Normal bowel sounds, No tenderness Musculoskeletal: No tenderness Integumentary: No rashes Neurological: Normal gait, Normal speech, Normal strength at 5/5 x4 extr, Normal tone, Normal affect Lymphatics: No axilla or inguinal lymphadenopathy - Studies Laboratory Data (last 24 hrs) 05/16/21 19:10: PT 11.2, INR 0.97 05/16/21 19:10: WBC 8.80, Hgb 14.2, Hct 43.4, Plt Count 371 05/16/21 19:10: Sodium 130 L, Potassium 4.7, BUN 15, Creatinine 0.74, Glucose 601 H*, Total Bilirubin 0.7, AST 9 L, ALT 19, Alkaline Phosphatase 150 H, Lipase 41 L Assessment and Plan - Plan Assessment: Diabetes type 1 with diabetic ketoacidosis Plan: Diabetes type 1 with diabetic ketoacidosis: IV fluids, insulin drip, hourly Accu-Chek, every 4 hours BMP until anion gap less than 12 and sugar less than 200, clear liquid diet now will advance diet once anion gap is closed. Patient will need increase of her insulin dose currently on [id number] insulin from [employer] 10 units of Novolin and and 20 units of Novolin R twice daily. Anticipate clinical improvement and discharge in the next 24 to 40 hours. DVT PPX: Lovenox Code status: Full Discharge Plan: Home Plan to discharge in: 48 Hours - Advance Directives Does patient have a Living Will: No Does patient have a Durable POA for Healthcare: No - Code Status/Comfort Care Code Status Assessed: Yes (Full code) Critical Care: No Time Spent Managing Pts Care (In Minutes): 55
[2021-05-16 21:50] LABS: Ferritin 73.3 ng/mL (8-388)
[2021-05-16] MEDS ORDERED: METOCLOPRAMIDE 10 MG/2mL INJ ONE (22:06)
[2021-05-16] MEDS ORDERED: MEPERIDINE HCL 50 MG/ML ONE (22:06)
[2021-05-16] MEDS ORDERED: INSULIN -REGULAR HUMAN 50 UNIT/0.5 ML ML ONE (22:08)
[2021-05-16] MEDS ORDERED: NA CHLORIDE 0.9% 100 ML ONE (22:08)
[2021-05-16] MEDS ORDERED: KCL 20 MEQ/100 mL IVPB 20 MEQ/100 ML BAG IV ONE (22:09)
[2021-05-16] MEDS ORDERED: MORPHINE 2 MG/ML SYR IV PRN (23:20)
[2021-05-16] MEDS ORDERED: NACHLORIDE 0.45% 1,000 ML with POTASSIUM CL 20 MEQ IV SCH ×2 (23:20)
[2021-05-16] MEDS ORDERED: PROMETHAZINE INJ 25 MG/ML AMP IV PRN (23:20)
[2021-05-16] MEDS ORDERED: ONDANSETRON 4 MG/2 ML VIAL IV PRN (23:20)
[2021-05-16] MEDS: POTASSIUM CHLORIDE-0.45% NACL 20 MEQ/1,000 ML BAG IV SCH (23:30)
[2021-05-16] MEDS: INSULIN -REGULAR HUMAN 100 UNIT in NA CHLORIDE 0.9% 100 ML IV SCH (23:49)
[2021-05-17] MEDS ORDERED: D5.45NS W/KCL 20MEQ 1,000 ML IV ONE ×2 (00:20→08:29)
[2021-05-17 00:30] LABS: Arterial Blood Carboxyhemoglob 1.9 % (0-1.5); Blood Gas Oxyhemoglobin 94.1 % (94-97); Blood O2 Saturation 97.4 % (92-98.5)
[2021-05-17] MEDS: D5.45NS W/KCL 20MEQ 1,000 ML IV SCH ×2 (00:58→08:05)
[2021-05-17 02:07] LABS: BUN Blood Urea Nitrogen 9 mg/dL (7-18); Glucose Level 225 mg/dL (74-106); Potassium 4.7 mmol/L (3.5-5.1); Sodium Level 136 mmol/L (136-145)
[2021-05-17 02:08] LABS: Bicarbonate 12 mmol/L (21-32)
[2021-05-17] MEDS ORDERED: FENTANYL CITR 100 MCG/2 ML ONE ×2 (03:51→06:48)
[2021-05-17] MEDS: FENTANYL CITR 100 MCG/2 ML IV PRN ×2 (06:15→12:19)
--- NOTE | 2021-05-17 06:40 | P.PN ---
Subjective Date of Service: 05/17/21 Primary Care Provider: None Chief Complaint: DKA Subjective: Improving, Doing well Physical Examination - Studies Laboratory Data (last 24 hrs) 05/16/21 19:10: PT 11.2, INR 0.97 05/16/21 19:10: WBC 8.80, Hgb 14.2, Hct 43.4, Plt Count 371 05/16/21 19:10: Sodium 130 L, Potassium 4.7, BUN 15, Creatinine 0.74, Glucose 60 1 H*, Total Bilirubin 0.7, AST 9 L, ALT 19, Alkaline Phosphatase 150 H, Lipase 41 L Assessment & Plan Discharge Plan: Home Plan to discharge in: 24 Hours Physician Review Additional Text: COVID: Positive CT head: COMPARISON: 2012 TECHNIQUE: Computed axial tomography of the head was obtained. IV contrast was not requested. All CT scans are performed using dose optimization technique as appropriate and may include automated exposure control or mA/KV adjustment according to patient size. FINDINGS: An intracranial bleed is not seen . The ventricles are normal in caliber. No extra-axial fluid collection is noted. . Fluid within the sinuses/ mastoids is not seen. 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 CT scan: COMPARISON: 2018 TECHNIQUE: Computed axial tomography of the abdomen pelvis was obtained. 100 cc Isovue-300 was administered intravenously. Oral contrast was not requested which limits evaluation of bowel. All CT scans are performed using dose optimization technique as appropriate and may include automated exposure control or mA/KV adjustment according to patient size. FINDINGS: The liver, spleen, pancreas, adrenal and kidneys appear unremarkable. There is no evidence of diverticulitis. Fluid in nondilated small bowel. The stomach is distended 2 centimeter irregularly-shaped fluid collection right pelvis. No significant free fluid. Appendix is probably seen and is normal IMPRESSION: Fluid in nondilated small bowel may indicate enteritis The gastric distention 2 centimeter irregularly-shaped fluid collection right pelvis probably an ovarian cyst. No significant free fluid CXR: COMPARISON: January 2021 FINDINGS: The lungs appear clear of acute infiltrate. The heart is normal size IMPRESSION: No acute abnormalities displayed Physical exam: General: Alert, In no apparent distress, Oriented x3 HEENT: Atraumatic, PERRLA, Other (Mucous membranes dry), EOMI, Sclerae nonicteric Neck: Supple, 2+ carotid pulse no bruit, No LAD, Without JVD or thyroid abnormality Respiratory: Clear to auscultation bilaterally, Normal air movement Cardiovascular: Regular rate/rhythm, Normal S1 S2 Gastrointestinal: Normal bowel sounds, No tenderness Musculoskeletal: No tenderness Integumentary: No rashes Neurological: Normal gait, Normal speech, Normal strength at 5/5 x4 extr, Normal tone, Normal affect Lymphatics: No axilla or inguinal lymphadenopathy Assessment: Diabetes type 1 with diabetic ketoacidosis COVID positive, asymptomatic Plan: Diabetes type 1 with diabetic ketoacidosis: Gap is closed. Case discussed with nurse. Will transition to NovoLog in 20 units subcu twice daily. Continue aggressive sliding scale. Discontinue IV insulin. If taking good oral intake will Hep-Lock IV fluids. Continue to monitor closely. Hemoglobin C 11.6. Likely discharge tomorrow if doing well. Will need close follow-up and establish care with a local physician to continue her care.. COVID positive, asymptomatic: Overall stable. No need for intervention. Patient on room air. Continue Covid education and isolation. DVT PPX: Lovenox Code status: Full Discharge Plan: Home at discharge Time Spent Managing Pts Care (In Minutes): 55
[2021-05-17 06:41] LABS: Absolute Lymphocytes (CBC) 2.3 K/uL (0.7-4.9); Basophils % 0.4 % (0-1.3); Hematocrit 36.6 % (36.0-45.0); Lymphocytes % 31.8 % (15.3-44.8); MPV 7.2 fL (7.6-11.3)
[2021-05-17 07:05] LABS: BUN Blood Urea Nitrogen 7 mg/dL (7-18); Bicarbonate 17 mmol/L (21-32); Glucose Level 179 mg/dL (74-106); HDL Cholesterol 43 mg/dL (40-60); LDL Cholesterol, Calculated 85 (<130); Magnesium 2.1 mg/dL (1.8-2.4); Potassium 4.3 mmol/L (3.5-5.1); Sodium Level 136 mmol/L (136-145)
[2021-05-17] MEDS: INSULIN -REGULAR HUMAN 100 UNIT in NA CHLORIDE 0.9% 100 ML IV SCH ×4 (08:05→10:29)
[2021-05-17] MEDS ORDERED: NA CHLORIDE 0.9% 500 ML ONE (08:22)
[2021-05-17 09:28] LABS: BUN Blood Urea Nitrogen 5 mg/dL (7-18); Glucose Level 236 mg/dL (74-106); Potassium 4.3 mmol/L (3.5-5.1); Sodium Level 139 mmol/L (136-145)
[2021-05-17 09:30] LABS: Bicarbonate 11 mmol/L (21-32)
--- NOTE | 2021-05-17 10:41 | EKG ---
Test Date: 2021-05-16 Test Time: 19:37:02 Management Advisor: MEASUREMENT RESULTS: Intervals: Rate: 93 IA: 130 QRSD: 76 QT: 382 QTc: 474 Thorp: P: 51 IA: 130 QRS: 64 T: 48 INTERPRETIVE STATEMENTS: Normal sinus rhythm Normal ECG Compared to ECG 01/29/2021 09:51:17 No significant changes Electronically Signed On 05-17-21 10:39:46 CDT by Avery Milner
[2021-05-17 11:38] VITALS: O2SAT 100
[2021-05-17] MEDS: POTASSIUM CHLORIDE-0.45% NACL 20 MEQ/1,000 ML BAG IV SCH (11:46)
[2021-05-17 13:41] LABS: BUN Blood Urea Nitrogen 4 mg/dL (7-18); Bicarbonate 18 mmol/L (21-32); Glucose Level 206 mg/dL (74-106); Sodium Level 140 mmol/L (136-145)
[2021-05-17] MEDS ORDERED: D50W 25 GM/50 ML SYRINGE IV PRN ×2 (13:55→15:32)
[2021-05-17] MEDS ORDERED: GLUCAGON 1 MG/VIAL IM PRN ×2 (13:55→15:32)
[2021-05-17] MEDS: INSULIN -REGULAR HUMAN 50 UNIT/0.5 ML ML SQ SCH ×2 (16:01→20:06)
[2021-05-17] MEDS: ENOXAPARIN 40 MG/0.4 ML SQ SCH (17:20)
[2021-05-17] MEDS: INSULIN 70/30 100 UNITS/ML SQ SCH (17:20)
[2021-05-17] MEDS: TRAMADOL HCL 50 MG TAB PO PRN (17:21)
[2021-05-17] MEDS: FAMOTIDINE 20 MG TAB PO SCH (20:07)
--- NOTE | 2021-05-18 05:54 | P.PN ---
Subjective Date of Service: 05/18/21 Primary Care Provider: None Chief Complaint: DKA Subjective: Improving, Doing well Physical Examination - Vital Signs Temperature: 96.9 F Blood Pressure: 92/67 Pulse: 74 Respirations: 19 Pulse Ox (%): 100 Assessment & Plan Discharge Plan: Home Plan to discharge in: 24 Hours Physician Review Additional Text: COVID: Positive CT head: COMPARISON: 2012 TECHNIQUE: Computed axial tomography of the head was obtained. IV contrast was not requested. All CT scans are performed using dose optimization technique as appropriate and may include automated exposure control or mA/KV adjustment according to patient size. FINDINGS: An intracranial bleed is not seen . The ventricles are normal in caliber. No extra-axial fluid collection is noted. . Fluid within the sinuses/ mastoids is not seen. 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 CT scan: COMPARISON: 2018 TECHNIQUE: Computed axial tomography of the abdomen pelvis was obtained. 100 cc Isovue-300 was administered intravenously. Oral contrast was not requested which limits evaluation of bowel. All CT scans are performed using dose optimization technique as appropriate and may include automated exposure control or mA/KV adjustment according to patient size. FINDINGS: The liver, spleen, pancreas, adrenal and kidneys appear unremarkable. There is no evidence of diverticulitis. Fluid in nondilated small bowel. The stomach is distended 2 centimeter irregularly-shaped fluid collection right pelvis. No significant free fluid. Appendix is probably seen and is normal IMPRESSION: Fluid in nondilated small bowel may indicate enteritis The gastric distention 2 centimeter irregularly-shaped fluid collection right pelvis probably an ovarian cyst. No significant free fluid CXR: COMPARISON: January 2021 FINDINGS: The lungs appear clear of acute infiltrate. The heart is normal size IMPRESSION: No acute abnormalities displayed Physical exam: General: Alert, In no apparent distress, Oriented x3 HEENT: Atraumatic, PERRLA, Other (Mucous membranes dry), EOMI, Sclerae nonicteric Neck: Supple, 2+ carotid pulse no bruit, No LAD, Without JVD or thyroid abnormality Respiratory: Clear to auscultation bilaterally, Normal air movement Cardiovascular: Regular rate/rhythm, Normal S1 S2 Gastrointestinal: Normal bowel sounds, No tenderness Musculoskeletal: No tenderness Integumentary: No rashes Neurological: Normal gait, Normal speech, Normal strength at 5/5 x4 extr, Normal tone, Normal affect Lymphatics: No axilla or inguinal lymphadenopathy Assessment: Diabetes type 1 with diabetic ketoacidosis COVID positive, asymptomatic Plan: Diabetes type 1 with diabetic ketoacidosis: If doing well by this afternoon will consider discharge later today. Hemoglobin A1c 11.6. Continue with insulin. COVID positive, asymptomatic: Overall stable. No need for intervention. Patient on room air. Continue Covid education and isolation. DVT PPX: Lovenox Code status: Full Discharge Plan: Home at discharge Time Spent Managing Pts Care (In Minutes): 55
[2021-05-18 06:08] LABS: BUN Blood Urea Nitrogen 5 mg/dL (7-18); Bicarbonate 25 mmol/L (21-32); Glucose Level 137 mg/dL (74-106); Magnesium 1.9 mg/dL (1.8-2.4); Potassium 3.5 mmol/L (3.5-5.1); Sodium Level 141 mmol/L (136-145)
[2021-05-18 06:33] VITALS: BMI 23.6
[2021-05-18] MEDS ORDERED: NA CHLORIDE 0.9% 500 ML IV ONE (08:38)
[2021-05-18] MEDS: FAMOTIDINE 20 MG TAB PO SCH (08:57)
[2021-05-18] MEDS: INSULIN -REGULAR HUMAN 50 UNIT/0.5 ML ML SQ SCH ×2 (08:57→12:17)
[2021-05-18] MEDS: INSULIN 70/30 100 UNITS/ML SQ SCH (08:57)
[2021-05-18] MEDS: ENOXAPARIN 40 MG/0.4 ML SQ SCH (08:58)
[2021-05-18] MEDS ORDERED: POTASSIUM 25 MEQ EFFERV TAB PO ONE (09:00)
[2021-05-18] MEDS: TRAMADOL HCL 50 MG TAB PO PRN (12:17)
[2021-05-18 13:33] VITALS: BP 92/67; TEMP 96.9
--- NOTE | 2021-05-18 14:19 | P.DS ---
Admission Date: 05/16/21 Discharge Date: 05/18/21 Primary Care Provider: None Disposition: ROUTINE DISCHARGE Discharge Condition: GOOD Reason for Admission: DKA Consultations: COVID: Positive None Procedures: CT head: COMPARISON: 2012 TECHNIQUE: Computed axial tomography of the head was obtained. IV contrast was not requested. All CT scans are performed using dose optimization technique as appropriate and may include automated exposure control or mA/KV adjustment according to patient size. FINDINGS: An intracranial bleed is not seen . The ventricles are normal in caliber. No extra-axial fluid collection is noted. . Fluid within the sinuses/ mastoids is not seen. 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 CT scan: COMPARISON: 2018 TECHNIQUE: Computed axial tomography of the abdomen pelvis was obtained. 100 cc Isovue-300 was administered intravenously. Oral contrast was not requested which limits evaluation of bowel. All CT scans are performed using dose optimization technique as appropriate and may include automated exposure control or mA/KV adjustment according to patient size. FINDINGS: The liver, spleen, pancreas, adrenal and kidneys appear unremarkable. There is no evidence of diverticulitis. Fluid in nondilated small bowel. The stomach is distended 2 centimeter irregularly-shaped fluid collection right pelvis. No significant free fluid. Appendix is probably seen and is normal IMPRESSION: Fluid in nondilated small bowel may indicate enteritis The gastric distention 2 centimeter irregularly-shaped fluid collection right pelvis probably an ovarian cyst. No significant free fluid CXR: COMPARISON: January 2021 FINDINGS: The lungs appear clear of acute infiltrate. The heart is normal size IMPRESSION: No acute abnormalities displayed Medical problem list: Diabetes type 1 with diabetic ketoacidosis COVID positive, asymptomatic Brief History of Present Illness: 21-year-old female with history of type 1 diabetes. Patient presented with DKA. Patient admitted for treatment. Hospital Course: Patient presented with diabetic ketoacidosis. Patient with history of type 1 diabetes. Patient required hospitalization in ICU. Patient was started on insulin drip. Her DKA resolved. Patient was transitioned to her regular regimen of insulin including NPH. Patient has done well. At discharge the patient will continue with insulin NPH 20 units subcu twice daily. Patient will also continue with insulin R with mild sliding scale. Recommend to monitor blood sugars at least twice daily. Recommend to maintain blood sugar less than 140 fasting and less than 200 after meals. If blood sugar remains above 200 she may increase NPH by 1 to 2 units for better control. Hemoglobin A1c 11.6. She will need to make an appointment with a local PCP to establish care and continue her care. Recommend to recheck hemoglobin A1c every 3 months to monitor her progress. Further adjustment and monitoring can be done by her PCP. Education on diabetes will be provided. Patient with Covid positive. Patient asymptomatic. Patient on room air. Patient will continue with Covid isolation for at least 10 more days. Recommend to continue Covid instruction including facemask use, handwashing, social distancing. Patient may return to work after 10 days. Vital Signs/Physical Exam: Temp Pulse Resp BP Pulse Ox 96.9 F 74 19 92/67 100 05/18/21 13:32 05/18/21 13:32 05/18/21 13:32 05/18/21 13:32 05/18/21 13:32 General: Alert, In no apparent distress, Oriented x3, Cooperative HEENT: Atraumatic Neck: Supple Respiratory: Clear to auscultation bilaterally, Normal air movement Cardiovascular: Normal pulses, Regular rate/rhythm Gastrointestinal: Normal bowel sounds, No tenderness, No masses, No rebound, No guarding Musculoskeletal: No erythema, No tenderness, No warmth Integumentary: No tenderness/swelling, No erythema Neurological: Normal speech, Normal strength at 5/5 x4 extr, Normal tone Laboratory Data at Discharge: WBC 7.40 K/uL (4.3-10.9) D 05/17/21 06:01 Hgb 12.4 g/dL (12.0-15.0) 05/17/21 06:01 Hct 36.6 % (36.0-45.0) D 05/17/21 06:01 Plt Count 374 K/uL (152-406) 05/17/21 06:01 PT 11.2 SECONDS (9.5-12.5) 05/16/21 19:10 INR 0.97 05/16/21 19:10 Sodium 141 mmol/L (136-145) 05/18/21 04:59 Potassium 4.4 mmol/L (3.5-5.1) 05/18/21 11:02 BUN 5 mg/dL (7-18) L 05/18/21 04:59 Creatinine 0.41 mg/dL (0.55-1.3) L 05/18/21 04:59 Glucose 137 mg/dL (74-106) H 05/18/21 04:59 Magnesium 1.9 mg/dL (1.8-2.4) 05/18/21 04:59 Total Bilirubin 0.7 mg/dL (0.2-1.0) 05/16/21 19:10 AST 9 U/L (15-37) L 05/16/21 19:10 ALT 19 U/L (12-78) 05/16/21 19:10 Alkaline Phosphatase 150 U/L (45-117) H 05/16/21 19:10 Triglycerides 287 mg/dL (<150) H 05/17/21 06:01 Cholesterol 185 mg/dL (<200) 05/17/21 06:01 HDL Cholesterol 43 mg/dL (40-60) 05/17/21 06:01 Cholesterol/HDL Ratio 4.30 05/17/21 06:01 Lipase 41 U/L (73-393) L 05/16/21 19:10 Home Medications: Insulin NPH Human Isophane [Novolin N] 20 unit SQ BID #1 vial 05/18/21 Insulin Regular, Human [Novolin R] See Protocol SQ SEECOM #1 vial 05/18/21 New Medications: Insulin NPH Human Isophane [Novolin N] 20 unit SQ BID #1 vial Insulin Regular, Human [Novolin R] See Protocol SQ SEECOM #1 vial Physician Discharge Instructions: Patient presented with diabetic ketoacidosis. Patient with history of type 1 diabetes. Patient required hospitalization in ICU. Patient was started on insulin drip. Her DKA resolved. Patient was transitioned to her regular regimen of insulin including NPH. Patient has done well. At discharge the patient will continue with insulin NPH 20 units subcu twice daily. Patient will also continue with insulin R with mild sliding scale. Recommend to monitor blood sugars at least twice daily. Recommend to maintain blood sugar less than 140 fasting and less than 200 after meals. If blood sugar remains above 200 she may increase NPH by 1 to 2 units for better control. Hemoglobin A1c 11.6. She will need to make an appointment with a local PCP to establish care and continue her care. Recommend to recheck hemoglobin A1c every 3 months to monitor her progress. Further adjustment and monitoring can be done by her PCP. Education on diabetes will be provided. Patient with Covid positive. Patient asymptomatic. Patient on room air. Estefany ent will continue with Covid isolation for at least 10 more days. Recommend to continue Covid instruction including facemask use, handwashing, social distancing. Patient may return to work after 10 days. Diet: ADA Activity: Ad sandra Followup: NONE,NONE [Primary Care Provider] - Time spent managing pt's care (in minutes): 55
== END 2021-05-18 15:33 | disposition home or self-care (01) | DRG 637 ==
LOC: ER 18:20 → ERHOLD 21:37 → 3RD-ICU 05-17 10:56
PROVIDERS: ADMIT Family Medicine; ATTEND Family Medicine
DX: E10.10 Type 1 diabetes mellitus with ketoacidosis without coma (principal); U07.1 COVID-19; Z88.0 Allergy status to penicillin; Z91.040 Latex allergy status
CPT/HCPCS: 0240U; 36415; 70450; 71045; 74177; 80048; 80061; 80076; 81003; 81015; 81025; 82728; 82805; 82947; 83036; 83605; 83690; 83735; 84132; 84145; 85025; 85610; 86140; 87040; 93005; 99284; J1650; J1815; J2175; J2405; J2765; J3010; J3480; J7030; J7040; Q9967

== ENCOUNTER 2021-06-13 23:27 | Emergency (ER) | payer SELFPAY ==
--- NOTE | 2021-06-14 00:41 | EDPHYS ---
Physician Documentation [facility] Name: Yashira Peters Age: 21 yrs Sex: Female : 2000 Arrival Date: 06/13/2021 Time: 23:30 Bed 9 Private MD: ED Physician Kenneth Hastings HPI: 06/14 00:05 This 21 yrs old Female presents to ER via Ambulatory with complaints of mh7 Toothache, Ear Pain, Headache. 00:05 The patient presents with pain. The problem is located in the upper right first mh7 bicuspid (#5). Onset: The symptoms/episode began/occurred 3 year(s) ago, and became worse yesterday. Duration: The symptoms are intermittent, with no pattern. Modifying factors: The symptoms are alleviated by nothing, the symptoms are aggravated by cold fluids. Associated signs and symptoms: Pertinent negatives: anorexia, chills, dysphagia, fever, inability to eat, nausea, redness in area, swelling, vomiting. Severity of symptoms: At their worst the symptoms were moderate, yesterday, in the emergency department the symptoms have improved, moderately. 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 - Social history:: Smoking status: Patient reports the use of cigarette tobacco products, approx 6 cigarettes a day. ROS: 06/14 00:05 Constitutional: Negative for fever, chills, and weight loss, Eyes: Negative for injury, mh7 pain, redness, and discharge, Neck: Negative for injury, pain, and swelling, Cardiovascular: Negative for chest pain, palpitations, and edema, Respiratory: Negative for shortness of breath, cough, wheezing, and pleuritic chest pain, Abdomen/GI: Negative for abdominal pain, nausea, vomiting, diarrhea, and constipation, Back: Negative for injury and pain, : Negative for injury, bleeding, discharge, and swelling, MS/Extremity: Negative for injury and deformity, Skin: Negative for injury, rash, and discoloration, Psych: Negative for depression, anxiety, suicide ideation, homicidal ideation, and hallucinations, Allergy/Immunology: Negative for hives, rash, and allergies, Endocrine: Negative for neck swelling, polydipsia, polyuria, polyphagia, and marked weight changes. Hematologic/Lymphatic: Negative for swollen nodes, abnormal bleeding, and unusual bruising. ENT: Positive for ear pain, Teeth pain Negative for drainage from ear(s), foreign body sensation, Gum pain hearing loss, tinnitus, nasal discharge, rhinorrhea, sinus congestion, sinus pain, sore throat, difficulty swallowing, difficulty handling secretions, hoarseness. Neuro: Positive for headache, Referred from tooth, Negative for altered mental status, dizziness, gait disturbance, hearing loss, loss of consciousness, numbness, seizure activity, speech changes, syncope, near syncope, tingling, tinnitus, tremor, visual changes, weakness. Exam: 00:05 Constitutional: This is a well developed, well nourished patient who is awake, alert, mh7 and in no acute distress. Head/Face: Normocephalic, atraumatic. Eyes: Pupils equal round and reactive to light, extra-ocular motions intact. Lids and lashes normal. Conjunctiva and sclera are non-icteric and not injected. Cornea within normal limits. Periorbital areas with no swelling, redness, or edema. 00:05 Neck: Trachea midline, no thyromegaly or masses palpated, and no cervical lymphadenopathy. Supple, full range of motion without nuchal rigidity, or vertebral point tenderness. No Meningismus. Skin: Warm, dry with normal turgor. Normal color with no rashes, no lesions, and no evidence of cellulitis. MS/ Extremity: Pulses equal, no cyanosis. Neurovascular intact. Full, normal range of motion. Neuro: Awake and alert, GCS 15, oriented to person, place, time, and situation. Cranial nerves II-XII grossly intact. Motor strength 5/5 in all extremities. Sensory grossly intact. Cerebellar exam normal. Normal gait. Psych: Awake, alert, with orientation to person, place and time. Behavior, mood, and affect are within normal limits. 00:05 ENT: External ear(s): are unremarkable, Ear canal(s): are normal, clear, TM's: are normal, Examination of the other ear shows no obvious abnormality, Nose: is normal, Mouth: is normal, Posterior pharynx: is normal, airway is patent, Dental exam: abscess, is not appreciated, cellulitis, is not appreciated, dental caries, that is mild, diffusely, fractured teeth are noted, not appreciated, gum swelling, not appreciated, malocclusion, is not appreciated, missing teeth, pain, that is mild, specifically in the upper right first bicuspid (#5), Voice: is normal, Breath odor: is normal. Vital Signs: 06/13 23:37 BP 127 / 84; Pulse 97; Resp 16 S; Temp 98.4(TE); Pulse Ox 99% on R/A; Weight 61.23 kg bb (R); Height 5 ft. 4 in. (162.56 cm) (R); Pain 05/26; 23:37 Body Mass Index 23.17 (61.23 kg, 162.56 cm) bb MDM: 06/14 00:39 Differential diagnosis: dental caries, gingivitis, dental abscess, pericoronitis, mh7 aphthous ulcers, acute necrotizing ulcerative gingivitis, gingivostomatitis. Data reviewed: vital signs, nurses notes. Counseling: I had a detailed discussion with the patient and/or guardian regarding: the historical points, exam findings, and any diagnostic results supporting the discharge/admit diagnosis, the need for outpatient follow up, a dentist, to return to the emergency department if symptoms worsen or persist or if there are any questions or concerns that arise at home. 00:[address] [facility] Administered Medications: 00:45 Drug: Ketorolac 60 mg Route: IM; Site: right gluteus; bb 00:51 Follow up: Response: No adverse reaction bb Disposition Summary: 06/14/21 00:41 Discharge Ordered Location: Home [facility] Problem: an ongoing problem [facility] Symptoms: have improved [facility] Condition: Stable [facility] Diagnosis - Tootache 7 - Dental caries, unspecified mh7 Followup: [facility] - With: Private Physician - When: 1 - 2 days - Reason: Worsening of condition, Recheck today's complaints, Continuance of care, Re-evaluation by your physician Followup: [facility] - With: Cachorro Moser DDS - When: 1 - 2 days - Reason: Worsening of condition, Recheck today's complaints Discharge Instructions: - Discharge Summary Sheet [facility] - Dental Caries, Adult [facility] - Dental Pain, [id number] [facility] Forms: - Medication Reconciliation Form [facility] - Thank You Letter [facility] - Antibiotic Education [facility] - Prescription Opioid Use [facility] Prescriptions: - ketorolac 10 mg Oral tablet - take 1 tablet by ORAL route every 6 hours As needed not to exceed 40 mg in 7 24hrs; 12 tablet; Refills: 0, Product Selection Permitted - Zithromax Z-Lito 250 mg Oral Tablet - take 1 tablet by ORAL route as directed for 5 days Day 1 - take two (2) tablets [facility] one time. Day 2, 3, 4 , 5 take one (1) tablet once daily.; 6 tablet; Refills: 0, Product Selection Permitted Signatures: Bhakti Ledezma RN RN bb Holmes, Maurice, MD MD [facility]
--- NOTE | 2021-06-14 00:41 | ER ---
Nurse's Notes [facility] Name: Yashira Peters Age: 21 yrs Sex: Female : 2000 Arrival Date: 06/13/2021 Time: 23:30 Bed 9 Private MD: Diagnosis: Tootache;Dental caries, unspecified Presentation: 06/13 23:37 Chief complaint: Patient states: she has a toothache on the right upper and lower jaw bb causing her pain, ear pain and a headache states she can't sleep the pain started approx 1500 today. Coronavirus screen: At this time, the client does not indicate any symptoms associated with coronavirus-19. Ebola Screen: No symptoms or risks identified at this time. Initial Sepsis Screen: Does the patient meet any 2 criteria? No. Patient's initial sepsis screen is negative. Does the patient have a suspected source of infection? No. Patient's initial sepsis screen is negative. Risk Assessment: Do you want to hurt yourself or someone else? Patient reports no desire to harm self or others. Onset of symptoms was June 13, 2021. 23:37 Method Of Arrival: Ambulatory bb 23:37 Acuity: ASIA 4 bb Triage Assessment: 23:39 General: Appears in no apparent distress. uncomfortable, Behavior is calm, cooperative. bb Pain: Complains of pain in right upper and lower jaw Pain currently is 10 out of 10 on a pain scale. EENT: Dental caries noted in upper right first bicuspid (#5) Reports pain in right jaw. Neuro: Level of Consciousness is awake, alert, obeys commands, Oriented to person, place, time, situation. Cardiovascular: Capillary refill < 3 seconds Patient's skin is warm and dry. Respiratory: Respiratory effort is even, unlabored, Respiratory pattern is regular. GI: No deficits noted. Derm: Skin is pink, warm \T\ dry. Musculoskeletal: Circulation, motion, and sensation intact. 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 - Social history:: Smoking status: Patient reports the use of cigarette tobacco products, approx 6 cigarettes a day. Screenin:43 Abuse screen: Denies threats or abuse. Nutritional screening: No deficits noted. bb Tuberculosis screening: No symptoms or risk factors identified. Fall Risk None identified. Assessment: 23:43 Reassessment: No changes from previously documented assessment. see triage assessment. bb 06/14 00:49 Reassessment: pt states she is ready to go has to work in the morning pt verbalized bb understanding of and agrees to plan of care discharge instructions given pt ambulated with steady gait to exit. Vital Signs: 06/13 23:37 BP 127 / 84; Pulse 97; Resp 16 S; Temp 98.4(TE); Pulse Ox 99% on R/A; Weight 61.23 kg bb (R); Height 5 ft. 4 in. (162.56 cm) (R); Pain 10/10; 23:37 Body Mass Index 23.17 (61.23 kg, 162.56 cm) bb ED Course: 23:30 Patient arrived in ED. cf2 23:39 Triage completed. bb 23:39 Arm band placed on. bb 23:43 Patient has correct armband on for positive identification. Call light in reach. bb 23:54 Kenneth Hastings MD is Attending Physician. [facility] 06/14 00:43 Cachorro Moser DDS is Referral Physician. [facility] 00:45 Bhakti Ledezma, EMILIA is Primary Nurse. bb 00:50 No provider procedures requiring assistance completed. Patient did not have IV access bb during this emergency room visit. Administered Medications: 00:45 Drug: Ketorolac 60 mg Route: IM; Site: right gluteus; bb 00:51 Follow up: Response: No adverse reaction bb Outcome: 00:41 Discharge ordered by . [facility] 00:50 Discharged to home ambulatory. bb 00:50 Condition: stable 00:50 Discharge instructions given to patient, Instructed on discharge instructions, follow up and referral plans. medication usage, Demonstrated understanding of instructions, follow-up care, medications, Prescriptions given X 2. 00:50 Patient left the ED. bb Signatures: Bhakti Ledezma, RN RN bb Favio Milton cf2 Kenneth Hastings MD MD mh7
[2021-06-14 01:02] VITALS: BP 127/84; TEMP 98.4; O2SAT 99
[2021-06-14] MEDS ORDERED: KETOROLAC 30 MG/ML INJ ONE (01:06)
== END 2021-06-14 00:50 | disposition home or self-care (01) ==
LOC: ER 23:27
DX: K02.9 Dental caries, unspecified (principal); E11.9 Type 2 diabetes mellitus without complications; Z79.4 Long term (current) use of insulin; Z88.1 Allergy status to other antibiotic agents; Z88.3 Allergy status to other anti-infective agents; Z91.040 Latex allergy status; Z91.048 Other nonmedicinal substance allergy status
CPT/HCPCS: 96372; 99283

== ENCOUNTER 2021-08-23 16:03 | Emergency (ER) | payer OTHER, SELFPAY ==
--- OUTSIDE RECORDS SUMMARY | 2021-08-23 16:07 | XMS REPORT | Continuity of Care Document ---
:2000 Author Organization [facility] t Address [address] [place] [address] Care Team Providers Name Role Phone Pcp, Does Not Have A Primary Care Physician FISH Attending Clinician Unavailable Moiz IVAN Attending Clinician Doctor Unassigned, Name Attending Clinician Unavailable Blake Oshea DO Attending Clinician Nato RUIZ Attending Clinician Andrew IVAN Attending Clinician Brook RN, A Attending Clinician Unavailable Payers Payer Name Policy Type Policy Number Effective Date Expiration Date S [facility] [id number] 2021 PPO/POS 00:00:00 Problems Condition Condition Condition Status Onset Resolution Last Treating Co mments Source Name Details Category Date Date Treatment Clinician Date Rubella Rubella Disease Active Overview: Univ ers non-immune non-immune 3-20 Formattin ity of status, status, 00:00: g of this [place] antepartum antepartum 00 note Me dical might be Branch different from the original. Address pp Susceptibl Susceptibl Disease Active Overview : Univers e to e to 3-20 Formattin ity of varicella varicella 00:00: [place] (non-immun (non-immun 00 note Me dical e), e), might be Branch currently currently different from the original. Address pp Multiparit Multiparit Disease Active U nivers y y - ity of 00:00: 00 Medical Branch History of History of Disease Active Overview : Univers - Formattin ity of section section 00:00: g of this note Medical might be Branch different from the original. x2 Tobacco Tobacco Disease Active Overview: Univ ers use during use during 11-02 Formattin ity of 00:00: [place] of this [place] note Medical might be Branch different from the original. Reports quit Counseling Counseling Disease Active U nivers for for 6-14 ity of insulin insulin 00:00: [place] pump pump 00 Medical Branch UTI UTI Disease Active Univers (urinary (urinary 4-30 ity of tract tract 00:00: [place] infection) infection) 00 Me dical during during Branch Disease Active Uni vers complicate complicate 4-23 it y of d by d by 00:00: [place] pre-existi pre-existi 00 Me dical ng type 1 ng type 1 Bran ch diabetes diabetes Hypothyroi Hypothyroi Disease Active Overview : Univers d in d in 10-14 Formattin ity of , , 00:00: g of this [place] antepartum antepartum 00 note Me dical might be Branch different from the original. Off of meds [id number] Diabetes Diabetes Disease Active Overview: Un jayden in in - Formattin ity of 00:00: g of this [place] 00 note Medical might be Branch different from the original. 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 Allergies, Adverse Reactions, Alerts Allergy Allergy Status Severity Reaction(s) Onset Inactive Treating Comm ents Source Name Type Date Date Clinician Penicill Propensi Active Other - See 2019-08 Patient Univers ins ty to comments 0-25 is ity of adverse 00:00: unsure, [place] reaction 00 she Medical s remembers Branch seeing it on paperwork when she was when she was "very sick" PENICILL Drug Active Other-Cmnt 2019-08 Univ ers INS Class 0-25 ity of 00:00: [place] 00 Medical Branch latex DA Active MO 2018-0 [facility] [place] latex DA Active MO 2018-0 [facility] 8[facility] 00:[facility] [place] Latex Propensi Active Hives 2017-0 Univers ty to 6-14 ity of adverse 00:00: [place] reaction 00 Medical [facility] CLINDAMY DRUG Active Hallucinates 2017-0 Un jayden JAVIER INGREDI 6-14 ity of 00:00: [place] 00 Medical [place] LATEX DRUG Active Hives 2017-0 Univers INGREDI 6-14 ity of 00:00: [place] 00 Medical [place] Clindamy Propensi Active Hallucinatio 2017-0 Univers javier ty to ns 6-14 ity of adverse 00:00: [place] reaction 00 [facility] Social History Social Habit Start Date Stop Date Quantity Comments Source ASSERTION 2021-07-15 [facility] 00:00:00 [facility] Exposure to Not sure [facility] SARS-CoV-2 (event) [facility] Alcohol intake 2021-08-22 2021-08-22 Ex-drinker [facility] 00:00:00 00:00:00 (finding) [facility] History [facility] 2020-04-25 2020-04-25 1 University o f Alcohol Std Drinks 00:00:00 00:00:00 [facility] History [facility] 2020-04-25 2020-04-25 1 University o f Alcohol Binge 00:00:00 00:00:00 [facility] Branch History [facility] 2020-04-25 2020-04-25 University o f Alcohol Comment 00:00:00 00:00:00 [place] Med ical Branch Tobacco use and 2020-04-25 2020-04-25 Never used Universit y of exposure 00:00:00 00:00:00 [facility] Cigarettes smoked 2020-04-25 2020-04-25 Univers ity of current (pack per 00:00:00 00:00:00 [facility] day) - Reported Branch Cigarette 2020-04-25 2020-04-25 University of pack-years 00:00:00 00:00:00 [facility] History [facility] 2020-04-25 2020-04-25 2 University o f Alcohol Frequency 00:00:00 00:00:00 [facility] Branch History of tobacco 2017 2017-10-13 Cigarette Smoker [facility] 00:00:00 00:00:00 [facility] Sex Assigned At [birth year] Universit y of 00:00:00 00:00:00 [facility] Smoking Status Start Date Stop Date Source Current every day 2020-04-25 00:00:00 [facility] smoker [facility] Former smoker 2019-01-16 00:00:00 2019-01-16 00:00:00 [facility] Medications Ordered Filled Start Stop Current Ordering Indication Dosage Frequency Signature Comments Components Source Medication Medication Date Date Medication? Clinician (SIG) Name Name hydrOXYzine 2019-08 Yes [id number] 50mg Take 1 Univers 50 mg 0-25 tablet by ity of tablet 00:00: mouth 3 00 (three) Medical times Branch daily as needed for Itching. hydrOXYzine 2019-08 Yes [id number] 50mg Take 1 Univers 50 mg 0-25 tablet by ity of tablet 00:00: mouth 3 00 (three) Medical times Branch daily as needed for Itching. hydrOXYzine 2019-08 Yes [id number] 50mg Take 1 Univers 50 mg 0-25 tablet by ity of tablet 00:00: mouth 3 00 (three) Medical times Branch daily as needed for Itching. hydrOXYzine 2019-08- No [id number] 50mg Take 1 Univers 50 mg 0-25 - tablet by ity of tablet 00:00: 00:00 mouth 3 [place] 00 :00 (three) Medical times Branch daily as needed for Itching. fluconazole 2019- 2020- No [id number] 150mg Take 1 Univers 150 mg 04-25 tablet by ity of tablet 00:00: 04:59 mouth [place] 00 :00 every 48 Medical ([facility] ht) hours for 2 doses. montelukast 2019- Yes [id number] 10mg Take 1 Univers 10 mg 3-16 tablet by ity of tablet 00:00: mouth [place] 00 daily. Medical Branch benzonatate 2019-0 Yes [id number] 100mg Take 1 Univers 100 mg 3-16 capsule by ity of capsule 00:00: mouth 3 [place] 00 (three) Medical times Branch daily as needed for Cough. montelukast 2019- Yes [id number] 10mg Take 1 Univers 10 mg 3-16 tablet by ity of tablet 00:00: mouth [place] 00 daily. Medical Branch benzonatate 2020-0 Yes [id number] 100mg Take 1 Univers 100 mg 3-16 capsule by ity of capsule 00:00: mouth (three) Medical times Branch daily as needed for Cough. montelukast 2020-0 Yes [id number] 10mg Take 1 Univers 10 mg 3-16 tablet by ity of tablet 00:00: mouth [place] 00 daily. Medical Branch benzonatate 2020-0 Yes [id number] 100mg Take 1 Univers 100 mg 3-16 capsule by ity of capsule 00:00: mouth 3 (three) Medical times Branch daily as needed for Cough. montelukast 2020-0 Yes [id number] 10mg Take 1 Univers 10 mg 3-16 tablet by ity of tablet 00:00: mouth 00 daily. Medical Branch benzonatate 2020-0 Yes [id number] 100mg Take 1 Univers 100 mg 3-16 capsule by ity of capsule 00:00: mouth (three) Medical times Branch daily as needed for Cough. montelukast 2020-0 Yes [id number] 10mg Take 1 Univers 10 mg 3-16 tablet by ity of tablet 00:00: mouth 00 daily. Medical Branch benzonatate 2020-0 Yes [id number] 100mg Take 1 Univers 100 mg 3-16 capsule by ity of capsule 00:00: mouth (three) Medical times Branch daily as needed for Cough. montelukast 2020-0 Yes [id number] 10mg Take 1 Univers 10 mg 3-16 tablet by ity of tablet 00:00: mouth 00 daily. Medical Branch benzonatate 2020-0 Yes [id number] 100mg Take 1 Univers 100 mg 3-16 capsule by ity of capsule 00:00: mouth 3 (three) Medical times Branch daily as needed for Cough. montelukast 2020-0 Yes [id number] 10mg Take 1 Univers 10 mg 3-16 tablet by ity of tablet 00:00: mouth [place] 00 daily. Medical Branch benzonatate 2020-0 Yes [id number] 100mg Take 1 Univers 100 mg 3-16 capsule by ity of capsule 00:00: mouth 3 00 (three) Medical times Branch daily as needed for Cough. montelukast 2020-0 Yes [id number] 10mg Take 1 Univers 10 mg 3-16 tablet by ity of tablet 00:00: mouth [place] 00 daily. Medical Branch benzonatate 2020-0 Yes [id number] 100mg Take 1 Univers 100 mg 3-16 capsule by ity of capsule 00:00: mouth 3 (three) Medical times Branch daily as needed for Cough. montelukast 2020-0 Yes [id number] 10mg Take 1 Univers 10 mg 3-16 tablet by ity of tablet 00:00: mouth 00 daily. Medical Branch benzonatate 2020-0 Yes [id number] 100mg Take 1 Univers 100 mg 3-16 capsule by ity of capsule 00:00: mouth 3 00 (three) Medical times Branch daily as needed for Cough. blood sugar Yes Glucose Uni vers diagnostic 3- testing ity of (RELION 00:00: QID [place] PRIME TEST 00 Medical STRIPS) Branch strip blood sugar Yes Glucose Uni vers diagnostic - testing ity of (RELION 00:00: QID [place] PRIME TEST 00 Medical STRIPS) Branch strip blood sugar Yes Glucose Uni vers diagnostic - testing ity of (RELION 00:00: QID [place] PRIME TEST 00 Medical STRIPS) Branch strip blood sugar Yes Glucose Uni vers diagnostic 3-29 testing ity of (RELION 00:00: QID [place] PRIME TEST 00 Medical STRIPS) Branch strip blood sugar Yes Glucose Uni vers diagnostic 3- testing ity of (RELION 00:00: QID [place] PRIME TEST 00 Medical STRIPS) Branch strip blood sugar Yes Glucose Uni vers diagnostic 3- testing ity of (RELION 00:00: QID [place] PRIME TEST 00 Medical STRIPS) Branch strip blood sugar Yes Glucose Uni vers diagnostic 3- testing ity of (RELION 00:00: QID [place] PRIME TEST 00 Medical STRIPS) Branch strip blood sugar Yes Glucose Uni vers diagnostic 3- testing ity of (RELION 00:00: QID [place] PRIME TEST 00 Medical STRIPS) Branch strip blood sugar Yes Glucose Uni vers diagnostic 3- testing ity of (RELION 00:00: QID [place] PRIME TEST 00 Medical STRIPS) Branch strip insulin NPH Yes [id number] 15U inject 15 Univers 100 unit/mL 9-20 Units ity of injection 00:00: under the [place] as 00 skin every Medical morning Branch and evening. insulin 0 Yes [id number] Take 8 Univ ers regular 9-20 units ity of human 100 00:00: before [place] unit/mL 00 breakfast Medical injection and before Bran ch dinner plus sliding scale insulin NPH 2016-0 Yes [id number] 15U inject 15 Univers 100 unit/mL 9-20 Units ity of injection 00:00: under the [place] 00 skin every Medical morning Branch and evening. insulin 2017-0 Yes [id number] Take 8 Univ ers regular 9-20 units ity of human 100 00:00: before [place] unit/mL 00 breakfast Medical injection and before Bran ch dinner plus sliding scale insulin NPH 2016-0 Yes [id number] 15U inject 15 Univers 100 unit/mL 9-20 Units ity of injection 00:00: under the [place] 00 skin every Medical morning Branch and evening. insulin 2016-0 Yes [id number] Take 8 Univ ers regular 9-20 units ity of human 100 00:00: before [place] unit/mL 00 breakfast Medical injection and before Bran ch dinner plus sliding scale insulin NPH 2016-0 Yes [id number] 15U inject 15 Univers 100 unit/mL 9-20 Units ity of injection 00:00: under the [place] 00 skin every Medical morning Branch and evening. insulin 2016-0 Yes [id number] Take 8 Univ ers regular 9-20 units ity of human 100 00:00: before [place] unit/mL 00 breakfast Medical injection and before Bran ch dinner plus sliding scale insulin NPH 2016-0 Yes [id number] 15U inject 15 Univers 100 unit/mL 9-20 Units ity of injection 00:00: under the [place] 00 skin every Medical morning Branch and evening. insulin 2017-0 Yes [id number] Take 8 Univ ers regular 9-20 units ity of human 100 00:00: before [place] unit/mL 00 breakfast Medical injection and before Bran ch dinner plus sliding scale insulin NPH 2017-0 Yes [id number] 15U inject 15 Univers 100 unit/mL 9-20 Units ity of injection 00:00: under the [place] 00 skin every Medical morning Branch and evening. insulin 2017-0 Yes [id number] Take 8 Univ ers regular 9-20 units ity of human 100 00:00: before [place] unit/mL 00 breakfast Medical injection and before Bran ch dinner plus sliding scale insulin NPH 2016-0 Yes [id number] 15U inject 15 Univers 100 unit/mL 9-20 Units ity of injection 00:00: under the [place] 00 skin every Medical morning Branch and evening. insulin 2017-0 Yes [id number] Take 8 Univ ers regular 9-20 units ity of human 100 00:00: before [place] unit/mL 00 breakfast Medical injection and before Bran ch dinner plus sliding scale insulin NPH 2017-0 Yes [id number] 15U inject 15 Univers 100 unit/mL 9-20 Units ity of injection 00:00: under the [place] 00 skin every Medical morning Branch and evening. insulin 2017-0 Yes [id number] Take 8 Univ ers regular 9-20 units ity of human 100 00:00: before [place] unit/mL 00 breakfast Medical injection and before Bran ch dinner plus sliding scale insulin NPH 2017-0 Yes [id number] 15U inject 15 Univers 100 unit/mL 9-20 Units ity of injection 00:00: under the [place] 00 skin every Medical morning Branch and evening. insulin 2017-0 Yes [id number] Take 8 Univ ers regular 9-20 units ity of human 100 00:00: before [place] unit/mL 00 breakfast Medical injection and before Bran ch dinner plus sliding scale Insulin 2017-0 Yes [id number] Use as Univ ers Syringe-Nee 6-14 directed ity of dle U-100 00:00: [place] (INSULIN 00 Medical SYRINGE) 1 Branch mL 30 gauge x 5/16 Syrg Insulin 2017-0 Yes [id number] Use as Univ ers Syringe-Nee 6-14 directed ity of dle U-100 00:00: [place] (INSULIN 00 Medical SYRINGE) 1 Branch mL 30 gauge x 5/16 Syrg Insulin 2017-0 Yes [id number] Use as Univ ers Syringe-Nee 6-14 directed ity of dle U-100 00:00: [place] (INSULIN 00 Medical SYRINGE) 1 Branch mL 30 gauge x 5/16 Syrg Insulin 2017-0 Yes [id number] Use as Univ ers Syringe-Nee 6-14 directed ity of dle U-100 00:00: [place] (INSULIN 00 Medical SYRINGE) 1 Branch mL 30 gauge x 5/16 Syrg Insulin 2017-0 Yes [id number] Use as Univ ers Syringe-Nee 6-14 directed ity of dle U-100 00:00: [place] (INSULIN 00 Medical SYRINGE) 1 Branch mL 30 gauge x 5/16 Syrg Insulin 2017-0 Yes [id number] Use as Univ ers Syringe-Nee 6-14 directed ity of dle U-100 00:00: [place] (INSULIN 00 Medical SYRINGE) 1 Branch mL 30 gauge x 5/16 Syrg Insulin 2016- Yes [id number] Use as Univ ers Syringe-Nee 6-14 directed ity of dle U-100 00:00: [place] (INSULIN 00 Medical SYRINGE) 1 Branch mL 30 gauge x 5/16 Syrg Insulin 2016- Yes [id number] Use as Univ ers Syringe-Nee 6-14 directed ity of dle U-100 00:00: [place] (INSULIN 00 Medical SYRINGE) 1 Branch mL 30 gauge x 5/16 Syrg Insulin 2016- Yes [id number] Use as Univ ers Syringe-Nee 6-14 directed ity of dle U-100 00:00: [place] (INSULIN 00 Medical SYRINGE) 1 Branch mL 30 gauge x 5/16 Syrg Immunizations Ordered Immunization Filled Immunization Date Status Commen ts Source Name Name Rubella 2012-10-01 Completed University of 00:00:00 [facility] Rubella 2012-10-01 Completed University of 00:00:00 [facility] Rubella 2012-10-01 Completed University of 00:00:00 [facility] Rubella 2012-10-01 Completed University of 00:00:00 [facility] Rubella 2012-10-01 Completed University of 00:00:00 [facility] Rubella 2012-10-01 Completed University of 00:00:00 [facility] Rubella 2012-10-01 Completed University of 00:00:00 [facility] Rubella 2012-10-01 Completed University of 00:00:00 [facility] Rubella 2012-10-01 Completed University of 00:00:00 [facility] Varicella 2012-09-09 Completed University of (varivax)(chicken 00:00:00 [place] M edical pox) Branch Varicella 2012-09-09 Completed University of (varivax)(chicken 00:00:00 [place] M edical pox) Branch Varicella 2012-09-09 Completed University of (varivax)(chicken 00:00:00 [place] M edical pox) Branch Varicella 2012-09-09 Completed University of (varivax)(chicken 00:00:00 [place] M edical pox) Branch Varicella 2012-09-09 Completed University of (varivax)(chicken 00:00:00 [place] M edical pox) Branch Varicella 2012-09-09 Completed University of (varivax)(chicken 00:00:00 [place] M edical pox) Branch Varicella 2012-09-09 Completed University of (varivax)(chicken 00:00:00 [place] M edical pox) Branch Varicella 2012-09-09 Completed University of (varivax)(chicken 00:00:00 [place] M edical pox) Branch Varicella 2012-09-09 Completed University of (varivax)(chicken 00:00:00 [place] M edical pox) Branch Varicella 2012-09-09 Completed University of (varivax)(chicken 00:00:00 [place] M edical pox) Branch Varicella 2012-09-09 Completed University of (varivax)(chicken 00:00:00 [place] M edical pox) Branch TDAP 2012-04-07 Completed University of 00:00:00 [facility] TDAP 2012-04-07 Completed University of 00:00:00 [facility] TDAP 2012-04-07 Completed University of 00:00:00 [facility] TDAP 2012-04-07 Completed University of 00:00:00 [facility] TDAP 2012-04-07 Completed University of 00:00:00 [facility] Tdap 2012-04-07 Completed University of 00:00:00 [facility] Tdap 2012-04-07 Completed University of 00:00:00 [facility] Tdap 2012-04-07 Completed University of 00:00:00 [facility] TDAP 2012-04-07 Completed University of 00:00:00 [facility] Meningococcal 2010-04-02 Completed University of Polysaccharide 00:00:00 [place] Medi anshu (groups A, C, Y and Branc h W-135) conjugate vaccine (MCV4P) Meningococcal 2010-04-02 Completed University of Polysaccharide 00:00:00 [place] Medi anshu (groups A, C, Y and Branc h W-135) conjugate vaccine (MCV4P) Meningococcal 2010-04-02 Completed University of Polysaccharide 00:00:00 [place] Medi anshu (groups A, C, Y and Branc h W-135) conjugate vaccine (MCV4P) Meningococcal 2010-04-02 Completed University of Polysaccharide 00:00:00 [place] Medi anshu (groups A, C, Y and Branc h W-135) conjugate vaccine (MCV4P) Meningococcal 2010-04-02 Completed University of Polysaccharide 00:00:00 [place] Medi anshu (groups A, C, Y and Branc h W-135) conjugate vaccine (MCV4P) Meningococcal 2010-04-02 Completed University of Polysaccharide 00:00:00 [place] Medi anshu (groups A, C, Y and Branc h W-135) conjugate vaccine (MCV4P) Meningococcal 2010-04-02 Completed University of Polysaccharide 00:00:00 [place] Medi anshu (groups A, C, Y and Branc h W-135) conjugate vaccine (MCV4P) Meningococcal 2010-04-02 Completed University of Polysaccharide 00:00:00 [place] Medi anshu (groups A, C, Y and Branc h W-135) conjugate vaccine (MCV4P) Meningococcal 2010-04-02 Completed University of Polysaccharide 00:00:00 [place] Medi anshu (groups A, C, Y and Branc h W-135) conjugate vaccine (MCV4P) Varicella 1999-08-21 Completed University of (varivax)(chicken 00:00:00 [facility] edical pox) Branch Varicella 1999-08-21 Completed University of (varivax)(chicken 00:00:00 [place] M edical pox) Branch DTAP 1998 Completed University of 00:00:00 [facility] Polio (IPV/OPV) 1998 Completed Universit y of 00:00:00 [facility] DTAP 1998 Completed University of 00:00:00 [facility] Polio (IPV/OPV) 1998 Completed Universit y of 00:00:00 [facility] DTAP 1998 Completed University of 00:00:00 [facility] Polio (IPV/OPV) 1998 Completed Universit y of 00:00:00 [facility] DTAP 1998 Completed University of 00:00:00 [facility] Polio (IPV/OPV) 1998 Completed Universit y of 00:00:00 [facility] DTAP 1998 Completed University of 00:00:00 [facility] Polio (IPV/OPV) 1998 Completed Universit y of 00:00:00 [facility] DTAP 1998 Completed University of 00:00:00 [facility] Polio (IPV/OPV) 1998 Completed Universit y of 00:00:00 [place] [facility] DTAP 1998 Completed University of 00:00:00 [place] [facility] Polio (IPV/OPV) 1998 Completed Universit y of 00:00:00 [place] [facility] DTAP 1998 Completed University of 00:00:00 [place] [facility] Polio (IPV/OPV) 1998 Completed Universit y of 00:00:00 [place] [facility] DTAP 1998 Completed University of 00:00:00 [place] [facility] Polio (IPV/OPV) 1998 Completed Universit y of 00:00:00 [place] [facility] HIB 4 Dose Schedule 1998 Completed Unive rsity of 00:00:00 [place] [facility] HIB 4 Dose Schedule 1998 Completed Unive rsity of 00:00:00 [place] [facility] HIB 4 Dose Schedule 1998 Completed Unive rsity of 00:00:00 [place] [facility] HIB 4 Dose Schedule 1998 Completed Unive rsity of 00:00:00 [place] [facility] HIB 4 Dose Schedule 1998 Completed Unive rsity of 00:00:00 [place] [facility] HIB 4 Dose Schedule 1998 Completed Unive rsity of 00:00:00 [place] [facility] HIB 4 Dose Schedule 1998 Completed Unive rsity of 00:00:00 [place] [facility] HIB 4 Dose Schedule 1998 Completed Unive rsity of 00:00:00 [place] [facility] HIB 4 Dose Schedule 1998 Completed Unive rsity of 00:00:00 [place] [facility] Hep B, Adol or Pedi 1998 Completed Unive rsity of Dosage 00:00:00 [place] [facility] Hep B, Adol or Pedi 1998 Completed Unive rsity of Dosage 00:00:00 [place] [facility] Hep B, Adol or Pedi 1998 Completed Unive rsity of Dosage 00:00:00 [place] [facility] Hep B, Adol or Pedi 1998 Completed Unive rsity of Dosage 00:00:00 [place] [facility] Hep B, Adol or Pedi 1998 Completed Unive rsity of Dosage 00:00:00 [place] [facility] Hep B, Adol or Pedi 1998 Completed Unive rsity of Dosage 00:00:00 [place] [facility] Hep B, Adol or Pedi 1998 Completed Unive rsity of Dosage 00:00:00 [place] [facility] Hep B, Adol or Pedi 1998 Completed Unive rsity of Dosage 00:00:00 [facility] Hep B, Adol or Pedi 1998 Completed Unive rsity of Dosage 00:00:00 [facility] Vital Signs Vital Name Observation Time Observation Value Comments Source Systolic blood 2021-08-22 20:55:00 117 mm[Hg] Univer sity of pressure [facility] Diastolic blood 2021-08-22 20:55:00 76 mm[Hg] Unive rsity of pressure [facility] Heart rate 2021-08-22 20:55:00 82 /min Universi ty of [facility] Body temperature 2021-08-22 20:55:00 36.89 Steffany Univ ersity of [facility] Respiratory rate 2021-08-22 20:55:00 18 /min Univ ersity of [facility] Body height 2021-08-22 20:55:00 162.6 cm Universi ty of [facility] Body weight 2021-08-22 20:55:00 64.864 kg Universi ty of [facility] BMI 2021-08-22 20:55:00 24.55 kg/m2 Universi ty of [facility] Systolic blood 2020-06-10 17:49:00 124 mm[Hg] Univer sity of pressure [facility] Diastolic blood 2020-06-10 17:49:00 95 mm[Hg] Unive rsity of pressure [facility] Heart rate 2020-06-10 17:49:00 100 /min Universi ty of [facility] Body temperature 2020-06-10 17:49:00 36.56 Steffany Univ ersity of [facility] Respiratory rate 2020-06-10 17:49:00 18 /min Univ ersity of [facility] Body height 2020-06-10 17:49:00 160 cm Universi ty of [facility] Body weight 2020-06-10 17:49:00 58.968 kg Universi ty of [facility] BMI 2020-06-10 17:49:00 23.03 kg/m2 Universi ty of [place] [facility] Oxygen saturation in 2020-06-10 17:49:00 98 /min University of Arterial blood by [place] Medi anshu Pulse oximetry Branch Systolic blood 2019-10-31 23:20:00 135 mm[Hg] Univer sity of pressure [place] [facility] Diastolic blood 2019-10-31 23:20:00 87 mm[Hg] [facility] Heart rate 2019-10-31 23:20:00 104 /min [facility] Body temperature 2019-10-31 23:20:00 36.67 Steffany [facility] Respiratory rate 2019-10-31 23:20:00 17 /min [facility] Body height 2019-10-31 23:20:00 157.5 cm [facility] Body weight 2019-10-31 23:20:00 61.689 kg [facility] BMI 2019-10-31 23:20:00 24.87 kg/m2 [facility] Oxygen saturation in 2019-10-31 23:20:00 100 /min [facility] of Arterial blood by [facility] Pulse oximetry Branch Systolic blood 2019-10-31 23:20:00 135 mm[Hg] Un[facility] Diastolic blood 2019-10-31 23:20:00 87 mm[Hg] [facility] Heart rate 2019-10-31 23:20:00 104 /min [facility] Body temperature 2019-10-31 23:20:00 36.67 Steffany [facility] Respiratory rate 2019-10-31 23:20:00 17 /min [facility] Body height 2019-10-31 23:20:00 157.5 cm [facility] Body weight 2019-10-31 23:20:00 61.689 kg [facility] BMI 2019-10-31 23:20:00 24.87 kg/m2 [facility] Oxygen saturation in 2019-10-31 23:20:00 100 /min [facility] of Arterial blood by [facility] anshu Pulse oximetry Branch Procedures Procedure Date / Time Performed Performing Clinician Sour e <14 WEEKS US 2021-08-23 00:11:02 Fish, Gilma [facility] [place] [facility] [place] ASSIGNMENT OF BENEFITS 2021-08-22 20:32:41 Doctor Unassigned, No [facility] Name Medical Branch POCT TEST 2021-08-22 00:00:00 Gilma Rockwell ty of [facility] POCT URINALYSIS W/O 2021-08-22 00:00:00 Gilma Rockwell ty [facility] SPECIFIC GRAVITY [facility] CONSENT/REFUSAL FOR 2020-04-25 18:01:24 Doctor Unassigned, No Un [facility] [place] DIAGNOSIS AND Name Medical Branch TREATMENT CONSENT/REFUSAL FOR 2019-10-31 23:06:08 [facility], [facility] Branch TREATMENT NOTICE OF PRIVACY 2019-10-31 23:05:51 Doctor Unassigned, No Univ [facility] Encounters Start End Encounter Admission Attending Care Care Encounter Source Date/Time Date/Time Type Type Clinicians Facility Department ID 2021-06-15 Emergency [facility] [id number] Univers 00:54:29 ity [facility] 2021-06-13 Emergency [facility] [id number] Univers 14:39:48 ity [facility] 2021-08-22 2021-08-22 Outpatient R GILMA ROCKWELL [facility] [id number] Univers 14:30:00 16:44:35 ity of [facility] 2021-08-22 2021-08-22 Initial Gilma Rockwell [facility] [id number] Univers 14:30:00 16:44:35 ABDIAS [id number] i ty of Visit WOMEN'S 4.2.7.2.686 [facility] [id number] [place] [address] Branch 2021-08-22 2021-08-22 Outpatient R GILMA ROCKWELL [facility] [id number] Univers 14:30:00 14:30:00 [id number] ity of [facility] 2021-08-22 2021-08-22 Orders Doctor COUGHLIN 1.2.840.114 [id number] Univers 00:00:00 00:00:00 Only UnassignedLISSETH 350.1.13.10 [facility] 4.2.7.2.686 Ronny as [phone] [facility] 00[address] [place] 2021-08-12 2021-08-12 Outpatient R GILMA ROCKWELL [facility] [id number] Univers 08:30:00 08:30:00 [id number] ity of [facility] 2020-11-06 2020-11-06 Patient Dayo [facility] [id number] Univers 00:00:00 00:00:00 Outreach Raj [facility] [id number] [facility] 4[place]2.7.2.686 [place] [facility] [id number] [address] 2020-06-10 2020-06-10 Emergency [facility] 1.2.840.114 [id number] Univers 12:51:00 14:02:00 Sheaflako Coats 350.1.13.10 i [place]2.686 [place] [id number] [facility] 084 [place] 2020-04-27 2020-04-27 Telephone Gilma Rockwell [facility] 1.2.840.114 [id number] Univers 00:00:00 00:00:00 [place] [id number] [id number] [phone] [facility] nal [address] [facility] 2020-04-27 2020-04-27 Gilma Ndiaye [facility] 1.2.840.114 [id number] 00:00:00 00:00:00 [place] [id number] [place] 4.2.7.2.686 Professio [id number] [address] 2020-04-25 2020-04-25 Outpatient R GILMA ROCKWELL [facility] [id number] Univers 13:00:00 13:00:00 ity of [facility] 2020-04-25 2020-04-25 Outpatient R GILMA ROCKWELL [facility] [id number] Univers 13:00:00 13:00:00 ity [facility] 2020-04-25 2020-04-25 Orders Doctor COUGHLIN 1.2.840.114 [id number] Univers 00:00:00 00:00:00 Only Unassigned, LISSETH 350.1.13.10 [place] [facility] 4.2.7.2.686 Ronny as [id number] [facility] [address] [place] 2020-04-25 2020-04-25 Orders Doctor MADYSON 1.2.840.114 [id number] 00:00:00 00:00:00 Only Unassigned, LISSETH 350.1.13.10 [place] [facility] 4.2.7.2.686 [id number] 2019-11-10 2019-11-10 Sonali Morales [facility] 1.2.840.114 [id number] Univers 00:00:00 00:00:00 (Out) Shahid Coats 350.1.13.10 i ty of [place] 4.2.7.2.686 [place] [id number] [address] 2019-11-10 2019-11-10 Sonali Morales [facility] 1.2.840.114 [id number] 00:00:00 00:00:00 (Out) Shahid Coats 350.1.13.10 [place] [id number] [place] [id number] [facility] 2019-11-05 2019-11-05 MADYSON Bell 1.2.840.114 [id number] Univers 00:00:00 00:00:00 Triage Paula MONTANEZ 350.1.13.10 i ty of HOSPITAL 4.2.7.2.686 Ronny as [id number] [facility] [address] [place] 2019-11-05 2019-11-05 MADYSON Bell 1.2.840.114 [id number] 00:00:00 00:00:00 Triage Paula MONTANEZ 350.1.13.10 HOSPITAL 4.2.7.2.686 [id number] 019 2019-10-31 2019-10-31 Emergency Andrew WYPRISCILA [id number] [facility] 18:21:01 18:54:00 Shahid Coats 350.1.13.10 i ty of [place] 4.2.7.2.686 [place] [id number] [address] 2019-10-31 2019-10-31 Emergency Andrew WYPRISCILA [id number] 18:21:01 18:54:00 Shahid Coats 350.1.13.10 [place] 4.2.7.2.686 [place] [id number] [id number] Results Test Description Test Time Test Comments Results Result Comments Source POCT URINALYSIS W/O SPECIFIC GRAVITY 2021-08-22 21:16:00 Test Item Value Reference Range Interpretation Comme nts POCT PH U (test code = 3254) n/a 5-8 POCT U LEUK EST (test code = 3263) n/a Negative - Negative POCT U NIT (test code = 3262) n/a Negative - Negative POCT U PROT (test code = 3259) neg Negative - Negative POCT U GLU (test code = 3256) Negative - Negative POCT U KETONE (test code = 3258) n/a Negative - Negative POCT U BLD (test code = 3257) n/a Negative - Negative [id number] 21:15:00 Test Item Value Reference Range Interpretation Comments POCT PREG (test code = 1605) Positive On board controls acceptable with C Yes Line (test code = 3574) POCT PREG LOT # (test code = 3575) POCT PREG TEST DATE (test code = 3576) [facility] THIRD [id number] 13:07:00 RUN DATE: 05/17/18 [facility] PAGE 1 RUN TIME: 1809 Specimen Inquiry RUN USER: INTERFACE PATIENT: JULIA KEENE LOC: ALEXIS U #: [id number] AGE/SX: 18/F ROOM: [facility] RE05/11/18REG DR: Jhon Cuevas MD : 98 BED: A DIS: 05/15/18 STATUS: DIS IN TLOC: SPEC #: [id number] RECD: 05/11/18-754 STATUS: DELROY RE #: [id number] MATI: 05/11/18- SUBM DR: Jhon Cuevas MD ENTERED: 05/12/18-0756 SP TYPE: PLACIII OTHR DR: ORDERED: LEVEL V SURGICA CODES: [id number] - PLACENTA, NOS PROCEDURES: LEVEL V SURGICA (Incomplete) TISSUES: PLACENTA, NOS - PLACENTA CLINICAL HISTORY 18 year old, 37 weeks, IDDM (derik) FINAL DIAGNOSIS Placenta, estrada gestation: - late third trimester villousarchitecture - lozalized areas with villous edema near basal plate - umbilical cord: hypercoiled, velamentous insertion, 3-vessel, 17 cm length - place ntal weight: actual 491 gm/expected mean weight 478 gm Tissue code: 1 CPT Code: 37433 cds/kr 05/17/18 @ 1255 GROSS DESCRIPTION The specimen was received in a container labeled with the patient's name, unit number, and designated "placenta". The following attributes are observed: Cord insertion: Velamentous umbilical cord inserts into the membrane, 2 cm from the placental margin Cord length: 17cm Number of vessels: 3 Cord color: Blue-smith Other cordfindings: Increased twists, 10 twists / 10 cm surface findings: Steel blue, wrinkled, glistening and contains small pieces of off-white, caseous material (in A) Vasculature: Displays unremarkable blood vasculature Membranes rupture site: 0 cm to margin Membrane color: Smith Other membrane findings: Thickened opaque CONTINUED ON NEXT PAGE RUN DATE: 05/17/18 [facility] PAGE 2 RUN TIME: 1809 Specimen Inquiry RUN USER: INTERFACE SPEC #: [id number]: JULIA KEENE #[id number] (Continued) GROSS DESCRIPTION (Continued) The trimmed placental weight: 491 gm Disk measurement: 19 x 17 x 3.2 cm in greatest dimension Accessory lobes: None Maternal surface: Lobulated and intact Parenchyma: Red, beefy, and spongy Parenchyma lesion s: None Cassettes: A through D hz/kr 05/12/18 @ 1040 MICROSCOPIC DESCRIPTION Villous architecture is late third trimester. A few areas of villous edemaare present near the basal plate. anabelle/kr 05/17/18 @ 1255 Signed Jewel Salmeron 05/17/18 1307 END OF REPORT
[2021-08-23] MEDS ORDERED: NA CHLORIDE 0.9% 1,000 ML ONE ×2 (17:19→18:33)
[2021-08-23] MEDS ORDERED: ONDANSETRON 4 MG/2 ML VIAL ONE (17:19)
[2021-08-23] MEDS ORDERED: FAMOTIDINE 20 MG/2 ML VIAL IV ONE (17:20)
[2021-08-23] MEDS ORDERED: NPH (HUMAN) 100 UNITS/ML INSULIN SQ ONE (17:28)
[2021-08-23 17:30] LABS: Absolute Lymphocytes (CBC) 1.7 K/uL (0.7-4.9); Hematocrit 40.6 % (36.0-45.0); Lymphocytes % 24.9 % (15.3-44.8); MPV 7.6 fL (7.6-11.3); RBC Red Blood Cell Count 4.46 M/uL (3.86-4.86)
[2021-08-23 17:31] LABS: Urine Blood Negative (Negative); Urine Glucose 2+ (Negative); Urine Protein Negative (Negative)
[2021-08-23 17:54] LABS: ALT/SGPT 14 U/L (12-78); AST/SGOT 8 U/L (15-37); Albumin 3.6 g/dL (3.4-5.0); Alkaline Phosphatase 99 U/L (45-117); BUN Blood Urea Nitrogen 12 mg/dL (7-18); Bicarbonate 21 mmol/L (21-32); Bilirubin Direct 0.1 mg/dL (0-0.2); Bilirubin Total 0.6 mg/dL (0.2-1.0); Glucose Level 518 mg/dL (74-106); Lipase 59 U/L (73-393); Potassium 4.1 mmol/L (3.5-5.1); Protein, Total 7.6 g/dL (6.4-8.2); Sodium Level 131 mmol/L (136-145)
[2021-08-23 17:57] LABS: HCG, Quantitative 13060 mIU/mL (1-3)
[2021-08-23 19:11] LABS: SARS-COV-2 RT PCR NEGATIVE (NEGATIVE)
--- NOTE | 2021-08-23 20:06 | EDPHYS ---
Physician Documentation [facility] Name: Yashira Peters Age: 21 yrs Sex: Female : 2000 Arrival Date: 08/23/2021 Time: 16:06 Bed 12 Private MD: ED Physician Batsheva Olivares HPI: 08/23 17:10 This 21 yrs old Female presents to ER via Ambulatory with complaints of r/o dka. cp 17:10 The patient or guardian reports hyperglycemia, that was potentially precipitated by no cp particular event. 17:10 Onset: The symptoms/episode began/occurred yesterday. Associated signs and symptoms: cp Pertinent positives: nausea. Patient reports she is currently . was seen by primary OB yesterday and had normal US showing IUP. Patient denies vaginal bleeding, leakage of fluids. 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 Flu vaccine is not up to date. - Social history:: Smoking status: Patient reports the use of cigarette tobacco products, smokes one-half pack cigarettes per day. ROS: 17:15 Constitutional: Negative for body aches, chills, fever, poor PO intake. cp 17:15 Eyes: Negative for injury, pain, redness, and discharge. cp 17:15 ENT: Negative for sore throat, difficulty swallowing, difficulty handling secretions. 17:15 Cardiovascular: Negative for chest pain, palpitations. 17:15 Respiratory: Negative for cough, shortness of breath, wheezing. 17:15 Abdomen/GI: Positive for nausea, Negative for abdominal pain, vomiting, diarrhea, constipation. 17:15 : Negative for urinary symptoms, vaginal bleeding, vaginal discharge. 17:15 Neuro: Negative for altered mental status, headache, weakness. 17:15 All other systems are negative. Exam: 17:20 Constitutional: The patient appears in no acute distress, alert, awake, comfortable, cp non-diaphoretic, non-toxic, well developed, well nourished. 17:20 Head/Face: Normocephalic, atraumatic. cp 17:20 Eyes: Periorbital structures: appear normal, Conjunctiva: normal, no exudate, no injection, Sclera: no appreciated abnormality, Lids and lashes: appear normal, bilaterally. 17:20 ENT: External ear(s): are unremarkable, Nose: is normal, Mouth: Lips: moist, Oral mucosa: pink and intact, moist, Posterior pharynx: Airway: no evidence of obstruction, patent, Tonsils: are normal in appearance, erythema, is not appreciated, exudate, is not appreciated. 17:20 Neck: ROM/movement: is normal, is supple, without pain, no range of motions limitations. 17:20 Chest/axilla: Inspection: normal. 17:20 Cardiovascular: Rate: normal, Rhythm: regular, Edema: is not appreciated, JVD: is not appreciated. 17:20 Respiratory: the patient does not display signs of respiratory distress, Respirations: normal, no use of accessory muscles, no retractions, labored breathing, is not present, Breath sounds: are clear throughout, no decreased breath sounds, no stridor, no wheezing. 17:20 Abdomen/GI: Inspection: abdomen appears normal, Bowel sounds: active, all quadrants, Palpation: abdomen is soft and non-tender, in all quadrants. 17:20 Back: CVA tenderness, is absent. 17:20 Skin: cellulitis, is not appreciated, no rash present. 17:20 Neuro: Orientation: to person, place \\T\\ time. Mentation: is normal, Motor: moves all fours, strength is normal, Sensation: is normal. Vital Signs: 16:41 BP 118 / 71; Pulse 98; Resp 15; Temp 98.7(TE); Pulse Ox 99% on R/A; Weight 64.86 kg tw2 (R); Height 5 ft. 5 in. (165.10 cm); 20:36 BP 106 / 63; Pulse 92; Resp 16 S; Temp 99(O); Pulse Ox 99% on R/A; bb 16:41 Body Mass Index 23.80 (64.86 kg, 165.10 cm) tw2 MDM: 16:57 Patient medically screened. cp 18:00 Differential diagnosis: DKA, UTI, threatened . cp 20:05 Data reviewed: vital signs, nurses notes, lab test result(s). cp 20:05 Counseling: I had a detailed discussion with the patient and/or guardian regarding: the cp historical points, exam findings, and any diagnostic results supporting the discharge/admit diagnosis, lab results, the need for outpatient follow up, an OB/Gyne specialist, to return to the emergency department if symptoms worsen or persist or if there are any questions or concerns that arise at home. Response to treatment: the patient's symptoms have markedly improved after treatment, patient is well hydrated. VSS. Labs reviewed and negative for DKA. Nausea improved. Will discharge to home for continued monitoring. 08/23 17:07 Order name: COVID-19/FLU A+B (Document "Date of Onset" if Symptomatic) 08/23 17:07 Order name: COVID-19/FLU A+B; Complete Time: 19:16 EDMS 08/23 19:16 Interpretation: Reviewed. 08/23 17:11 Order name: Basic Metabolic Panel; Complete Time: 18:02 08/23 18:03 Interpretation: Normal except: NA 131; GLUC 518; GFR 89. 08/23 17:11 Order name: CBC with Diff; Complete Time: 18:02 08/23 17:11 Order name: Hepatic Function; Complete Time: 18:02 cp 08/23 18:04 Interpretation: Normal except: AST 8; GLOB 4.0; A/G 0.9. cp 08/23 17:11 Order name: Lipase; Complete Time: 18:02 cp 08/23 17:11 Order name: Ketone, Serum; Complete Time: 18:02 cp 08/23 18:04 Interpretation: Abnormal: ACET SMALL. cp 08/23 17:11 Order name: HCG-Quantitative; Complete Time: 18:02 08/23 19:16 Interpretation: Reviewed. 08/23 17:17 Order name: Glucose, Ancillary Testing; Complete Time: 17:42 EDMS 08/23 17:31 Order name: Urine Dipstick-Ancillary; Complete Time: 18:02 EDMS 08/23 17:34 Order name: Urine --Ancillary (enter results); Complete Time: 19:16 eb 08/23 19:16 Interpretation: Reviewed. 08/23 20:01 Order name: Glucose, Ancillary Testing EDMI 08/23 17:11 Order name: IV Saline Lock; Complete Time: 17:17 cp 08/23 17:11 Order name: Labs collected and sent; Complete Time: 17:17 cp 08/23 17:11 Order name: Urine Dipstick-Ancillary (obtain specimen); Complete Time: 17:29 cp 08/23 17:11 Order name: Urine Test (obtain specimen); Complete Time: 17:29 cp 08/23 19:47 Order name: Accucheck Blood Glucose; Complete Time: 19:53 cp Administered Medications: 17:21 Drug: Pepcid (famotidine) 20 mg Route: IVP; Site: left antecubital; [facility] 18:35 Follow up: Response: No adverse reaction ss 17:21 Drug: NS 0.9% 1000 ml Route: IV; Rate: 1 bolus; Site: left antecubital; [facility] 18:35 Follow up: IV Status: Completed infusion; IV Intake: 1000ml ss 17:22 Drug: Zofran (Ondansetron) 4 mg Route: IVP; Site: left antecubital; [facility] 18:35 Follow up: Response: No adverse reaction; Nausea is decreased ss 17:27 Drug: Insulin Regular Human 10 units {Co-Signature: ss (Tara Gonzalez RN).} Route: IVP; [facility] Site: left antecubital; 20:38 Follow up: Response: Blood sugar is lowered bb 18:35 Drug: NS 0.9% 1000 ml Route: IV; Rate: 1 bolus; Site: left antecubital; ss 19:30 Follow up: IV Status: Completed infusion; IV Intake: 1000ml bb Disposition Summary: 08/23/21 20:05 Discharge Ordered Location: Home cp Problem: new cp Symptoms: have improved cp Condition: Stable cp Diagnosis - Pre-existing type 1 diabetes mellitus, in , first trimester cp - Type 1 diabetes mellitus with hyperglycemia cp - Nausea cp Followup: cp - With: Private Physician - When: 2 - 3 days - Reason: Recheck today's complaints Discharge Instructions: - Discharge Summary Sheet cp - Type 1 Diabetes Mellitus, Diagnosis, Adult cp - Hyperglycemia cp - Nausea, Adult cp - First Trimester of cp Forms: - Medication Reconciliation Form cp - Thank You Letter cp - Antibiotic Education cp - Prescription Opioid Use cp - Work release form bb Prescriptions: - prenat.vits,anshu,zpk-tydv-ixtad Oral tablet - take 1 tablet by ORAL route once daily; 30 tablet; Refills: 0, Product cp Selection Permitted - promethazine 25 mg Oral Tablet - take 1 tablet by ORAL route every 6 hours As needed; 20 tablet; Refills: 0, cp Product Selection Permitted Addendum: 08/25/2021 16:23 Co-signature as Attending Physician, Batsheva Olivares MD I agree with the assessment and s p3 plan of care. Signatures: Dispatcher [employer] [facility] Tara Gonzalez RN RN ss Dinh Cortez, LOOM CHANGEOVER OPERATOR-C LOOM CHANGEOVER OPERATOR-Cla1 Collin Chandra PA PA cp Wise, Tara, RN RN tw2 Batsheva Olivares MD MD sp3 Trish Bains RN RN jh5 Bhakti Ledezma RN bb Tara Gonzalez RN ss
--- NOTE | 2021-08-23 20:06 | ER ---
Nurse's Notes [facility] Name: Yashira Peters Age: 21 yrs Sex: Female : 2000 Arrival Date: 08/23/2021 Time: 16:06 Bed 12 Private MD: Diagnosis: Pre-existing type 1 diabetes mellitus, in , first trimester;Type 1 diabetes mellitus with hyperglycemia;Nausea Presentation: 08/23 16:41 Chief complaint: Patient states: i am not feeling well. i am a diabetic. it started tw2 yesterday. my blood sugar has been highs for 2 days. my breath is sweet. Coronavirus screen: headache, Client presents with at least one sign or symptom that may indicate coronavirus-19. Standard/surgical mask placed on the client. Provider contacted for isolation considerations. Ebola Screen: Patient denies travel to an Ebola-affected area in the 21 days before illness onset. Initial Sepsis Screen: Does the patient meet any 2 criteria? No. Patient's initial sepsis screen is negative. Does the patient have a suspected source of infection? No. Patient's initial sepsis screen is negative. Risk Assessment: Do you want to hurt yourself or someone else? Patient reports no desire to harm self or others. Onset of symptoms was August 23, 2021. 16:41 Method Of Arrival: Ambulatory tw2 16:41 Acuity: ASIA 3 tw2 Triage Assessment: 16:44 General: Appears in no apparent distress. slender, well groomed, Behavior is calm, tw2 cooperative, appropriate for age. Pain: Denies pain. 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 Flu vaccine is not up to date. - Social history:: Smoking status: Patient reports the use of cigarette tobacco products, smokes one-half pack cigarettes per day. Screenin:35 Abuse screen: Denies threats or abuse. Denies injuries from another. Nutritional ss screening: No deficits noted. Tuberculosis screening: Never had TB. Fall Risk None identified. Assessment: 18:35 General: Appears in no apparent distress. comfortable, Behavior is calm, cooperative, ss Reports feeling ill for Denies fever. Neuro: Level of Consciousness is awake, alert, obeys commands, Oriented to person, place, time, situation. Cardiovascular: Capillary refill < 3 seconds is brisk in bilateral fingers. Respiratory: Airway is patent Respiratory effort is even, unlabored, Respiratory pattern is regular, symmetrical. GI: Abdomen is non-distended. EENT: Oral mucosa is moist. Throat is clear. Derm: Skin is pink, warm \T\ dry. normal. Musculoskeletal: Circulation, motion, and sensation intact. Range of motion: intact in all extremities, Swelling absent. 20:35 Reassessment: Patient is alert, oriented x 3, equal unlabored respirations, skin bb warm/dry/pink. pt seen by this RN at discharge pt verbalized understanding of and agrees to plan of care discharge instructions given pt ambulated with steady gait to exit. Vital Signs: 16:41 BP 118 / 71; Pulse 98; Resp 15; Temp 98.7(TE); Pulse Ox 99% on R/A; Weight 64.86 kg tw2 (R); Height 5 ft. 5 in. (165.10 cm); 20:36 BP 106 / 63; Pulse 92; Resp 16 S; Temp 99(O); Pulse Ox 99% on R/A; bb 16:41 Body Mass Index 23.80 (64.86 kg, 165.10 cm) tw2 ED Course: 16:06 Patient arrived in ED. as 16:43 Triage completed. tw2 16:44 Arm band placed on. tw2 16:51 Trish Bains, EMILIA is Primary Nurse. 5 16:54 Collin Chandra PA is PHCP. cp 16:54 Batsheva Olivares MD is Attending Physician. cp 18:35 Patient has correct armband on for positive identification. Bed in low position. Call ss light in reach. Warm blanket given. 18:35 Inserted saline lock: 22 gauge in left antecubital area, using aseptic technique. ss ,using aseptic technique. Insertion by Trish Bains RN Blood collected. Patient maintains SpO2 saturation greater than 95% on room air. 20:37 No provider procedures requiring assistance completed. IV discontinued, intact, bb bleeding controlled, No redness/swelling at site. Pressure dressing applied. Administered Medications: 17:21 Drug: Pepcid (famotidine) 20 mg Route: IVP; Site: left antecubital; [facility] 18:35 Follow up: Response: No adverse reaction ss 17:21 Drug: NS 0.9% 1000 ml Route: IV; Rate: 1 bolus; Site: left antecubital; [facility] 18:35 Follow up: IV Status: Completed infusion; IV Intake: 1000ml 17:22 Drug: Zofran (Ondansetron) 4 mg Route: IVP; Site: left antecubital; [facility] 18:35 Follow up: Response: No adverse reaction; Nausea is decreased ss 17:27 Drug: Insulin Regular Human 10 units {Co-Signature: jing (Tara Gonzalez RN).} Route: IVP; [facility] Site: left antecubital; 20:38 Follow up: Response: Blood sugar is lowered 18:35 Drug: NS 0.9% 1000 ml Route: IV; Rate: 1 bolus; Site: left antecubital; 19:30 Follow up: IV Status: Completed infusion; IV Intake: 1000ml bb Intake: 18:35 IV: 1000ml; Total: 1000ml. ss 19:30 IV: 1000ml; Total: 2000ml. bb Outcome: 20:05 Discharge ordered by MD. cp 20:37 Discharged to home ambulatory. bb 20:37 Condition: stable 20:37 Discharge instructions given to patient, Instructed on discharge instructions, follow up and referral plans. medication usage, Demonstrated understanding of instructions, follow-up care, medications, Prescriptions given X 2. 20:39 Patient left the ED. bb Signatures: Cris Alan Brenda, RN RN bb Smirch, Shelby, RN RN Collin Chandra PA PA cp Wise, Tara, RN RN 2 Trish Bains RN RN [facility] Tara Gonzalez RN
[2021-08-23 20:45] VITALS: O2SAT 99
[2021-08-23 20:48] VITALS: BP 106/63; TEMP 99
== END 2021-08-23 20:39 | disposition home or self-care (01) ==
LOC: ER 16:03
DX: O24.011 Pre-existing type 1 diabetes mellitus, in pregnancy, first trimester (principal); E10.65 Type 1 diabetes mellitus with hyperglycemia; R11.0 Nausea; Z88.1 Allergy status to other antibiotic agents; Z91.040 Latex allergy status; F17.210 Nicotine dependence, cigarettes, uncomplicated; Z20.822 Contact with and (suspected) exposure to COVID-19
CPT/HCPCS: 96361; 85025; 80048; 36415; 82010; 81025; 82947 ×2; 80076; 84702; 81003; 83690; 0240U; 96375; 96374; 99284; J1815; J7030 ×2; J2405

== ENCOUNTER 2021-09-12 10:31 | Emergency (ER) | payer SELFPAY ==
--- OUTSIDE RECORDS SUMMARY | 2021-09-12 10:35 | XMS REPORT | Continuity of Care Document ---
:[address] [facility] t Address [address] [place] [address] Care Team Providers Name Role Phone Pcp, Does Not Have A Primary Care Physician FISH Attending Clinician Unavailable Moiz IVAN Attending Clinician Doctor Unassigned, Name Attending Clinician Unavailable Blake Oshea DO Attending Clinician Nato RUIZ Attending Clinician Andrew IVAN Attending Clinician Brook RN, A Attending Clinician Unavailable Payers Payer Name Policy Type Policy Number Effective Date Expiration Date S [facility] [id number] 2021 PPO/POS 00:00:00 Problems Condition Condition Condition Status Onset Resolution Last Treating Co mments Source Name Details Category Date Date Treatment Clinician Date Rubella Rubella Disease Active Overview: Univ ers non-immune non-immune 3-20 Formattin ity of status, status, 00:00: g of this [place] antepartum antepartum 00 note Me dical might [...] of , , 00:00: g of this [place] antepartum antepartum 00 note Me dical might be Branch different from the original. Off of meds [id number] Diabetes Diabetes Disease Active Overview: Un jayden in in - Formattin ity of 00:00: g of [place] 00 note Medical might be Branch different from the original. 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 Utility Allergies, Adverse Reactions, Alerts Allergy Allergy [...] 9-25 [facility] [place] latex DA Active MO 2018-0 [facility] 8-24 [facility] [place] Latex Propensi Active Hives 2017-0 Univers ty to 6-14 ity of adverse 00:00: [place] reaction 00 Medical [facility] CLINDAMY DRUG Active Hallucinates 2017-0 Un jayden JAVIER INGREDI 6-14 ity of 00:00: [place] 00 Medical [place] LATEX DRUG Active Hives 2017-0 Univers INGREDI 6-14 ity of 00:00: [place] 00 Medical [place] Clindamy Propensi Active Hallucinatio 2017-0 Univers javier ty to ns 6-14 ity of adverse 00:00: [place] reaction 00 [facility] Social History Social Habit Start Date Stop Date Quantity Comments Source ASSERTION 2021-07-15 [facility] 00:00:00 [facility] Exposure to Not sure [facility] SARS-CoV-2 (event) [facility] Alcohol intake 2021-08-22 2021-08-22 Ex-drinker [facility] 00:00:00 00:00:00 (finding) [facility] History [facility] 2020-04-25 2020-04-25 1 University o f Alcohol Std Drinks 00:00:00 00:00:00 [facility] Branch History [facility] 2020-04-25 2020-04-25 1 University o f Alcohol Binge 00:00:00 00:00:00 [facility] Branch History [facility] 2020-04-25 2020-04-25 University o f Alcohol Comment 00:00:00 00:00:00 [place] [facility] Tobacco use and 2020-04-25 2020-04-25 Never used Universit y of exposure 00:00:00 00:00:00 [facility] Cigarettes smoked 2020-04-25 2020-04-25 Univers ity of current (pack per 00:00:00 00:00:00 [facility] day) - Reported Branch Cigarette 2020-04-25 2020-04-25 University of pack-years 00:00:00 00:00:00 [facility] History [facility] 2020-04-25 2020-04-25 2 University o f Alcohol Frequency 00:00:00 00:00:00 [facility] Branch History of tobacco 2017 2017-10-13 Cigarette Smoker University [facility] 00:00:00 00:00:00 [facility] Sex Assigned At [birth year] Universit y of 00:00:00 00:00:00 [facility] Smoking Status Start Date Stop Date Source Current every day 2020-04-25 00:00:00 [facility] smoker [facility] Former smoker 2019-01-16 00:00:00 2019-01-16 00:00:00 [facility] Medications Ordered Filled Start Stop Current Ordering Indication Dosage Frequency Signature Comments Components Source Medication Medication Date Date Medication? Clinician (SIG) Name Name hydrOXYzine 2019-08 Yes [id number] 50mg Take 1 Univers 50 mg 0-25 tablet by ity of tablet 00:00: mouth 3 00 (three) Medical times Branch daily as needed for Itching. hydrOXYzine 2019-08 Yes [id number] 50mg Take 1 Univers 50 mg 0-25 tablet by ity of tablet 00:00: mouth 3 00 (three) Medical times Branch daily as needed for Itching. hydrOXYzine 2019-08 Yes [id number] 50mg Take 1 Univers 50 mg 0-25 tablet by ity of tablet 00:00: mouth 3 00 (three) Medical times Branch daily as needed for Itching. hydrOXYzine 2019-08- No [id number] 50mg Take 1 Univers 50 mg 0-25 - tablet by ity of tablet 00:00: 00:00 mouth 3 [place] 00 :00 (three) Medical times Branch daily as needed for Itching. fluconazole 2019- 2020- No [id number] 150mg Take 1 Univers 150 mg 04-25 tablet by ity of tablet 00:00: 04:59 mouth [place] 00 :00 every 48 Medical ([facility] Branch ht) hours for 2 doses. montelukast 2019- Yes [id number] 10mg Take 1 Univers 10 mg 3-16 tablet by ity of tablet 00:00: mouth [place] 00 daily. Medical Branch benzonatate 2019-0 Yes [id number] 100mg Take 1 Univers 100 mg 3-16 capsule by ity of capsule 00:00: mouth 3 [place] 00 (three) Medical times Branch daily as needed for Cough. montelukast 2019- Yes [id number] 10mg Take 1 Univers 10 mg 3-16 tablet by ity of tablet 00:00: mouth [place] 00 daily. Medical Branch benzonatate 2020-0 Yes [id number] 100mg Take 1 Univers 100 mg 3-16 capsule by ity of capsule 00:00: mouth (three) Medical times Branch daily as needed for Cough. montelukast 2020-0 Yes [id number] 10mg Take 1 Univers 10 mg 3-16 tablet by ity of tablet 00:00: mouth [place] 00 daily. Medical Branch benzonatate 2020-0 Yes [id number] 100mg Take 1 Univers 100 mg 3-16 capsule by ity of capsule 00:00: mouth 3 (three) Medical times Branch daily as needed for Cough. montelukast 2020-0 Yes [id number] 10mg Take 1 Univers 10 mg 3-16 tablet by ity of tablet 00:00: mouth 00 daily. Medical Branch benzonatate 2020-0 Yes [id number] 100mg Take 1 Univers 100 mg 3-16 capsule by ity of capsule 00:00: mouth (three) Medical times Branch daily as needed for Cough. montelukast 2020-0 Yes [id number] 10mg Take 1 Univers 10 mg 3-16 tablet by ity of tablet 00:00: mouth 00 daily. Medical Branch benzonatate 2020-0 Yes [id number] 100mg Take 1 Univers 100 mg 3-16 capsule by ity of capsule 00:00: mouth (three) Medical times Branch daily as needed for Cough. montelukast 2020-0 Yes [id number] 10mg Take 1 Univers 10 mg 3-16 tablet by ity of tablet 00:00: mouth 00 daily. Medical Branch benzonatate 2020-0 Yes [id number] 100mg Take 1 Univers 100 mg 3-16 capsule by ity of capsule 00:00: mouth 3 (three) Medical times Branch daily as needed for Cough. montelukast 2020-0 Yes [id number] 10mg Take 1 Univers 10 mg 3-16 tablet by ity of tablet 00:00: mouth [place] 00 daily. Medical Branch benzonatate 2020-0 Yes [id number] 100mg Take 1 Univers 100 mg 3-16 capsule by ity of capsule 00:00: mouth 3 00 (three) Medical times Branch daily as needed for Cough. montelukast 2020-0 Yes [id number] 10mg Take 1 Univers 10 mg 3-16 tablet by ity of tablet 00:00: mouth [place] 00 daily. Medical Branch benzonatate 2020-0 Yes [id number] 100mg Take 1 Univers 100 mg 3-16 capsule by ity of capsule 00:00: mouth 3 (three) Medical times Branch daily as needed for Cough. montelukast 2020-0 Yes [id number] 10mg Take 1 Univers 10 mg 3-16 tablet by ity of tablet 00:00: mouth 00 daily. Medical Branch benzonatate 2020-0 Yes [id number] 100mg Take 1 Univers 100 mg 3-16 [...] Medical STRIPS) Branch strip insulin NPH Yes [id number] 15U inject 15 Univers 100 unit/mL 9-20 Units ity of injection 00:00: under the [place] as 00 skin every Medical morning Branch and evening. insulin 0 Yes [id number] Take 8 Univ ers regular 9-20 units ity of human 100 00:00: before [place] unit/mL 00 breakfast Medical injection and before Bran ch dinner plus sliding scale insulin NPH 2016-0 Yes [id number] 15U inject 15 Univers 100 unit/mL 9-20 Units ity of injection 00:00: under the [place] 00 skin every Medical morning Branch and evening. insulin 2017-0 Yes [id number] Take 8 Univ ers regular 9-20 units ity of human 100 00:00: before [place] unit/mL 00 breakfast Medical injection and before Bran ch dinner plus sliding scale insulin NPH 2016-0 Yes [id number] 15U inject 15 Univers 100 unit/mL 9-20 Units ity of injection 00:00: under the [place] 00 skin every Medical morning Branch and evening. insulin 2016-0 Yes [id number] Take 8 Univ ers regular 9-20 units ity of human 100 00:00: before [place] unit/mL 00 breakfast Medical injection and before Bran ch dinner plus sliding scale insulin NPH 2016-0 Yes [id number] 15U inject 15 Univers 100 unit/mL 9-20 Units ity of injection 00:00: under the [place] 00 skin every Medical morning Branch and evening. insulin 2016-0 Yes [id number] Take 8 Univ ers regular 9-20 units ity of human 100 00:00: before [place] unit/mL 00 breakfast Medical injection and before Bran ch dinner plus sliding scale insulin NPH 2016-0 Yes [id number] 15U inject 15 Univers 100 unit/mL 9-20 Units ity of injection 00:00: under the [place] 00 skin every Medical morning Branch and evening. insulin 2017-0 Yes [id number] Take 8 Univ ers regular 9-20 units ity of human 100 00:00: before [place] unit/mL 00 breakfast Medical injection and before Bran ch dinner plus sliding scale insulin NPH 2017-0 Yes [id number] 15U inject 15 Univers 100 unit/mL 9-20 Units ity of injection 00:00: under the [place] 00 skin every Medical morning Branch and evening. insulin 2017-0 Yes [id number] Take 8 Univ ers regular 9-20 units ity of human 100 00:00: before [place] unit/mL 00 breakfast Medical injection and before Bran ch dinner plus sliding scale insulin NPH 2016-0 Yes [id number] 15U inject 15 Univers 100 unit/mL 9-20 Units ity of injection 00:00: under the [place] 00 skin every Medical morning Branch and evening. insulin 2017-0 Yes [id number] Take 8 Univ ers regular 9-20 units ity of human 100 00:00: before [place] unit/mL 00 breakfast Medical injection and before Bran ch dinner plus sliding scale insulin NPH 2017-0 Yes [id number] 15U inject 15 Univers 100 unit/mL 9-20 Units ity of injection 00:00: under the [place] 00 skin every Medical morning Branch and evening. insulin 2017-0 Yes [id number] Take 8 Univ ers regular 9-20 units ity of human 100 00:00: before [place] unit/mL 00 breakfast Medical injection and before Bran ch dinner plus sliding scale insulin NPH 2017-0 Yes [id number] 15U inject 15 Univers 100 unit/mL 9-20 Units ity of injection 00:00: under the [place] 00 skin every Medical morning Branch and evening. insulin 2017-0 Yes [id number] Take 8 Univ ers regular 9-20 units ity of human 100 00:00: before [place] unit/mL 00 breakfast Medical injection and before Bran ch dinner plus sliding scale Insulin 2017-0 Yes [id number] Use as Univ ers Syringe-Nee 6-14 directed ity of dle U-100 00:00: [place] (INSULIN 00 Medical SYRINGE) 1 Branch mL 30 gauge x 5/16 Syrg Insulin 2017-0 Yes [id number] Use as Univ ers Syringe-Nee 6-14 directed ity of dle U-100 00:00: [place] (INSULIN 00 Medical SYRINGE) 1 Branch mL 30 gauge x 5/16 Syrg Insulin 2017-0 Yes [id number] Use as Univ ers Syringe-Nee 6-14 directed ity of dle U-100 00:00: [place] (INSULIN 00 Medical SYRINGE) 1 Branch mL 30 gauge x 5/16 Syrg Insulin 2017-0 Yes [id number] Use as Univ ers Syringe-Nee 6-14 directed ity of dle U-100 00:00: [place] (INSULIN 00 Medical SYRINGE) 1 Branch mL 30 gauge x 5/16 Syrg Insulin 2017-0 Yes [id number] Use as Univ ers Syringe-Nee 6-14 directed ity of dle U-100 00:00: [place] (INSULIN 00 Medical SYRINGE) 1 Branch mL 30 gauge x 5/16 Syrg Insulin 2017-0 Yes [id number] Use as Univ ers Syringe-Nee 6-14 directed ity of dle U-100 00:00: [place] (INSULIN 00 Medical SYRINGE) 1 Branch mL 30 gauge x 5/16 Syrg Insulin 2016- Yes [id number] Use as Univ ers Syringe-Nee 6-14 directed ity of dle U-100 00:00: [place] (INSULIN 00 Medical SYRINGE) 1 Branch mL 30 gauge x 5/16 Syrg Insulin 2016- Yes [id number] Use as Univ ers Syringe-Nee 6-14 directed ity of dle U-100 00:00: [place] (INSULIN 00 Medical SYRINGE) 1 Branch mL 30 gauge x 5/16 Syrg Insulin 2016- Yes [id number] Use as Univ ers Syringe-Nee 6-14 directed ity of dle U-100 00:00: [place] (INSULIN 00 Medical SYRINGE) 1 Branch mL 30 gauge x 5/16 Syrg Immunizations Ordered Immunization Filled Immunization Date Status Commen ts Source Name Name Rubella 2012-10-01 Completed University of 00:00:00 [facility] Rubella 2012-10-01 Completed University of 00:00:00 [facility] Rubella 2012-10-01 Completed University of 00:00:00 [facility] Rubella 2012-10-01 Completed University of 00:00:00 [facility] Rubella 2012-10-01 Completed University of 00:00:00 [facility] Rubella 2012-10-01 Completed University of 00:00:00 [facility] Rubella 2012-10-01 Completed University of 00:00:00 [facility] Rubella 2012-10-01 Completed University of 00:00:00 [facility] Rubella 2012-10-01 Completed University of 00:00:00 [facility] Varicella 2012-09-09 Completed University of (varivax)(chicken 00:00:00 [...] Branch TDAP 2012-04-07 Completed University of 00:00:00 [facility] TDAP 2012-04-07 Completed University of 00:00:00 [facility] TDAP 2012-04-07 Completed University of 00:00:00 [facility] TDAP 2012-04-07 Completed University of 00:00:00 [facility] TDAP 2012-04-07 Completed University of 00:00:00 [facility] Tdap 2012-04-07 Completed University of 00:00:00 [facility] Tdap 2012-04-07 Completed University of 00:00:00 [facility] Tdap 2012-04-07 Completed University of 00:00:00 [facility] TDAP 2012-04-07 Completed University of 00:00:00 [facility] Meningococcal 2010-04-02 Completed University of Polysaccharide 00:00:00 [place] Medi anshu (groups A, C, Y and Branc h W-135) conjugate vaccine (MCV4P) Meningococcal 2010-04-02 Completed University of Polysaccharide 00:00:00 [place] Medi anshu (groups A, C, Y and Branc h W-135) conjugate vaccine (MCV4P) Meningococcal 2010-04-02 Completed University of Polysaccharide 00:00:00 [place] Medi anshu (groups A, C, Y and Branc h W-135) conjugate vaccine (MCV4P) Meningococcal 2010-04-02 Completed University of Polysaccharide 00:00:00 [place] Medi anshu (groups A, C, Y and [...] Meningococcal 2010-04-02 Completed University of Polysaccharide 00:00:00 [place] Medi anshu (groups A, C, Y and Branc h W-135) conjugate vaccine (MCV4P) Meningococcal 2010-04-02 Completed University of Polysaccharide 00:00:00 [place] Medi anshu (groups A, C, Y and Branc h W-135) conjugate vaccine (MCV4P) Varicella 1999-08-21 Completed University of (varivax)(chicken 00:00:00 [facility] edical pox) Branch Varicella 1999-08-21 Completed University of (varivax)(chicken 00:00:00 [place] M edical pox) Branch DTAP 1998 Completed University of 00:00:00 [facility] Polio (IPV/OPV) 1998 Completed Universit y of 00:00:00 [facility] DTAP 1998 Completed University of 00:00:00 [facility] Polio (IPV/OPV) 1998 Completed Universit y of 00:00:00 [facility] DTAP 1998 Completed University of 00:00:00 [facility] Polio (IPV/OPV) 1998 Completed Universit y of 00:00:00 [facility] DTAP 1998 Completed University of 00:00:00 [facility] Polio (IPV/OPV) 1998 Completed Universit y of 00:00:00 [facility] DTAP 1998 Completed University of 00:00:00 [facility] Polio (IPV/OPV) 1998 Completed Universit y of 00:00:00 [facility] DTAP 1998 Completed University of 00:00:00 [facility] Polio (IPV/OPV) 1998 Completed Universit y of 00:00:00 [place] [facility] DTAP 1998 Completed University of 00:00:00 [place] [facility] Polio (IPV/OPV) 1998 Completed Universit y of 00:00:00 [place] [facility] DTAP 1998 Completed University of 00:00:00 [place] [facility] Polio (IPV/OPV) 1998 Completed Universit y of 00:00:00 [place] [facility] DTAP 1998 Completed University of 00:00:00 [place] [facility] Polio (IPV/OPV) 1998 Completed Universit [...] 1998 Completed Unive rsity of Dosage 00:00:00 [place] [facility] Hep B, Adol or Pedi 1998 Completed Unive rsity of Dosage 00:00:00 [place] [facility] Hep B, Adol or Pedi 1998 Completed Unive rsity of Dosage 00:00:00 [facility] Branch Hep B, Adol or Pedi 1998 Completed Unive rsity of Dosage 00:00:00 [facility] Vital Signs Vital Name Observation Time Observation Value Comments Source Systolic blood 2021-08-22 20:55:00 117 mm[Hg] Univer sity of pressure [facility] Branch Diastolic blood 2021-08-22 20:55:00 76 mm[Hg] Unive rsity of pressure [facility] Heart rate 2021-08-22 20:55:00 82 /min Universi ty of [facility] Body temperature 2021-08-22 20:55:00 36.89 Steffany Univ ersity of [facility] Respiratory rate 2021-08-22 20:55:00 18 /min Univ ersity of [facility] Body height 2021-08-22 20:55:00 162.6 cm Universi ty of [facility] Body weight 2021-08-22 20:55:00 64.864 kg Universi ty of [facility] BMI 2021-08-22 20:55:00 24.55 kg/m2 Universi ty of [facility] Systolic blood 2020-06-10 17:49:00 124 mm[Hg] Univer sity of pressure [facility] Diastolic blood 2020-06-10 17:49:00 95 mm[Hg] Unive rsity of pressure [facility] Branch Heart rate 2020-06-10 17:49:00 100 /min Universi ty of [facility] Branch Body temperature 2020-06-10 17:49:00 36.56 Steffany Univ ersity of [facility] Respiratory rate 2020-06-10 17:49:00 18 /min Univ ersity of [facility] Body height 2020-06-10 17:49:00 160 cm Universi ty of [facility] Body weight 2020-06-10 17:49:00 58.968 kg Universi ty of [facility] Branch BMI 2020-06-10 17:49:00 23.03 kg/m2 Universi ty of [place] [facility] Oxygen saturation in 2020-06-10 17:49:00 98 /min University of Arterial blood by [place] Medi anshu Pulse oximetry Branch Systolic blood 2019-10-31 23:20:00 135 mm[Hg] Univer sity of pressure [place] [facility] Diastolic blood 2019-10-31 23:20:00 87 mm[Hg] Unive rsity of pressure [place] [facility] Heart rate 2019-10-31 23:20:00 104 /min Universi ty of [place] [facility] Body temperature 2019-10-31 23:20:00 36.67 Steffany Univ ersity of [place] [facility] Respiratory rate 2019-10-31 23:20:00 17 /min Univ ersity of [place] [facility] Body height 2019-10-31 23:20:00 157.5 cm Universi ty of [place] [facility] Body weight 2019-10-31 23:20:00 61.689 kg Universi ty of [place] [facility] BMI 2019-10-31 23:20:00 24.87 kg/m2 Universi ty of [place] [facility] Oxygen saturation in 2019-10-31 23:20:00 100 /min University of Arterial blood by [facility] [place] [facility] Pulse oximetry Branch Systolic blood 2019-10-31 23:20:00 135 mm[Hg] Univer sity of pressure [place] [facility] Diastolic blood 2019-10-31 23:20:00 87 mm[Hg] Unive rsity of pressure [place] [facility] Heart rate 2019-10-31 23:20:00 104 /min Universi ty of [place] [facility] Body temperature 2019-10-31 23:20:00 36.67 Steffany Univ ersity of [place] [facility] Respiratory rate 2019-10-31 23:20:00 17 /min Univ ersity of [place] [facility] Body height 2019-10-31 23:20:00 157.5 cm Universi ty of [place] [facility] Body weight 2019-10-31 23:20:00 61.689 kg Universi ty of [place] [facility] BMI 2019-10-31 23:20:00 24.87 kg/m2 Universi ty of [place] [facility] Oxygen saturation in 2019-10-31 23:20:00 100 /min University of Arterial blood by [facility] anshu Pulse oximetry Branch Procedures Procedure Date / Time Performed Performing Clinician Sour e <14 WEEKS US 2021-08-23 00:11:02 Fish, Gilma Unive rsity of [place] LIMITED Medical [place] ASSIGNMENT OF BENEFITS 2021-08-22 20:32:41 Doctor Unassigned, No [facility] Name Medical Branch POCT TEST 2021-08-22 00:00:00 Gilma Rockwell ty of [facility] POCT URINALYSIS W/O 2021-08-22 00:00:00 Gilma Rockwell ty [facility] SPECIFIC GRAVITY [facility] CONSENT/REFUSAL FOR 2020-04-25 18:01:24 Doctor Unassigned, No Un iversity of [place] DIAGNOSIS AND Name Medical Branch TREATMENT CONSENT/REFUSAL FOR 2019-10-31 23:06:08 [facility]igned, [facility] Branch TREATMENT NOTICE OF PRIVACY 2019-10-31 23:05:51 Doctor Unassigned, No Univ [facility] Encounters Start End Encounter Admission Attending Care Care Encounter Source Date/Time Date/Time Type Type Clinicians Facility Department ID 2021-06-15 Emergency [facility] [id number] Univers 00:54:29 ity [place] [facility] 2021-06-13 Emergency [facility] [id number] Univers 14:39:48 ity [place] [facility] 2021-08-22 2021-08-22 Outpatient R GILMA ROCKWELL [facility] [id number] Univers 14:30:00 16:44:35 ity of [facility] 2021-08-22 2021-08-22 Initial Gilma Rockwell [facility] [id number] Univers 14:30:00 16:44:35 ABDIAS [id number] i ty of Visit WOMEN'S [id number] [facility] [phone] [place] [id number] Branch 2021-08-22 2021-08-22 Outpatient R GILMA ROCKWELL [facility] [id number] Univers 14:30:00 14:30:00 [id number] ity of [facility] 2021-08-22 2021-08-22 Orders Doctor COUGHLIN [id number] Univers 00:00:00 00:00:00 Only UnassignedLISSETH [id number] [facility] [id number] [place] as [id number] [facility] 009 [place] 2021-08-12 2021-08-12 Outpatient R GILMA ROCKWELL [facility] [id number] Univers 08:30:00 08:30:00 [id number] ity of [facility] 2020-11-06 2020-11-06 Patient Dayo [facility] [id number] Univers 00:00:00 00:00:00 Outreach Raj [facility] [id number] i ty of [facility] [id number] [place] [facility] [id number] [address] 2020-06-10 2020-06-10 [facility] 1.2.840.114 [id number] Univers 12:51:00 14:02:00 Sheaflako Co[place] [id number] i ty of [place] [id number] [place] [id number] [facility] 084 [place] 2020-04-27 2020-04-27 Telephone Gilma Rockwell [facility] [id number] Univers 00:00:00 00:00:00 [place] [id number] i ty of [place] [id number] [place] [facility] [phone] [facility] nal [address] [facility] 2020-04-27 2020-04-27 Gilma Ndiaye [facility] [id number] 00:00:00 00:00:00 [place] [id number] [place] [id number] Professio [phone] [address] 2020-04-25 2020-04-25 Outpatient R GILMA ROCKWELL [facility] [id number] Univers 13:00:00 13:00:00 ity of [facility] 2020-04-25 2020-04-25 Outpatient R GILMA ROCKWELL [facility] [id number] Univers 13:00:00 13:00:00 ity [facility] 2020-04-25 2020-04-25 Orders Doctor COUGHLIN [id number] Univers 00:00:00 00:00:00 Only Unassigned, LISSETH [id number] ity of [place] [facility] [id number] [place] as [phone] [facility] 009 [place] 2020-04-25 2020-04-25 Orders Doctor MADYSON [id number] 00:00:00 00:00:00 Only Unassigned, LISSETH [id number] [place] [facility] [id number] 2019-11-10 2019-11-10 Sonali Morales [facility] [id number] Univers 00:00:00 00:00:00 (Out) Shahid Coats [id number] i ty of [place] [id number] [place] [facility] [phone] [address] 2019-11-10 2019-11-10 Sonali Morales [facility] [id number] 00:00:00 00:00:00 (Out) Shahid Coats [id number] [place] 4.2.7.2.686 [place] [id number] [facility] 2019-11-05 2019-11-05 MADYSON Bell [id number] [facility] 00:00:00 00:00:00 Triage Paula MONTANEZ [id number] i ty of HOSPITAL 4.2.7.2.686 Ronny as [id number] [facility] [address] 2019-11-05 2019-11-05 MADYSON Bell [id number] 00:00:00 00:00:00 Triage Paula MONTANEZ 350.1.13.10 HOSPITAL [id number] [id number] 2019-10-31 2019-10-31 Emergency Andrew TNPRISCILA [id number] [facility] 18:21:01 18:54:00 Shahid Coats 350.1.13.10 i ty of [place] 4.2.7.2.686 [facility] [id number] [address] 2019-10-31 2019-10-31 Emergency Andrew TNPRISCILA [id number] 18:21:01 18:54:00 Shahid Coats 350.1.13.10 [place] 4.2.7.2.686 [place] [phone] [id number] Results Test Description Test Time Test [...] code = 3257) n/a Negative - Negative [facility] [id number] 21:15:00 Test Item Value Reference Range Interpretation Comments POCT PREG (test code = 1605) Positive On board controls acceptable with C Yes Line (test code = 3574) POCT PREG LOT # (test code = 3575) POCT PREG TEST DATE (test code = 3576) [facility] [id number] 13:07:00 RUN DATE: 05/17/18 [facility] PAGE 1 RUN TIME: 1809 Specimen Inquiry RUN USER: INTERFACE PATIENT: JULIA KEENE LOC: ALEXIS U #: [id number] AGE/SX: 18/F ROOM: [facility] RE05/11/18REG DR: Jhon Cuevas MD : 98 BED: A DIS: 05/15/18 STATUS: DIS IN TLOC: SPEC #: [id number] RECD: 05/11/18-754 STATUS: DELROY RE #: [id number] MATI: 05/11/18- SUBM DR: Jhon Cuevas MD ENTERED: 05/12/18-0756 SP TYPE: PLACIII OTHR DR: ORDERED: LEVEL V SURGICA CODES: QA2648 - PLACENTA, NOS PROCEDURES: LEVEL V SURGICA [...] 478 gm Tissue code: 1 CPT Code: 38164 cds/kr 05/17/18 @ 1255 GROSS DESCRIPTION The [...] Specimen Inquiry RUN USER: INTERFACE SPEC #: [id number]: JULIA KEENE #[id number] (Continued) GROSS DESCRIPTION (Continued) The trimmed placental weight: 491 gm Disk measurement: 19 x 17 x 3.2 cm in greatest dimension Accessory lobes: None Maternal surface: Lobulated and intact Parenchyma: Red, beefy, and spongy Parenchyma lesion s: None Cassettes: A through D hz/kr 05/12/18 @ 1041 MICROSCOPIC DESCRIPTION Villous architecture is late third trimester. A few areas of villous edemaare present near the basal plate. anabelle/kr 05/17/18 @ 1255 Signed Jewel Salmeron 05/17/18 1307 END OF REPORT
[2021-09-12 12:37] LABS: Urine Blood 3+ (Negative); Urine Glucose 1+ (Negative); Urine Protein Negative (Negative); Urine Specific Gravity 1.025 (1.005-1.030)
[2021-09-12 12:43] LABS: Absolute Lymphocytes (CBC) 1.6 K/uL (0.7-4.9); Hematocrit 41.3 % (36.0-45.0); Lymphocytes % 22.4 % (15.3-44.8); MPV 6.8 fL (7.6-11.3); RBC Red Blood Cell Count 4.68 M/uL (3.86-4.86)
[2021-09-12] MEDS ORDERED: ACETAMINOPHEN 500 MG TAB ONE (13:21)
--- NOTE | 2021-09-12 13:23 | RAD REPORT ---
EXAM DESCRIPTION: US - 1St Trimest Single 1St Fetus - 09/12/2021 1:02 pm CLINICAL HISTORY: Abdominal pain. COMPARISON: None FINDINGS: The uterus measures 9 x 6 x 7 centimeters. The endometrial stripe is thickened measuring 2 .5 centimeters. It is heterogeneous with small amount of fluid. A normal appearing gestational sac is not seen. Right and left ovary normal in size and echotexture. Right and left adnexa are unremarkable. No significant free fluid. IMPRESSION: These findings probably indicate an incomplete . This should be correlated clini breezy and with appropriate lab values.
[2021-09-12 13:33] LABS: Urine Bacteria <20 /HPF (<20)
[2021-09-12 14:16] LABS: Urine Specific Gravity/Preg 1.025 (1.005-1.030)
[2021-09-12 14:28] LABS: BUN Blood Urea Nitrogen 10 mg/dL (7-18); Bicarbonate 22 mmol/L (21-32); Glucose Level 79 mg/dL (74-106); Potassium 3.5 mmol/L (3.5-5.1); Sodium Level 137 mmol/L (136-145)
--- NOTE | 2021-09-12 15:14 | ER ---
Nurse's Notes [facility] Name: Yashira Peters Age: 21 yrs Sex: Female : 2000 Arrival Date: 09/12/2021 Time: 10:33 Bed 12 Private MD: Diagnosis: Incomplete spontaneous without complication Presentation: 09/12 10:39 Chief complaint: Patient states: Pt here for spotting and pain x 3 days. . States ic1 on today she noticed more bleeding than usual and thinks she may have passed something. Coronavirus screen: Vaccine status: Patient reports being unvaccinated. Ebola Screen: No symptoms or risks identified at this time. Initial Sepsis Screen: Does the patient meet any 2 criteria? HR > 90 bpm. No. Patient's initial sepsis screen is negative. Does the patient have a suspected source of infection? No. Patient's initial sepsis screen is negative. Risk Assessment: Do you want to hurt yourself or someone else? Patient reports no desire to harm self or others. Onset of symptoms is unknown. 10:39 Method Of Arrival: Ambulatory ic1 10:39 Acuity: ASIA 3 ic1 Triage Assessment: 10:41 General: Appears in no apparent distress. Behavior is calm, cooperative. Pain: ic1 Complains of pain in abdomen. : Reports cramping, vaginal bleeding that is. 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 - Social history:: Smoking status: Patient reports the use of cigarette tobacco products, "I've gotten down to 3 cigarettes a day. . Screenin:41 Abuse screen: Denies threats or abuse. Denies injuries from another. Nutritional ic1 screening: No deficits noted. Tuberculosis screening: No symptoms or risk factors identified. Fall Risk None identified. Assessment: 12:40 Obstetrical Assessment: Patient reports nausea, abdominal cramping. General: Appears in ic1 no apparent distress. Behavior is calm, cooperative. Pain: Complains of pain in abdomen. Neuro: No deficits noted. Cardiovascular: No deficits noted. Respiratory: No deficits noted. GI: Reports lower abdominal pain, cramping. : Reports cramping, vaginal bleeding that is. EENT: No deficits noted. Derm: No deficits noted. Musculoskeletal: No deficits noted. 12:43 Reassessment: Pt amb to ultrasound. ic1 13:40 Reassessment: Pt provided w peanut butter. States she is hungry and hasn't eaten all ic1 day. Tolerated. Updated on plan of care. Vital Signs: 10:38 BP 123 / 72; Pulse 99; Resp 18; Temp 98.4(O); Pulse Ox 99% ; ic1 15:15 BP 111 / 62; Pulse 88; Resp 16; Pulse Ox 99% on R/A; ic1 ED Course: 10:33 Patient arrived in ED. as 10:40 Triage completed. ic1 10:42 Arm band placed on right wrist. ic1 12:19 Collin Chandra PA is PHCP. cp 12:19 Manjinder Sanders MD is Attending Physician. cp 12:41 Bed in low position. Call light in reach. ic1 12:41 Inserted saline lock: 20 gauge in right antecubital area, using aseptic technique. ic1 Blood collected. 12:42 Urine Microscopic Only Sent. ic1 12:43 Urine --Ancillary Sent. ic1 12:43 Basic Metabolic Panel Sent. ic1 12:43 CBC with Diff Sent. ic1 13:36 Abo/rh Typing Sent. ic1 15:19 IV discontinued, intact, bleeding controlled, No redness/swelling at site. Pressure ic1 dressing applied. Administered Medications: 13:20 Drug: Tylenol 1000 mg Route: PO; ic1 Point of Care Testing: Urine : 15:19 hCG Reading: Positive; Control Reading: Positive; ic1 Outcome: 15:13 Discharge ordered by . cp 15:19 Discharged to home ambulatory. ic1 15:19 Condition: stable 15:19 Discharge instructions given to patient, Instructed on discharge instructions, follow up and referral plans. Demonstrated understanding of instructions, follow-up care, medications, Prescriptions given X 1. 15:19 Patient left the ED. ic1 Signatures: Dispatcher [employer] EDMS Cris Alan Corey, PA PA cp Creggett, Iesha, RN RN ic1 Corrections: (The following items were deleted from the chart) 13:03 13:00 In radiology for Transvaginal Ob+US.RAD.NONA. EDMS EDMS
--- NOTE | 2021-09-12 15:14 | EDPHYS ---
Physician Documentation [facility] Name: Yashira Peters Age: 21 yrs Sex: Female : 2000 Arrival Date: 09/12/2021 Time: 10:33 Bed 12 Private MD: ED Physician Manjinder Sanders HPI: 09/12 11:00 This 21 yrs old Female presents to ER via Ambulatory with complaints of Vaginal cp Bleeding, + Preg <12wks, Pelvic Pain. 11:00 The patient presents to the emergency department with abdominal pain, of the right cp lower quadrant and left lower quadrant, that started 3 day(s) ago, described as crampy, vaginal bleeding, that is light. course: care: private OB physician, Dr. Rockwell, Leakage of Fluid: none appreciated, Ultrasound: the patient had an ultrasound. 11:00 Associated signs and symptoms: Pertinent negatives: chest pain, dysuria, fever, nausea, cp vomiting. 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 - Social history:: Smoking status: Patient reports the use of cigarette tobacco products, "I've gotten down to 3 cigarettes a day. . ROS: 11:05 Constitutional: Negative for body aches, chills, fever, poor PO intake. cp 11:05 Eyes: Negative for injury, pain, redness, and discharge. cp 11:05 ENT: Negative for ear pain, sore throat, difficulty swallowing, difficulty handling secretions. 11:05 Respiratory: Negative for cough, shortness of breath. 11:05 Abdomen/GI: Positive for abdominal cramps, Negative for vomiting, diarrhea, constipation. 11:05 Neuro: Negative for altered mental status, headache, weakness. 11:05 All other systems are negative. Exam: 11:10 Constitutional: The patient appears in no acute distress, alert, awake, comfortable, cp well developed, well nourished. 11:10 Head/Face: Normocephalic, atraumatic. cp 11:10 Cardiovascular: Rate: normal, Rhythm: regular. 11:10 Respiratory: the patient does not display signs of respiratory distress, Respirations: normal, no use of accessory muscles, no retractions, labored breathing, is not present, Breath sounds: are clear throughout, no decreased breath sounds, no stridor, no wheezing. 11:10 Abdomen/GI: Inspection: abdomen appears normal, Palpation: soft, in all quadrants, mild abdominal tenderness, in the suprapubic area, rebound tenderness, is not appreciated, involuntary guarding, is not appreciated. 11:10 Back: CVA tenderness, is absent. Vital Signs: 10:38 BP 123 / 72; Pulse 99; Resp 18; Temp 98.4(O); Pulse Ox 99% ; ic1 15:15 BP 111 / 62; Pulse 88; Resp 16; Pulse Ox 99% on R/A; ic1 MDM: 12:26 Patient medically screened. cp 13:00 Differential diagnosis: STD, ectopic . cp 15:10 Physician consultation: was called at 15:10, was contacted at 15:10, DR Rowena Rockwell, cp disc recordist, who reports patient had US 08-22-2021 showing IUP with gestational age of 7 weeks. 15:13 Data reviewed: vital signs, nurses notes, lab test result(s), radiologic studies, cp ultrasound. 15:13 ED course: VSS. Will discharge patient to home for continued monitoring and to f/u with cp DR Rockwell next week. 09/12 12:20 Order name: Abo/rh Typing; Complete Time: 15:13 cp 09/12 12:20 Order name: Basic Metabolic Panel; Complete Time: 15:13 cp 09/12 12:20 Order name: CBC with Diff; Complete Time: 13:30 cp 09/12 12:31 Order name: Quantitative Hcg; Complete Time: 14:00 cp 09/12 14:00 Interpretation: HCGQ 5361; Reviewed. 09/12 12:38 Order name: Urine Dipstick-Ancillary; Complete Time: 13:30 EDMS 09/12 12:39 Order name: Urine --Ancillary (enter results) eb 09/12 12:20 Order name: IV Saline Lock; Complete Time: 12:43 cp 09/12 12:20 Order name: Labs collected and sent; Complete Time: 12:43 cp 09/12 12:20 Order name: NPO; Complete Time: 12:43 cp 09/12 12:40 Order name: Urine --Ancillary; Complete Time: 15:13 EDMS 09/12 12:40 Order name: Urine Microscopic Only; Complete Time: 14:00 cp 09/12 13:03 Order name: 1St Trimest Single 1St Fetus; Complete Time: 13:30 EDMS 09/12 12:20 Order name: Urine Dipstick-Ancillary (obtain specimen); Complete Time: 12:43 cp 09/12 12:20 Order name: Urine Test (obtain specimen); Complete Time: 12:43 cp Administered Medications: 13:20 Drug: Tylenol 1000 mg Route: PO; ic1 Point of Care Testing: Urine : 15:19 hCG Reading: Positive; Control Reading: Positive; ic1 Disposition: 09/13 07:27 Co-signature as Attending Physician, Manjinder Sanders MD I agree with the assessment and kdr plan of care. Disposition Summary: 09/12/21 15:13 Discharge Ordered Location: Home cp Problem: new cp Symptoms: are unchanged cp Condition: Stable cp Diagnosis - Incomplete spontaneous without complication cp Followup: cp - With: Private Physician - When: 2 - 3 days - Reason: Recheck today's complaints Discharge Instructions: - Discharge Summary Sheet cp - Incomplete Miscarriage cp Forms: - Medication Reconciliation Form cp - Thank You Letter cp - Antibiotic Education cp - Prescription Opioid Use cp Prescriptions: - Ibuprofen 800 mg Oral Tablet - take 1 tablet by ORAL route every 8 hours As needed take with food; 30 tablet; cp Refills: 0, Product Selection Permitted Signatures: Dispatcher [employer] EDMS Manjinder Sanders MD MD kdr Page, Corey, PA PA cp Gale Blum RN RN ic1 Corrections: (The following items were deleted from the chart) 09/12 13:03 12:31 Transvaginal Ob+US.RAD.BRZ ordered. EDMS EDMS
[2021-09-12 15:54] VITALS: TEMP 98.4; O2SAT 99
[2021-09-12 15:55] VITALS: BP 111/62
== END 2021-09-12 15:19 | disposition home or self-care (01) ==
LOC: ER 10:31
DX: O03.4 Incomplete spontaneous abortion without complication (principal); O24.911 Unspecified diabetes mellitus in pregnancy, first trimester; O99.331 Smoking (tobacco) complicating pregnancy, first trimester; F17.210 Nicotine dependence, cigarettes, uncomplicated; Z3A.01 Less than 8 weeks gestation of pregnancy; Z88.1 Allergy status to other antibiotic agents; Z91.040 Latex allergy status; Z91.048 Other nonmedicinal substance allergy status
CPT/HCPCS: 36415; 76801; 80048; 81003; 81015; 81025; 84702; 85025; 86900; 86901; 99284

== ENCOUNTER 2022-05-10 18:30 | Emergency (ER) | payer OTHER ==
--- OUTSIDE RECORDS SUMMARY | 2022-05-10 18:35 | XMS REPORT | Continuity of Care Document ---
:2000 Author Organization [facility] t Address [address] [place] [address] Care Team Providers Name Role Phone Pcp, Patient Does Not Have A Primary Care Physician [id number] GILMA ROCKWELL Attending Clinician Unavailable Gilma Rockwell MD Attending Clinician Doctor Unassigned, [place] Attending Clinician Unavailable Raj Oshea DO Attending Clinician Shea Bacon Attending Clinician Shahid Morales MD Attending Clinician Brook NIETO, Paula Hartmann Attending Clinician Unavailable Payers Payer Name Policy Type Policy Number Effective Date Expiration Date [facility] [id number] 2021 PPO/POS 00:00:00 Problems Condition Condition Condition Status Onset Resolution Last Treating Co mments Source Name Details Category Date Date Treatment Clinician Date Rubella Rubella Disease Active Overview: Univ ers non-immune non-immune 3-20 Formattin ity of status, status, 00:00: g of this [place] antepartum antepartum 00 note Me dical might be Branch different from the original. Address pp Susceptibl Susceptibl Disease Active Overview : Univers e to e to 11-03 Formattin ity of varicella varicella 00:00: [place] of [place] (non-immun (non-immun 00 note Me dical e), e), might be Branch currently currently different from the original. Address pp Multiparit Multiparit Disease Active U nivers y y 11-02 ity of 00:00: [place] 00 Medical Branch History of History of Disease Active Overview : Univers 11-02 Formattin ity of section section 00:00: g of this 00 note Medical might be Branch different [...] Overview : Univers d in d in - Formattin ity of , , 00:00: g of this [place] antepartum antepartum 00 note Me dical might be Branch different from the original. Off of meds [id number] Diabetes Diabetes Disease Active Overview: Un jayden in in - Formattin ity of 00:00: [place] of this [place] 00 note Medical might be Branch different from the original. 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 Allergies, Adverse Reactions, Alerts Allergy Allergy [...] l of [place] latex DA Active MO 2018-0 [facility] l of [place] Latex Propensi Active Hives 2017-0 Univers ty to 6-14 ity of adverse 00:00: [place] reaction 00 Medical s Branch CLINDAMY DRUG Active Hallucinates 2017-0 Un jayden JAVIER INGREDI 6-14 ity of 00:00: [place] 00 Medical Branch LATEX DRUG Active Hives 2017-0 Univers INGREDI 6-14 ity of 00:00: [place] 00 Medical Branch Clindamy Propensi Active Hallucinatio 2017-0 Univers javier ty to ns 6-14 ity of adverse 00:00: [place] reaction 00 Medical s [place] Social History Social Habit Start Date Stop Date Quantity Comments Source ASSERTION 2021-07-15 University of 00:00:[address] [facility] Exposure to Not sure [facility] SARS-CoV-2 (event) [facility] Alcohol intake 2021-08-22 2021-08-22 Ex-drinker University of 00:00:00 00:00:00 (finding) [place] [facility] [place] History [facility] 2020-04-25 2020-04-25 1 University o f Alcohol Std Drinks 00:00:00 00:00:00 [place] [facility] History [facility] 2020-04-25 2020-04-25 1 University o f Alcohol Binge 00:00:00 00:00:00 [place] Medic al Branch History [facility] 2020-04-25 2020-04-25 University o f Alcohol Comment 00:00:00 00:00:00 [place] Med ical Branch Tobacco use and 2020-04-25 2020-04-25 Never used Universit y of exposure 00:00:00 00:00:[address] [facility] Cigarettes smoked 2020-04-25 2020-04-25 Univers ity of current (pack per 00:00:00 00:00:00 ) - Reported Branch Cigarette 2020-04-25 2020-04-25 University of pack-years 00:00:00 00:00:[address] [facility] History SDOH 2020-04-25 2020-04-25 2 University o f Alcohol Frequency 00:00:00 00:00:00 [facility] edical [place] History of tobacco 2017 2017-10-13 Cigarette Smoker University of [facility] 00:00:00 00:00:[address] [facility] Sex Assigned At [birth year] Universit y of 00:00:00 00:00:[address] [facility] Smoking Status Start Date Stop Date Source Current every day 2020-04-25 00:00:00 [facility] smoker [facility] Former smoker 2019-01-16 00:00:00 2019-01-16 00:00:00 [facility] Medications Ordered Filled Start Stop Current Ordering Indication Dosage Frequency Signature Comments Components Source Medication Medication Date Date Medication? Clinician (SIG) Name Name hydrOXYzine 2019-08 Yes [id number] 50mg Take 1 Univers 50 mg 0-25 tablet by ity of tablet 00:00: mouth 3 [place] 00 ([facility]) Medical times [place] daily as needed for Itching. hydrOXYzine 2019-08 Yes [id number] 50mg Take 1 Univers 50 mg 0-25 tablet by ity of tablet 00:00: mouth 3 [place] 00 ([facility]) Medical times [place] daily as needed for Itching. hydrOXYzine 2019-08 Yes [id number] 50mg Take 1 Univers 50 mg 0-25 tablet by ity of tablet 00:00: mouth 3 [place] 00 ([facility]) Medical times [place] daily as needed for Itching. hydrOXYzine 2019-08- No [id number] 50mg Take 1 Univers 50 mg 0-25 -06 tablet by ity of tablet 00:00: 00:00 mouth 3 [place] 00 :00 (three) Medical times Branch daily as needed for Itching. fluconazole 2019- 2020- No [id number] 150mg Take 1 Univers 150 mg 04-25 tablet by ity of tablet 00:00: 04:59 mouth [place] 00 :00 every 48 Medical ([facility] ht) hours for 2 doses. montelukast 2019- Yes [id number] 10mg Take 1 Univers 10 mg 3-16 tablet by ity of tablet 00:00: mouth [place] 00 daily. Medical Branch benzonatate 2019- Yes [id number] 100mg Take 1 Univers 100 mg 3-16 capsule by ity of capsule 00:00: mouth 3 (three) Medical times Branch daily as needed for Cough. montelukast 2020-0 Yes [id number] 10mg Take 1 Univers 10 mg 3-16 tablet by ity of tablet 00:00: mouth [place] 00 daily. Medical Branch benzonatate 2020-0 Yes [id number] 100mg Take 1 Univers 100 mg 3-16 capsule by ity of capsule 00:00: mouth 3 (three) Medical times Branch daily as needed for Cough. montelukast 2020-0 Yes [id number] 10mg Take 1 Univers 10 mg 3-16 tablet by ity of tablet 00:00: mouth [place] 00 daily. Medical Branch benzonatate 2020-0 Yes [id number] 100mg Take 1 Univers 100 mg 3-16 capsule by ity of capsule 00:00: mouth 3 (three) Medical times Branch daily as needed for Cough. montelukast 2020-0 Yes [id number] 10mg Take 1 Univers 10 mg 3-16 tablet by ity of tablet 00:00: mouth 00 daily. Medical Branch benzonatate 2020-0 Yes [id number] 100mg Take 1 Univers 100 mg 3-16 capsule by ity of capsule 00:00: mouth (three) Medical times Branch daily as needed for Cough. montelukast 2020-0 Yes [id number] 10mg Take 1 Univers 10 mg 3-16 tablet by ity of tablet 00:00: mouth [place] 00 daily. Medical Branch benzonatate 2020-0 Yes [id number] 100mg Take 1 Univers 100 mg 3-16 capsule by ity of capsule 00:00: mouth (three) Medical times Branch daily as needed for Cough. montelukast 2020-0 Yes [id number] 10mg Take 1 Univers 10 mg 3-16 tablet by ity of tablet 00:00: mouth [place] 00 daily. Medical Branch benzonatate 2020-0 Yes [id number] 100mg Take 1 Univers 100 mg 3-16 capsule by ity of capsule 00:00: mouth 3 00 (three) Medical times Branch daily as needed for Cough. montelukast 2020-0 Yes [id number] 10mg Take 1 Univers 10 mg 3-16 tablet by ity of tablet 00:00: mouth [place] 00 daily. Medical Branch benzonatate 2020-0 Yes [id number] 100mg Take 1 Univers 100 mg 3-16 capsule by ity of capsule 00:00: mouth 3 00 (three) Medical times Branch daily as needed for Cough. montelukast 2020-0 Yes [id number] 10mg Take 1 Univers 10 mg 3-16 tablet by ity of tablet 00:00: mouth 00 daily. Medical Branch benzonatate 2020-0 Yes [id number] 100mg Take 1 Univers 100 mg 3-16 capsule by ity of capsule 00:00: mouth 3 00 (three) Medical times Branch daily as needed for Cough. montelukast 2020-0 Yes [id number] 10mg Take 1 Univers 10 mg 3-16 tablet by ity of tablet 00:00: mouth 00 daily. Medical Branch benzonatate 2020-0 Yes [id number] 100mg Take 1 Univers 100 mg 3-16 capsule by ity of capsule 00:00: mouth 3 (three) Medical times Branch daily as needed for Cough. blood sugar Yes Glucose Uni vers diagnostic - testing ity of (RELION 00:00: QID [place] PRIME TEST 00 Medical STRIPS) Branch strip blood sugar Yes Glucose Uni vers diagnostic 11-12 testing ity of (RELION 00:00: QID [place] [...] 00 Medical STRIPS) Branch strip insulin NPH 2016-0 Yes [id number] 15U inject 15 Univers 100 unit/mL 9-20 Units ity of injection 00:00: under the [place] as 00 skin every Medical morning Branch and evening. insulin 2016-0 Yes [id number] Take 8 Univ ers regular 9-20 units ity of human 100 00:00: before [place] unit/mL 00 breakfast Medical injection and before Bran ch dinner plus sliding scale insulin NPH 2016-0 Yes [id number] 15U inject 15 Univers 100 unit/mL 9-20 Units ity of injection 00:00: under the [place] 00 skin every Medical morning Branch and evening. insulin 2016-0 Yes [id number] Take 8 Univ ers regular 9-20 units ity of human 100 00:00: before [place] unit/mL 00 breakfast Medical injection and before Bran ch dinner plus sliding scale insulin NPH 2016-0 Yes [id number] 15U inject 15 Univers 100 unit/mL 9-20 Units ity of injection 00:00: under the [place] 00 skin every Medical morning Branch and evening. insulin 2016-0 Yes [id number] Take 8 Univ ers regular 9-20 units ity of human 100 00:00: before [place] unit/mL 00 breakfast Medical injection and before Bran ch dinner plus sliding scale insulin NPH 2016-0 Yes [id number] 15U inject 15 Univers 100 unit/mL 9-20 Units ity of injection 00:00: under the [place] 00 skin every Medical morning Branch and evening. insulin 2016-0 Yes [id number] Take 8 Univ ers regular 9-20 units ity of human 100 00:00: before [place] unit/mL 00 breakfast Medical injection and before Bran ch dinner plus sliding scale insulin NPH 2016-0 Yes [id number] 15U inject 15 Univers 100 unit/mL 9-20 Units ity of injection 00:00: under the [place] 00 skin every Medical morning Branch and evening. insulin 2017-0 Yes [id number] Take 8 Univ ers regular 9-20 units ity of human 100 00:00: before [place] unit/mL 00 breakfast Medical injection and before Bran ch dinner plus sliding scale insulin NPH 2017-0 Yes [id number] 15U inject 15 Univers 100 unit/mL 9-20 Units ity of injection 00:00: under the [place] 00 skin every Medical morning Branch and evening. insulin 2017-0 Yes [id number] Take 8 Univ ers regular 9-20 units ity of human 100 00:00: before [place] unit/mL 00 breakfast Medical injection and before Bran ch dinner plus sliding scale insulin NPH 2017-0 Yes [id number] 15U inject 15 Univers 100 unit/mL 9-20 Units ity of injection 00:00: under the [place] 00 skin every Medical morning Branch and evening. insulin 2017-0 Yes [id number] Take 8 Univ ers regular 9-20 units ity of human 100 00:00: before [place] unit/mL 00 breakfast Medical injection and before Bran ch dinner plus sliding scale insulin NPH 2017-0 Yes [id number] 15U inject 15 Univers 100 unit/mL 9-20 Units ity of injection 00:00: under the [place] 00 skin every Medical morning Branch and evening. insulin 2017-0 Yes [id number] Take 8 Univ ers regular 9-20 units ity of human 100 00:00: before [place] unit/mL 00 breakfast Medical injection and before Bran ch dinner plus sliding scale insulin NPH 2016-0 Yes [id number] 15U inject 15 Univers 100 unit/mL 9-20 Units ity of injection 00:00: under the [place] 00 skin every Medical morning Branch and evening. insulin 2017-0 Yes [id number] Take 8 Univ ers regular 9-20 units ity of human 100 00:00: before [place] unit/mL 00 breakfast Medical injection and before Bran ch dinner plus sliding scale Insulin 2016-0 Yes [id number] Use as Univ ers Syringe-Nee 6-14 directed ity of dle U-100 00:00: [place] (INSULIN 00 Medical SYRINGE) 1 Branch mL 30 gauge x 5/16 Syrg Insulin 2017-0 Yes [id number] Use as Univ ers Syringe-Nee 6-14 directed ity of dle U-100 00:00: [place] (INSULIN 00 Medical SYRINGE) 1 Branch mL 30 gauge x 5/16 Syrg Insulin 2017-0 Yes [id number] Use as Univ ers Syringe-Nee 6-14 directed ity of dle U-100 00:00: [place] (INSULIN 00 Medical SYRINGE) 1 Branch mL 30 gauge x 5/16 Syrg Insulin 2017-0 Yes [id number] Use as Univ ers Syringe-Nee 6-14 directed ity of dle U-100 00:00: [place] (INSULIN 00 Medical SYRINGE) 1 Branch mL 30 gauge x 5/16 Syrg Insulin 2017-0 Yes [id number] Use as Univ ers Syringe-Nee 6-14 directed ity of dle U-100 00:00: [place] (INSULIN 00 Medical SYRINGE) 1 Branch mL 30 gauge x 5/16 Syrg Insulin 2017-0 Yes [id number] Use as Univ ers Syringe-Nee 6-14 directed ity of dle U-100 00:00: [place] (INSULIN 00 Medical SYRINGE) 1 Branch mL 30 gauge x 5/16 Syrg Insulin 2016- Yes [id number] Use as Univ ers Syringe-Nee 6-14 directed ity of dle U-100 00:00: [place] (INSULIN 00 Medical SYRINGE) 1 Branch mL 30 gauge x 5/16 Syrg Insulin 2017- Yes [id number] Use as Univ ers Syringe-Nee 6-14 directed ity of dle U-100 00:00: [place] (INSULIN 00 Medical SYRINGE) 1 Branch mL 30 gauge x 5/16 Syrg Insulin 2016-0 Yes [id number] Use as Univ ers Syringe-Nee 6-14 directed ity of dle U-100 00:00: [place] (INSULIN 00 Medical SYRINGE) 1 Branch mL 30 gauge x 5/16 Syrg Immunizations Ordered Immunization Filled Immunization Date Status Commen ts Source Name Name Rubella 2012-10-01 Completed University of 00:00:[address] [facility] Rubella 2012-10-01 Completed University of 00:00:[address] [facility] Rubella 2012-10-01 Completed University of 00:00:[address] [facility] Rubella 2012-10-01 Completed University of 00:00:[address] [facility] Rubella 2012-10-01 Completed University of 00:00:[address] [facility] Rubella 2012-10-01 Completed University of 00:00:[address] [facility] Rubella 2012-10-01 Completed University of 00:00:[address] [facility] Rubella 2012-10-01 Completed University of 00:00:[address] [facility] Rubella 2012-10-01 Completed University of 00:00:[address] [facility] Varicella 2012-09-09 Completed University of (varivax)(chicken 00:00:00 [place] M edical pox) Branch Varicella 2012-09-09 Completed University of (varivax)(chicken 00:00:00 [facility] edical pox) Branch Varicella 2012-09-09 Completed University [...] Branch TDAP 2012-04-07 Completed University of 00:00:[address] [facility] TDAP 2012-04-07 Completed University of 00:00:[address] [facility] TDAP 2012-04-07 Completed University of 00:00:[address] [facility] TDAP 2012-04-07 Completed University of 00:00:[address] [facility] TDAP 2012-04-07 Completed University of 00:00:[address] [facility] Tdap 2012-04-07 Completed University of 00:00:[address] [facility] Tdap 2012-04-07 Completed University of 00:00:[address] [facility] Tdap 2012-04-07 Completed University of 00:00:[address] [facility] TDAP 2012-04-07 Completed University of 00:00:[address] [facility] Meningococcal 2010-04-02 Completed University of Polysaccharide 00:00:00 [place] Medi anshu (groups A, C, Y and Branc h W-135) conjugate vaccine (MCV4P) Meningococcal 2010-04-02 Completed University of Polysaccharide 00:00:00 [place] Medi anshu (groups A, C, Y and Branc h W-135) conjugate vaccine (MCV4P) Meningococcal 2010-04-02 Completed University of Polysaccharide 00:00:00 [place] Medi anshu (groups A, C, Y and [...] 2010-04-02 Completed University of Polysaccharide 00:00:00 [place] Medi anshu (groups A, C, Y and Branc h W-135) conjugate vaccine (MCV4P) Meningococcal 2010-04-02 Completed University of Polysaccharide 00:00:00 [place] Medi anshu (groups A, C, Y and Branc h W-135) conjugate vaccine (MCV4P) Varicella 1999-08-21 Completed University of (varivax)(chicken 00:00:00 [place] M edical pox) Branch Varicella 1999-08-21 Completed University of (varivax)(chicken 00:00:00 [place] M edical pox) Branch DTAP 1998 Completed University of 00:00:[address] [facility] Polio (IPV/OPV) 1998 Completed Universit y of 00:00:[address] [facility] DTAP 1998 Completed University of 00:00:[address] [facility] Polio (IPV/OPV) 1998 Completed Universit y of 00:00:[address] [facility] DTAP 1998 Completed University of 00:00:[address] [facility] Polio (IPV/OPV) 1998 Completed Universit y of 00:00:[address] [facility] DTAP 1998 Completed University of 00:00:[address] [facility] Polio (IPV/OPV) 1998 Completed Universit y of 00:00:[address] [facility] DTAP 1998 Completed University of 00:00:00 [place] [facility] Polio (IPV/OPV) 1998 Completed Universit y of 00:00:00 [place] [facility] DTAP 1998 Completed University of 00:00:00 [place] [facility] Polio (IPV/OPV) 1998 Completed Universit y of 00:00:00 [facility] Branch DTAP 1998 Completed University of 00:00:00 [place] [facility] Polio (IPV/OPV) 1998 Completed Universit y of 00:00:00 [place] [facility] DTAP 1998 Completed University of 00:00:00 [place] [facility] Polio (IPV/OPV) 1998 Completed Universit y of 00:00:00 [facility] Branch DTAP 1998 Completed University of 00:00:00 [place] [facility] Polio (IPV/OPV) 1998 Completed Universit y of 00:00:00 [facility] Branch HIB 4 Dose Schedule 1998 Completed [...] Completed Unive rsity of Dosage 00:00:00 [place] [facility] Hep B, Adol or Pedi 1998 Completed Unive rsity of Dosage 00:00:00 [place] [facility] Hep B, Adol or Pedi 1998 Completed Unive rsity of Dosage 00:00:00 [place] [facility] Hep B, Adol or Pedi 1998 Completed Unive rsity of Dosage 00:00:00 [place] [facility] Hep B, Adol or Pedi 1998 Completed Unive rsity of Dosage 00:00:00 [place] [facility] Hep B, Adol or Pedi 1998 Completed Unive rsity of Dosage 00:00:00 [place] [facility] Hep B, Adol or Pedi 1998 Completed Unive rsity of Dosage 00:00:00 [place] [facility] Hep B, Adol or Pedi 1998 Completed Unive rsity of Dosage 00:00:00 [place] [facility] Hep B, Adol or Pedi 2000 Completed Unive rsity of Dosage 00:00:[address] [facility] Vital Signs Vital Name Observation Time Observation Value Comments Source Systolic blood 2021-08-22 20:55:00 117 mm[Hg] Univer sity of pressure [facility] Diastolic blood 2021-08-22 20:55:00 76 mm[Hg] Unive rsity of pressure [facility] Heart rate 2021-08-22 20:55:00 82 /min [facility] Body temperature 2021-08-22 20:55:00 36.89 Steffany [facility] Respiratory rate 2021-08-22 20:55:00 18 /min [facility] Body height 2021-08-22 20:55:00 162.6 cm [facility] Body weight 2021-08-22 20:55:00 64.864 kg [facility] BMI 2021-08-22 20:55:00 24.55 kg/m2 [facility] Systolic blood 2020-06-10 17:49:00 124 mm[Hg] Univer sity of pressure [facility] Diastolic blood 2020-06-10 17:49:00 95 mm[Hg] Unive rsity of pressure [facility] Heart rate 2020-06-10 17:49:00 100 /min [facility] Body temperature 2020-06-10 17:49:00 36.56 [facility] 2020-06-10 17:49:00 18 /min [facility] Body height 2020-06-10 17:49:00 160 cm Universi ty of [place] [facility] Body weight 2020-06-10 17:49:00 58.968 kg Universi ty of [place] [facility] BMI 2020-06-10 17:49:00 23.03 kg/m2 Universi ty of [place] [facility] Oxygen saturation in 2020-06-10 17:49:00 98 /min University of Arterial blood by [facility] Pulse oximetry Branch Systolic blood 2019-10-31 23:20:00 135 mm[Hg] Univer sity of pressure [place] [facility] Diastolic blood 2019-10-31 23:20:00 87 mm[Hg] Unive rsity of pressure [place] [facility] Heart rate 2019-10-31 23:20:00 104 /min Universi ty of [place] [facility] Body temperature 2019-10-31 23:20:00 36.67 Steffany Univ ersity of [place] [facility] Respiratory rate 2019-10-31 23:20:00 17 /min Univ ersity of [place] [facility] Body height 2019-10-31 23:20:00 157.5 cm Universi ty of [place] [facility] Body weight 2019-10-31 23:20:00 61.689 kg Universi ty of [place] [facility] BMI 2019-10-31 23:20:00 24.87 kg/m2 Universi ty of [place] [facility] Oxygen saturation in 2019-10-31 23:20:00 100 /min University of Arterial blood by [facility] Pulse oximetry Branch Systolic blood 2019-10-31 23:20:00 135 mm[Hg] Univer sity of pressure [place] [facility] Diastolic blood 2019-10-31 23:20:00 87 mm[Hg] Unive rsity of pressure [place] [facility] Heart rate 2019-10-31 23:20:00 104 /min Universi ty of [place] [facility] Body temperature 2019-10-31 23:20:00 36.67 Steffany Univ ersity of [place] [facility] Respiratory rate 2019-10-31 23:20:00 17 /min Univ ersity of [place] [facility] Body height 2019-10-31 23:20:00 157.5 cm Universi ty [facility] [place] [facility] Body weight 2019-10-31 23:20:00 61.689 kg Universi ty of [place] [facility] BMI 2019-10-31 23:20:00 24.87 kg/m2 Universi ty of [place] [facility] Oxygen saturation in 2019-10-31 23:20:00 100 /min [facility] blood by [facility] Pulse oximetry Branch Procedures Procedure Date / Time Performed Performing Clinician Denise e <14 WEEKS US 2021-08-23 00:11:02 Gilma Rockwell [facility] Medical [place] ASSIGNMENT OF BENEFITS 2021-08-22 20:32:41 Doctor Unassigned, No [facility] Name Medical [place] POCT TEST 2021-08-22 00:00:00 Gilma Rockwell [facility] POCT URINALYSIS W/O 2021-08-22 00:00:00 Gilma Rockwell [facility] SPECIFIC GRAVITY [facility] CONSENT/REFUSAL FOR 2020-04-25 18:01:24 Doctor Unassigned, No Un iversity of [place] DIAGNOSIS AND Name [facility] TREATMENT CONSENT/REFUSAL FOR 2019-10-31 23:06:08 [facility] TREATMENT NOTICE OF PRIVACY 2019-10-31 23:05:51 Doctor Unassigned, No Univ [facility] Encounters Start End Encounter Admission Attending Care Care Encounter Source Date/Time Date/Time Type Type Clinicians Facility Department ID 2021-06-15 Emergency [facility] [id number] Univers 00:54:29 ity [facility] 2021-06-13 Emergency [facility] [id number] [facility] 2021-08-22 Outpatient R VIR[place] ROCKWELLN [facility] [id number] Univers 14:30:00 16:44:35 ity [facility] 2021-08-22 2021-08-22 Initial [place] Rockwelln [facility] [id number] Univers 14:30:00 16:44:35 ABDIAS [id number] i ty of Visit WOMEN'S [id number] [facility] [id number] [facility] 134 Branch 2021-08-22 2021-08-22 Outpatient R [place]IR[place] ROCKWELLN [facility] [id number] Univers 14:30:00 14:30:00 [id number] ity [facility] 2021-08-22 2021-08-22 Orders Doctor MADYSON [id number] Univers 00:00:00 00:00:00 Only Unassigned, LISSETH [id number] ity of [place] [facility] [id number] Ronny as [phone] [facility] [address] [place] 2021-08-12 2021-08-12 Outpatient R GILMA ROCKWELL [facility] [id number] Univers 08:30:00 08:30:00 [id number]y of [facility] 2020-11-06 2020-11-06 [facility] [id number] Univers 00:00:00 00:00:00 Outreach Raj KIA [id number] i ty of [facility] [place]7.2.[place] [phone] [address] 2020-06-10 2020-06-10 Emergency [facility] 1.2.840.114 [id number] Univers 12:51:00 14:02:00 Shea Pauly 350.1.13.10 [place] [phone] [facility] [address] [place] 2020-04-27 2020-04-27 Telephone Gilma Rockwell [facility] 1.2.840.114 [id number] 00:00:00 00:00:00 [place] [id number] [place] 4.2.7.2.686 Professio [phone] [address] 2020-04-27 2020-04-27 Telephone Gilma Rockwell [facility] 1.2.840.114 [id number] Univers 00:00:00 00:00:00 [place] [id number] [place] [phone] [address] 2020-04-25 2020-04-25 Outpatient R GILMA ROCKWELL [facility] [id number] Univers 13:00:00 13:00:[id number] of [facility] 2020-04-25 2020-04-25 Outpatient R GILMA ROCKWELL [facility] [id number] [facility] 13:00:00 13:00:[address] [facility] 2020-04-25 2020-04-25 Orders Doctor MADYSON 1.2.840.114 [id number] 00:00:00 00:00:00 Only Unassigned, LISSETH 350.1.13.10 [place] [facility] [phone] 009 2020-04-25 2020-04-25 Orders Doctor MADYSON 1.2.840.114 [id number] Univers 00:00:00 00:00:00 Only Unassigned, LISSETH 350.1.13.10 ity of [place] [facility] [id number] Ronny as [phone] [facility] [address] [place] 2019-11-10 2019-11-10 Sonali Morales [facility] 1.2.840.114 [id number] Univers 00:00:00 00:00:00 (Out) Shahid Coats 350.1.13.10 i ty of [place] 4.2.7.2.686 [facility] [phone] [facility] [address] [place] [address] 2019-11-10 2019-11-10 Sonali Morales [facility] 1.2.840.114 [id number] 00:00:00 00:00:00 (Out) Shahid Coats [id number] [place] 4.2.7.2.686 [place] [phone] [facility] 2019-11-05 2019-11-05 MADYSON Bell 1.2.840.114 [id number] Univers 00:00:00 00:00:00 Triage Paula Hartmann LISSETH 350.1.13.10 i ty of [facility] [id number] [place] [phone] [facility] [address] [place] 2019-11-05 2019-11-05 MADYSON Bell 1.2.840.114 [id number] 00:00:00 00:00:00 Triage Paula A LISSETH [id number] [facility] 4.2.7.2.686 [phone] 019 2019-10-31 2019-10-31 Emergency Andrew [facility] [id number] Univers 18:21:01 18:54:00 Shahid Coats 350.1.13.10 i ty of [place] 4.2.7.2.686 [facility] [phone] [facility] anshu [address] [place] 2019-10-31 2019-10-31 Emergency Andrew [facility] 1.2.261.513 [id number] 18:21:01 18:54:00 Shahid Coats 350.1.13.10 [place] 4.2.7.2.686 [place] [phone] 084 Results Test Description Test Time Test [...] code = 3257) n/a Negative [id number] 21:15[facility]00 Test Item Value Reference Range Interpretation Comments POCT PREG (test code = 1605) Positive On board controls acceptable with C Yes Line (test code = 3574) POCT PREG LOT # (test code = 3575) POCT PREG TEST DATE (test code = 3576) [facility] [id number] 13:07:00 RUN DATE: 05/17/18 [facility] PAGE 1 RUN TIME: 1810 Specimen Inquiry RUN USER: INTERFACE --PATIENT: JULIA KEENE LOC: A[place]IS U #: [id number] AGE/SX: 18/ ROOM: [facility] RE05/11/18REG DR: Jhon Cuevas MD : 98 BED: A DIS: 05/15/18 STATUS: DIS IN TLOC: SPEC #: [id number] RECD: 05/11/18 STATUS: DELROY RE #: [id number] MATI: 05/11/18- SUBM DR: Jhon Cuevas MD ENTERED: 05/12/18-755 SP TYPE: PLACIII OT DR: ORDERED: LEVEL V SURGICA CODES: UF4505 - PLACENTA, NOS PROCEDURES: LEVEL V SURGICA [...] 478 gm Tissue code: 1 CPT Code: 93102 anabelle/derik 05/17/18 @ 1255 GROSS DESCRIPTION The specimen was received in a container labeled with the patient's name, unit number, and designated "placenta". The following attributes areobserved: Cord insertion: Velamentous umbilical cord inserts into the membrane, 2 cm from the placental margin Cord length: 17 cm Number of vessels: 3 Cord color: Blue-smith Other cord findings: Increased twists, 10 twists / 10 cm surface findings: Steel blue, wrinkled, glistening and contains small pieces of off-white, caseous material (in A) Vasculature: Displays unremarkable blood vasculatureMembranes rupture site: 0 cm to margin Membrane color: Smith Other membrane findings: Thickened opaque CONTINUED ON NEXT PAGE RUN DATE: 05/17/18 [facility] PAGE 2 RUN TIME: 1810 Specimen Inquiry RUN USER: INTERFACE SPEC #: [id number] PATIENT: JULIA KEENE #[id number] (Continued) GROSS DESCRIPTION (Continued) The trimmed placental [...] edema are present near the basal plate. anabelle/derik10 @ 1255 Signed Jewel Salmeron 05/17/18 1307 END OF REPORT
[2022-05-10] MEDS ORDERED: FLUORESCEIN SODIUM 1 MG/WRAP ONE (19:10)
[2022-05-10] MEDS ORDERED: TETRACAINE HCL 0.5% 4ML OPTH ONE (19:10)
--- NOTE | 2022-05-10 19:51 | ER ---
Nurse's Notes [facility] Name: Yashira Peters Age: 22 yrs Sex: Female : 2000 Arrival Date: 05/10/2022 Time: 18:33 Bed 12 Private MD: Diagnosis: Unspecified acute conjunctivitis, bilateral Presentation: 05/10 18:44 Chief complaint: Bilateral eye pain and redness after removing contacts 4 days ago. hb Coronavirus screen: At this time, the client does not indicate any symptoms associated with coronavirus-19. Ebola Screen: No symptoms or risks identified at this time. Risk Assessment: Do you want to hurt yourself or someone else? Patient reports no desire to harm self or others. Onset of symptoms was May 06, 2022. 18:44 Method Of Arrival: Ambulatory hb 18:44 Acuity: ASIA 4 hb 19:06 Initial Sepsis Screen: Does the patient meet any 2 criteria? No. Patient's initial hb sepsis screen is negative. Does the patient have a suspected source of infection? No. Patient's initial sepsis screen is negative. Triage Assessment: 18:45 General: Appears in no apparent distress. uncomfortable, Behavior is calm, cooperative. hb Pain: Pain currently is 8 out of 10 on a pain scale. EENT: Eyes are tearing on inner aspect of conjuctiva of right eye and inner aspect of conjunctiva of left eye Sclera/Cornea are reddened in outer aspect of conjuctiva of right eye, inner aspect of conjuctiva of right eye, outer aspect of conjuctiva of left eye and inner aspect of conjunctiva of left eye. Neuro: Level of Consciousness is awake, alert, obeys commands, Oriented to person, place, time, situation. Cardiovascular: Patient's skin is warm and dry. Respiratory: Respiratory effort is even, unlabored, Respiratory pattern is regular, symmetrical. 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 - Social history:: Smoking status: Patient reports the use of cigarette tobacco products, smokes one-half pack cigarettes per day. Screenin:06 Abuse screen: Denies threats or abuse. Denies injuries from another. Nutritional hb screening: No deficits noted. Tuberculosis screening: No symptoms or risk factors identified. Fall Risk None identified. Assessment: 19:06 General: SEE TRIAGE ASSESSMENT. hb Vital Signs: 18:44 BP 143 / 94; Pulse 88; Resp 16; Temp 97.1; Pulse Ox 100% on R/A; Weight 61.23 kg; hb Height 5 ft. 4 in. (162.56 cm); Pain 8/10; 18:44 Body Mass Index 23.17 (61.23 kg, 162.56 cm) hb Visual Acuity: 19:05 Left Eye Visual acuity 20/70, ; Right Eye Visual acuity 20/30, ; Both Eyes Visual hb acuity 20/20; With Lenses; ED Course: 18:33 Patient arrived in ED. mr 18:42 Alla Mckeon FNP-C is [facility]. kb 18:42 Tacho Greene MD is Attending Physician. kb 18:45 Triage completed. hb 18:46 Arm band placed on. hb 19:06 Patient has correct armband on for positive identification. hb 19:14 Elsa Gage, RN is Primary Nurse. hb 19:45 Assist provider with eye exam using fluorescein stain, Performed by Alla CARLIN Patient tolerated well. 19:45 Patient did not have IV access during this emergency room visit. kb3 Administered Medications: 19:54 Drug: Tetracaine Drops 0.5 % 1 drops {Note: Given by provider during exam.} Route: kb3 Ophthalmic; Site: both eyes; Medication: 19:06 VIS not applicable for this client. hb Outcome: 19:51 Discharge ordered by . kb 20:05 Discharged to home ambulatory. kb3 20:05 Condition: stable 20:05 Discharge instructions given to patient, Instructed on discharge instructions, follow up and referral plans. Demonstrated understanding of instructions, follow-up care. 20:06 Patient left the ED. kb3 Signatures: Alla Mckeon FNP-C FNP-Marybeth Kinney mr Elsa Gage, RN RN hb Yahaira, Chante, RN RN kb3
--- NOTE | 2022-05-10 19:51 | EDPHYS ---
Physician Documentation [facility] Name: Yashira Peters Age: 22 yrs Sex: Female : 2000 Arrival Date: 05/10/2022 Time: 18:33 Bed 12 Private MD: ED Physician Tacho Greene HPI: 05/10 19:53 This 22 yrs old Female presents to ER via Ambulatory with complaints of Redness of Eye. kb 20:28 The patient is experiencing matting or discharge, pain, redness, The patient sustained kb None. to both eyes, caused by an unknown mechanism. Onset: The symptoms/episode began/occurred 5 day(s) ago. Duration: the symptoms are continuous. Aggravated by light, Alleviated by nothing. Associated signs and symptoms: Pertinent positives: None. Patient wears soft contacts. Severity of symptoms: At their worst the symptoms were moderate in the emergency department the symptoms are unchanged. The patient has not experienced similar symptoms in the past. The patient has not recently seen a physician. Pt reports pain, redness and thick discharge from both eyes that started after taking contacts out 5 days ago. 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 - Social history:: Smoking status: Patient reports the use of cigarette tobacco products, smokes one-half pack cigarettes per day. ROS: 19:53 Constitutional: Negative for fever, chills, and weight loss. kb 19:53 Eyes: Positive for discharge, pain, photophobia, redness. 19:53 All other systems are negative. Exam: 19:52 Constitutional: This is a well developed, well nourished patient who is awake, alert, kb and in no acute distress. Head/Face: Normocephalic, atraumatic. ENT: Moist Mucous membranes Cardiovascular: Regular rate and rhythm with a normal S1 and S2. No gallops, murmurs, or rubs. No pulse deficits. Respiratory: Respirations even and unlabored. No increased work of breathing. Talking in full sentences Skin: Warm, dry with normal turgor. Normal color. MS/ Extremity: Pulses equal, no cyanosis. Neurovascular intact. Full, normal range of motion. Neuro: Awake and alert, GCS 15, oriented to person, place, time, and situation. Moves all extremities. Normal gait. Psych: Awake, alert, with orientation to person, place and time. Behavior, mood, and affect are within normal limits. 19:52 Eyes: Periorbital structures: appear normal, Pupils: equal, round, and reactive to light and accomodation, Extraocular movements: intact throughout, Conjunctiva: exudate, bilaterally, injected, bilaterally, Corneas: abrasion, is not appreciated, foreign body, is not appreciated, a fluorescein strip employed to appreciate the findings. Vital Signs: 18:44 BP 143 / 94; Pulse 88; Resp 16; Temp 97.1; Pulse Ox 100% on R/A; Weight 61.23 kg; hb Height 5 ft. 4 in. (162.56 cm); Pain 8/10; 18:44 Body Mass Index 23.17 (61.23 kg, 162.56 cm) hb Visual Acuity: 19:05 Left Eye Visual acuity 20/70, ; Right Eye Visual acuity 20/30, ; Both Eyes Visual hb acuity 20/20; With Lenses; MDM: 18:42 Patient medically screened. kb 19:52 Data reviewed: vital signs, nurses notes. Data interpreted: Pulse oximetry: on room air kb is 100 %. Interpretation: normal. Counseling: I had a detailed discussion with the patient and/or guardian regarding: the historical points, exam findings, and any diagnostic results supporting the discharge/admit diagnosis, the need for outpatient follow up, an opthalmologist, to return to the emergency department if symptoms worsen or persist or if there are any questions or concerns that arise at home. 20:29 ED course: Pt educated to follow up with ophthalmology for continued symptoms and to kb discontinue use of contacts until complete resolution of symptoms. 05/10 18:47 Order name: Eye Tray; Complete Time: 19:00 kb 05/10 18:47 Order name: Fluoresene Opth strip; Complete Time: 19:00 kb 05/10 18:47 Order name: Visual Acuity; Complete Time: 19:05 kb Administered Medications: 19:54 Drug: Tetracaine Drops 0.5 % 1 drops {Note: Given by provider during exam.} Route: kb3 Ophthalmic; Site: both eyes; Disposition: 05/11 07:03 Co-signature as Attending Physician, Tacho Greene MD. rn Disposition Summary: 05/10/22 19:51 Discharge Ordered Location: Home kb Condition: Stable kb Diagnosis - Unspecified acute conjunctivitis, bilateral kb Followup: kb - With: Emergency Department - When: As needed - Reason: Worsening of condition Followup: kb - With: Private Physician - When: 2 - 3 days - Reason: Recheck today's complaints, Continuance of care, Re-evaluation by your physician Discharge Instructions: - Discharge Summary Sheet kb - Bacterial Conjunctivitis, Adult, [id number] kb Forms: - Medication Reconciliation Form kb - Thank You Letter kb - Antibiotic Education kb - Prescription Opioid Use kb - Family Work Release kb3 Signatures: Alla Mckeon, HAT CLEANER-C HAT CLEANER-Ckb Tacho Greene MD MD rn Baxter, Heather, RN RN hb Bradberry, Kelly, EMILIA RN kb3
[2022-05-12 06:06] VITALS: BP 143/94; TEMP 97.1; O2SAT 100
== END 2022-05-10 20:06 | disposition home or self-care (01) ==
LOC: ER 18:30
DX: H10.33 Unspecified acute conjunctivitis, bilateral (principal); F17.210 Nicotine dependence, cigarettes, uncomplicated; E11.9 Type 2 diabetes mellitus without complications; Z79.4 Long term (current) use of insulin
CPT/HCPCS: 99283

== ENCOUNTER 2022-08-02 20:52 | Inpatient (IN) | payer OTHER ==
--- OUTSIDE RECORDS SUMMARY | 2022-08-02 20:57 | XMS REPORT | Continuity of Care Document ---
:2000 Author Organization [facility] t Address [address] [place] [address] Care Team Providers Name Role Phone Pcp, Patient Does Not Have A Primary Care Physician [id number] BENSON BARRETT Attending Clinician Unavailable Doctor Unassigned, [place] Attending Clinician Unavailable GILMA ROCKWELL Attending Clinician Unavailable Gilma Rockwell MD Attending Clinician Raj Oshea DO Attending Clinician Shea Bacon Attending Clinician Shahid Morales MD Attending Clinician Brook NIETO, Paula Hartmann Attending Clinician Unavailable Payers Payer Name Policy Type Policy Number Effective Date Expiration Date S ource Problems Condition Condition Condition Status Onset Resolution Last Treating Co mments Source Name Details Category Date Date Treatment Clinician Date Rubella Rubella Disease Active Overview: Univ ers non-immune non-immune - Formattin ity of status, status, 00:00: g [...] of section section 00:00: g of this [place] 00 note Medical might be Branch different [...] different from the original. Off of meds r3ldpcc Diabetes Diabetes Disease Active Overview: Un jayden in in - Formattin ity of 00:00: g of this [place] 00 note Medical might be Branch different from the original. 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 Allergies, Adverse Reactions, Alerts Allergy Allergy [...] ity of 00:00: [place] 00 Medical Branch Penicill Propensi Active Other - See 2019-08 Patient Univers ins ty to comments 0-25 is ity of adverse 00:00: unsure, [place] reaction 00 she Medical s remembers Branch seeing it on paperwork when she was when she was "very sick" latex DA Active MO 2018-0 [facility] [place] latex DA Active MO 2018-0 [facility] [place] Latex Propensi Active Hives 2017-0 Univers ty [...] 00:00: [place] reaction 00 Medical s Branch Social History Social Habit Start Date Stop Date Quantity Comments Source ASSERTION 2021-07-15 University of 00:00:00 [facility] Exposure to Not sure [place] of SARS-CoV-2 (event) [facility] Alcohol intake 2022-06-30 2022-06-30 Ex-drinker [place] of 00:00:00 00:00:00 (finding) [facility] Tobacco use and 2021-08-22 2021-08-22 Smokeless Universit y of exposure 00:00:00 00:00:00 tobacco non-user [facility] dical [place] Cigarettes smoked 2021-08-22 2021-08-22 Univers ity of current (pack per 00:00:00 00:00:00 ) - Reported Branch History [facility] 2020-04-25 2020-04-25 1 University o f Alcohol Std Drinks 00:00:00 00:00:00 [place] [facility] History [facility] 2020-04-25 2020-04-25 1 University o f Alcohol Binge 00:00:00 00:00:00 [place] [facility] History [facility] 2020-04-25 2020-04-25 University o f Alcohol Comment 00:00:00 00:00:00 [place] Med ical Branch Cigarette 2020-04-25 2020-04-25 University of pack-years 00:00:00 00:00:00 [facility] History SDOH 2020-04-25 2020-04-25 2 University o f Alcohol Frequency 00:00:00 00:00:00 [facility] edical Branch History of tobacco 2017 2017-10-13 Cigarette Smoker University of use 00:00:00 00:00:00 [facility] Sex Assigned At [birth year] Universit y of 00:00:00 00:00:00 [facility] Smoking Status Start Date Stop Date Source Smokes tobacco daily 2021-08-22 00:00:00 Univers ity [facility] Former smoker 2019-01-16 00:00:00 2019-01-16 00:00:00 Universi ty [facility] Medications Ordered Filled Start Stop Current Ordering Indication Dosage Frequency Signature Comments Components Source Medication Medication Date Date Medication? Clinician (SIG) Name Name hydrOXYzine 2019-08 Yes [id number] 50mg Take 1 Univers 50 mg 0-25 tablet by ity of tablet 00:00: mouth 3 00 (three) Medical times Branch daily as needed for Itching. hydrOXYzine 2019-08 Yes [id number] 50mg Take 1 Univers 50 mg 0-25 tablet by ity of tablet 00:00: mouth 3 [place] 00 (three) Medical times Branch daily as needed for Itching. hydrOXYzine 2019-08 Yes [id number] 50mg Take 1 Univers 50 mg 0-25 tablet by ity of tablet 00:00: mouth 3 [place] 00 (three) Medical times Branch daily as needed for Itching. hydrOXYzine 2019-08- No [id number] 50mg Take 1 Univers 50 mg 0-25 08-22 tablet by ity of tablet 00:00: 00:00 mouth 3 [place] 00 :00 (three) Medical times Branch daily as needed for Itching. fluconazole 2019-2019- No [id number] 150mg Take 1 Univers 150 mg 04-25 tablet by ity of tablet 00:00: 04:59 mouth [place] 00 :00 every 48 Medical (forty-ei Branch ht) hours for 2 doses. montelukast Yes [id number] 10mg Take 1 Univers 10 mg 3-16 tablet by ity of tablet 00:00: mouth [place] 00 daily. Medical Branch benzonatate 2020-0 Yes [id number] 100mg Take 1 Univers 100 mg 3-16 capsule by ity of capsule 00:00: mouth 3 (three) Medical times Branch daily as needed for Cough. montelukast 2020-0 Yes [id number] 10mg Take 1 Univers 10 mg 3-16 tablet by ity of tablet 00:00: mouth [place] 00 daily. Medical Branch benzonatate 2020-0 Yes [id number] 100mg Take 1 Univers 100 mg 3-16 capsule by ity of capsule 00:00: mouth 3 00 (three) Medical times Branch daily as needed for Cough. montelukast 2020-0 Yes [id number] 10mg Take 1 Univers 10 mg 3-16 tablet by ity of tablet 00:00: mouth [place] 00 daily. Medical Branch benzonatate 2020-0 Yes [id number] 100mg Take 1 Univers 100 mg 3-16 capsule by ity of capsule 00:00: mouth 3 (three) Medical times Branch daily as needed for Cough. montelukast 2020-0 Yes [id number] 10mg Take 1 Univers 10 mg 3-16 tablet by ity of tablet 00:00: mouth [place] 00 daily. Medical Branch benzonatate 2020-0 Yes [id number] 100mg Take 1 Univers 100 mg 3-16 capsule by ity of capsule 00:00: mouth 3 00 (three) Medical times Branch daily as needed for Cough. montelukast 2020-0 Yes [id number] 10mg Take 1 Univers 10 mg 3-16 tablet by ity of tablet 00:00: mouth [place] 00 daily. Medical Branch benzonatate 2020-0 Yes [id number] 100mg Take 1 Univers 100 mg 3-16 capsule by ity of capsule 00:00: mouth 3 00 (three) Medical times Branch daily as needed for Cough. montelukast 2020-0 Yes [id number] 10mg Take 1 Univers 10 mg 3-16 tablet by ity of tablet 00:00: mouth [place] 00 daily. Medical Branch benzonatate 2020-0 Yes [id number] 100mg Take 1 Univers 100 mg 3-16 capsule by ity of capsule 00:00: mouth 3 00 (three) Medical times Branch daily as needed for Cough. montelukast 2020-0 Yes [id number] 10mg Take 1 Univers 10 mg 3-16 tablet by ity of tablet 00:00: mouth [place] 00 daily. Medical Branch benzonatate 2020-0 Yes [id number] 100mg Take 1 Univers 100 mg 3-16 capsule by ity of capsule 00:00: mouth 3 (three) Medical times Branch daily as needed for Cough. montelukast 2020-0 Yes [id number] 10mg Take 1 Univers 10 mg 3-16 tablet by ity of tablet 00:00: mouth [place] 00 daily. Medical Branch benzonatate 2020-0 Yes [id number] 100mg Take 1 Univers 100 mg 3-16 capsule by ity of capsule 00:00: mouth 3 00 (three) Medical times Branch daily as needed for Cough. montelukast 2020-0 Yes [id number] 10mg Take 1 Univers 10 mg 3-16 tablet by ity of tablet 00:00: mouth [place] 00 daily. Medical Branch benzonatate 2020-0 Yes [id number] 100mg Take 1 Univers 100 mg 3-16 capsule by ity of capsule 00:00: mouth (three) Medical times Branch daily as needed for Cough. montelukast 2020-0 Yes [id number] 10mg Take 1 Univers 10 mg 3-16 tablet by ity of tablet 00:00: mouth [place] 00 daily. Medical Branch benzonatate 2020-0 Yes [id number] 100mg Take 1 Univers 100 mg 3-16 capsule by ity of capsule 00:00: mouth 3 (three) Medical times Branch daily as needed for Cough. montelukast 2020-0 Yes [id number] 10mg Take 1 Univers 10 mg 3-16 tablet by ity of tablet 00:00: mouth 00 daily. Medical Branch benzonatate 2020-0 Yes [id number] 100mg Take 1 Univers 100 mg 3-16 [...] Medical STRIPS) Branch strip insulin NPH Yes [id number] 15U inject 15 Univers 100 unit/mL 9-20 Units ity of injection 00:00: under the [place] as 00 skin every Medical morning Branch and evening. insulin 2016-0 Yes [id number] Take 8 Univ ers regular 9-20 units ity of human 100 00:00: before [place] unit/mL 00 breakfast Medical injection and before Bran ch dinner plus sliding scale insulin NPH 2016- Yes [id number] 15U inject 15 Univers 100 unit/mL 9-20 Units ity of injection 00:00: under the [place] 00 skin every Medical morning Branch and evening. insulin 2017-0 Yes [id number] Take 8 Univ ers regular 9-20 units ity of human 100 00:00: before [place] unit/mL 00 breakfast Medical injection and before Bran ch dinner plus sliding scale insulin NPH 2016-0 Yes [id number] 15U inject 15 Univers 100 unit/mL 9-20 Units ity of injection 00:00: under the [place] 00 skin every Medical morning Branch and evening. insulin 2016-0 Yes [id number] Take 8 Univ ers regular 9-20 units ity of human 100 00:00: before [place] unit/mL 00 breakfast Medical injection and before Bran ch dinner plus sliding scale insulin NPH 2017-0 Yes [id number] 15U inject 15 Univers 100 unit/mL 9-20 Units ity of injection 00:00: under the [place] 00 skin every Medical morning Branch and evening. insulin 2017-0 Yes [id number] Take 8 Univ ers regular 9-20 units ity of human 100 00:00: before [place] unit/mL 00 breakfast Medical injection and before Bran ch dinner plus sliding scale insulin NPH 2016-0 Yes [id number] 15U inject 15 Univers 100 unit/mL 9-20 Units ity of injection 00:00: under the [place] 00 skin every Medical morning Branch and evening. insulin 2016-0 Yes [id number] Take 8 Univ ers regular 9-20 units ity of human 100 00:00: before [place] unit/mL 00 breakfast Medical injection and before Bran ch dinner plus sliding scale insulin NPH 2016-0 Yes [id number] 15U inject 15 Univers 100 unit/mL 9-20 Units ity of injection 00:00: under the [place] 00 skin every Medical morning Branch and evening. insulin 2016-0 Yes [id number] Take 8 Univ ers regular 9-20 units ity of human 100 00:00: before [place] unit/mL 00 breakfast Medical injection and before Bran ch dinner plus sliding scale insulin NPH 2016-0 Yes [id number] 15U inject 15 Univers 100 unit/mL 9-20 Units ity of injection 00:00: under the [place] 00 skin every Medical morning Branch and evening. insulin 2017-0 Yes [id number] Take 8 Univ ers regular 9-20 units ity of human 100 00:00: before [place] unit/mL 00 breakfast Medical injection and before Bran ch dinner plus sliding scale insulin NPH 2017-0 Yes [id number] 15U inject 15 Univers 100 unit/mL 9-20 Units ity of injection 00:00: under the [place] 00 skin every Medical morning Branch and evening. insulin 2017-0 Yes [id number] Take 8 Univ ers regular 9-20 units ity of human 100 00:00: before [place] unit/mL 00 breakfast Medical injection and before Bran ch dinner plus sliding scale insulin NPH 2016-0 Yes [id number] 15U inject 15 Univers 100 unit/mL 9-20 Units ity of injection 00:00: under the [place] 00 skin every Medical morning Branch and evening. insulin 2017-0 Yes [id number] Take 8 Univ ers regular 9-20 units ity of human 100 00:00: before [place] unit/mL 00 breakfast Medical injection and before Bran ch dinner plus sliding scale insulin NPH 2017-0 Yes [id number] 15U inject 15 Univers 100 unit/mL 9-20 Units ity of injection 00:00: under the [place] 00 skin every Medical morning Branch and evening. insulin 2017-0 Yes [id number] Take 8 Univ ers regular 9-20 units ity of human 100 00:00: before [place] unit/mL 00 breakfast Medical injection and before Bran ch dinner plus sliding scale insulin NPH 2017-0 Yes [id number] 15U inject 15 Univers 100 unit/mL 9-20 Units ity of injection 00:00: under the [place] 00 skin every Medical morning Branch and evening. insulin 2017-0 Yes [id number] Take 8 Univ ers regular 9-20 units ity of human 100 00:00: before [place] unit/mL 00 breakfast Medical injection and before Bran ch dinner plus sliding scale Insulin 2016-0 Yes [id number] Use as Univ ers Syringe-Nee 6-14 directed ity of dle U-100 00:00: [place] (INSULIN 00 Medical SYRINGE) 1 Branch mL 30 gauge x 5/16 Syrg Insulin 2017-0 Yes [id number] Use as Univ ers Syringe-Nee 6-14 directed ity of dle U-100 00:00: [place] (INSULIN 00 Medical SYRINGE) 1 Branch mL 30 gauge x 5/16 Syrg Insulin 2017-0 Yes [id number] Use as Univ ers Syringe-Nee 6-14 directed ity of dle U-100 00:00: [place] (INSULIN 00 Medical SYRINGE) 1 Branch mL 30 gauge x 5/16 Syrg Insulin 2017-0 Yes [id number] Use as Univ ers Syringe-Nee 6-14 directed ity of dle U-100 00:00: [place] (INSULIN 00 Medical SYRINGE) 1 Branch mL 30 gauge x 5/16 Syrg Insulin 2017-0 Yes [id number] Use as Univ ers Syringe-Nee 6-14 directed ity of dle U-100 00:00: [place] (INSULIN 00 Medical SYRINGE) 1 Branch mL 30 gauge x 5/16 Syrg Insulin 2017-0 Yes [id number] Use as Univ ers Syringe-Nee 6-14 directed ity of dle U-100 00:00: [place] (INSULIN 00 Medical SYRINGE) 1 Branch mL 30 gauge x 5/16 Syrg Insulin 2017-0 Yes [id number] Use as Univ ers Syringe-Nee 6-14 directed ity of dle U-100 00:00: [place] (INSULIN 00 Medical SYRINGE) 1 Branch mL 30 gauge x 5/16 Syrg Insulin 2016- Yes [id number] Use as Univ ers Syringe-Nee 6-14 directed ity of dle U-100 00:00: [place] (INSULIN 00 Medical SYRINGE) 1 Branch mL 30 gauge x 5/16 Syrg Insulin 2016- Yes [id number] Use as Univ ers Syringe-Nee 6-14 directed ity of dle U-100 00:00: [place] (INSULIN 00 Medical SYRINGE) 1 Branch mL 30 gauge x 5/16 Syrg Insulin 2016- Yes [id number] Use as Univ ers Syringe-Nee 6-14 directed ity of dle U-100 00:00: [place] (INSULIN 00 Medical SYRINGE) 1 Branch mL 30 gauge x 5/16 Syrg Insulin 2016- Yes [id number] Use as Univ ers Syringe-Nee 6-14 directed ity of dle U-100 00:00: [place] (INSULIN 00 Medical SYRINGE) 1 Branch mL 30 gauge x 5/16 Syrg Immunizations Ordered Immunization Filled Immunization Date Status Commen ts Source Name Name Rubella 2012-10-01 Completed University of 00:00:00 [facility] Rubella 2012-10-01 Completed University of 00:00:00 [facility] Rubella 2012-10-01 Completed University of 00:00:00 [facility] Rubella 2012-10-01 Completed University of 00:00:00 [facility] Rubella 2012-10-01 Completed University of 00:00:00 [facility] Rubella 2012-10-01 Completed University of 00:00:00 [facility] Rubella 2012-10-01 Completed University of 00:00:00 [facility] Rubella 2012-10-01 Completed University of 00:00:00 [facility] Rubella 2012-10-01 Completed University of 00:00:00 [facility] Rubella 2012-10-01 Completed University of 00:00:00 [facility] Rubella 2012-10-01 Completed University of 00:00:00 [place] [facility] Varicella 2012-09-09 Completed University of (varivax)(chicken [...] Branch TDAP 2012-04-07 Completed University of 00:00:00 [facility] TDAP 2012-04-07 Completed University of 00:00:00 [facility] TDAP 2012-04-07 Completed University of 00:00:00 [facility] TDAP 2012-04-07 Completed University of 00:00:00 [facility] TDAP 2012-04-07 Completed University of 00:00:00 [facility] Tdap 2012-04-07 Completed University of 00:00:00 [facility] TDAP 2012-04-07 Completed University of 00:00:00 [facility] TDAP 2012-04-07 Completed University of 00:00:00 [facility] Tdap 2012-04-07 Completed University of 00:00:00 [facility] Tdap 2012-04-07 Completed University of 00:00:00 [facility] TDAP 2012-04-07 Completed University of 00:00:00 [facility] Meningococcal 2010-04-02 Completed University of Polysaccharide 00:00:00 [...] Completed University of Polysaccharide 00:00:00 [place] Medi asnhu (groups A, C, Y and Branc h [...] Varicella 1999-08-21 Completed University of (varivax)(chicken 00:00:00 [place] M edical pox) Branch Varicella 1999-08-21 Completed University of (varivax)(chicken 00:00:00 [place] M edical pox) Branch Varicella 1999-08-21 Completed University of (varivax)(chicken 00:00:00 [place] M edical pox) Branch Varicella 1999-08-21 Completed University of (varivax)(chicken 00:00:00 [place] M edical pox) Branch DTAP 1998 Completed University of 00:00:00 [facility] Polio (IPV/OPV) 1998 Completed Universit y of 00:00:00 [facility] DTAP 1998 Completed University of 00:00:00 [facility] Polio (IPV/OPV) 1998 Completed Universit y of 00:00:00 [facility] DTAP 1998 Completed University of 00:00:00 [facility] Polio (IPV/OPV) 1998 Completed Universit y of 00:00:00 [facility] DTAP 1998 Completed University of 00:00:00 [facility] Polio (IPV/OPV) 1998 Completed Universit y of 00:00:00 [facility] DTAP 1998 Completed University of 00:00:00 [facility] Polio (IPV/OPV) 1998 Completed Universit y of 00:00:00 [facility] DTAP 1998 Completed University of 00:00:00 [facility] DTAP 1998 Completed University of 00:00:00 [facility] Polio (IPV/OPV) 1998 Completed Universit y of 00:00:00 [facility] DTAP 1998 Completed University of 00:00:00 [facility] Polio (IPV/OPV) 1998 Completed Universit y of 00:00:00 [place] [facility] Polio (IPV/OPV) [...] 1998 Completed Unive rsity of Dosage 00:00:00 [facility] Vital Signs Vital Name Observation Time Observation Value Comments Source Systolic blood 2021-08-22 20:55:00 117 mm[Hg] Univer sity of pressure [facility] Diastolic blood 2021-08-22 20:55:00 76 mm[Hg] Unive rsity of pressure [facility] Heart rate 2021-08-22 20:55:00 82 /min [facility] Body temperature 2021-08-22 20:55:00 36.89 Steffany [facility] Respiratory rate 2021-08-22 20:55:00 18 /min [facility] Body height 2021-08-22 20:55:00 162.6 cm [facility] Body weight 2021-08-22 20:55:00 64.864 kg [facility] BMI 2021-08-22 20:55:00 24.55 kg/m2 [facility] Systolic blood 2020-06-10 17:49:00 124 mm[Hg] Univer sity of pressure [facility] Diastolic blood 2020-06-10 17:49:00 95 mm[Hg] Unive rsity of pressure [facility] Heart rate 2020-06-10 17:49:00 100 /min [facility] [place] [facility] Body temperature 2020-06-10 17:49:00 36.56 Steffany [facility] [place] [facility] Respiratory rate 2020-06-10 17:49:00 18 /min Univ ersity [facility] [place] [facility] Body height 2020-06-10 17:49:00 160 cm [facility]i ty [facility] [place] [facility] Body weight 2020-06-10 17:49:00 58.968 kg Universi ty [facility] [place] [facility] BMI 2020-06-10 17:49:00 23.03 kg/m2 [facility] [place] [facility] Oxygen saturation in 2020-06-10 17:49:00 98 /min University of Arterial blood by [place] [employer] [facility] Pulse oximetry Branch Systolic blood 2019-10-31 23:20:00 135 mm[Hg] Univer sity of pressure [place] [facility] Diastolic blood 2019-10-31 23:20:00 87 mm[Hg] Unive rsity of pressure [place] [facility] Heart rate 2019-10-31 23:20:00 104 /min [facility] [place] [facility] Body temperature 2019-10-31 23:20:00 36.67 Steffany [facility] [place] [facility] Respiratory rate 2019-10-31 23:20:00 17 /min Univ [facility] [place] [facility] Body height 2019-10-31 23:20:00 157.5 cm [facility] [place] [facility] Body weight 2019-10-31 23:20:00 61.689 kg [facility] [place] [facility] BMI 2019-10-31 23:20:00 24.87 kg/m2 [facility] [place] [facility] Oxygen saturation in 2019-10-31 23:20:00 100 /min University of Arterial blood by [place] [employer] Pulse oximetry Branch Systolic blood 2019-10-31 23:20:00 135 mm[Hg] Univer sity of pressure [place] [facility] Diastolic blood 2019-10-31 23:20:00 87 mm[Hg] Unive rsity of pressure [place] [facility] Heart rate 2019-10-31 23:20:00 104 /min [facility] [place] [facility] Body temperature 2019-10-31 23:20:00 36.67 Steffany [facility] [place] [facility] Respiratory rate 2019-10-31 23:20:00 17 /min Univ [facility] [place] [facility] Body height 2019-10-31 23:20:00 157.5 cm [facility] [place] [facility] Body weight 2019-10-31 23:20:00 61.689 kg [facility] Medical [place] BMI 2019-10-31 23:20:00 24.87 kg/m2 [facility] Oxygen saturation in 2019-10-31 23:20:00 100 /min [facility] Arterial blood by [facility] Pulse oximetry Branch Procedures Procedure Date / Time Performed Performing Clinician Sourc e EXTERNAL PROVIDER 2022-07-31 06:01:00 Doctor Unassigned, No Univ [facility] RECORDS Name Medical Branch REFERRAL- 2022-07-02 06:01:00 Doctor Unassigned, No Univer [facility] REQUEST/RESPONSE Name Medical Branch <14 WEEKS US 2021-08-23 00:11:02 Gilma Rockwell [facility] ASSIGNMENT OF BENEFITS 2021-08-22 20:32:41 Doctor Unassigned, No [facility] [place] POCT TEST 2021-08-22 00:00:00 Gilma Rockwell [facility] POCT URINALYSIS W/O 2021-08-22 00:00:00 Gilma Rockwell [facility] SPECIFIC GRAVITY Medical Branch CONSENT/REFUSAL FOR 2020-04-25 18:01:24 Doctor Unassigned, No [facility] [place] DIAGNOSIS AND Name Medical Branch TREATMENT CONSENT/REFUSAL FOR 2019-10-31 23:06:08 Doctor Unassigned, No [facility] [place] DIAGNOSIS AND Name Medical Branch TREATMENT NOTICE OF PRIVACY 2019-10-31 23:05:51 Doctor Unassigned, No Univ [facility] PRACTICES Name Medical Branch Encounters Start End Encounter Admission Attending Care Care Encounter Source Date/Time Date/Time Type Type Clinicians Facility Department ID 2021-06-15 Emergency [facility] [id number] Univers 00:54:29 ity of [facility] 2021-06-13 Emergency [facility] [id number] Univers 14:39:48 ity of [facility] Branch 2022-07-31 2022-07-31 Orders Doctor COUGHLIN [id number] Univers 00:00:00 00:00:00 Only Unassigned, LISSETH [id number] ity of [place] [facility] [id number] [place] as [id number] [facility] [address] [place] 2022-07-02 2022-07-02 Orders Doctor MADYSON [id number] Univers 00:00:00 00:00:00 Only Unassigned, LISSETH [id number] ity of [place] [facility] [id number] [place] as [id number] [address] 2021-08-22 2021-08-22 Outpatient R GILMA ROCKWELL [facility] [id number] Univers 14:30:00 16:44:35 ity of [facility] 2021-08-22 2021-08-22 Initial Gilma Rockwell [facility] [id number] Univers 14:30:00 16:44:35 ABDIAS [id number] i ty of Visit [place]OM[place] [id number] [facility] [id number] [facility] 134 Branch 2021-08-22 2021-08-22 Orders Doctor MADYSON [id number] Univers 00:00:00 00:00:00 Only Unassigned, LISSETH [id number] ity of [place] [facility] [id number] [place] as [id number] [address] 2020-11-06 2020-11-06 Patient Dayo [facility] [id number] Univers 00:00:00 00:00:00 Outreach Raj ADAM [id number] i ty of [facility] [id number] [facility] [id number] Nm dical 388 Branch 2020-06-10 2020-06-10 Emergency [place], [facility] [id number] Univers 12:51:00 14:02:00 Shea Coats [id number] i ty of [place] [id number] [facility] [id number] [facility] 084 Branch 2020-04-27 2020-04-27 Telephone Oscar Rockwelln [facility] 1.2.840.114 [id number] Univers 00:00:00 00:00:00 Pauly [id number] i ty of [place] [id number] [place] [id number] Me dical [address] 2020-04-27 2020-04-27 Gilma Ndiaye [facility] [id number] 00:00:00 00:00:00 [place] [id number] [place] [id number] Professio [id number] [address] 2020-04-25 2020-04-25 Outpatient R GILMA ROCKWELL [facility] [id number] Univers 13:00:00 13:00:00 ity of [facility] 2020-04-25 2020-04-25 Orders Doctor MADYSON [id number] Univers 00:00:00 00:00:00 Only Unassigned, LISSETH 350.1.13.10 ity of [facility] 4.2.7.2.686 Ronny as [phone] [address] 2020-04-25 2020-04-25 Orders Doctor MADYSON [id number] 00:00:00 00:00:00 Only Unassigned, LISSETH 350.1.13.10 [facility] 4.2.7.2.686 [id number] [facility] 2019-11-10 2019-11-10 [facility] [id number] Univers 00:00:00 00:00:00 (Out) Shahid oCats 350.1.13.10 i ty of [place] 4[place]7.2.[place] [phone] [address] 2019-11-10 2019-11-10 [facility] [id number] 00:00:00 00:00:00 (Out) Shahid Coats [id number] [place] 4.2.7.2.686 [place] [phone] [facility] 2019-11-05 2019-11-05 Nurse MADYSON Doe [id number] Univers 00:00:00 00:00:00 Triage Paula MONTANEZ 350.1.13.10 i ty of HOSPITAL 4.2.7.2.686 [place] [phone] [facility] [address] [place] 2019-11-05 2019-11-05 Nurse MADYSON Doe 1.2.840.114 [id number] 00:00:00 00:00:00 Triage Paula MONTANEZ [id number] [facility] 42.7.2.686 [id number] [facility] 2019-10-31 2019-10-31 [facility] [id number] [facility] 18:21:01 18:54:00 Shahid Tovarton 350.1.13.10 i ty of [address]2.686 [facility] [phone] [facility] [address] [place] 2019-10-31 2019-10-31 [facility] [id number] 18:21:01 18:54:00 Shahid Tovarton [id number] [place] [address] [id number] [id number] Results Test Description Test Time Test [...] code = 3257) n/a Negative - Negative [facility] [id number] 21:15:00 Test Item Value Reference Range Interpretation Comments POCT PREG (test code = 1605) Positive On board controls acceptable with C Yes Line (test code = 3574) POCT PREG LOT # (test code = 3575) POCT PREG TEST DATE (test code = 3576) [facility] THIRD [id number] 13:07:00 RUN DATE: 05/17/18 [facility] PAGE 1 RUN TIME: 1810 Specimen Inquiry RUN USER: INTERFACE --PATIENT: [facility] #[facility] [id number] AGE/SX: 18/F ROOM: [facility] RE05/11/18REG DR: Jhon Cuevas MD : 98 BED: A DIS: 05/15/18 STATUS: DIS IN TLOC: SPEC #: [id number] RECD: 05/11/18 STATUS: SOUT REQ #: [id number] MATI: 05/11/18- SUBM DR: Jhon Cuevas MD ENTERED: 05/12/18-848 SP TYPE: PLACIII OT DR: ORDERED: LEVEL V SURGICA CODES: DC9349 - PLACENTA, NOS PROCEDURES: LEVEL V SURGICA (Incomplete) TISSUES: PLACENTA, NOS - PLACENTA CLINICAL HISTORY 18 year old, 37 weeks, IDDM (derik) FINAL DIAGNOSIS Placenta, estrada gestation: - late third trimester villous architecture -lozalized areas with villous edema near basal plate - umbilical cord: hypercoiled, velamentous insertion, 3-vessel, 17 cm length - placental weight: actual 491 gm/expected mean weight 478 gm Tissue code: 1 CPT Code: 63650 anabelle/derik 05/17/18 @ 1255 GROSS DESCRIPTION The [...] surface findings: Steel blue, wrinkled, glistening and containssmall pieces of off-white, caseous material (in A) Vasculature: Displays unremarkable blood vasculature Membranes rupture site: 0 cm to margin Membrane color: Smith Other membrane findings: Thickened opaque CONTINUED ON NEXT PAGE RUN DATE: 05/17/18 [facility] PAGE 2 RUN TIME: 1810 Specimen Inquiry RUN USER: INTERFACE SPEC #: [id number] PATIENT: JULIA KEENE #[id number] (Continued) GROSS DESCRIPTION (Continued) The trimmed placental weight: 491 gm Disk measurement: 19 x 17 x 3.2 cm in greatest dimension Accessory lobes: None Maternal surface: Lobulated and intact Parenchyma: Red, beefy, and spongy Parenc hyma lesions: None Cassettes: A through D sally/kr 05/12/18 @ 1048 MICROSCOPIC DESCRIPTION Villous architecture is late third trimester. A few areas of villous edema are present near the basal plate. anabelle/derik 05/17/18 @ 1255 Signed Jewel Salmeron 05/17/18 1307 END OF REPORT
[2022-08-02] MEDS ORDERED: NA CHLORIDE 0.9% 1,000 ML ONE ×2 (21:09→22:24)
[2022-08-02 21:46] LABS: Absolute Lymphocytes (CBC) 2.2 K/uL (0.7-4.9); Hematocrit 49.6 % (36.0-45.0); Lymphocytes % 21.7 % (15.3-44.8); MCV 102.9 fL (80-100); MPV 7.4 fL (7.6-11.3); RBC Red Blood Cell Count 4.82 M/uL (3.86-4.86)
[2022-08-02 21:48] LABS: Urine Blood Trace-intact (Negative); Urine Glucose 2+ (Negative); Urine Protein Negative (Negative); Urine Specific Gravity 1.025 (1.005-1.030)
[2022-08-02 21:56] LABS: Urine Specific Gravity/Preg 1.025 (1.005-1.030)
[2022-08-02 22:01] LABS: BUN Blood Urea Nitrogen 18 mg/dL (7-18); Glomerular Filtration Rate 78 ml/min (=/>90); Potassium 4.9 mmol/L (3.5-5.1); Sodium Level 123 mmol/L (136-145)
[2022-08-02 22:02] LABS: Bicarbonate 9 mmol/L (21-32); Glucose Level 720 mg/dL (74-106)
--- NOTE | 2022-08-02 22:14 | EDPHYS ---
Physician Documentation [facility] Name: Yashira Peters Age: 22 yrs Sex: Female : 2000 Arrival Date: 08/02/2022 Time: 20:55 Bed 4 Private MD: ED Physician Collin Sotelo HPI: 08/02 22:07 This 22 yrs old Female presents to ER via Ambulatory with complaints of hyperglycemia, kb weakness. 22:07 The patient or guardian reports generalized fatigue, generalized weakness, kb hyperglycemia. Onset: The symptoms/episode began/occurred today. Associated signs and symptoms: Pertinent positives: None. Pertinent negatives: None. Current symptoms: In the emergency department the patient's symptoms are unchanged from the initial presentation. The patient has experienced similar episodes in the past. The patient has not recently seen a physician. Pt reports she feels like she is going into DKA.. RN FIRST ASSISTANT: 21:38 LMP 07/31/2022 aa9 Historical: - Allergies: 20:59 Amoxicillin; hb 20:59 clindamycin HCl; hb 20:59 Latex, Natural Rubber; hb - PMHx: 20:59 Diabetes - IDDM; CVA; hb - PSHx: 20:59 section; hb - Social history:: Smoking status: Patient reports the use of cigarette tobacco products, smokes one-half pack cigarettes per day. ROS: 22:04 Constitutional: Negative for fever, chills, and weight loss. kb 22:04 Respiratory: Positive for shortness of breath. 22:04 All other systems are negative. Exam: 22:04 Constitutional: This is a well developed, well nourished patient who is awake, alert, kb and in no acute distress. Head/Face: Normocephalic, atraumatic. ENT: Moist Mucous membranes Cardiovascular: Regular rate and rhythm with a normal S1 and S2. No gallops, murmurs, or rubs. No pulse deficits. Respiratory: Respirations even and unlabored. No increased work of breathing. Talking in full sentences Abdomen/GI: Soft, non-tender. No distention Skin: Warm, dry with normal turgor. Normal color. MS/ Extremity: Pulses equal, no cyanosis. Neurovascular intact. Full, normal range of motion. Neuro: Awake and alert, GCS 15, oriented to person, place, time, and situation. Moves all extremities. Normal gait. Psych: Awake, alert, with orientation to person, place and time. Behavior, mood, and affect are within normal limits. 22:38 ECG was reviewed by the Attending Physician. kb Vital Signs: 20:58 BP 149 / 91; Pulse 123; Resp 24; Temp 98.8; Pulse Ox 100% on R/A; Weight 62.14 kg; hb Height 5 ft. 3 in. (160.02 cm); Pain 10/10; 21:52 BP 128 / 82; Pulse 114; Resp 20 S; Pulse Ox 100% on 2 lpm NC; aa9 23:13 BP 139 / 93; Pulse 118; Resp 27; Pulse Ox 100% on R/A; ll3 20:58 Body Mass Index 24.27 (62.14 kg, 160.02 cm) hb MDM: 21:00 Patient medically screened. kb 22:06 Data reviewed: vital signs, nurses notes. Data interpreted: Pulse oximetry: on room air kb is 100 %. Interpretation: normal. Counseling: I had a detailed discussion with the patient and/or guardian regarding: the historical points, exam findings, and any diagnostic results supporting the discharge/admit diagnosis, lab results, the need for further work-up and treatment in the hospital. Physician consultation: Samantha Casas PA-C was contacted at 22:07, regarding admission, to the ICU, patient's condition, and will see patient in ED, shortly. 08/02 21:00 Order name: Glucose; Complete Time: 22:10 hb 08/02 21:05 Order name: CBC with Diff; Complete Time: 22:00 kb 08/02 21:05 Order name: Basic Metabolic Panel; Complete Time: 22:10 kb 08/02 21:05 Order name: Acetone, Serum; Complete Time: 22:10 kb 08/02 21:09 Order name: Glucose, Ancillary Testing; Complete Time: 21:10 EDMS 08/02 21:49 Order name: Urine --Ancillary (enter results); Complete Time: 22:00 wm 08/02 21:05 Order name: EKG; Complete Time: 21:05 kb 08/02 21:49 Order name: Urine Dipstick-Ancillary; Complete Time: 21:49 EDMS 08/02 22:03 Order name: SARS RAPID; Complete Time: 23:15 kb 08/02 22:18 Order name: Flu; Complete Time: 23:15 wm 08/02 21:05 Order name: Urine Dipstick-Ancillary (obtain specimen); Complete Time: 21:48 kb 08/02 21:05 Order name: EKG - Nurse/Tech; Complete Time: 21:34 kb 08/02 21:05 Order name: Urine Test (obtain specimen); Complete Time: 21:48 kb EC:38 Rate is 101 beats/min. Rhythm is regular. QRS [place] is Normal. UT interval is normal at kb 126 msec. QRS interval is normal at 82 msec. QT interval is normal at 459 msec. Administered Medications: 21:35 Drug: NS 0.9% 1000 ml Route: IV; Rate: 1000 ml; Site: left antecubital; aa9 23:49 Follow up: Response: No adverse reaction; IV Status: Completed infusion; IV Intake: aa9 1000ml 22:37 Drug: NS 0.9% 1000 ml Route: IV; Rate: 1000 ml; Site: left antecubital; 3 23:49 Follow up: Response: No adverse reaction; IV Status: Infusion continued upon admission; aa9 IV Intake: 800ml 22:37 Drug: Zofran (Ondansetron) 4 mg Route: IVP; Site: left antecubital; 3 23:49 Follow up: Response: No adverse reaction aa9 23:02 Drug: Insulin Drip - (Insulin Regular Human 100 units, NS 0.9% 100 ml) {Co-Signature: 3 aa9 (Maryellen Marin RN).} Route: IV; Rate: calculated rate; Site: right hand; 23:49 Follow up: Response: No adverse reaction; IV Status: Infusion continued upon admission aa9 Point of Care Testin:58 BGL HI, serum glucose ordered Dr. Sotelo notified hb Ranges: Critical Glucose Levels:Adult <50 mg/dl or >400 mg/dl <40 mg/dl or >180 mg/dl Disposition Summary: 08/02/22 22:13 Hospitalization Ordered Hospitalization Status: Inpatient Admission kb Provider: Rikki Horowitz Location: Intensive Care Unit kb Condition: Fair kb Problem: new kb Symptoms: are unchanged kb Bed/Room Type: Standard Room Assignment: 7-(08/02/22 22:44) Diagnosis - Diabetes mellitus due to underlying condition with ketoacidosis without coma kb Forms: - Medication Reconciliation Form kb - SBAR form kb Signatures: Dispatcher [employer] EDAlla Herrera, Cheli Thornton RN RN Elsa Coleman RN RN Marylou Boone RN RN ll3 Maryellen Marin RN RN aa9 Samantha Casas PA-C PA-C sb4 Maryellen Marin RN aa9 Corrections: (The following items were deleted from the chart) 22:44 22:13 mickie giron
--- NOTE | 2022-08-02 22:14 | ER ---
Nurse's Notes [facility] Name: Yashira Peters Age: 22 yrs Sex: Female : 2000 Arrival Date: 08/02/2022 Time: 20:55 Bed 4 Private MD: Diagnosis: Diabetes mellitus due to underlying condition with ketoacidosis without coma Presentation: 08/02 20:58 Chief complaint: Body aches and home BGL >500 today. On Zithromax for URI. Coronavirus hb screen: At this time, the client does not indicate any symptoms associated with coronavirus-19. Ebola Screen: No symptoms or risks identified at this time. Risk Assessment: Do you want to hurt yourself or someone else? Patient reports no desire to harm self or others. Onset of symptoms was August 02, 2022. 20:58 Method Of Arrival: Ambulatory hb 20:58 Acuity: ASIA 2 hb 23:48 Initial Sepsis Screen: Does the patient meet any 2 criteria? Does the patient have a aa9 suspected source of infection?. 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 Screenin:37 Nutritional screening: No deficits noted. Tuberculosis screening: No symptoms or risk aa9 factors identified. Fall Risk No fall in past 12 months (0 pts). 23:47 [facility] ED Fall Risk Assessment (Adult) History of falling in the last 3 months, aa9 including since admission No falls in past 3 months (0 pts) Confusion or Disorientation No (0 pts) Intoxicated or Sedated No (0 pts) Impaired Gait No (0 pts) Mobility Assist Device Used No (0 pt) Altered Elimination No (0 pt) Score/Fall Risk Level 0 - 2 = Low Risk Oriented to surroundings, Educated pt \\T\\ family on fall prevention, incl call for assistance when getting out of bed. Humpty Dumpty Scale Fall Assessment Tool (age< 18yrs) Age 13 years and above (1 pt). Abuse screen: Denies threats or abuse. Denies injuries from another. Assessment: 21:35 General: Appears uncomfortable, slender, Behavior is cooperative, appropriate for age, aa9 pt c/o SOB placed on NC 2\\T\\LPM, pt states to "feel better". Pain: Complains of pain in generalized Pain currently is 6 out of 10 on a pain scale. Neuro: Level of Consciousness is awake, alert, obeys commands, Oriented to person, place, time, situation. Cardiovascular: Capillary refill < 3 seconds Patient's skin is warm and dry. Respiratory: Airway is patent Respiratory effort is even, unlabored. GI: Abdomen is flat, non-distended. : No signs and/or symptoms were reported regarding the genitourinary system. EENT: No signs and/or symptoms were reported regarding the EENT system. Derm: Skin is intact, is healthy with good turgor, Skin is pink, warm \\T\\ dry. Skin temperature is warm. 21:35 : Reports urinary frequency. aa9 Vital Signs: 20:58 BP 149 / 91; Pulse 123; Resp 24; Temp 98.8; Pulse Ox 100% on R/A; Weight 62.14 kg; hb Height 5 ft. 3 in. (160.02 cm); Pain 10/10; 21:52 BP 128 / 82; Pulse 114; Resp 20 S; Pulse Ox 100% on 2 lpm NC; aa9 23:13 BP 139 / 93; Pulse 118; Resp 27; Pulse Ox 100% on R/A; ll3 20:58 Body Mass Index 24.27 (62.14 kg, 160.02 cm) hb ED Course: 20:55 Patient arrived in ED. ja2 20:57 Alla Mckeon FNP-C is PHCP. kb 20:57 Collin Sotelo MD is Attending Physician. kb 20:59 Triage completed. hb 21:00 Arm band placed on. hb 21:03 Maryellen Marin, EMILIA is Primary Nurse. aa9 21:33 Inserted saline lock: 20 gauge in left antecubital area, using aseptic technique. Blood aa9 collected. 21:34 Glucose Sent. aa9 21:34 Basic Metabolic Panel Sent. aa9 21:34 Acetone, Serum Sent. aa9 21:34 CBC with Diff Sent. aa9 22:12 Rikki Horowitz is Hospitalizing Provider. kb 23:48 Patient has correct armband on for positive identification. Bed in low position. Call aa9 light in reach. Side rails up X 1. 23:48 No provider procedures requiring assistance completed. Patient admitted, IV remains in aa9 place. Administered Medications: 21:35 Drug: NS 0.9% 1000 ml Route: IV; Rate: 1000 ml; Site: left antecubital; aa9 23:49 Follow up: Response: No adverse reaction; IV Status: Completed infusion; IV Intake: aa9 1000ml 22:37 Drug: NS 0.9% 1000 ml Route: IV; Rate: 1000 ml; Site: left antecubital; ll3 23:49 Follow up: Response: No adverse reaction; IV Status: Infusion continued upon admission; aa9 IV Intake: 800ml 22:37 Drug: Zofran (Ondansetron) 4 mg Route: IVP; Site: left antecubital; ll3 23:49 Follow up: Response: No adverse reaction aa9 23:02 Drug: Insulin Drip - (Insulin Regular Human 100 units, NS 0.9% 100 ml) {Co-Signature: hipolito3 chris (Maryellen Marin RN).} Route: IV; Rate: calculated rate; Site: right hand; 23:49 Follow up: Response: No adverse reaction; IV Status: Infusion continued upon admission aa9 Medication: 23:47 VIS not applicable for this client. aa9 Point of Care Testin:58 BGL HI, serum glucose ordered Dr. Sotelo notified hb Ranges: Intake: 23:49 IV: 1000ml; Total: 1000ml. aa9 23:49 IV: 800ml; Total: 1800ml. aa9 Outcome: 22:13 Decision to Hospitalize by Provider. kb 23:43 Patient left the ED. aa9 23:48 Admitted to ICU accompanied by nurse, via stretcher, on monitor, with chart, Report aa9 called to EMILIA Andres 23:48 Condition: stable 23:48 Instructed on the need for admit, Demonstrated understanding of instructions. Signatures: Alla Mckeon, RESEARCH ANIMAL FACILITY SUPERVISOR-C RESEARCH ANIMAL FACILITY SUPERVISOR-Hussainb Elsa Gage RN RN Trish Valdez Lynsea, RN RN ll3 Maryellen Marin RN RN aa9 Maryellen Marin RN aa9
[2022-08-02] MEDS ORDERED: ONDANSETRON 4 MG/2 ML VIAL ONE (22:23)
[2022-08-02] MEDS ORDERED: NA CHLORIDE 0.9% 100 ML IV ONE (22:24)
--- NOTE | 2022-08-02 22:25 | P.HP ---
Certification for Inpatient Patient admitted to: Inpatient With expected LOS: >2 Midnights Patient will require the following post-hospital care: None Practitioner: I am a practitioner with admitting privileges, knowledge of patient current condition, hospital course, and medical plan of care. Services: Services provided to patient in accordance with Admission requirements found in Title 42 Section 412.3 of the Code of Federal Regulations Patient History Date of Service: 08/02/22 Primary Care Provider: Francisca Reason for admission: DKA History of Present Illness: Patient is a 22-year-old female with type 1 diabetes who presented to the emergency department with hyperglycemia, n/v, body aches. She reports that she has a URI and has been taking azithromycin. She was found to be in DKA. Labs significant for sodium 123, chloride 91, bicarb 9, anion gap 27.9, Cr 1.03, glucose 720, large acetone. She was started on insulin drip in ED. She reports that she has been taking her insulin as prescribed from her PCP. She has an appointment with a specialist in September. Patient is admitted for further management of DKA. Allergies amoxicillin Allergy (Verified 01/08/20 20:41) hallucination Latex, Natural Rub Allergy (Uncoded 07/05/19 01:37) Hives/Rash Home medications list reviewed: Yes Home Medications: Insulin NPH Human Isophane [Novolin N] 20 unit SQ BID #1 vial 05/18/21 Insulin Regular, Human [Novolin R] See Protocol SQ SEECOM #1 vial 05/18/21 - Past Medical/Surgical History Diabetic: Yes -: DM1 -: CVA -: anxiety -: depression -: hyperthyroid -: depression -: previous suicide attempt -: X3 Psychosocial/ Personal History: Patient lives at home with her family. - Family History Family History: Reviewed- Non-Contributory - Social History Smoking Status: Current every day smoker Alcohol use: No CD- Drugs: No Caffeine use: Yes Place of Residence: Home Review of Systems General: Weakness Gastrointestinal: Nausea, Vomiting, Abdominal Pain Physical Examination - Vital Signs Temperature: 98.8 F Blood Pressure: 128/82 Pulse: 114 Respirations: 20 Pulse Ox (%): 100 (room air) - Physical Exam General: Alert, In no apparent distress HEENT: Atraumatic, PERRLA, EOMI, Sclerae nonicteric Neck: Supple, 2+ carotid pulse no bruit, No LAD, Without JVD or thyroid abnor mality Respiratory: Clear to auscultation bilaterally, Normal air movement Cardiovascular: Regular rate/rhythm, Normal S1 S2 Gastrointestinal: Normal bowel sounds, No tenderness Musculoskeletal: No tenderness Integumentary: No rashes Neurological: Normal speech, Normal strength at 5/5 x4 extr, Normal tone, Normal affect - Studies Laboratory Data (last 24 hrs) 08/02/22 21:44: Glucose 720 H* 08/02/22 21:38: Sodium 123 L, Potassium 4.9, BUN 18, Creatinine 1.03 H, Glucose 720 H* 08/02/22 21:38: WBC 10.30, Hgb 15.9 H, Hct 49.6 H, Plt Count 435 H Assessment and Plan - Problems (Diagnosis) (1) Diabetic ketoacidosis Current Visit: Yes Status: Acute Qualifiers: Diabetes mellitus type: type 1 Diabetes mellitus complication detail: without coma Qualified Code(s): E10.10 - Type 1 diabetes mellitus with ketoacidosis without coma - Plan Patient is admitted to ICU for further management of DKA. Continue DKA protocol with IV fluids and insulin drip. Q1h glucose monitoring and q4h BMP until anion gap less than 12 and blood sugar less than 200. NPO. Ice chips okay. Nephrology and dietitian consult. Lipid panel and A1c in the morning. Monitor and replete electrolytes per protocol. Reconcile and continue home medications. Lovenox for VTE prophylaxis. Full code. Discharge Plan: Home Plan to discharge in: Greater than 2 days - Advance Directives Does patient have a Living Will: No Does patient have a Durable POA for Healthcare: No - Code Status/Comfort Care Code Status Assessed: Yes Code Status: Full Code Physician Review: Patient Assessed, Agree with Above Assessment and Plan Critical Care: No Time Spent Managing Pts Care (In Minutes): 50
[2022-08-02] MEDS ORDERED: INSULIN -REGULAR HUMAN 50 UNIT/0.5 ML ML ONE (22:27)
[2022-08-02] MEDS ORDERED: NA CHLORIDE 0.9% 500 ML ONE (22:35)
[2022-08-02 23:01] LABS: SARS-CoV-2 Antigen Rapid Res Negative (Negative)
[2022-08-02] MEDS ORDERED: ONDANSETRON 4 MG/2 ML VIAL IV PRN (23:20)
[2022-08-02] MEDS ORDERED: INSULIN -REGULAR HUMAN 100 UNIT in NA CHLORIDE 0.9% 100 ML IV SCH (23:20)
[2022-08-03] MEDS ORDERED: NACHLORIDE 0.45% 1,000 ML IV ONE ×2 (00:01→03:41)
[2022-08-03] MEDS ORDERED: KCL 20 MEQ/100 mL IVPB 100 ML IV ONE ×2 (00:01→03:42)
[2022-08-03] MEDS: NACHLORIDE 0.45% 1,000 ML with POTASSIUM CL 20 MEQ IV SCH ×8 (00:07→11:29)
[2022-08-03 00:15] LABS: Blood Gas Oxyhemoglobin 93.6 % (94-97); Blood O2 Saturation 96.5 % (92-98.5)
[2022-08-03 00:24] LABS: Arterial Blood Carboxyhemoglob 1.3 % (0-1.5)
[2022-08-03 00:36] VITALS: BMI 24.3
[2022-08-03 00:38] VITALS: O2SAT 98
[2022-08-03] MEDS ORDERED: MORPHINE 4 MG/ML SYR IV PRN (01:41)
[2022-08-03 02:18] LABS: BUN Blood Urea Nitrogen 15 mg/dL (7-18); Glomerular Filtration Rate 116 ml/min (=/>90); Glucose Level 351 mg/dL (74-106); Potassium 4.6 mmol/L (3.5-5.1); Sodium Level 134 mmol/L (136-145)
[2022-08-03 02:19] LABS: Bicarbonate 8 mmol/L (21-32)
[2022-08-03] MEDS: D5.45NS W/KCL 20MEQ 1,000 ML IV SCH ×3 (05:04→12:40)
[2022-08-03 06:51] LABS: Absolute Lymphocytes (CBC) 2.9 K/uL (0.7-4.9); Hematocrit 40.5 % (36.0-45.0); Lymphocytes % 26.8 % (15.3-44.8); MPV 6.9 fL (7.6-11.3); RBC Red Blood Cell Count 4.18 M/uL (3.86-4.86)
[2022-08-03 07:08] LABS: BUN Blood Urea Nitrogen 11 mg/dL (7-18); Bicarbonate 17 mmol/L (21-32); Glomerular Filtration Rate 124 ml/min (=/>90); Glucose Level 253 mg/dL (74-106); Sodium Level 135 mmol/L (136-145)
[2022-08-03 07:27] LABS: HDL Cholesterol 29 mg/dL (40-60); Magnesium 2.2 mg/dL (1.6-2.4); Phosphorus 2.2 mg/dL (2.5-4.9)
[2022-08-03 07:39] LABS: LDL, Direct 113 mg/dL (100-129)
[2022-08-03] MEDS ORDERED: ENOXAPARIN 40 MG/0.4 ML SQ SCH (09:00)
[2022-08-03 10:44] LABS: BUN Blood Urea Nitrogen 9 mg/dL (7-18); Bicarbonate 19 mmol/L (21-32); Glomerular Filtration Rate 127 ml/min (=/>90); Glucose Level 198 mg/dL (74-106); Potassium 4.2 mmol/L (3.5-5.1); Sodium Level 135 mmol/L (136-145)
--- NOTE | 2022-08-03 12:19 | P.PN ---
Subjective Date of Service: 08/03/22 Primary Care Provider: Francisca Chief Complaint: DKA Patient states she feels much better today. Anion gap is closed. She states that she is hungry and wants to eat. Physical Examination - Vital Signs Temperature: 97.4 F Blood Pressure: 97/64 Pulse: 97 Respirations: 15 Pulse Ox (%): 98 - Studies Laboratory Data (last 24 hrs) 08/02/22 21:44: Glucose 720 H* 08/02/22 21:38: Sodium 123 L, Potassium 4.9, BUN 18, Creatinine 1.03 H, Glucose 720 H* 08/02/22 21:38: WBC 10.30, Hgb 15.9 H, Hct 49.6 H, Plt Count 435 H Assessment And Plan - Current Problems (Diagnosis) (1) Diabetic ketoacidosis Current Visit: Yes Status: Acute Qualifiers: Diabetes mellitus type: type 1 Diabetes mellitus complication detail: without coma Qualified Code(s): E10.10 - Type 1 diabetes mellitus with ketoacidosis without coma - Plan Physical Exam General: Alert, In no apparent distress HEENT: Atraumatic, PERRLA, EOMI, Sclerae nonicteric Respiratory: Clear to auscultation bilaterally, Normal air movement Cardiovascular: Regular rate/rhythm, Normal S1 S2 Gastrointestinal: Normal bowel sounds, No tenderness Musculoskeletal: No tenderness Integumentary: No rashes Neurological: No focal motor deficit. Plan: Anion gap closed, patient is feeling better. Transition insulin drip to subcutaneous insulin-Lantus insulin and insulin sliding scale. Start ADA diet. Continue IV hydration. Monitor blood sugar and adjust insulin therapy as needed.
[2022-08-03] MEDS ORDERED: GLUCAGON 1 MG/VIAL IM PRN ×2 (12:20→16:47)
[2022-08-03] MEDS ORDERED: D50W 25 GM/50 ML SYRINGE IV PRN ×2 (12:20→16:47)
[2022-08-03] MEDS ORDERED: D10W 250 ML BAG IV PRN ×2 (12:25→15:16)
[2022-08-03] MEDS ORDERED: INSULIN GLARGINE 100 UNIT/ML SQ ONE (13:00)
[2022-08-03 14:44] LABS: Potassium 4.2 mmol/L (3.5-5.1)
--- NOTE | 2022-08-03 15:49 | EKG ---
Test Date: 2022-08-02 Test Time: 21:22:06 Deputy Controller: JEMMA MEASUREMENT RESULTS: Intervals: Rate: 93 CA: 122 QRSD: 78 QT: 356 QTc: 442 Hooper: P: 68 CA: 122 QRS: 68 T: 54 INTERPRETIVE STATEMENTS: Normal sinus rhythm Possible Left atrial enlargement Cannot rule out Anterior infarct, age undetermined Abnormal ECG Compared to ECG 05/16/2021 19:37:02 Myocardial infarct finding now present Electronically Signed On 08-03-22 15:49:05 RACECOURSE BARRIER ATTENDANT by Nico Lopez
[2022-08-03] MEDS ORDERED: NPH (HUMAN) 100 UNITS/ML INSULIN SQ ONE (16:00)
[2022-08-03] MEDS ORDERED: INSULIN -REGULAR HUMAN 50 UNIT/0.5 ML ML SQ SCH (16:30)
[2022-08-03 17:52] VITALS: TEMP 97.6
[2022-08-03 18:49] VITALS: BP 100/64
[2022-08-03] MEDS ORDERED: NPH (HUMAN) 100 UNITS/ML INSULIN SQ SCH (19:00)
--- NOTE | 2022-08-04 13:14 | P.DS ---
Admission Date: 08/02/22 Discharge Date: 08/04/22 Primary Care Provider: Francisca Disposition: AMA-LEFT AGAINST MEDICAL ADVIC Reason for Admission: DKA - Problems (1) Diabetic ketoacidosis Status: Acute Qualifiers: Diabetes mellitus type: type 1 Diabetes mellitus complication detail: without coma Qualified Code(s): E10.10 - Type 1 diabetes mellitus with ketoacidosis without coma Brief History of Present Illness: Patient is a 22-year-old female with type 1 diabetes who presented to the emergency department with hyperglycemia, n/v, body aches. She reported that she had a URI and was taking azithromycin. She was found to be in DKA. Labs significant for sodium 123, chloride 91, bicarb 9, anion gap 27.9, Cr 1.03, glucose 720, large acetone. She was started on insulin drip in ED. She reports that she has been taking her insulin as prescribed from her PCP. Patient was admitted for further management of DKA. Hospital Course: Patient admitted to the ICU and started on DKA protocol with insulin drip. She was aggressively hydrated with IV fluid. DKA resolved, patient was transitioned to subcutaneous insulin but her blood glucose was in the 300s. Patient would not wait and stay inpatient to continue her blood sugar management. She signed out against medical advice and left. Vital Signs/Physical Exam: Temp Pulse Resp BP Pulse Ox 97.6 F 90 20 100/64 98 08/03/22 16:00 08/03/22 18:00 08/03/22 18:00 08/03/22 18:00 08/03/22 18:00 Laboratory Data at Discharge: WBC 10.70 K/uL (4.3-10.9) 08/03/22 06:20 Hgb 13.9 g/dL (12.0-15.0) D 08/03/22 06:20 Hct 40.5 % (36.0-45.0) 08/03/22 06:20 Plt Count 432 K/uL (152-406) H 08/03/22 06:20 Sodium 134 mmol/L (136-145) L 08/03/22 14:07 Potassium 4.2 mmol/L (3.5-5.1) 08/03/22 14:07 BUN 7 mg/dL (7-18) 08/03/22 14:07 Creatinine 0.66 mg/dL (0.55-1.02) 08/03/22 14:07 Glucose 356 mg/dL (74-106) H 08/03/22 14:07 Phosphorus 2.2 mg/dL (2.5-4.9) L 08/03/22 06:20 Magnesium 2.2 mg/dL (1.6-2.4) 08/03/22 06:20 Triglycerides 536 mg/dL (<150) H 08/03/22 06:20 Cholesterol 166 mg/dL (<200) 08/03/22 06:20 LDL Cholesterol Direct 113 mg/dL (100-129) 08/03/22 06:20 HDL Cholesterol 29 mg/dL (40-60) L 08/03/22 06:20 Cholesterol/HDL Ratio 5.72 08/03/22 06:20 Home Medications: Insulin Regular, Human [Novolin R] See Protocol SQ SEECOM #1 vial 05/18/21 Insulin NPH Human Isophane [Novolin N] 30 unit SQ BID 08/03/22 Followup: Niki Espinosa [Primary Care Provider] -
--- NOTE | 2022-08-06 14:03 | EKG ---
Test Date: 2022-08-02 Test Time: 21:22:58 Marketing Production Manager: JEMMA MEASUREMENT RESULTS: Intervals: Rate: 101 VA: 126 QRSD: 82 QT: 354 QTc: 459 [place]: P: 75 VA: 126 QRS: 71 T: 56 INTERPRETIVE STATEMENTS: Sinus tachycardia Possible Left atrial enlargement Cannot rule out Anterior infarct, age undetermined Abnormal ECG Compared to ECG 08/02/2022 21:22:06 Sinus rhythm no longer present Myocardial infarct finding still present Electronically Signed On 08-06-22 14:00:39 AN/SSN 2 4 OPERATOR by Nico Lopez
== END 2022-08-03 18:40 | disposition left against medical advice (07) | DRG 639 ==
LOC: ER 20:52 → ERHOLD 22:17 → 3RD-ICU 23:02
PROVIDERS: ADMIT Internal Medicine; ATTEND Internal Medicine
DX: E10.10 Type 1 diabetes mellitus with ketoacidosis without coma (principal); F17.210 Nicotine dependence, cigarettes, uncomplicated; Z79.4 Long term (current) use of insulin; Z88.1 Allergy status to other antibiotic agents; Z53.29 Procedure and treatment not carried out because of patient's decision for other reasons; Z86.73 Personal history of transient ischemic attack (TIA), and cerebral infarction without residual deficits; Z91.51 Personal history of suicidal behavior; Z91.040 Latex allergy status; Z20.822 Contact with and (suspected) exposure to COVID-19
CPT/HCPCS: 36415; 80048; 80061; 81003; 81025; 82010; 82310; 82805; 82947; 83036; 83735; 83930; 84100; 85025; 87804; 87811; 93005; 96361; 96365; 96375; 99285; J1650; J1815; J2405; J3480; J7030; J7040

== ENCOUNTER 2023-02-22 13:17 | Emergency (ER) | payer OTHER ==
--- OUTSIDE RECORDS SUMMARY | 2023-02-22 13:22 | XMS REPORT | Continuity of Care Document ---
:2000 Author Organization [facility] t Address [address] [place] [address] [place] [id number] Care Team Providers Name Role Phone Darrel Espinosa Mary Kate Primary Care Physician LYNETTE MORRIS Attending Clinician Unavailable Doctor Unassigned, [place] Attending Clinician Unavailable CRISELDA TONY Attending Clinician Unavailable CRISELDA TONY Attending Clinician Unavailable SHAHEED LAGOS Attending Clinician Unavailable SHAHEED LAGOS Attending Clinician Unavailable Shaheed Lagos MD Attending Clinician Nurse, [facility] Attending Clinician Unavailable Lynette Morris PA-C Attending Clinician BENSON BARRETT Attending Clinician Unavailable GILMA ROCKWELL Attending Clinician [...] Details Category Date Date Treatment Clinician Date Anemia Anemia Disease Active Univers 5-22 ity of 00:00: 00 Medical Branch Migraine Migraine Disease Active Unive rs 4-13 ity of 00:00: Medical Branch Headache Headache Disease Active Unive rs 4-13 ity of 00:00: Medical Branch Smoker Smoker Disease Active 2021-08 Univers 2-15 ity of 00:00: Medical Branch Acute Acute Disease Active 2021-08 Univers cough cough 2-15 ity of 00:00: Medical Branch Abnormal Abnormal Disease Active 2021-08 Unive rs menstrual menstrual 2-15 ity of cycle cycle 00:00: Medical Branch Persons Persons Disease Active 2021-08 Univers encounteri encounteri 1-03 [place] y [place] [employer] [place] other in other Branch specified specified circumstan circumstan [place] H/O: H/O: Disease Active 2021-08 Univers depression depression 1-03 it y of 00:00: Medical Branch Rubella Rubella Disease Active Overview: Univ ers non-immune non-immune 11-03 Formattin ity of status, status, 00:00: g of this [place] antepartum antepartum 00 note Me dical might [...] of section section 00:00: g of this [place] 00 note Medical might be Branch different from the original. x2 Tobacco Tobacco Disease Active Overview: Univ ers use during use during 3-19 Formattin ity of 00:00: g of this [...] of , , 00:00: g of this [place] antepartum antepartum 00 note Me dical might be Branch different from the original. Off of meds [id number] Diabetes Diabetes Disease Active Overview: Un jayden in in 10-14 Formattin ity of 00:00: g of this [place] 00 note Medical might be Branch different from the original. ICD10 Diagnosis [employer] Allergies, Adverse Reactions, Alerts Allergy Allergy [...] was "very sick" latex DA [facility] [place] latex DA [facility] [place] Latex Propensi Active Hives Univers ty to 6-14 ity of adverse 00:00: [place] reaction 00 Medical s Branch CLINDAMY DRUG Active Hallucinates 2017-0 Un ajyden JAVIER INGREDI 6-14 ity of 00:00: [place] 00 Medical Branch LATEX DRUG Active Hives 2017-0 Univers INGREDI 6-14 ity of 00:00: [place] 00 Medical Branch Clindamy Propensi Active Hallucinatio 2017-0 Univers javier ty to ns 6-14 ity of adverse 00:00: [place] reaction 00 Medical s [place] Social History Social Habit Start Date Stop Date Quantity Comments Source ASSERTION 2021-07-15 University 00:00:[address] [facility] Alcohol intake 2023-01-05 2023-01-05 Ex-drinker [facility] 00:00:00 00:00:00 (finding) [facility] Exposure to 2022-11-04 2022-11-14 Not sure University SARS-CoV-2 (event) 00:00:00 10:00:[address] [facility] Tobacco use and 2022-08-21 2022-08-21 Smokeless Universit y of exposure 00:00:00 00:00:00 tobacco non-user [facility] dical Branch Cigarettes smoked 2022-08-21 2022-08-21 Univers ity of current (pack per 00:00:00 00:00:00 [facility] ) - Reported Branch History [facility] 2020-04-25 2020-04-25 1 University o f Alcohol Std Drinks 00:00:00 00:00:00 [place] [facility] History SDGA 2020-04-25 2020-04-25 1 University o f Alcohol Binge 00:00:00 00:00:00 [place] Medic al Branch History SDOH 2020-04-25 2020-04-25 University o f Alcohol Comment 00:00:00 00:00:00 [place] Med ical Branch Cigarette 2020-04-25 2020-04-25 University of pack-years 00:00:00 00:00:00 [place] Medical [facility] History SDGA 2020-04-25 2020-04-25 2 University o f Alcohol Frequency 00:00:00 00:00:00 [facility] edical Branch History of tobacco 2017 2017-10-13 Cigarette Smoker University of use 00:00:00 00:00:[address] [facility] Sex Assigned At [birth year] Universit y of 00:00:00 00:00:[address] [facility] Smoking Status Start Date Stop Date Source Smokes tobacco daily 2022-08-21 00:00:00 Univers ity [facility] Former smoker 2019-01-16 00:00:00 2019-01-16 00:00:00 Universi ty [facility] Medications Ordered Filled Start Stop Current Ordering Indication Dosage Frequency Signature Comments Components Source Medication Medication Date Date Medication? Clinician (SIG) Name Name medroxyPROG 2022- No [id number] 150mg Univers ESTERone 11-14 ity of (DEPO-PROVE 16:30: 15:32 [place] RA) syringe 00 :00 Medical 150 mg Branch medroxyPROG 2022- No [id number] 150mg 150 mg, Univers ESTERone 11-14 Intramuscu ity of (DEPO-PROVE 16:30: 15:32 lar, ONCE, [place] RA) syringe 00 :00 1 dose, On Me dical 150 mg Fri Branch 11/14/22 at 1130, Routine medroxyPROG 2022- No [id number] 150mg Univers ESTERone 08-21 ity of (DEPO-PROVE 18:15: 17:04 [place] RA) syringe 00 :00 Medical 150 mg Branch medroxyPROG 2022- No [id number] 150mg 150 mg, Univers ESTERone 08-21 Intramuscu ity of (DEPO-PROVE 18:15: 17:04 lar, ONCE, [place] RA) syringe 00 :00 1 dose, On Me dical 150 mg Alia 08/21/22 Branch at 1215, Routine medroxyPROG 2022- No [id number] 150mg Univers ESTERone 08-21 ity of (DEPO-PROVE 18:15: 17:04 [place] RA) syringe 00 :00 Medical 150 mg Branch medroxyPROG 2022- No [id number] 150mg 150 mg, Univers ESTERone 08-21 Intramuscu ity of (DEPO-PROVE 18:15: 17:04 lar, ONCE, [place] RA) syringe 00 :00 1 dose, On Me dical 150 mg Alia 08/21/22 Branch at 1215, Routine hydrOXYzine 2019-08 Yes [id number] 50mg Take 1 Univers 50 mg 0-25 tablet by ity of tablet 00:00: mouth 3 [place] 00 (three) Medical times Branch daily as needed for Itching. hydrOXYzine 2019- Yes [id number] 50mg Take 1 Univers 50 mg 0-25 tablet by ity of tablet 00:00: mouth 3 [place] 00 (three) Medical times Branch daily as needed for Itching. hydrOXYzine 2019- Yes [id number] 50mg Take 1 Univers 50 mg 0-25 tablet by ity of tablet 00:00: mouth 3 [place] 00 (three) Medical times Branch daily as needed for Itching. hydrOXYzine 2019-08- No [id number] 50mg Take 1 Univers 50 mg 0-25 -06 tablet by ity of tablet 00:00: 00:00 mouth 3 [place] 00 :00 (three) Medical times Branch daily as needed for Itching. fluconazole 2019-0 2020- No [id number] 150mg Take 1 Univers 150 mg 04-25-13 tablet by ity of tablet 00:00: 04:59 mouth [place] 00 :00 every 48 Medical ([facility] Branch ) hours for 2 doses. montelukast 2020-0 Yes [id number] 10mg Take 1 Univers 10 mg 3-16 tablet by ity of tablet 00:00: mouth [place] 00 daily. Medical Branch benzonatate 2020-0 Yes [id number] 100mg Take 1 Univers 100 mg 3-16 capsule by ity of capsule 00:00: mouth 3 00 (three) Medical times Branch daily as needed for Cough. montelukast 2020-0 Yes [id number] 10mg Take 1 Univers 10 mg 3-16 tablet by ity of tablet 00:00: mouth [place] 00 daily. Medical Branch benzonatate 2020-0 Yes [id number] 100mg Take 1 Univers 100 mg 3-16 capsule by ity of capsule 00:00: mouth 3 [place] 00 (three) Medical times Branch daily as needed for Cough. montelukast 2020-0 Yes [id number] 10mg Take 1 Univers 10 mg 3-16 tablet by ity of tablet 00:00: mouth [place] 00 daily. Medical Branch benzonatate 2020-0 Yes [id number] 100mg Take 1 Univers 100 mg 3-16 capsule by ity of capsule 00:00: mouth 3 00 (three) Medical times Branch daily as needed for Cough. montelukast 2020-0 Yes [id number] 10mg Take 1 Univers 10 mg 3-16 tablet by ity of tablet 00:00: mouth [place] 00 daily. Medical Branch benzonatate 2020-0 Yes [id number] 100mg Take 1 Univers 100 mg 3-16 capsule by ity of capsule 00:00: mouth 3 00 (three) Medical times Branch daily as needed for Cough. montelukast 2020-0 Yes [id number] 10mg Take 1 Univers 10 mg 3-16 tablet by ity of tablet 00:00: mouth [place] 00 daily. Medical Branch benzonatate 2020-0 Yes [id number] 100mg Take 1 Univers 100 mg 3-16 capsule by ity of capsule 00:00: mouth 00 (three) Medical times Branch daily as needed for Cough. montelukast 2020-0 Yes [id number] 10mg Take 1 Univers 10 mg 3-16 tablet by ity of tablet 00:00: mouth [place] 00 daily. Medical Branch benzonatate 2020-0 Yes [id number] 100mg Take 1 Univers 100 mg 3-16 capsule by ity of capsule 00:00: mouth (three) Medical times Branch daily as needed for Cough. montelukast 2020-0 Yes [id number] 10mg Take 1 Univers 10 mg 3-16 tablet by ity of tablet 00:00: mouth 00 daily. Medical Branch benzonatate 2020-0 Yes [id number] 100mg Take 1 Univers 100 mg 3-16 capsule by ity of capsule 00:00: mouth 00 (three) Medical times Branch daily as needed for Cough. montelukast 2020-0 Yes [id number] 10mg Take 1 Univers 10 mg 3-16 tablet by ity of tablet 00:00: mouth [place] 00 daily. Medical Branch benzonatate 2020-0 Yes [id number] 100mg Take 1 Univers 100 mg 3-16 capsule by ity of capsule 00:00: mouth 3 00 (three) Medical times Branch daily as needed for Cough. montelukast 2020-0 Yes [id number] 10mg Take 1 Univers 10 mg 3-16 tablet by ity of tablet 00:00: mouth [place] 00 daily. Medical Branch benzonatate 2020-0 Yes [id number] 100mg Take 1 Univers 100 mg 3-16 capsule by ity of capsule 00:00: mouth 3 00 (three) Medical times Branch daily as needed for Cough. montelukast 2020-0 Yes [id number] 10mg Take 1 Univers 10 mg 3-16 tablet by ity of tablet 00:00: mouth [place] 00 daily. Medical Branch benzonatate 2020-0 Yes [id number] 100mg Take 1 Univers 100 mg 3-16 capsule by ity of capsule 00:00: mouth 3 (three) Medical times Branch daily as needed for Cough. montelukast 2020-0 Yes [id number] 10mg Take 1 Univers 10 mg 3-16 tablet by ity of tablet 00:00: mouth [place] 00 daily. Medical Branch benzonatate 2020-0 Yes [id number] 100mg Take 1 Univers 100 mg 3-16 capsule by ity of capsule 00:00: mouth (three) Medical times Branch daily as needed for Cough. montelukast 2020-0 Yes [id number] 10mg Take 1 Univers 10 mg 3-16 tablet by ity of tablet 00:00: mouth 00 daily. Medical Branch benzonatate 2020-0 Yes [id number] 100mg Take 1 Univers 100 mg 3-16 capsule by ity of capsule 00:00: mouth (three) Medical times Branch daily as needed for Cough. montelukast 2020-0 Yes [id number] 10mg Take 1 Univers 10 mg 3-16 tablet by ity of tablet 00:00: mouth 00 daily. Medical Branch benzonatate 2020-0 Yes [id number] 100mg Take 1 Univers 100 mg 3-16 capsule by ity of capsule 00:00: mouth (three) Medical times Branch daily as needed for Cough. montelukast 2020-0 Yes [id number] 10mg Take 1 Univers 10 mg 3-16 tablet by ity of tablet 00:00: mouth [place] 00 daily. Medical Branch benzonatate 2020-0 Yes [id number] 100mg Take 1 Univers 100 mg 3-16 capsule by ity of capsule 00:00: mouth 3 (three) Medical times Branch daily as needed for Cough. montelukast 2020-0 Yes [id number] 10mg Take 1 Univers 10 mg 3-16 tablet by ity of tablet 00:00: mouth [place] 00 daily. Medical Branch benzonatate 2020-0 Yes [id number] 100mg Take 1 Univers 100 mg 3-16 capsule by ity of capsule 00:00: mouth 3 (three) Medical times Branch daily as needed for Cough. montelukast 2020-0 Yes [id number] 10mg Take 1 Univers 10 mg 3-16 tablet by ity of tablet 00:00: mouth [place] 00 daily. Medical Branch montelukast 2020-0 Yes [id number] 10mg Take 1 Univers 10 mg 3-16 tablet by ity of tablet 00:00: mouth [place] 00 daily. Medical Branch benzonatate 2020-0 Yes [id number] 100mg Take 1 Univers 100 mg 3-16 capsule by ity of capsule 00:00: mouth (three) Medical times Branch daily as needed for Cough. benzonatate 2020-0 Yes [id number] 100mg Take 1 Univers 100 mg 3-16 capsule by ity of capsule 00:00: mouth (three) Medical times Branch daily as needed for Cough. montelukast 2020-0 Yes [id number] 10mg Take 1 Univers 10 mg 3-16 tablet by ity of tablet 00:00: mouth 00 daily. Medical Branch benzonatate 2020-0 Yes [id number] 100mg Take 1 Univers 100 mg 3-16 capsule by ity of capsule 00:00: mouth (three) Medical times Branch daily as needed for Cough. montelukast 2020-0 Yes [id number] 10mg Take 1 Univers 10 mg 3-16 tablet by ity of tablet 00:00: mouth 00 daily. Medical Branch benzonatate 2020-0 Yes [id number] 100mg Take 1 Univers 100 mg 3-16 capsule by ity of capsule 00:00: mouth (three) Medical times Branch daily as needed for Cough. montelukast 2020-0 Yes [id number] 10mg Take 1 Univers 10 mg 3-16 tablet by ity of tablet 00:00: mouth [place] 00 daily. Medical Branch benzonatate 2020-0 Yes [id number] 100mg Take 1 Univers 100 mg 3-16 [...] 00 Medical STRIPS) Branch strip blood sugar 2017- Yes Glucose Uni vers diagnostic 11-12 testing ity of (RELION 00:00: QID [place] PRIME TEST Medical STRIPS) Branch strip blood sugar 2017- Yes Glucose Uni vers diagnostic 11-12 testing ity of (RELION 00:00: QID [place] PRIME TEST Medical STRIPS) Branch strip blood sugar 2017- Yes Glucose Uni vers diagnostic 11-12 testing ity of (RELION 00:00: QID [place] PRIME TEST Medical STRIPS) Branch strip blood sugar 2017- Yes Glucose Uni vers diagnostic 11-12 testing ity of (RELION 00:00: QID [place] PRIME TEST Medical STRIPS) Branch strip blood sugar 2017- Yes Glucose Uni vers diagnostic 11-12 testing ity of (RELION 00:00: QID [place] PRIME TEST Medical STRIPS) Branch strip blood sugar 2017- Yes Glucose Uni vers diagnostic 11-12 testing ity of (RELION 00:00: QID [place] PRIME TEST Medical STRIPS) Branch strip blood sugar 2017- Yes Glucose Uni vers diagnostic 11-12 testing ity of (RELION 00:00: QID [place] PRIME TEST Medical STRIPS) Branch strip blood sugar 2017- Yes Glucose Uni vers diagnostic 11-12 testing ity of (RELION 00:00: QID [place] PRIME TEST Medical STRIPS) Branch strip blood sugar 2017- Yes Glucose Uni vers diagnostic 11-12 testing ity of (RELION 00:00: QID [place] PRIME TEST Medical STRIPS) Branch strip blood sugar 2017- Yes Glucose Uni vers diagnostic 11-12 testing ity of (RELION 00:00: QID [place] PRIME TEST Medical STRIPS) Branch strip blood sugar 2017- Yes Glucose Uni vers diagnostic 11-12 testing ity of (RELION 00:00: QID [place] PRIME TEST Medical STRIPS) Branch strip blood sugar 2017- Yes Glucose Uni vers diagnostic 11-12 testing ity of (RELION 00:00: QID [place] PRIME TEST Medical STRIPS) Branch strip blood sugar 2017- Yes Glucose Uni vers diagnostic 11-12 testing ity of (RELION 00:00: QID [place] PRIME TEST Medical STRIPS) Branch strip blood sugar 2017- Yes Glucose Uni vers diagnostic 11-12 testing ity of (RELION 00:00: QID [place] PRIME TEST Medical STRIPS) Branch strip blood sugar Yes [...] Medical STRIPS) Branch strip insulin NPH Yes [id number] 15U inject 15 Univers 100 unit/mL 9-20 Units ity of injection 00:00: under the [place] as 00 skin every Medical morning Branch and evening. insulin Yes [id number] Take 8 Univ ers regular 9-20 units ity of human 100 00:00: before [place] unit/mL 00 breakfast Medical injection and before Bran ch dinner plus sliding scale insulin NPH Yes [id number] 15U inject 15 Univers 100 unit/mL 9-20 Units ity of injection 00:00: under the [place] 00 skin every Medical morning Branch and evening. insulin Yes [id number] Take 8 Univ ers regular 9-20 units ity of human 100 00:00: before [place] unit/mL 00 breakfast Medical injection and before Bran ch dinner plus sliding scale insulin NPH 2016- Yes [id number] 15U inject 15 Univers 100 unit/mL 9-20 Units ity of injection 00:00: under the [place] 00 skin every Medical morning Branch and evening. insulin 2016-0 Yes [id number] Take 8 Univ ers regular 9-20 units ity of human 100 00:00: before [place] unit/mL 00 breakfast Medical injection and before Bran ch dinner plus sliding scale insulin NPH 2016- Yes [id number] 15U inject 15 Univers 100 unit/mL 9-20 Units ity of injection 00:00: under the [place] 00 skin every Medical morning Branch and evening. insulin 2016-0 Yes [id number] Take 8 Univ ers regular 9-20 units ity of human 100 00:00: before [place] unit/mL 00 breakfast Medical injection and before Bran ch dinner plus sliding scale insulin NPH 2016- Yes [id number] 15U inject 15 Univers 100 unit/mL 9-20 Units ity of injection 00:00: under the [place] 00 skin every Medical morning Branch and evening. insulin 2017-0 Yes [id number] Take 8 Univ ers regular 9-20 units ity of human 100 00:00: before [place] unit/mL 00 breakfast Medical injection and before Bran ch dinner plus sliding scale insulin NPH 2017-0 Yes [id number] 15U inject 15 Univers 100 unit/mL 9-20 Units ity of injection 00:00: under the [place] 00 skin every Medical morning Branch and evening. insulin 2017-0 Yes [id number] Take 8 Univ ers regular 9-20 units ity of human 100 00:00: before [place] unit/mL 00 breakfast Medical injection and before Bran ch dinner plus sliding scale insulin NPH 2016-0 Yes [id number] 15U inject 15 Univers 100 unit/mL 9-20 Units ity of injection 00:00: under the [place] 00 skin every Medical morning Branch and evening. insulin 2017-0 Yes [id number] Take 8 Univ ers regular 9-20 units ity of human 100 00:00: before [place] unit/mL 00 breakfast Medical injection and before Bran ch dinner plus sliding scale insulin NPH 2016-0 Yes [id number] 15U inject 15 Univers 100 unit/mL 9-20 Units ity of injection 00:00: under the [place] 00 skin every Medical morning Branch and evening. insulin 2016-0 Yes [id number] Take 8 Univ ers regular 9-20 units ity of human 100 00:00: before [place] unit/mL 00 breakfast Medical injection and before Bran ch dinner plus sliding scale insulin NPH 2017-0 Yes [id number] 15U inject 15 Univers 100 unit/mL 9-20 Units ity of injection 00:00: under the [place] 00 skin every Medical morning Branch and evening. insulin 2017-0 Yes [id number] Take 8 Univ ers regular 9-20 units ity of human 100 00:00: before [place] unit/mL 00 breakfast Medical injection and before Bran ch dinner plus sliding scale insulin NPH 2017-0 Yes [id number] 15U inject 15 Univers 100 unit/mL 9-20 Units ity of injection 00:00: under the [place] 00 skin every Medical morning Branch and evening. insulin 2017-0 Yes [id number] Take 8 Univ ers regular 9-20 units ity of human 100 00:00: before [place] unit/mL 00 breakfast Medical injection and before Bran ch dinner plus sliding scale insulin NPH 2017-0 Yes [id number] 15U inject 15 Univers 100 unit/mL 9-20 Units ity of injection 00:00: under the [place] 00 skin every Medical morning Branch and evening. insulin 2016-0 Yes [id number] Take 8 Univ ers regular 9-20 units ity of human 100 00:00: before [place] unit/mL 00 breakfast Medical injection and before Bran ch dinner plus sliding scale insulin NPH 2016-0 Yes [id number] 15U inject 15 Univers 100 unit/mL 9-20 Units ity of injection 00:00: under the [place] 00 skin every Medical morning Branch and evening. insulin 2016-0 Yes [id number] Take 8 Univ ers regular 9-20 units ity of human 100 00:00: before [place] unit/mL 00 breakfast Medical injection and before Bran ch dinner plus sliding scale insulin NPH 2016-0 Yes [id number] 15U inject 15 Univers 100 unit/mL 9-20 Units ity of injection 00:00: under the [place] 00 skin every Medical morning Branch and evening. insulin 2016-0 Yes [id number] Take 8 Univ ers regular 9-20 units ity of human 100 00:00: before [place] unit/mL 00 breakfast Medical injection and before Bran ch dinner plus sliding scale insulin NPH 2016-0 Yes [id number] 15U inject 15 Univers 100 unit/mL 9-20 Units ity of injection 00:00: under the [place] 00 skin every Medical morning Branch and evening. insulin 2016-0 Yes [id number] Take 8 Univ ers regular 9-20 units ity of human 100 00:00: before [place] unit/mL 00 breakfast Medical injection and before Bran ch dinner plus sliding scale insulin NPH 2016-0 Yes [id number] 15U inject 15 Univers 100 unit/mL 9-20 Units ity of injection 00:00: under the [place] 00 skin every Medical morning Branch and evening. insulin 2017-0 Yes [id number] Take 8 Univ ers regular 9-20 units ity of human 100 00:00: before [place] unit/mL 00 breakfast Medical injection and before Bran ch dinner plus sliding scale insulin NPH 2016-0 Yes [id number] 15U inject 15 Univers 100 unit/mL 9-20 Units ity of injection 00:00: under the [place] 00 skin every Medical morning Branch and evening. insulin 2017-0 Yes [id number] Take 8 Univ ers regular 9-20 units ity of human 100 00:00: before [place] unit/mL 00 breakfast Medical injection and before Bran ch dinner plus sliding scale insulin NPH 2017-0 Yes [id number] 15U inject 15 Univers 100 unit/mL 9-20 Units ity of injection 00:00: under the [place] 00 skin every Medical morning Branch and evening. insulin 2017-0 Yes [id number] Take 8 Univ ers regular 9-20 units ity of human 100 00:00: before [place] unit/mL 00 breakfast Medical injection and before Bran ch dinner plus sliding scale insulin NPH 2016-0 Yes [id number] 15U inject 15 Univers 100 unit/mL 9-20 Units ity of injection 00:00: under the [place] 00 skin every Medical morning Branch and evening. insulin 2016-0 Yes [id number] Take 8 Univ ers regular 9-20 units ity of human 100 00:00: before [place] unit/mL 00 breakfast Medical injection and before Bran ch dinner plus sliding scale insulin NPH 2016-0 Yes [id number] 15U inject 15 Univers 100 unit/mL 9-20 Units ity of injection 00:00: under the [place] 00 skin every Medical morning Branch and evening. insulin 2016-0 Yes [id number] Take 8 Univ ers regular 9-20 units ity of human 100 00:00: before [place] unit/mL 00 breakfast Medical injection and before Bran ch dinner plus sliding scale insulin NPH 2016-0 Yes [id number] 15U inject 15 Univers 100 unit/mL 9-20 Units ity of injection 00:00: under the [place] 00 skin every Medical morning Branch and evening. insulin 2017-0 Yes [id number] Take 8 Univ ers regular 9-20 units ity of human 100 00:00: before [place] unit/mL 00 breakfast Medical injection and before Bran ch dinner plus sliding scale Insulin 2017-0 Yes [id number] Use as Univ ers Syringe-Nee 6-14 directed ity of dle U-100 00:00: [place] (INSULIN 00 Medical SYRINGE) 1 Branch mL 30 gauge x 5/16 Syrg Insulin 2017-0 Yes [id number] Use as Univ ers Syringe-Nee 6-14 directed ity of dle U-100 00:00: [place] (INSULIN 00 Medical SYRINGE) 1 Branch mL 30 gauge x 5/16 Syrg Insulin 2017-0 Yes [id number] Use as Univ ers Syringe-Nee 6-14 directed ity of dle U-100 00:00: [place] (INSULIN 00 Medical SYRINGE) 1 Branch mL 30 gauge x 5/16 Syrg Insulin 2017-0 Yes [id number] Use as Univ ers Syringe-Nee 6-14 directed ity of dle U-100 00:00: [place] (INSULIN 00 Medical SYRINGE) 1 Branch mL 30 gauge x 5/16 Syrg Insulin 2017-0 Yes [id number] Use as Univ ers Syringe-Nee 6-14 directed ity of dle U-100 00:00: [place] (INSULIN 00 Medical SYRINGE) 1 Branch mL 30 gauge x 5/16 Syrg Insulin 2016- Yes [id number] Use as Univ ers Syringe-Nee 6-14 directed ity of dle U-100 00:00: [place] (INSULIN 00 Medical SYRINGE) 1 Branch mL 30 gauge x 5/16 Syrg Insulin 2016- Yes [id number] Use as Univ ers Syringe-Nee 6-14 directed ity of dle U-100 00:00: (INSULIN 00 Medical SYRINGE) 1 Branch mL 30 gauge x 5/16 Syrg Insulin 2016- Yes [id number] Use as Univ ers Syringe-Nee 6-14 directed ity of dle U-100 00:00: [place] (INSULIN 00 Medical SYRINGE) 1 Branch mL 30 gauge x 5/16 Syrg Insulin 2016- Yes [id number] Use as Univ ers Syringe-Nee 6-14 directed ity of dle U-100 00:00: [place] (INSULIN 00 Medical SYRINGE) 1 Branch mL 30 gauge x 5/16 Syrg Insulin 2016- Yes [id number] Use as Univ ers Syringe-Nee 6-14 directed ity of dle U-100 00:00: [place] (INSULIN 00 Medical SYRINGE) 1 Branch mL 30 gauge x 5/16 Syrg Insulin 2017- Yes [id number] Use as Univ ers Syringe-Nee 6-14 directed ity of dle U-100 00:00: [place] (INSULIN 00 Medical SYRINGE) 1 Branch mL 30 gauge x 5/16 Syrg Insulin 2017-0 Yes [id number] Use as Univ ers Syringe-Nee 6-14 directed ity of dle U-100 00:00: [place] (INSULIN 00 Medical SYRINGE) 1 Branch mL 30 gauge x 5/16 Syrg Insulin 2016- Yes [id number] Use as Univ ers Syringe-Nee 6-14 directed ity of dle U-100 00:00: [place] (INSULIN 00 Medical SYRINGE) 1 Branch mL 30 gauge x 5/16 Syrg Insulin 2017-0 Yes [id number] Use as Univ ers Syringe-Nee 6-14 directed ity of dle U-100 00:00: [place] (INSULIN 00 Medical SYRINGE) 1 Branch mL 30 gauge x 5/16 Syrg Insulin 2017-0 Yes [id number] Use as Univ ers Syringe-Nee 6-14 directed ity of dle U-100 00:00: [place] (INSULIN 00 Medical SYRINGE) 1 Branch mL 30 gauge x 5/16 Syrg Insulin 2017-0 Yes [id number] Use as Univ ers Syringe-Nee 6-14 directed ity of dle U-100 00:00: [place] (INSULIN 00 Medical SYRINGE) 1 Branch mL 30 gauge x 5/16 Syrg Insulin 2017-0 Yes [id number] Use as Univ ers Syringe-Nee 6-14 directed ity of dle U-100 00:00: [place] (INSULIN 00 Medical SYRINGE) 1 Branch mL 30 gauge x 5/16 Syrg Insulin 2017-0 Yes [id number] Use as Univ ers Syringe-Nee 6-14 directed ity of dle U-100 00:00: [place] (INSULIN 00 Medical SYRINGE) 1 Branch mL 30 gauge x 5/16 Syrg Insulin 2017-0 Yes [id number] Use as Univ ers Syringe-Nee 6-14 directed ity of dle U-100 00:00: [place] (INSULIN 00 Medical SYRINGE) 1 Branch mL 30 gauge x 5/16 Syrg Insulin 2017-0 Yes [id number] Use as Univ ers Syringe-Nee 6-14 directed ity of dle U-100 00:00: [place] (INSULIN 00 Medical SYRINGE) 1 Branch mL 30 gauge x 5/16 Syrg Immunizations Ordered Immunization Filled Immunization Date Status Commen ts Source Name Name Rubella 2012-10-01 Completed University of 00:00:[address] [facility] Rubella 2012-10-01 Completed University of 00:00:[address] [facility] Rubella 2012-10-01 Completed University of 00:00:[address] [facility] Rubella 2012-10-01 Completed University of 00:00:[address] [facility] Rubella 2012-10-01 Completed University of 00:00:[address] [facility] Rubella 2012-10-01 Completed University of 00:00:[address] [facility] Rubella 2012-10-01 Completed University of 00:00:[address] [facility] Rubella 2012-10-01 Completed University of 00:00:[address] [facility] Rubella 2012-10-01 Completed University of 00:00:[address] [facility] Rubella 2012-10-01 Completed University of 00:00:[address] [facility] Rubella 2012-10-01 Completed University of 00:00:[address] [facility] Rubella 2012-10-01 Completed University of 00:00:[address] [facility] Rubella 2012-10-01 Completed University of 00:00:[address] [facility] Rubella 2012-10-01 Completed University of 00:00:[address] [facility] Rubella 2012-10-01 Completed University of 00:00:[address] [facility] Rubella 2012-10-01 Completed University of 00:00:[address] [facility] Rubella 2012-10-01 Completed University of 00:00:[address] [facility] Rubella 2012-10-01 Completed University of 00:00:[address] [facility] Rubella 2012-10-01 Completed University of 00:00:[address] [facility] Rubella 2012-10-01 Completed University of 00:00:[address] [facility] Varicella 2012-09-09 Completed University of (varivax)(chicken 00:00:00 [...] of 00:00:[address] [facility] TDAP 2012-04-07 Completed University of 00:00:[address] [facility] TDAP 2012-04-07 Completed University of 00:00:[address] [facility] TDAP 2012-04-07 Completed University of 00:00:[address] [facility] TDAP 2012-04-07 Completed University of 00:00:[address] [facility] Tdap 2012-04-07 Completed University of 00:00:[address] [facility] TDAP 2012-04-07 Completed University of 00:00:[address] [facility] TDAP 2012-04-07 Completed University of 00:00:[address] [facility] TDAP 2012-04-07 Completed University of 00:00:[address] [facility] TDAP 2012-04-07 Completed University of 00:00:[address] [facility] TDAP 2012-04-07 Completed University of 00:00:[address] [facility] TDAP 2012-04-07 Completed University of 00:00:[address] [facility] TDAP 2012-04-07 Completed University of 00:00:[address] [facility] TDAP 2012-04-07 Completed University of 00:00:[address] [facility] TDAP 2012-04-07 Completed University of 00:00:[address] [facility] TDAP 2012-04-07 Completed University of 00:00:[address] [facility] Tdap 2012-04-07 Completed University of 00:00:[address] [facility] TDAP 2012-04-07 Completed University of 00:00:[address] [facility] Tdap 2012-04-07 Completed University of 00:00:[address] [facility] TDAP 2012-04-07 Completed University of 00:00:[address] [facility] Meningococcal 2010-04-02 Completed University of Polysaccharide 00:00:00 [...] Completed University of Polysaccharide 00:00:00 [place] [facility] (groups A, C, Y and Branc h W-135) conjugate vaccine (MCV4P) Meningococcal 2010-04-02 Completed University of Polysaccharide 00:00:00 [place] [facility] (groups A, C, Y and Branc h W-135) conjugate vaccine (MCV4P) Meningococcal 2010-04-02 Completed University of Polysaccharide 00:00:00 [place] [facility] (groups A, C, Y and Branc h W-135) conjugate vaccine (MCV4P) Meningococcal 2010-04-02 Completed University of Polysaccharide 00:00:00 [place] [facility] (groups A, C, Y and Branc h W-135) conjugate vaccine (MCV4P) Meningococcal 2010-04-02 Completed University of Polysaccharide 00:00:00 [place] [facility] (groups A, C, Y and Branc h W-135) conjugate vaccine (MCV4P) DTaP, Unspecified 2002-03-08 Completed Univers ity of Formulation 00:00:[address] [facility] MMR 2002-03-08 Completed University of 00:00:[address] [facility] IPV 2002-03-08 Completed University of 00:00:[address] [facility] Varicella 1999-08-21 Completed University of (varivax)(chicken 00:00:00 [...] (varivax)(chicken 00:00:00 [place] [facility]ical pox) Branch DTaP, Unspecified 1999-08-21 Completed Univers ity of Formulation 00:00:[address] [facility] HIB 4 Dose Schedule 1999-08-21 Completed Unive rsity of 00:00:[address] [facility] MMR 1999-08-21 Completed University of 00:00:[address] [facility] IPV 1999-08-21 Completed University of 00:00:[address] [facility] DTaP, Unspecified 1998 Completed Univers ity of Formulation 00:00:[address] [facility] Hep B, Adol or Pedi 1998 Completed Unive rsity of Dosage 00:00:[address] [facility] Haemophilus 1998 Completed University of influenzae type b 00:00:00 [facility] edical vaccine, conjugate Branch unspecified formulation IPV 1998 Completed University of 00:00:[address] [facility] DTaP, Unspecified 1998 Completed Univers ity of Formulation 00:00:[address] [facility] Haemophilus 1998 Completed University of influenzae type b 00:00:00 [facility] edical vaccine, conjugate Branch unspecified formulation DTAP 1998 Completed University of 00:00:00 [place] [facility] Polio (IPV/OPV) 1998 Completed Universit y of 00:00:00 [facility] DTAP 1998 Completed University of 00:00:00 [place] [facility] Polio (IPV/OPV) 1998 Completed Universit y of 00:00:00 [facility] DTAP 1998 Completed University of 00:00:00 [place] [facility] Polio (IPV/OPV) 1998 Completed Universit y of 00:00:00 [facility] DTAP 1998 Completed University of 00:00:00 [place] [facility] Polio (IPV/OPV) 1998 Completed Universit y of 00:00:00 [facility] DTAP 1998 Completed University of 00:00:00 [facility] Polio (IPV/OPV) 1998 Completed Universit y of 00:00:00 [facility] DTAP 1998 Completed University of 00:00:00 [facility] DTAP 1998 Completed University of 00:00:00 [facility] Polio (IPV/OPV) 1998 Completed Universit y of 00:00:00 [facility] DTAP 1998 Completed University of 00:00:00 [facility] Polio (IPV/OPV) 1998 Completed Universit y of 00:00:00 [facility] Polio (IPV/OPV) 1998 Completed Universit y of 00:00:00 [facility] DTAP 1998 Completed University of 00:00:00 [place] [facility] Polio (IPV/OPV) 1998 Completed Universit y of 00:00:00 [facility] DTAP 1998 Completed University of 00:00:00 [place] [facility] Polio (IPV/OPV) 1998 Completed Universit y of 00:00:00 [facility] DTAP 1998 Completed University of 00:00:00 [place] [facility] Polio (IPV/OPV) 1998 Completed Universit y of 00:00:00 [facility] DTAP 1998 Completed University of 00:00:00 [place] [facility] Polio (IPV/OPV) 1998 Completed Universit y of 00:00:[address] [facility] DTAP 1998 Completed University of 00:00:[address] [facility] Polio (IPV/OPV) 1998 Completed Universit y of 00:00:[address] [facility] DTAP 1998 Completed University of 00:00:[address] [facility] Polio (IPV/OPV) 1998 Completed Universit y of 00:00:[address] [facility] DTAP 1998 Completed University of 00:00:[address] [facility] Polio (IPV/OPV) 1998 Completed Universit y of 00:00:[address] [facility] DTAP 1998 Completed University of 00:00:[address] [facility] Polio (IPV/OPV) 1998 Completed Universit y of 00:00:[address] [facility] DTAP 1998 Completed University of 00:00:[address] [facility] Polio (IPV/OPV) 1998 Completed Universit y of 00:00:[address] [facility] DTAP 1998 Completed University of 00:00:[address] [facility] DTaP, Unspecified 1998 Completed Univers ity of Formulation 00:00:[address] [facility] Haemophilus 1998 Completed University of influenzae type b 00:00:00 [facility] edical vaccine, conjugate [place] unspecified formulation Polio (IPV/OPV) 1998 Completed Universit y of 00:00:[address] [facility] DTAP 1998 Completed University of 00:00:[address] [facility] Polio (IPV/OPV) 1998 Completed Universit y of 00:00:[address] [facility] DTAP 1998 Completed University of 00:00:[address] [facility] Polio (IPV/OPV) 1998 Completed Universit y of 00:00:[address] [facility] HIB 4 Dose Schedule 1998 Completed Unive rsity of 00:00:[address] [facility] HIB 4 Dose Schedule 1998 Completed Unive rsity of 00:00:[address] [facility] HIB 4 Dose Schedule 1998 Completed Unive rsity of 00:00:[address] [facility] HIB 4 Dose Schedule 1998 Completed Unive [...] 1998 Completed Unive rsity of Dosage 00:00:00 [place] [facility] Hep B, Adol or Pedi 1998 Completed Unive rsity of Dosage 00:00:00 [place] [facility] Hep B, Adol or Pedi 1998 Completed Unive rsity of Dosage 00:00:00 [place] [facility] Hep B, Adol or Pedi 1998 Completed Unive rsity of Dosage 00:00:00 [place] [facility] Hep B, Adol or Pedi 1998 Completed Unive rsity of Dosage 00:00:00 [place] [facility] Hep B, Adol or Pedi 1998 Completed Unive rsity of Dosage 00:00:00 [place] [facility] Hep B, Adol or Pedi 1998 Completed Unive rsity of Dosage 00:00:00 [place] [facility] Hep B, Adol or Pedi 1998 Completed Unive rsity of Dosage 00:00:00 [place] [facility] Hep B, Adol or Pedi 1998 Completed Unive rsity of Dosage 00:00:00 [place] [facility] Hep B, Adol or Pedi 1998 Completed Unive rsity of Dosage 00:00:00 [place] [facility] Hep B, Adol or Pedi 1998 Completed Unive rsity of Dosage 00:00:00 [place] [facility] Hep B, Adol or Pedi 1998 Completed Unive rsity of Dosage 00:00:00 [place] [facility] Hep B, Adol or Pedi 1998 Completed Unive rsity of Dosage 00:00:00 [place] [facility] Hep B, Adol or Pedi 1998 Completed Unive rsity of Dosage 00:00:00 [place] [facility] Hep B, Adol or Pedi 1998 Completed Unive rsity of Dosage 00:00:[address] [facility] Vital Signs Vital Name Observation Time Observation Value Comments Source Systolic blood 2022-11-14 15:27:00 113 mm[Hg] Univer sity of pressure [place] [facility] Diastolic blood 2022-11-14 15:27:00 80 mm[Hg] Unive rsity of pressure [place] [facility] Heart rate 2022-11-14 15:27:00 102 /min Universi ty of [place] [facility] Body temperature 2022-11-14 15:27:00 37.11 Steffany Univ ersity of [place] [facility] Respiratory rate 2022-11-14 15:27:00 16 /min Univ ersity of [place] [facility] Body height 2022-11-14 15:27:00 162.6 cm Universi ty of [place] [facility] Body weight 2022-11-14 15:27:00 63.05 kg Universi ty of [place] [facility] BMI 2022-11-14 15:27:00 23.86 kg/m2 Universi ty of [place] [facility] Systolic blood 2022-08-21 16:17:00 126 mm[Hg] Univer sity of pressure [place] [facility] Diastolic blood 2022-08-21 16:17:00 83 mm[Hg] Unive rsity of pressure [place] [facility] Body temperature 2022-08-21 16:17:00 36.83 Steffany Univ ersity of [place] [facility] Respiratory rate 2022-08-21 16:17:00 18 /min Univ ersity of [place] [facility] Body height 2022-08-21 16:17:00 162.6 cm Universi ty of [place] [facility] Body weight 2022-08-21 16:17:00 62.596 kg Universi ty of [place] [facility] BMI 2022-08-21 16:17:00 23.69 kg/m2 Universi ty of [place] [facility] Systolic blood 2021-08-22 20:55:00 117 mm[Hg] Univer sity of pressure [place] [facility] Diastolic blood 2021-08-22 20:55:00 76 mm[Hg] Unive rsity of pressure [place] [facility] Heart rate 2021-08-22 20:55:00 82 /min Universi ty of [place] [facility] Body temperature 2021-08-22 20:55:00 36.89 Steffany Univ ers[facility] of [place] [facility] Respiratory rate 2021-08-22 20:55:00 18 /min Univ ersity of [place] [facility] Body height 2021-08-22 20:55:00 162.6 cm Universi ty [facility] [place] [facility] Body weight 2021-08-22 20:55:00 64.864 kg Universi ty [facility] [place] [facility] BMI 2021-08-22 20:55:00 24.55 kg/m2 Universi [facility] [place] [facility] Systolic blood 2020-06-10 17:49:00 124 mm[Hg] Univer sity of pressure [place] [facility] Diastolic blood 2020-06-10 17:49:00 95 mm[Hg] Unive rsity of pressure [place] [facility] Heart rate 2020-06-10 17:49:00 100 /min Universi ty of [place] [facility] Body temperature 2020-06-10 17:49:00 36.56 Steffany Univ ersity of [place] [facility] Respiratory rate 2020-06-10 17:49:00 18 /min Univ ersity of [place] [facility] Body height 2020-06-10 17:49:00 160 cm Universi ty [facility] [place] [facility] Body weight 2020-06-10 17:49:00 58.968 kg Universi ty of [place] [facility] BMI 2020-06-10 17:49:00 23.03 kg/m2 Universi ty of [place] [facility] Oxygen saturation in 2020-06-10 17:49:00 98 /min University of Arterial blood by [place] [employer] anshu Pulse oximetry Branch Systolic blood 2019-10-31 23:20:00 135 mm[Hg] Univer sity of pressure [place] [facility] Diastolic blood 2019-10-31 23:20:00 87 mm[Hg] Unive rsity of pressure [place] [facility] Heart rate 2019-10-31 23:20:00 104 /min Universi ty [facility] [place] [facility] Body temperature 2019-10-31 23:20:00 36.67 Steffany Univ ers[facility] [place] [facility] Respiratory rate 2019-10-31 23:20:00 17 /min Univ ersity [facility] [place] [facility] Body height 2019-10-31 23:20:00 157.5 cm Universi [facility] [place] [facility] Body weight 2019-10-31 23:20:00 61.689 kg Universi ty [facility] [place] [facility] BMI 2019-10-31 23:20:00 24.87 kg/m2 Universi [facility] [place] [facility] Oxygen saturation in 2019-10-31 23:20:00 100 /min University of Arterial blood by [employer] anshu Pulse oximetry Branch Systolic blood 2019-10-31 23:20:00 135 mm[Hg] Univer sity of pressure [facility] Diastolic blood 2019-10-31 23:20:00 87 mm[Hg] Unive rsity of pressure [facility] Heart rate 2019-10-31 23:20:00 104 /min [facility] Body temperature 2019-10-31 23:20:00 36.67 Steffany [facility] Respiratory rate 2019-10-31 23:20:00 17 /min [facility] Body height 2019-10-31 23:20:00 157.5 cm [facility] Body weight 2019-10-31 23:20:00 61.689 kg [facility] BMI 2019-10-31 23:20:00 24.87 kg/m2 [facility] Oxygen saturation in 2019-10-31 23:20:00 100 /min [facility] Arterial blood by [facility] Pulse oximetry Branch Procedures Procedure Date / Time Performing Clinician Source Performed EXTERNAL PROVIDER 2023-02-10 05:01:00 [facility] [place] PHYSICIAN ORDERS 2022-12-11 05:01:00 Doctor Unassigned, No Unive [facility] ASSIGNMENT OF BENEFITS 2022-11-14 15:05:51 Doctor Unassigned, No [facility] CONSENT FOR 2022-08-21 06:01:00 Doctor Unassigned, No Univer [facility] CONTRACEPTION Name [facility] POCT TEST 2022-08-21 00:00:00 Lynette Morris [facility] EXTERNAL PROVIDER 2022-07-31 06:01:00 [facility] REFERRAL- 2022-07-02 06:01:00 Doctor Unassigned, No [facility]RESPONSE Name Medical Branch <14 WEEKS US 2021-08-23 00:11:02 Gilma Rockwell [facility] Medical [place] ASSIGNMENT OF BENEFITS 2021-08-22 20:32:41 Doctor Unassigned, No [facility] POCT TEST 2021-08-22 00:00:00 Gilma Rockwell [facility] POCT URINALYSIS W/O 2021-08-22 00:00:00 Gilma Rockwell [facility] [place] SPECIFIC GRAVITY Medical Branch CONSENT/REFUSAL FOR 2020-04-25 18:01:24 Doctor Unassigned, No [facility] [place] DIAGNOSIS AND TREATMENT Name Medical Branch CONSENT/REFUSAL FOR 2019-10-31 23:06:08 Doctor Unassigned, No [facility] [place] DI[facility]NOSIS [facility] TREATMENT Name Medical Branch NOTICE OF PRIVACY 2019-10-31 23:05:51 Doctor Unassigned, No [facility] [place] PRACTICES Name Medical Branch Encounters Start End Encounter Admission Attending Care Care Encounter Source Date/Time Date/Time Type Type Clinicians Facility Department ID 2021-06-15 Emergency [facility] [id number] Univers 00:54:[address] [facility] 2021-06-13 Emergency [facility] [id number] Univers 14:39:48 ity [facility] 2023-02-10 2023-02-10 Orders Doctor COUGHLIN [id number] Univers 00:00:00 00:00:00 Only Unassigned, LISSETH [id number] ity of [facility] [id number] Ronny as [phone] [place] [address] Branch 2023-01-20 2023-01-20 Outpatient R KERLINE TONYSOL [facility] U [facility] [id number] Univers 16:30:00 16:30:00 CRISELDA TONY [facility] [place] [facility] 2023-01-09 2023-01-09 Outpatient Cruz MORRIS [facility] [id number] Univers 10:00:00 10:00:00 LYNETTE itmary [facility] 2022-12-23 2022-12-23 Outpatient SHAHEED PUGA [facility] [id number] Univers 13:40:00 13:40:00 [facility]ED LAGOS [facility] [place] [facility] 2022-12-11 2022-12-11 Orders Doctor MADYSON [id number] Univers 00:00:00 00:00:00 Only UnassignedLISSETH [id number] ity of [facility] [id number] Ronny as [phone] [address] 2022-11-30 2022-11-30 Telephone Demond [facility] [id number] Univers 00:00:00 00:00:00 [facility] [id number] ity of [place] [id number] Ronny as SUMAYA?BLEA [phone] Fl kerrie BURNS [address] [facility] 2022-11-14 2022-11-14 Outpatient R ARTURO [facility] [id number] Univers 10:00:00 10:26:41 L[facility]TE [facility] [place] [facility] 2022-11-14 2022-11-14 Nurse Nurse, [facility] [id number] Univers 10:00:00 10:26:41 Visit Lynette Morris [id number] ity of [id number] [phone] Fl kerrie HAM [address] [place] [address] 2022-11-14 2022-11-14 Orders Doctor COUGHLIN [id number] Univers 00:00:00 00:00:00 Only Unassigned, LISSETH [id number] [facility] [id number] Ronny as [phone] [address] 2022-10-07 2022-10-07 Outpatient Cruz BARRETT [facility] [id number] Univers 14:30:00 14:30:00 BENSON mary [facility] 2022-08-21 2022-08-21 Outpatient Cruz MORRIS [facility] [id number] Univers 10:00:00 10:59:06 LYNETTE vail [facility] 2022-08-21 2022-08-21 Office Arturo [facility] [id number] Univers 10:00:00 10:59:06 Visit Lynette REYES [id number] i ty of [id number] [phone] Fl kerrie HAM [address] [place] [address] 2022-08-21 2022-08-21 Orders Doctor COUGHLIN [id number] Univers 00:00:00 00:00:00 Only Unassigned, LISSETH [id number] ity of [facility] [id number] Ronny as [phone] [address] 2022-08-12 2022-08-12 Telephone Arturo [facility] [id number] Univers 00:00:00 00:00:00 Lynette AMY [id number] i ty of [id number] [phone] Fl dical [address] 2022-07-31 2022-07-31 Orders Doctor MADYSON [id number] Univers 00:00:00 00:00:00 Only Unassigned, LISSETH [id number] ity of [facility] [id number] Ronny as [id number] [address] 2022-07-02 2022-07-02 Orders Doctor MADYSON [id number] Univers 00:00:00 00:00:00 Only Unassigned, LISSETH [id number] ity of [facility] [id number] Ronny as [phone] [address] 2021-08-22 2021-08-22 Outpatient R KYLAHVIRGINIAN [facility] [id number] Univers 14:30:00 16:44:[address] [facility] 2021-08-22 2021-08-22 Initial Gilma Rockwell [facility] 1.2.840.114 [id number] Univers 14:30:00 16:44:35 ABDIAS [id number] i ty of [place] [facility] [id number] [facility] [id number] [address] 2021-08-22 2021-08-22 Orders Doctor MADYSON [id number] Univers 00:00:00 00:00:00 Only Unassigned, LISSETH [id number] ity of [facility] [id number] Ronny as [id number] [address] 2020-11-06 2020-11-06 Patient Dayo, [facility] [id number] Univers 00:00:00 00:00:00 Outreach Raj ADAM [id number] i ty of [facility] [id number] [id number] Fl dicmo [address] [place] 2020-06-10 2020-06-10 Emergency Dutton, [facility] [id number] Univers 12:51:00 14:02:00 Shea Reyes [id number] i ty [id number] [id number] [facility] [address] [place] [address] 2020-04-27 2020-04-27 Telephone Gilma Rockwell [facility] 1.2.840.114 [id number] Univers 00:00:00 00:00:00 [place] [id number] i [place] of [place] 4[place]7.2.686 [place] [id number] Fl dicmo nal 134 [facility] 2020-04-27 2020-04-27 Gilma Ndiaye [facility] [id number] 00:00:00 00:00:00 [place] 350.1.13.10 [place] 4.2.7.2.686 Professio [id number] [address] 2020-04-25 2020-04-25 Outpatient R KYLAH GILMA [facility] [id number] Univers 13:00:00 13:00:[address] [facility] 2020-04-25 2020-04-25 Orders Doctor MADYSON [id number] [id number] Univers 00:00:00 00:00:00 Only Unassigned, LISSETH 350.1.13.10 ity of [facility] 4.2.7.2.686 Ronny as [id number] [address] 2020-04-25 2020-04-25 Orders Doctor MADYSON 1.2.840.114 [id number] 00:00:00 00:00:00 Only Unassigned, LISSETH 350.1.13.10 [facility] 4.2.7.2.686 [id number] 009 2019-11-10 2019-11-10 [facility] 1.2.840.114 [id number] Univers 00:00:00 00:00:00 (Out) Shahid Reyes 350.1.13.10 i ty of [place] 4.2.7.2.686 [facility] [phone] [address] 2019-11-10 2019-11-10 [facility] 1.2.840.114 [id number] 00:00:00 00:00:00 (Out) Shahid Reyes 350.1.13.[address] [address] [place] [address] [id number] 084 2019-11-05 2019-11-05 Nurse MADYSON Doe 1.2.840.114 [id number] Univers 00:00:00 00:00:00 Triage Paula MONTANEZ 350.1.13.10 i ty of [facility] 4.2.7.2.[address] [place] [id number] 2019-11-05 2019-11-05 MADYSON Bell 1.2.840.114 [id number] 00:00:00 00:00:00 Triage Paula MONTANEZ 350.1.13.10 [facility] 42.7.2.68 [id number] 2019-10-31 2019-10-31 Emergency [facility] [id number] [facility] 18:21:01 18:54:00 Shahid Reyes 350.1.13.10 i ty of [place] 4.2.7.2.686 [facility] [phone] [address] 2019-10-31 2019-10-31 [facility] 1.2.680.180 [id number] 18:21:01 18:54:00 Shahid Reyes 350.1.13.10 [place] 4.2.7.2.686 [place] [id number] [id number] Results Test Description Test Time Test Comments Results Result Comments Source POCT TEST 2022-08-21 17:06:00 Test Item Value Reference Range Interpretation Comme nts POCT PREG (test code = 1605) Negative On board controls acceptable with C Line (test code = 3574) Yes POCT PREG LOT # (test code = 3575) POCT PREG TEST DATE (test code = 3576) [facility] [id number] 17:06:00 Test Item Value Reference Range Interpretation Comments POCT PREG (test code = 1605) Negative On board controls acceptable with C Yes Line (test code = 3574) POCT PREG LOT # (test code = 3575) POCT PREG TEST DATE (test code = 3576) [facility] URINALYSIS W/O SPECIFIC [id number] 21:16:00 Test Item Value Reference Range Interpretation Comments POCT PH U (test code = 3254) [...] code = 3257) n/a Negative - Negative [facility] [id number] 21:15:00 Test Item Value Reference Range Interpretation Comments POCT PREG (test code = 1605) Positive On board controls acceptable with C Yes Line (test code = 3574) POCT PREG LOT # (test code = 3575) POCT PREG TEST DATE (test code = 3576) [facility] [id number] 13:07:00 RUN DATE: 05/17/18 [facility] PAGE 1 RUN TIME: 1810 Specimen Inquiry RUN USER: INTERFACE -PATIENT: [facility]ENE [facility] [id number] AGE/SX: 18/F ROOM: [facility] RE05/11/18REG DR:Jhon Cuevas MD : 98 BED: A DIS: 05/15/18 STATUS: DIS IN TLOC: SPEC #: [id number] RECD: 05/11/18 STATUS: [facility] #: [id number] MATI: 05/11/18- SUBM DR: Jhon Cuevas MD ENTERED: 05/12/18-755 SP TYPE: PLACIII OTHR DR: ORDERED: LEVEL V SURGICA CODES: [id number] - PLACENTA, NOS PROCEDURES: LEVELV SURGICA (Incomplete) TISSUES: PLACENTA, NOS - PLACENTA CLINICAL HISTORY 18 year old, 37 weeks, IDDM (derik) FINAL DIAGNOSIS Placenta, estrada gestation: - late third trimester villous architecture - lozalized areas with villous edema near basal plate - umbilical cord: hypercoiled, velamentous insertion, 3-vessel, 17 cm length - placental weight: actual 491 gm/expected mean weight 478 gm Tissue code: 1 CPT Code: 84128 anabelle/derik 05/17/18 @ 1255 GROSS DESCRIPTION The [...] Specimen Inquiry RUN USER: INTERFACE SPEC #: [id number] PATIENT: JULIA KEENE #[id number] (Continued) GROSS DESCRIPTION (Continued) The trimmed placental weight: 491 gm Disk measurement: 19 x 17 x 3.2 cm in greatest dimension Accessory lobes: None Maternal surface: Lobulated and intact Parenchyma: Red, beefy, and spongy Parenchyma lesions: None Cassettes: A through D sally/derik 05/12/18 @ 1048 MICROSCOPIC DESCRIPTION Villous architecture is late third trimester. A few areas of villous edema are present near the basal plate. anabelle/kr 05/17/18 @ 1255 Signed Jewel Salmeron 05/17/18 1307 END OF REPORT
[2023-02-22] MEDS ORDERED: NA CHLORIDE 0.9% 1,000 ML ONE ×3 (13:52→18:44)
[2023-02-22 14:26] LABS: Absolute Lymphocytes (CBC) 0.9 K/uL (0.7-4.9); Hematocrit 36.9 % (36.0-45.0); Lymphocytes % 9.5 % (15.3-44.8); MCV 93.8 fL (80-100); MPV 6.8 fL (7.6-11.3); RBC Red Blood Cell Count 3.93 M/uL (3.86-4.86)
[2023-02-22 14:30] LABS: Protime INR 1.02
[2023-02-22 14:36] LABS: Albumin 3.3 g/dL (3.4-5.0); Bilirubin Total 0.8 mg/dL (0.2-1.0); Potassium 3.9 mEq/L (3.5-5.1); Protein, Total 8.2 g/dL (6.4-8.2)
[2023-02-22] MEDS ORDERED: FAMOTIDINE 20 MG/2 ML VIAL IV ONE (14:38)
[2023-02-22] MEDS ORDERED: KETOROLAC 30 MG/ML INJ ONE (14:38)
[2023-02-22] MEDS ORDERED: ONDANSETRON 4 MG/2 ML VIAL ONE (14:38)
--- NOTE | 2023-02-22 14:50 | RAD REPORT ---
EXAM DESCRIPTION: RADChest Single View02/22/2023 2:17 pm CLINICAL HISTORY: CHEST PAIN COMPARISON: Chest Single View dated 05/16/2021; Chest Single View dated 01/29/2021; Chest Single View dated 05/10/2020; Chest Single View dated 01/08/2020Chest Single View dated 05/16/2021; Chest Single Vie w dated 01/29/2021; Chest Single View dated 05/10/2020; Chest Single View dated 01/08/2020 TECHNIQUE: Portable AP view of the chest. FINDINGS: The lungs are clear. No pneumothorax or effusion. The cardiomediastinal contours are unre markable. IMPRESSION: No acute cardiopulmonary process.
[2023-02-22] MEDS ORDERED: ACETAMINOPHEN 500 MG TAB ONE (15:35)
[2023-02-22 15:53] LABS: Specific Gravity 1.017 (1.005-1.030); Urine Bacteria None Seen /HPF (<20); Urine Bilirubin NEGATIVE (Negative); Urine Blood 2+ (Negative); Urine Clarity Clear (Clear); Urine Color Light-Yellow (Yellow); Urine Glucose 4+ (Over) (Negative); Urine Mucus Slight /HPF (None Seen); Urine Protein 1+ (Negative); Urine Urobilinogen Normal (Normal)
[2023-02-22 16:25] LABS: SARS-CoV-2 Antigen Rapid Res Negative (Negative)
--- NOTE | 2023-02-22 18:04 | RAD REPORT ---
EXAM DESCRIPTION: CT - Abdomen Pelvis W Contrast - 02/22/2023 5:23 pm CLINICAL HISTORY: ABD PAIN COMPARISON: Abdomen Pelvis W Contrast dated 05/16/2021 TECHNIQUE: Thin cut axial CT imaging of the abdomen and pelvis was performed following intravenous a dministration of 95 mL Isovue 300. Multiplanar reformats were generated and reviewed. All CT scans are performed using dose optimization technique as appropriate and may include automated exposure control or mA/KV adjustment according to patient size. FINDINGS: No suspicious findings in the lung bases. The liver is diffusely enlarged, measuring 24.5 centimeter in long axis. Diffuse periportal edema. Ga llbladder is decompressed limiting evaluation, although there is mild pericholecystic fluid and fat s tranding. Spleen, adrenal glands, and pancreas show no suspicious findings. No evidence of intra or e xtrahepatic biliary ductal dilation. Focal cortical hypoenhancement with adjacent inflammatory fat stranding at the right lower renal pole . There may be ill-defined fluid in that region as well. No hydroureteronephrosis, radiopaque calculi , or suspicious renal mass. No dilated bowel loops or bowel wall thickening. No free air, free fluid or inflammatory stranding. N o hernia, mass or bulky lymphadenopathy. The urinary bladder is without significant finding. No suspicious bony findings. IMPRESSION: Focal cortical hypoenhancement with adjacent inflammatory fat stranding at the right low er renal pole, concerning for focal pyelonephritis. No evidence of obstruction. Hepatomegaly and diffuse periportal edema, as well as mild pericholecystic fluid or fat stranding. Fi ndings raise concern for hepatitis. Please correlate clinically. The findings were communicated to Samantha Casas on 02/22/2023 at 17:58 hours.
[2023-02-22] MEDS ORDERED: CEFTRIAXONE 1000 MG/VIAL ONE (18:44)
[2023-02-22] MEDS ORDERED: NA CHLORIDE 0.9% 50 ML ONE (18:45)
--- NOTE | 2023-02-22 18:55 | RAD REPORT ---
EXAM DESCRIPTION: US - Abdomen Exam Limited - 02/22/2023 6:33 pm CLINICAL HISTORY: ABD PAIN COMPARISON: Abdomen Pelvis W Contrast dated 02/22/2023 TECHNIQUE: Sonographic grayscale and color flow images of the right upper abdominal quadrant were obtained. FINDINGS: The gallbladder is partially contracted which limits evaluation, demonstrating mild wall p rominence, still within normal limits. No gallstones. No pericholecystic fluid. The common bile duct is normal measuring 5 mm. The liver demonstrates no findings of intrahepatic biliary dilatation. Scattered mild periportal hype r echogenicities. IMPRESSION: Partially contracted gallbladder limiting evaluation with no discrete gallbladder abnorm alities. Scattered mild periportal hyperechogenicities. Please correlate with laboratory liver profile.
--- NOTE | 2023-02-22 19:01 | ER ---
Nurse's Notes [facility] Name: Yashira Peters Age: 23 yrs Sex: Female : 2000 Arrival Date: 02/22/2023 Time: 13:17 Bed 7 Private MD: Diagnosis: Type 1 diabetes mellitus with hyperglycemia;Pyelonephritis acute Presentation: 02/22 13:25 Chief complaint: Patient states: she had ketones this morning after she tested with ap3 ketones strip. patient states she is type one diabetic. patient reports nausea that started yesterday morning. patient reports her blood sugar has been in the 200's. Coronavirus screen: At this time, the client does not indicate any symptoms associated with coronavirus-19. Ebola Screen: No symptoms or risks identified at this time. Initial Sepsis Screen: Does the patient meet any 2 criteria? HR > 90 bpm. No. Patient's initial sepsis screen is negative. Does the patient have a suspected source of infection? No. Patient's initial sepsis screen is negative. Risk Assessment: Do you want to hurt yourself or someone else? Patient reports no desire to harm self or others. Onset of symptoms was February 21, 2023. 13:25 Method Of Arrival: Ambulatory ap3 13:25 Acuity: ASIA 3 ap3 Triage Assessment: 13:28 General: Appears in no apparent distress. Behavior is calm, cooperative. Pain: ap3 Complains of pain in abdomen Pain currently is 8 out of 10 on a pain scale. Pain began 1 day ago. Neuro: Level of Consciousness is awake, alert, obeys commands, Oriented to person, place, time, situation. Cardiovascular: Patient's skin is warm and dry. Respiratory: Airway is patent Respiratory effort is even, unlabored, Respiratory pattern is regular, symmetrical. GI: Reports nausea. 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 - Social history:: Smoking status: Reported history of juuling and/or vaping. Patient uses alcohol, occasionally. Screenin:28 [facility] ED Fall Risk Assessment (Adult) History of falling in the last 3 months, ap3 including since admission No falls in past 3 months (0 pts). Abuse screen: Denies threats or abuse. Nutritional screening: No deficits noted. Tuberculosis screening: No symptoms or risk factors identified. Assessment: 13:30 General: Appears in no apparent distress. uncomfortable, Behavior is calm, cooperative, eh3 appropriate for age. Pain: Complains of pain in abdomen. Neuro: Level of Consciousness is awake, alert, obeys commands, Oriented to person, place, time, situation. Cardiovascular: Capillary refill < 3 seconds Patient's skin is warm and dry. Respiratory: Airway is patent Respiratory effort is even, unlabored, Respiratory pattern is regular, symmetrical. GI: Abdomen is round non-distended, Reports nausea. Derm: Skin is intact, is healthy with good turgor. Musculoskeletal: Circulation, motion, and sensation intact. 14:30 Reassessment: Patient appears in no apparent distress at this time. Patient and/or eh3 family updated on plan of care and expected duration. Pain level reassessed. Patient is alert, oriented x 3, equal unlabored respirations, skin warm/dry/pink. 15:30 Reassessment: Patient appears in no apparent distress at this time. Patient and/or eh3 family updated on plan of care and expected duration. Pain level reassessed. Patient is alert, oriented x 3, equal unlabored respirations, skin warm/dry/pink. 16:30 Reassessment: Patient appears in no apparent distress at this time. Patient and/or eh3 family updated on plan of care and expected duration. Pain level reassessed. Patient is alert, oriented x 3, equal unlabored respirations, skin warm/dry/pink. 17:30 Reassessment: Patient appears in no apparent distress at this time. Patient and/or eh3 family updated on plan of care and expected duration. Pain level reassessed. Patient is alert, oriented x 3, equal unlabored respirations, skin warm/dry/pink. 19:19 Reassessment: Patient appears in no apparent distress at this time. Patient and/or bp family updated on plan of care and expected duration. Pain level reassessed. Patient is alert, oriented x 3, equal unlabored respirations, skin warm/dry/pink. Vital Signs: 13:25 BP 142 / 85; Pulse 122; Resp 17; Pulse Ox 100% ; Weight 63.5 kg; Height 5 ft. 3 in. ; ap3 14:30 BP 121 / 81; Pulse 107; Resp 16; Pulse Ox 100% on R/A; eh3 15:22 Temp 100.1(O); eh3 15:30 BP 125 / 78; Pulse 105; Resp 18; Pulse Ox 100% on R/A; eh3 16:30 BP 111 / 66; Pulse 98; Resp 18; Pulse Ox 98% on R/A; eh3 16:46 Temp 99.1(O); eh3 17:30 BP 104 / 54; Pulse 100; Resp 18; Pulse Ox 100% on R/A; eh3 19:19 BP 98 / 55; Pulse 101; Resp 16; Pulse Ox 98% on R/A; bp 13:25 Body Mass Index 24.80 (63.50 kg, 160.02 cm) ap3 ED Course: 13:18 Patient arrived in ED. ts1 13:23 [facility] sb4 13:23 Collin Sotelo MD is Attending Physician. sb4 13:27 Triage completed. ap3 13:29 Arm band placed on left wrist. ap3 13:30 Patient has correct armband on for positive identification. Bed in low position. Call eh3 light in reach. Side rails up X2. Adult w/ patient. Pulse ox on. NIBP on. Door closed. Noise minimized. Lights dimmed. Warm blanket given. 13:32 Arianna Jimenez, EMILIA is Primary Nurse. eh3 14:05 Inserted saline lock: 20 gauge in left antecubital area, using aseptic technique. Blood eh3 collected. 14:18 Chest Single View XRAY In Process Unspecified. EDMS 17:24 CT Abd/Pelvis - IV Contrast Only In Process Unspecified. EDMS 18:34 US Abdomen Limited: gallbladder and liver stranding In Process Unspecified. EDMS 19:01 Darryl Willett MD is Referral Physician. sb4 19:19 No provider procedures requiring assistance completed. IV discontinued, intact, bp bleeding controlled, No redness/swelling at site. Pressure dressing applied. Administered Medications: 14:05 Drug: NS 0.9% IV 1000 ml Route: IV; Rate: 1 bolus; Site: left antecubital; 3 15:09 Follow up: IV Status: Completed infusion; IV Intake: 1000ml 3 14:25 Drug: Ondansetron IVP 4 mg Route: IVP; Site: left antecubital; eh3 15:09 Follow up: Response: No adverse reaction 3 14:25 Drug: Famotidine IVP 20 mg Route: IVP; Site: left antecubital; eh3 15:09 Follow up: Response: No adverse reaction 3 14:25 Drug: Ketorolac IVP 15 mg Route: IVP; Site: left antecubital; eh3 15:09 Follow up: Response: No adverse reaction 3 15:35 Drug: Acetaminophen PO 1000 mg Route: PO; eh3 16:46 Follow up: Response: Temperature is decreased eh3 15:44 Drug: NS 0.9% IV 1000 ml Route: IV; Rate: 1 bolus; Site: left antecubital; eh3 17:50 Follow up: IV Status: Completed infusion; IV Intake: 1000ml 3 18:40 Drug: Rocephin IV 1 grams Route: IV; Rate: calculated rate; Site: left antecubital; 3 19:00 Follow up: Response: No adverse reaction; IV Status: Completed infusion; IV Intake: [id number] 18:40 Drug: NS 0.9% IV 1000 ml Route: IV; Rate: 125 ml/hr; Site: left antecubital; 3 19:58 Follow up: IV Status: Completed infusion; IV Intake: 125ml 3 Medication: 19:19 VIS not applicable for this client. bp Intake: 15:09 IV: 1000ml; Total: 1000ml. eh3 17:50 IV: 1000ml; Total: 2000ml. eh3 19:00 IV: 50ml; Total: 2050ml. eh3 19:58 IV: 125ml; Total: 2175ml. 3 Outcome: 19:00 Discharge ordered by . sb4 19:19 Discharged to home ambulatory. bp 19:19 Condition: stable 19:19 Discharge instructions given to patient, Instructed on discharge instructions, follow up and referral plans. medication usage, Demonstrated understanding of instructions, follow-up care, medications, Prescriptions given X 2. 19:21 Patient left the ED. bp Signatures: Dispatcher [employer] EDJhon Silva, RN RN Maxine Rodriguez RN RN ap3 Arianna Jimenez RN RN eh3 Samantha Casas, PAKenan PAKenan sb4 Francia Christianson PAS PAS ts1
--- NOTE | 2023-02-22 19:01 | EDPHYS ---
Physician Documentation [facility] Name: Yashira Peters Age: 23 yrs Sex: Female : 2000 Arrival Date: 02/22/2023 Time: 13:17 Bed 7 Private MD: KARINA Physician Collin Sotelo HPI: 02/22 14:42 This 23 yrs old Female presents to ER via Ambulatory with complaints of High Blood sb4 Sugar. 14:42 The patient or guardian reports hyperglycemia. sb4 14:43 Onset: The symptoms/episode began/occurred last night. Associated signs and symptoms: sb4 Pertinent positives: ketones in urine, nausea, Pertinent negatives: decreased urine output, diaphoresis, seizure activity, vomiting. Current symptoms: In the emergency department the patient's symptoms are unchanged from the initial presentation. The patient has experienced similar episodes in the past. 23 year old female with history of type 1 diabetes presents stating she has ketones in her urine. She states her blood sugar has been running in the 200s. She has been taking her usual insulin dose, that she gets OTC at [facility]. She states she recently stopped her depo provera shots. Denies any recent illnesses. No shortness of breath, fever, vomiting. Endorses nausea and abdominal pain. 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 - Social history:: Smoking status: Reported history of juuling and/or vaping. Patient uses alcohol, occasionally. ROS: 14:43 Constitutional: Negative for fever, chills, and weight loss, Eyes: Negative for injury, sb4 pain, redness, and discharge, ENT: Negative for injury, pain, and discharge, Cardiovascular: Negative for chest pain, palpitations, and edema, Respiratory: Negative for shortness of breath, cough, wheezing, and pleuritic chest pain, Back: Negative for injury and pain, MS/Extremity: Negative for injury and deformity, Skin: Negative for injury, rash, and discoloration, Neuro: Negative for headache, weakness, numbness, tingling, and seizure. 14:43 Abdomen/GI: Positive for abdominal pain, nausea, Negative for vomiting, diarrhea. 14:43 Endocrine: 14:43 All other systems are negative. Exam: 14:43 Head/Face: Normocephalic, atraumatic. Eyes: Extra-ocular motions intact. Periorbital sb4 areas with no swelling, redness, or edema. Respiratory: Lungs have equal breath sounds bilaterally, clear to auscultation and percussion. No rales, rhonchi or wheezes noted. No increased work of breathing, no retractions or nasal flaring. Abdomen/GI: Soft, non-tender, no distension. Skin: Warm, dry with normal turgor. Normal color with no rashes, no lesions, and no evidence of cellulitis. MS/ Extremity: Pulses equal, no cyanosis. Neurovascular intact. Full, normal range of motion. Neuro: Awake and alert, GCS 15, oriented to person, place, time, and situation. Cranial nerves II-XII grossly intact. Motor strength 5/5 in all extremities. Sensory grossly intact. Cerebellar exam normal. Normal gait. 14:43 Constitutional: The patient appears alert, awake, uncomfortable. 14:43 Cardiovascular: Rate: tachycardic, Rhythm: regular, Heart sounds: normal. Vital Signs: 13:25 BP 142 / 85; Pulse 122; Resp 17; Pulse Ox 100% ; Weight 63.5 kg; Height 5 ft. 3 in. ; ap3 14:30 BP 121 / 81; Pulse 107; Resp 16; Pulse Ox 100% on R/A; eh3 15:22 Temp 100.1(O); eh3 15:30 BP 125 / 78; Pulse 105; Resp 18; Pulse Ox 100% on R/A; eh3 16:30 BP 111 / 66; Pulse 98; Resp 18; Pulse Ox 98% on R/A; eh3 16:46 Temp 99.1(O); eh3 17:30 BP 104 / 54; Pulse 100; Resp 18; Pulse Ox 100% on R/A; eh3 19:19 BP 98 / 55; Pulse 101; Resp 16; Pulse Ox 98% on R/A; bp 13:25 Body Mass Index 24.80 (63.50 kg, 160.02 cm) ap3 MDM: 13:23 Patient medically screened. sb4 14:43 Differential diagnosis: Eddie's syndrome, diabetes insipidus, DKA, hyperglycemia, sb4 hypoglycemic episode, myxedema coma, thyroid storm. 16:47 ED course: Patient still with abdominal pain. No DKA. Unknown source of fever. Covid, sb4 flu, urine, CXR negative. Will obtain CTAP.. 18:59 Data reviewed: vital signs, nurses notes, lab test result(s), EKG, radiologic studies, sb4 I have discussed the patient's presentation/case with the attending Emergency Department Physician; and as a result, I will discharge patient. Consideration of Admission/Observation Escalation of care including admission/observation considered. I considered the following discharge prescriptions or medication management in the emergency department Medications were administered in the Emergency Department. See MAR. Discussion of test interpretation with radiology: I had a discussion with radiology regarding a test interpretation. CT results. Care significantly affected by the following chronic conditions: Diabetes. 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 18:59 Medication response: Zofran partially relieved the patient's nausea. 02/22 13:38 Order name: Blood Culture Adult (2) 02/22 13:38 Order name: CBC with Diff; Complete Time: 14:36 02/22 13:38 Order name: CMP; Complete Time: 14:39 02/22 13:38 Order name: Lactate w/ 2H reflex if indic.; Complete Time: 14:39 02/22 13:38 Order name: Protime (+inr); Complete Time: 14:36 02/22 13:38 Order name: Ptt, Activated; Complete Time: 14:36 02/22 13:38 Order name: Urinalysis w/ reflexes; Complete Time: 15:54 02/22 13:38 Order name: Test, Urine; Complete Time: 15:54 02/22 13:47 Order name: Glucose, Ancillary Testing; Complete Time: 14:00 EDMS 02/22 15:41 Order name: SARS-COV-2 Antigen Rapid; Complete Time: 16:27 sb4 02/22 15:41 Order name: Flu; Complete Time: 16:38 sb4 02/22 18:27 Order name: Hepatitis Panel sb4 02/22 13:38 Order name: Chest Single View XRAY; Complete Time: 14:55 sb4 02/22 16:46 Order name: CT Abd/Pelvis - IV Contrast Only; Complete Time: 18:08 sb4 02/22 18:15 Order name: US Abdomen Limited: gallbladder and liver stranding; Complete Time: 18:58 sb4 02/22 13:38 Order name: EKG; Complete Time: 13:39 sb4 02/22 13:38 Order name: Accucheck; Complete Time: 13:38 sb4 02/22 13:38 Order name: Cardiac monitoring; Complete Time: 14:35 sb4 02/22 13:38 Order name: EKG - Nurse/Tech; Complete Time: 14:35 sb4 02/22 13:38 Order name: IV Saline Lock - Large Bore; Complete Time: 14:35 sb4 02/22 13:38 Order name: Labs collected and sent; Complete Time: 14:35 sb4 02/22 13:38 Order name: O2 Per Protocol; Complete Time: 13:38 sb4 02/22 13:38 Order name: O2 Sat Monitoring; Complete Time: 13:38 sb4 02/22 13:38 Order name: Vital Signs; Complete Time: 13:38 sb4 EC:37 Rate is 118 beats/min. Rhythm is regular, Sinus tachycardia. QRS Savage is Normal. IA sb4 interval is normal at 118 msec. QRS interval is normal at 76 msec. QT interval is normal at 444 msec. Clinical impression: Normal ECG. Interpreted by me. Reviewed by me. Administered Medications: 14:05 Drug: NS 0.9% IV 1000 ml Route: IV; Rate: 1 bolus; Site: left antecubital; 3 15:09 Follow up: IV Status: Completed infusion; IV Intake: 1000ml [facility] 14:25 Drug: Ondansetron IVP 4 mg Route: IVP; Site: left antecubital; 3 15:09 Follow up: Response: No adverse reaction eh3 14:25 Drug: Famotidine IVP 20 mg Route: IVP; Site: left antecubital; eh3 15:09 Follow up: Response: No adverse reaction eh3 14:25 Drug: Ketorolac IVP 15 mg Route: IVP; Site: left antecubital; eh3 15:09 Follow up: Response: No adverse reaction eh3 15:35 Drug: Acetaminophen PO 1000 mg Route: PO; eh3 16:46 Follow up: Response: Temperature is decreased eh3 15:44 Drug: NS 0.9% IV 1000 ml Route: IV; Rate: 1 bolus; Site: left antecubital; eh3 17:50 Follow up: IV Status: Completed infusion; IV Intake: 1000ml eh3 18:40 Drug: Rocephin IV 1 grams Route: IV; Rate: calculated rate; Site: left antecubital; eh3 19:00 Follow up: Response: No adverse reaction; IV Status: Completed infusion; IV Intake: [id number] 18:40 Drug: NS 0.9% IV 1000 ml Route: IV; Rate: 125 ml/hr; Site: left antecubital; eh3 19:58 Follow up: IV Status: Completed infusion; IV Intake: 125ml eh3 Disposition Summary: 02/22/23 19:00 Discharge Ordered Location: Home sb4 Problem: an ongoing problem sb4 Symptoms: have improved sb4 Condition: Stable sb4 Diagnosis - Type 1 diabetes mellitus with hyperglycemia sb4 - Pyelonephritis acute sb4 Followup: sb4 - With: Darryl Willett MD - When: 2 - 3 days - Reason: Further diagnostic work-up Discharge Instructions: - Discharge Summary Sheet sb4 - Type 1 Diabetes Mellitus, Diagnosis, Adult sb4 - Blood Glucose Monitoring, Adult sb4 - Insulin Treatment for Diabetes Mellitus sb4 Forms: - Medication Reconciliation Form sb4 - Thank You Letter sb4 - Antibiotic Education sb4 - Prescription Opioid Use sb4 - [email or web address] sb4 Prescriptions: - Zofran 4 mg Oral Tablet - take 1 tablet by ORAL route every 12 hours As needed; 20 tablet; Refills: 0, sb4 Product Selection Permitted - Bactrim DS 800-160 mg Oral Tablet - take 1 tablet by ORAL route every 12 hours for 10 days; 20 tablet; Refills: 0, sb4 Product Selection Permitted Signatures: Dispatcher [employer] Maxine Barbosa RN RN ap3 Arianna Jimenez RN RN eh3 Samantha Casas PAKenan PAMichelleC sb4 Corrections: (The following items were deleted from the chart) 19:21 14:40 BETA HYDROXYBUTYRATE+[id number].LAB.BRZ ordered. sb4 bp
[2023-02-22 19:35] VITALS: TEMP 99.1
[2023-02-22 19:38] VITALS: BP 98/55; O2SAT 98
[2023-02-22 21:08] LABS: Hepatitis B Core IgM Nonreactive (Nonreactive); Hepatitis B surface AG Interp. Nonreactive (Nonreactive); Hepatitis C Virus Ab Nonreactive (Nonreactive)
--- NOTE | 2023-02-23 17:12 | EKG ---
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
== END 2023-02-22 19:21 | disposition home or self-care (01) ==
LOC: ER 13:17
DX: E10.65 Type 1 diabetes mellitus with hyperglycemia (principal); Z79.4 Long term (current) use of insulin; N10 Acute pyelonephritis; Z20.822 Contact with and (suspected) exposure to COVID-19; Z88.1 Allergy status to other antibiotic agents; Z88.3 Allergy status to other anti-infective agents; Z91.040 Latex allergy status; Z91.048 Other nonmedicinal substance allergy status
CPT/HCPCS: 96365; 96361; 93005; 87040 ×2; 85025; 81001; 36415; 81025; 85610; 82947; 83605; 85730; 80053; 80074; 87804 ×2; 74177; 71045; 76705; 96375; 99285; 87811; Q9967; J2405; J7030 ×3; J0696